=== PATIENT | female | born 1965 | race American Indian/Alaskan Native ===

== ENCOUNTER 2017-07-28 20:57 | Inpatient (IN) | payer OTHER ==
[2017-07-28 22:46] LABS: Hemoglobin 15.1 gm/dl (10.1-14.3); Mean Corpuscular HGB Conc 34 % (30-34); Mean Corpuscular Hemoglobin 31 pg (28-32); Mean Corpuscular Volume 90 fl (79-97); Platelet Count 594 K/mm3 (140-440); Red Blood Count 4.91 M/mm3 (3.65-5.03); Red Cell Distribution Width 13.7 % (13.2-15.2)
[2017-07-28 22:49] LABS: White Blood Count 22.4 K/mm3 (4.5-11.0)
[2017-07-28] MEDS ORDERED: NACL 0.9% 500 ML 500 ML IV ONE (22:57)
[2017-07-28 23:25] LABS: BUN/Creatinine Ratio 23; Blood Urea Nitrogen 9 mg/dL (7-17); Calcium 10.7 mg/dL (8.4-10.2); Chloride 95.4 mmol/L (98-107); Glucose 333 mg/dL (65-100); Potassium 3.9 mmol/L (3.6-5.0); Sodium 132 mmol/L (137-145)
[2017-07-28 23:29] LABS: INR 1.15 (0.87-1.13)
[2017-07-28 23:31] LABS: Anion Gap 34 mmol/L
[2017-07-28 23:54] LABS: Carbon Dioxide 7 mmol/L (22-30)
[2017-07-29] MEDS ORDERED: NACL 0.9% 1000 ML 1,000 ML IV ONE ×2 (00:13→02:01)
[2017-07-29] MEDS ORDERED: SUBLIMAZE IV ONE (00:13)
[2017-07-29] MEDS ORDERED: VANCOMYCIN VIAL IV ONE ×2 (00:14→03:37)
[2017-07-29] MEDS ORDERED: VANCOMYCIN PHARMACY TO DOSE IV SCH (01:00)
[2017-07-29] MEDS ORDERED: VANCOMYCIN 1,250 MG in NACL 0.9% 250ML 250 ML IV ONE (01:00)
[2017-07-29 01:02] LABS: Bilirubin,Urine NEG (Negative); Blood,Urine SM (Negative); Ketones,Urine 80 mg/dL (Negative); Leukocyte Esterase,Urine NEG (Negative); Mucus,Urine FEW /HPF; Nitrite,Urine NEG (Negative); Urobilinogen,Urine < 2.0 mg/dL (<2.0)
--- NOTE | 2017-07-29 02:00 | Emergency Department Report ---
ED General Adult HPI - General Chief complaint: Skin/Abscess/Foreign Body Stated complaint: UPPER BACK PAIN Time Seen by Provider: 07/29/17 00:03 Source: patient Mode of arrival: Ambulatory Limitations: No Limitations - History of Present Illness Initial comments: Patient is a 52-year-old female who presents with back pain. Patient states that she had as a "boil" on her back a couple days ago but it popped. Since then she's been having severe pain in her back 6 out 10 to an achy type of pain however it's gotten worse. It radiates throughout her back. Patient denies having any nausea or vomiting. Patient was sent home with clindamycin and however she states that her symptoms are not improving. She denies having any shortness of breath or any chest pain. - Related Data Previous Rx's Medication Instructions Recorded Last Taken Type Ferrous Sulfate [Feosol 325 MG tab] 325 mg PO BID #60 tablet 12/15/13 12/27/13 Rx HYDROcodone/APAP 5-325 [[place] 2 each PO Q6H PRN #30 tablet 12/15/13 12/24/13 Rx 5-325 mg TAB] HYDROcodone/APAP 5-325 [[place] 2 each PO Q6H PRN #30 tablet 12/30/13 Unknown Rx 5-325 mg TAB] Allergies Allergy/AdvReac Type Severity Reaction Status Date / Time Penicillins Allergy Angioedema Verified 12/21/13 10:43 ED Review of Systems ROS: Stated complaint: UPPER BACK PAIN Other details as noted in HPI Constitutional: denies: chills, fever Eyes: denies: eye pain, eye discharge, vision change ENT: denies: ear pain, throat pain Respiratory: denies: cough, shortness of breath, wheezing Cardiovascular: denies: chest pain, palpitations Endocrine: no symptoms reported Gastrointestinal: denies: abdominal pain, nausea, diarrhea Genitourinary: denies: urgency, dysuria, discharge Musculoskeletal: back pain. denies: joint swelling, arthralgia Skin: denies: rash, lesions Neurological: denies: headache, weakness, paresthesias Psychiatric: denies: anxiety, depression Hematological/Lymphatic: denies: easy bleeding, easy bruising ED Past Medical Hx - Past Medical History Hx Heart Attack/AMI: No Hx Congestive Heart Failure: No Hx Diabetes: No Hx Asthma: No Hx COPD: No Hx HIV: No Additional medical history: Anemia - Surgical History Hx Open Heart Surgery: No Hx Cholecystectomy: No Hx Appendectomy: No Hx Breast Surgery: No Additional Surgical History: Ectopic in 2001 - Social History Smoking Status: Current Every Day Smoker Substance Use Type: None - Medications Home Medications: Home Medications Medication Instructions Recorded Confirmed Last Taken Type Ferrous Sulfate [Feosol 325 MG tab] 325 mg PO BID #60 tablet 12/15/13 12/21/13 12/27/13 Rx HYDROcodone/APAP 5-325 [[place] 2 each PO Q6H PRN #30 tablet 12/15/13 12/21/13 Rx 5-325 mg TAB] HYDROcodone/APAP 5-325 [[place] 2 each PO Q6H PRN #30 tablet 12/30/13 Unknown Rx 5-325 mg TAB] ED Physical Exam - General Limitations: No Limitations General appearance: alert, in no apparent distress - Head Head exam: Present: atraumatic, normocephalic - Eye Eye exam: Present: normal appearance - ENT ENT exam: Present: mucous membranes moist - Neck Neck exam: Present: normal inspection - Respiratory Respiratory exam: Present: normal lung sounds bilaterally. Absent: respiratory distress - Cardiovascular Cardiovascular Exam: Present: normal rhythm, tachycardia. Absent: systolic murmur, diastolic murmur, rubs, gallop - GI/Abdominal GI/Abdominal exam: Present: soft, normal bowel sounds - Extremities Exam Extremities exam: Present: normal inspection - Back Exam Back exam: Present: other (oben abscess with no fluctuance and erythema ) - Neurological Exam Neurological exam: Present: alert, oriented X3 - Psychiatric Psychiatric exam: Present: normal affect, normal mood - Skin Skin exam: Present: warm, dry, intact, normal color. Absent: rash ED Course Vital Signs 07/28/17 07/29/17 22:07 01:05 Temperature 98.2 F Pulse Rate 129 H Respiratory 18 18 Rate Blood Pressure 122/75 O2 Sat by Pulse 100 Oximetry ED Medical Decision Making - Lab Data Result diagrams: 07/28/17 22:15 07/28/17 22:15 Lab Results 07/28/17 07/28/17 07/28/17 Range/Units 22:15 22:15 22:23 WBC 22.4 H (4.5-11.0) K/mm3 RBC 4.91 (3.65-5.03) M/mm3 Hgb 15.1 H (10.1-14.3) gm/dl Hct 44.0 H (30.3-42.9) % MCV 90 (79-97) fl MCH 31 (28-32) pg MCHC 34 (30-34) % RDW 13.7 (13.2-15.2) % Plt Count 594 H (140-440) K/mm3 PT 15.3 H (12.2-14.9) Sec. INR 1.15 H (0.87-1.13) VBG pH (7.320-7.420) Sodium 132 L (137-145) mmol/L Potassium 3.9 (3.6-5.0) mmol/L Chloride 95.4 L (98-107) mmol/L Carbon Dioxide 7 L* (22-30) mmol/L Anion Gap 34 mmol/L BUN 9 (7-17) mg/dL Creatinine 0.4 L (0.7-1.2) mg/dL Estimated GFR > 60 ml/min BUN/Creatinine Ratio 23 % Glucose 333 H (65-100) mg/dL Lactic Acid (0.7-2.0) mmol/L Calcium 10.7 H (8.4-10.2) mg/dL Urine Color (Yellow) Urine Turbidity (Clear) Urine pH (5.0-7.0) Ur Specific [place] (1.003-1.030) Urine Protein (Negative) mg/dL Urine Glucose (UA) (Negative) mg/dL Urine Ketones (Negative) mg/dL Urine Blood (Negative) Urine Nitrite (Negative) Urine Bilirubin (Negative) Urine Urobilinogen (<2.0) mg/dL Ur Leukocyte Esterase (Negative) Urine WBC (Auto) (0.0-6.0) /HPF Urine RBC (Auto) (0.0-6.0) /HPF U Epithel Cells (Auto) (0-13.0) /HPF Urine Mucus /HPF 07/28/17 07/28/17 07/29/17 Range/Units 22:23 22:23 00:40 WBC (4.5-11.0) K/mm3 RBC (3.65-5.03) M/mm3 Hgb (10.1-14.3) gm/dl Hct (30.3-42.9) % MCV (79-97) fl MCH (28-32) pg MCHC (30-34) % RDW (13.2-15.2) % Plt Count (140-440) K/mm3 PT (12.2-14.9) Sec. INR (0.87-1.13) VBG pH 7.284 L (7.320-7.420) Sodium (137-145) mmol/L Potassium (3.6-5.0) mmol/L Chloride (98-107) mmol/L Carbon Dioxide (22-30) mmol/L Anion Gap mmol/L BUN (7-17) mg/dL Creatinine (0.7-1.2) mg/dL Estimated GFR ml/min BUN/Creatinine Ratio % Glucose (65-100) mg/dL Lactic Acid 1.20 (0.7-2.0) mmol/L Calcium (8.4-10.2) mg/dL Urine Color Yellow (Yellow) Urine Turbidity Clear (Clear) Urine pH 5.0 (5.0-7.0) Ur Specific [place] 1.030 (1.003-1.030) Urine Protein 100 mg/dl (Negative) mg/dL Urine Glucose (UA) >=500 (Negative) mg/dL Urine Ketones 80 (Negative) mg/dL Urine Blood Sm (Negative) Urine Nitrite Neg (Negative) Urine Bilirubin Neg (Negative) Urine Urobilinogen < 2.0 (<2.0) mg/dL Ur Leukocyte Esterase Neg (Negative) Urine WBC (Auto) 1.0 (0.0-6.0) /HPF Urine RBC (Auto) 2.0 (0.0-6.0) /HPF U Epithel Cells (Auto) 1.0 (0-13.0) /HPF Urine Mucus Few /HPF 07/29/17 Range/Units 01:33 WBC (4.5-11.0) K/mm3 RBC (3.65-5.03) M/mm3 Hgb (10.1-14.3) gm/dl Hct (30.3-42.9) % MCV (79-97) fl MCH (28-32) pg MCHC (30-34) % RDW (13.2-15.2) % Plt Count (140-440) K/mm3 PT (12.2-14.9) Sec. INR (0.87-1.13) VBG pH (7.320-7.420) Sodium (137-145) mmol/L Potassium (3.6-5.0) mmol/L Chloride (98-107) mmol/L Carbon Dioxide (22-30) mmol/L Anion Gap mmol/L BUN (7-17) mg/dL Creatinine (0.7-1.2) mg/dL Estimated GFR ml/min BUN/Creatinine Ratio % Glucose (65-100) mg/dL Lactic Acid 1.50 (0.7-2.0) mmol/L Calcium (8.4-10.2) mg/dL Urine Color (Yellow) Urine Turbidity (Clear) Urine pH (5.0-7.0) Ur Specific [place] (1.003-1.030) Urine Protein (Negative) mg/dL Urine Glucose (UA) (Negative) mg/dL Urine Ketones (Negative) mg/dL Urine Blood (Negative) Urine Nitrite (Negative) Urine Bilirubin (Negative) Urine Urobilinogen (<2.0) mg/dL Ur Leukocyte Esterase (Negative) Urine WBC (Auto) (0.0-6.0) /HPF Urine RBC (Auto) (0.0-6.0) /HPF U Epithel Cells (Auto) (0-13.0) /HPF Urine Mucus /HPF - EKG Data -: EKG Interpreted by Oh - EKG Data 07/29/17 03:34 KG shows sinus tachycardia rate [address] segment elevation or T wave inversion normal axis - Radiology Data Radiology results: report reviewed, image reviewed Chest x-ray: Shows no acute cardio pulmonary disease - Medical Decision Making Chief medical diagnosis: Sepsis secondary to cellulitis Differential medical diagnosis: Pneumonia, UTI, hypoglycemia, non-STEMI I will get EKG, 30 mL per kilo bolus, IV vancomycin, blood cultures, lactic acid , CBC and CMP Patient has sepsis patient will be need to be admitted to the hospital for potentially life-threatening condition. Discussed plan with patient patient agrees the plan. Discussed with hospitalist Dr. Fletcher patient will be admitted to the hospital Critical Care Time: Yes Critical care time in (mins) excluding proc time.: 40 Critical care attestation.: If time is entered above; I have spent that time in minutes in the direct care of this critically ill patient, excluding procedure time. Critical care time spent with at patient's bedside 20 minutes Critical care time spent reviewing old patient's medical records 5 minutes Critical care time spent reviewing patient's laboratory work 5 minutes Critical care time sent with patient's family 5 minutes Critical care time spent with food consultant "hospitalist" 5 minutes ED Disposition Clinical Impression: Cellulitis Qualifiers: Site of cellulitis: trunk Site of cellulitis of trunk: back Qualified Code(s): L03.312 - Cellulitis of back [any part except buttock] Sepsis Qualifiers: Sepsis type: sepsis due to unspecified organism Qualified Code(s): A41.9 - Sepsis, unspecified organism Disposition: OP ADMIT IP TO THIS HOSP Is pt being admited?: Yes Does the pt Need Aspirin: No Condition: Stable Referrals: PRIMARY CARE, [Primary Care Provider] - 3-5 Days
--- NOTE | 2017-07-29 03:04 | XRay Report ---
FINAL REPORT PROCEDURE: XR CHEST 1V AP TECHNIQUE: Chest radiograph anteroposterior view. CPT 29380 HISTORY: possible Sepsis COMPARISON: No prior studies are available for comparison. FINDINGS: Heart: Normal. Mediastinum/Vessels: Normal. Lungs/Pleural space: Lungs are clear and expanded. There are no infiltrates, effusions or pneumothoraces.. Bony thorax: No acute osseous abnormality. Life support devices: None. There are lucencies at the lung apices and at the base of the neck which could be artifact. Possibility of subcutaneous air not excluded. This could be indirect evidence of pneumothorax or pneumomediastinum. This could also be related to infection or penetrating injury. Clinical correlation suggested. If indicated, CT of the thorax may be helpful. IMPRESSION: The heart size is normal. Lungs are clear and expanded. There are no infiltrates, effusions or pneumothoraces.. There are lucencies at the lung apices and at the base of the neck which could be artifact. Possibility of subcutaneous air not excluded. This could be indirect evidence of pneumothorax or pneumomediastinum. This could also be related to infection or penetrating injury. Clinical correlation suggested. If indicated, CT of the thorax may be helpful.
--- NOTE | 2017-07-29 03:33 | History and Physical Report ---
History of Present Illness Chief complaint: I got a sore on my back, and it hurts History of present illness: 52 YO Female with Nicotine Dependence presents to ED for evaluation. Patient states that she had as a "boil" on her back for the past 4 days which has gotten worse over the past 2 days and subsequently "popped" 2 days ago resulting in purulent drainage. Pt states that the area has gotten progressively more painful over the past 2 days. Pain is 6/10, constant, achy, radiated throughout her back, and is sensitive to the touch, and to pressure. Pt states that she was seen by her doctor, and prescribed oral antibiotics without improvement. Pt denies fever, chills, CP, Palpitation, NVD, trauma, or recent ill contacts. Pt seen and evaluated in ED and found to have evidence of sepsis, as well a back abscess with cellulitis. Pt treated with sepsis protocol. Past History Past Medical History: other (nicotine dependence) Past Surgical History: No surgical history Social history: single, smoking. denies: alcohol abuse, prescription drug abuse Family history: hypertension Medications and Allergies Allergies Allergy/AdvReac Type Severity Reaction Status Date / Time Penicillins Allergy Angioedema Verified 12/21/13 10:43 Home Medications Medication Instructions Recorded Confirmed Last Taken Type Ferrous Sulfate [Feosol 325 MG tab] 325 mg PO BID #60 tablet 12/15/13 12/21/13 12/27/13 Rx HYDROcodone/APAP 5-325 [[place] 2 each PO Q6H PRN #30 tablet 12/15/13 12/21/13 Rx 5-325 mg TAB] HYDROcodone/APAP 5-325 [[place] 2 each PO Q6H PRN #30 tablet 12/30/13 Unknown Rx 5-325 mg TAB] Active Meds: Active Medications Vancomycin HCl (Vancomycin/Ns 1 Gm/250 Ml) 1 gm in 250 mls @ 167.007 mls/hr IV Q12H GRICEL Vancomycin HCl (Vancomycin Pharmacy To Dose) 1 each IV PKCONSULT GRICEL PRN Reason: Protocol Review of Systems Constitutional: other (upper back pain), no weight loss, no weight gain, no fever, no chills Ears, nose, mouth and throat: no ear pain, no ear discharge, no tinnitis, no decreased hearing, no nose pain, no nasal congestion Breasts: no change in shape, no swelling, no mass Cardiovascular: no chest pain, no orthopnea, no palpitations, no rapid/ irregular heart beat, no edema, no syncope Respiratory: no cough, no cough with sputum, no excessive sputum, no hemoptysis , no shortness of breath Gastrointestinal: no abdominal pain, no nausea, no vomiting, no diarrhea, no constipation, no change in bowel habits, no hematemesis Genitourinary Female: no pelvic pain, no flank pain, no menorrhagia, no dysuria , no urinary frequency, no urgency Rectal: no pain, no incontinence, no bleeding Musculoskeletal: no neck stiffness, no neck pain, no shooting arm pain, no arm numbness/tingling, no low back pain, no shooting leg pain, no leg numbness/ tingling, no redness of joints Integumentary: redness, boils, other (Upper back erythema, induration, ) Neurological: no head injury, no transient paralysis, no paralysis, no weakness , no parathesias Psychiatric: no anxiety, no memory loss, no change in sleep habits, no sleep disturbances, no insomnia, no hypersomnia, no change in appetite, no change in libido Endocrine: no cold intolerance, no heat intolerance, no polyphagia, no excessive thirst, no polydipsia, no polyuria Hematologic/Lymphatic: no easy bruising, no easy bleeding Allergic/Immunologic: no urticaria, no allergic rhinitis, no wheezing Exam - Constitutional Vitals: Temp Pulse Resp BP Pulse Ox 98.2 F 129 H 18 122/75 100 07/28/17 22:07 07/28/17 22:07 07/29/17 01:05 07/28/17 22:07 07/28/17 22:07 General appearance: Present: mild distress - EENT Eyes: Present: PERRL ENT: hearing intact, clear oral mucosa - Neck Neck: Present: supple, normal ROM - Respiratory Respiratory effort: normal Respiratory: bilateral: CTA - Cardiovascular Heart Sounds: Present: S1 & S2. Absent: rub, click - Extremities Extremities: pulses symmetrical, No edema Peripheral Pulses: abnormal (capillary refill greater than 3 seconds) - Abdominal General gastrointestinal: Present: soft, non-tender, non-distended, normal bowel sounds Female genitourinary: Present: normal - Integumentary Integumentary: Present: erythema (upper back) - Musculoskeletal Musculoskeletal: gait normal, strength equal bilaterally - Psychiatric Psychiatric: appropriate mood/affect, intact judgment & insight - Neurologic Neurologic: CNII-XII intact, moves all extremities Results - Labs CBC & Chem 7: 07/28/17 22:15 07/28/17 22:15 Labs: Abnormal lab results 07/28/17 07/28/17 07/28/17 Range/Units 22:15 22:15 22:23 WBC 22.4 H (4.5-11.0) K/mm3 Hgb 15.1 H (10.1-14.3) gm/dl Hct 44.0 H (30.3-42.9) % Plt Count 594 H (140-440) K/mm3 PT 15.3 H (12.2-14.9) Sec. INR 1.15 H (0.87-1.13) VBG pH (7.320-7.420) Sodium 132 L (137-145) mmol/L Chloride 95.4 L (98-107) mmol/L Carbon Dioxide 7 L* (22-30) mmol/L Creatinine 0.4 L (0.7-1.2) mg/dL Glucose 333 H (65-100) mg/dL Calcium 10.7 H (8.4-10.2) mg/dL 07/28/17 Range/Units 22:23 WBC (4.5-11.0) K/mm3 Hgb (10.1-14.3) gm/dl Hct (30.3-42.9) % Plt Count (140-440) K/mm3 PT (12.2-14.9) Sec. INR (0.87-1.13) VBG pH 7.284 L (7.320-7.420) Sodium (137-145) mmol/L Chloride (98-107) mmol/L Carbon Dioxide (22-30) mmol/L Creatinine (0.7-1.2) mg/dL Glucose (65-100) mg/dL Calcium (8.4-10.2) mg/dL Assessment and Plan - Patient Problems (1) Sepsis Current Visit: Yes Status: Acute Qualifiers: Sepsis type: sepsis due to unspecified organism Qualified Code(s): A41.9 - Sepsis, unspecified organism Plan to address problem: IV abx, IVF resuscitation, monitor uop q shift, serial lactic acid levels, blood cultures, wound cultures, urinalysis, (2) Metabolic acidosis Current Visit: Yes Status: Acute Plan to address problem: Treat sepsis, IVF resuscitation, serial lactic acid level, Bicarbonate therapy x1, (3) Diabetes Current Visit: Yes Status: Acute Plan to address problem: AD diet, insulin, accu check (4) Back abscess Current Visit: Yes Status: Acute Plan to address problem: IV abx, wound care, CT Chest to evaluate extent of cellulitis/abscess. (5) Hyponatremia syndrome Current Visit: Yes Status: Acute Plan to address problem: IVF resuscitation, repeat bmp (6) DVT prophylaxis Current Visit: Yes Status: Acute Plan to address problem: SCD to BLE while in bed.
[2017-07-29] MEDS ORDERED: SODIUM BICARBONATE IV ONE ×2 (03:35→05:06)
[2017-07-29] MEDS ORDERED: PROVENTIL IH PRN (03:37)
[2017-07-29] MEDS ORDERED: MILK OF MAGNESIA PO PRN (03:37)
[2017-07-29] MEDS ORDERED: DULCOLAX PR PRN (03:37)
[2017-07-29] MEDS ORDERED: TYLENOL PO PRN (03:37)
[2017-07-29] MEDS ORDERED: NACL 0.9% 1000 ML IV ONE (03:37)
[2017-07-29] MEDS ORDERED: NORCO 5/325 PO PRN (03:46)
[2017-07-29] MEDS ORDERED: D50W (25GM) Vial IV PRN (03:49)
[2017-07-29] MEDS ORDERED: ZOFRAN IV ONE (04:06)
[2017-07-29] MEDS ORDERED: SODIUM BICARBONATE PEDIATRIC ONE (05:06)
[2017-07-29] MEDS ORDERED: NACL 0.9% 1000 ML 1,000 ML ONE (05:07)
--- NOTE | 2017-07-29 09:15 | Cat Scan Report ---
CT CHEST WITH CONTRAST: HISTORY: Back abscess. COMPARISON: none. TECHNIQUE: Helical CT in 1.25mm intervals following IV contrast. Sagittal and coronal reformatted images. FINDINGS: Thyroid gland: Normal. Tracheobronchial tree: Normal. Esophagus: Normal. Heart: Normal. Pericardium: Normal. Mediastinum: Normal. Lung [place]: Normal. Pleural Spaces: Normal. Musculoskeletal: A subcutaneous fluid collection consistent with abscess measuring up to 3 cm in diameter is identified in the upper back at the level of T1. There is a large amount of surrounding subcutaneous gas. The bony structures are intact. No obvious findings of osteomyelitis. IMPRESSION: 3 cm abscess with surrounding gas in the upper back as described. Otherwise, unremarkable CT chest with contrast.
--- NOTE | 2017-07-29 09:48 | Event Note ---
Date: 07/29/17 Patient with abscess on back. I have seen and examined her. Consult Dr. Villaseñor. Keep NPO. Will transfer to ICU
[2017-07-29] MEDS: PEPCID PO SCH (10:14)
[2017-07-29] MEDS: FEOSOL PO SCH (10:14)
[2017-07-29] MEDS: NOVOLOG SUB-Q SCH ×2 (10:19→12:49)
[2017-07-29 10:20] LABS: BUN/Creatinine Ratio 25; Blood Urea Nitrogen 10 mg/dL (7-17); Calcium 9.2 mg/dL (8.4-10.2); Chloride 109.4 mmol/L (98-107); Glucose 319 mg/dL (65-100); Potassium 3.6 mmol/L (3.6-5.0); Sodium 143 mmol/L (137-145)
[2017-07-29 10:34] LABS: Anion Gap 32 mmol/L
[2017-07-29] MEDS ORDERED: D50W (25GM) Syringe IV PRN (10:48)
[2017-07-29] MEDS ORDERED: NACL 0.9% 1000 ML 1,000 ML IV SCH (11:00)
--- NOTE | 2017-07-29 11:15 | Progress Note ---
Assessment and Plan (Full consult dictated) 52 y/o undiagnosed diabetic female. c/o upper back pain. PE - Upper back abscess. pt just ate. will schedule for I&D in am heating pad tid antibiotics glucose control History of Present Illness Chief complaint: I got a sore on my back, and it hurts History of present illness: 52 YO Female with Nicotine Dependence presents to ED for evaluation. Patient states that she had as a "boil" on her back for the past 4 days which has gotten worse over the past 2 days and subsequently "popped" 2 days ago resulting in purulent drainage. Pt states that the area has gotten progressively more painful over the past 2 days. Pain is 6/10, constant, achy, radiated throughout her back, and is sensitive to the touch, and to pressure. Pt states that she was seen by her doctor, and prescribed oral antibiotics without improvement. Pt denies fever, chills, CP, Palpitation, NVD, trauma, or recent ill contacts. Pt seen and evaluated in ED and found to have evidence of sepsis, as well a back abscess with cellulitis. Pt treated with sepsis protocol. Past History Past Medical History: other (nicotine dependence) Past Surgical History: No surgical history Social history: single, smoking. denies: alcohol abuse, prescription drug abuse Family history: hypertension Selected Entries 07/29/17 07:55 Temperature 98.8 F Pulse Rate 110 H Respiratory 20 Rate Blood Pressure 120/61 Laboratory Tests 07/28/17 07/28/17 07/29/17 22:15 22:23 09:44 WBC 22.4 H Hgb 15.1 H Hct 44.0 H PT 15.3 H INR 1.15 H Sodium 143 D Potassium 3.6 Chloride 109.4 H Carbon Dioxide 5 L* Anion Gap 32 BUN 10 Creatinine 0.4 L Laboratory Tests 07/29/17 07/29/17 07/29/17 03:37 07:51 09:44 Glucose 319 H POC Glucose 280 H Hemoglobin A1c 13.2 H Objective Vital Signs - 12hr 07/29/17 07/29/17 07/29/17 00:36 00:45 01:00 Temperature Pulse Rate 117 H 116 H 112 H Respiratory 24 26 H 14 Rate Blood Pressure 129/70 O2 Sat by Pulse 99 100 100 Oximetry 07/29/17 07/29/17 07/29/17 01:05 01:15 01:30 Temperature Pulse Rate 111 H Respiratory 18 16 20 Rate Blood Pressure 129/70 O2 Sat by Pulse 100 100 Oximetry 07/29/17 07/29/17 07/29/17 01:31 01:45 02:00 Temperature Pulse Rate 110 H 107 H 107 H Respiratory 14 21 18 Rate Blood Pressure 129/70 129/70 118/65 O2 Sat by Pulse 100 99 99 Oximetry 07/29/17 07/29/17 07/29/17 02:15 02:31 02:45 Temperature Pulse Rate 109 H 112 H 108 H Respiratory 21 20 20 Rate Blood Pressure 118/65 118/65 118/65 O2 Sat by Pulse 100 100 99 Oximetry 07/29/17 07/29/17 07/29/17 03:00 03:15 03:31 Temperature Pulse Rate 108 H 111 H 109 H Respiratory 26 H 22 22 Rate Blood Pressure 118/59 118/65 118/65 O2 Sat by Pulse 100 99 99 Oximetry 07/29/17 07/29/17 07/29/17 03:45 04:00 04:15 Temperature Pulse Rate 117 H 110 H 108 H Respiratory 22 22 21 Rate Blood Pressure 118/59 115/61 115/61 O2 Sat by Pulse 100 98 99 Oximetry 07/29/17 07/29/17 07/29/17 04:30 04:45 05:00 Temperature Pulse Rate 109 H 109 H 108 H Respiratory 20 23 19 Rate Blood Pressure 115/61 115/61 112/56 O2 Sat by Pulse 100 99 100 Oximetry 07/29/17 07/29/17 07/29/17 05:15 05:31 06:36 Temperature 97.8 F Pulse Rate 114 H 114 H 112 H Respiratory 15 21 18 Rate Blood Pressure 115/61 115/61 128/78 O2 Sat by Pulse 100 100 100 Oximetry 07/29/17 07:55 Temperature 98.8 F Pulse Rate 110 H Respiratory 20 Rate Blood Pressure 120/61 O2 Sat by Pulse 99 Oximetry - Labs 07/28/17 22:15 07/29/17 09:44 Diabetes panel 07/28/17 07/29/17 07/29/17 Range/Units 22:15 03:37 09:44 Sodium 132 L 143 D (137-145) mmol/L Potassium 3.9 3.6 (3.6-5.0) mmol/L Chloride 95.4 L 109.4 H (98-107) mmol/L Carbon Dioxide 7 L* 5 L* (22-30) mmol/L BUN 9 10 (7-17) mg/dL Creatinine 0.4 L 0.4 L (0.7-1.2) mg/dL Glucose 333 H 319 H (65-100) mg/dL Hemoglobin A1c 13.2 H (4-6) % Calcium 10.7 H 9.2 (8.4-10.2) mg/dL Calcium panel 07/28/17 07/29/17 Range/Units 22:15 09:44 Calcium 10.7 H 9.2 (8.4-10.2) mg/dL Pituitary panel 07/28/17 07/29/17 Range/Units 22:15 09:44 Sodium 132 L 143 D (137-145) mmol/L Potassium 3.9 3.6 (3.6-5.0) mmol/L Chloride 95.4 L 109.4 H (98-107) mmol/L Carbon Dioxide 7 L* 5 L* (22-30) mmol/L BUN 9 10 (7-17) mg/dL Creatinine 0.4 L 0.4 L (0.7-1.2) mg/dL Glucose 333 H 319 H (65-100) mg/dL Calcium 10.7 H 9.2 (8.4-10.2) mg/dL Adrenal panel 07/28/17 07/29/17 Range/Units 22:15 09:44 Sodium 132 L 143 D (137-145) mmol/L Potassium 3.9 3.6 (3.6-5.0) mmol/L Chloride 95.4 L 109.4 H (98-107) mmol/L Carbon Dioxide 7 L* 5 L* (22-30) mmol/L BUN 9 10 (7-17) mg/dL Creatinine 0.4 L 0.4 L (0.7-1.2) mg/dL Glucose 333 H 319 H (65-100) mg/dL Calcium 10.7 H 9.2 (8.4-10.2) mg/dL
[2017-07-29] MEDS ORDERED: NovoLIN R 100 UNITS in NACL 0.9% 99 ML IV SCH (12:00)
[2017-07-29 12:45] LABS: BUN/Creatinine Ratio 30; Blood Urea Nitrogen 9 mg/dL (7-17); Calcium 9.3 mg/dL (8.4-10.2); Chloride 106.9 mmol/L (98-107); Glucose 336 mg/dL (65-100); Magnesium 1.7 mg/dL (1.7-2.3); Phosphorous 1.3 mg/dL (2.5-4.5); Potassium 4.1 mmol/L (3.6-5.0); Sodium 139 mmol/L (137-145)
[2017-07-29] MEDS: VANCOMYCIN/NS 1 GM/250 ML 1 GM/250 ML BAG IV SCH (12:49)
[2017-07-29 13:03] LABS: Anion Gap 27 mmol/L; Carbon Dioxide 9 mmol/L (22-30)
[2017-07-29] MEDS ORDERED: SODIUM PHOSPHATE 45 MMOL in NACL 0.9% 500 ML 500 ML IV ONE (13:04)
[2017-07-29] MEDS ORDERED: KPHOS 45 MMOL in NACL 0.9% 500 ML 500 ML IV ONE (13:15)
[2017-07-29 15:56] LABS: Anion Gap 21 mmol/L; BUN/Creatinine Ratio 30; Blood Urea Nitrogen 9 mg/dL (7-17); Calcium 9.3 mg/dL (8.4-10.2); Carbon Dioxide 11 mmol/L (22-30); Chloride 112.9 mmol/L (98-107); Glucose 233 mg/dL (65-100); Potassium 3.3 mmol/L (3.6-5.0); Sodium 142 mmol/L (137-145)
[2017-07-29 17:38] LABS: Anion Gap 21 mmol/L; BUN/Creatinine Ratio 30; Blood Urea Nitrogen 9 mg/dL (7-17); Calcium 9.3 mg/dL (8.4-10.2); Carbon Dioxide 10 mmol/L (22-30); Chloride 112.9 mmol/L (98-107); Glucose 158 mg/dL (65-100); Potassium 3.2 mmol/L (3.6-5.0); Sodium 141 mmol/L (137-145)
[2017-07-29] MEDS: D5W/0.45% NACL/KCL 20 MEQ 20 MEQ/1,000 ML BAG IV SCH (17:49)
[2017-07-29] MEDS: MORPHINE IV PRN (18:33)
[2017-07-29 19:56] LABS: Anion Gap 21 mmol/L; BUN/Creatinine Ratio 27; Blood Urea Nitrogen 8 mg/dL (7-17); Calcium 9.1 mg/dL (8.4-10.2); Carbon Dioxide 12 mmol/L (22-30); Chloride 114.3 mmol/L (98-107); Glucose 167 mg/dL (65-100); Potassium 3.9 mmol/L (3.6-5.0); Sodium 143 mmol/L (137-145)
[2017-07-30] MEDS: PEPCID PO SCH ×3 (00:36→22:36)
[2017-07-30] MEDS: FEOSOL PO SCH ×3 (00:36→22:35)
[2017-07-30] MEDS: VANCOMYCIN/NS 1 GM/250 ML 1 GM/250 ML BAG IV SCH ×2 (00:36→14:07)
--- NOTE | 2017-07-30 00:50 | Consultation ---
REASON FOR CONSULTATION: Rule out upper back abscess. HISTORY OF PRESENT ILLNESS: The patient is a pleasant 52-year-old undiagnosed diabetic female who presented to the Emergency Room with complaints of upper back pain. She states that she has noted a lump in her upper back, which " and started draining a couple days ago. PAST MEDICAL HISTORY: Pertinent for what now is diabetes. PAST SURGICAL HISTORY: Status post CHEIKH. Also, it appears the patient had this " removed approximately 4-5 years ago at [place] and it has since returned and most likely got infected. ALLERGIES: ALLERGIC TO PENICILLIN, which causes her throat to close in the whole. MEDICATIONS: No medications. FAMILY HISTORY: Diabetes and hypertension. SOCIAL HISTORY: Denies any smoking or drinking. REVIEW OF SYSTEMS: Noncontributory. PHYSICAL EXAMINATION: GENERAL: At this time reveals the patient to be awake, alert, cooperative. VITAL SIGNS: Show her to be afebrile with a temperature of 98.8, blood pressure 120/61, pulse of 110, respirations 20. ABDOMEN: Examination of the upper back reveals an indurated erythematous nodule consistent with an infected sebaceous cyst. LABORATORY DATA: Lab work at present includes a CBC which shows a white count of 22.4, H and H is 15 and 44. Electrolytes are essentially within normal limits. CO2 is very low at 5. Glucose is 319 down from 333 on previous drawing. A1c is 13.2. IMPRESSION: At this time is that of a 52-year-old diabetic female with infected sebaceous cyst. Plans are to proceed with I and D of upper back abscess. The patient has just eaten, thus we will need to schedule for tomorrow morning. In the meantime, also we will begin a heating pad t.i.d. over the infected area and also IV antibiotics. JOB# [id number] FP/NTS
[2017-07-30] MEDS: D5W/0.45% NACL/KCL 20 MEQ 20 MEQ/1,000 ML BAG IV SCH (03:17)
[2017-07-30 06:01] LABS: Anion Gap 19 mmol/L; BUN/Creatinine Ratio 25; Blood Urea Nitrogen 5 mg/dL (7-17); Calcium 9.3 mg/dL (8.4-10.2); Carbon Dioxide 15 mmol/L (22-30); Chloride 109.3 mmol/L (98-107); Glucose 138 mg/dL (65-100); Potassium 3.4 mmol/L (3.6-5.0); Sodium 140 mmol/L (137-145)
[2017-07-30 06:02] LABS: Magnesium 1.5 mg/dL (1.7-2.3); Phosphorous 1.8 mg/dL (2.5-4.5)
[2017-07-30] MEDS ORDERED: MAGNESIUM SULFATE 4GM/100ML 4 GM/100 ML BAG IV ONE (07:58)
--- NOTE | 2017-07-30 08:44 | Progress Note ---
Assessment and Plan Assessment and plan: Diabetic ketoacidosis. Transferred to ICU. Continue Insulin drip. Possible transfer out of ICU today. Abscess on back. For I and D today. I discussed Hyponatremia. Improved Hypophosphatemia. Replace iv and recheck Hypomagnesemia. Replace iv and recheck DVT prophylaxis. SCDs only because of surgery History Interval history: Abscess on back, Fever, no chest pain, no SOB Hospitalist Physical - Physical exam Narrative exam: GEN APPEARANCE : Not in acute distress HEENT: Normocephalic Atrauma NECK : supple, no JVD LUNGS: clear to auscultation bilaterally, no rales, no wheeze HEART: S1 and S2 regular, tachycardia, no murmurs, rubs or gallop, ABD: Soft, no tenderness, no distension, normal bowel sounds EXT: No edema, no clubbing, no cyanosis NEURO: Awake,alert,oriented x 3, no facial asymmetry,no focal signs, Back: Abscess on back - Constitutional Vitals: Temp Pulse Resp BP Pulse Ox 99.6 F 128 H 25 H 148/75 100 07/30/17 04:00 07/30/17 08:00 07/30/17 08:00 07/30/17 08:00 07/30/17 08:39 General appearance: Present: mild distress Results - Labs CBC & Chem 7: 07/28/17 22:15 07/30/17 14:31 Labs: Laboratory Last Values WBC 22.4 K/mm3 (4.5-11.0) H 07/28/17 22:15 RBC 4.91 M/mm3 (3.65-5.03) 07/28/17 22:15 Hgb 15.1 gm/dl (10.1-14.3) H 07/28/17 22:15 Hct 44.0 % (30.3-42.9) H 07/28/17 22:15 MCV 90 fl (79-97) 07/28/17 22:15 MCH 31 pg (28-32) 07/28/17 22:15 MCHC 34 % (30-34) 07/28/17 22:15 RDW 13.7 % (13.2-15.2) 07/28/17 22:15 Plt Count 594 K/mm3 (140-440) H 07/28/17 22:15 PT 15.3 Sec. (12.2-14.9) H 07/28/17 22:23 INR 1.15 (0.87-1.13) H 07/28/17 22:23 VBG pH 7.284 (7.320-7.420) L 07/28/17 22:23 Sodium 140 mmol/L (137-145) 07/30/17 05:02 Potassium 3.4 mmol/L (3.6-5.0) L 07/30/17 05:02 Chloride 109.3 mmol/L (98-107) H 07/30/17 05:02 Carbon Dioxide 15 mmol/L (22-30) L 07/30/17 05:02 Anion Gap 19 mmol/L 07/30/17 05:02 BUN 5 mg/dL (7-17) L 07/30/17 05:02 Creatinine < 0.2 mg/dL (0.7-1.2) L 07/30/17 05:02 Estimated GFR > 60 ml/min 07/30/17 05:02 BUN/Creatinine Ratio 25 % 07/30/17 05:02 Glucose 138 mg/dL (65-100) H 07/30/17 05:02 POC Glucose 146 (70-105) H 07/30/17 06:20 Hemoglobin A1c 13.2 % (4-6) H 07/29/17 03:37 Lactic Acid 1.50 mmol/L (0.7-2.0) 07/29/17 09:44 Calcium 9.3 mg/dL (8.4-10.2) 07/30/17 05:02 Phosphorus 1.80 mg/dL (2.5-4.5) L D 07/30/17 05:02 Magnesium 1.50 mg/dL (1.7-2.3) L 07/30/17 05:02 Urine Color Yellow (Yellow) 07/29/17 00:40 Urine Turbidity Clear (Clear) 07/29/17 00:40 Urine pH 5.0 (5.0-7.0) 07/29/17 00:40 Ur Specific [place] 1.030 (1.003-1.030) 07/29/17 00:40 Urine Protein 100 mg/dl mg/dL (Negative) 07/29/17 00:40 Urine Glucose (UA) >=500 mg/dL (Negative) 07/29/17 00:40 Urine Ketones 80 mg/dL (Negative) 07/29/17 00:40 Urine Blood Sm (Negative) 07/29/17 00:40 Urine Nitrite Neg (Negative) 07/29/17 00:40 Urine Bilirubin Neg (Negative) 07/29/17 00:40 Urine Urobilinogen < 2.0 mg/dL (<2.0) 07/29/17 00:40 Ur Leukocyte Esterase Neg (Negative) 07/29/17 00:40 Urine WBC (Auto) 1.0 /HPF (0.0-6.0) 07/29/17 00:40 Urine RBC (Auto) 2.0 /HPF (0.0-6.0) 07/29/17 00:40 U Epithel Cells (Auto) 1.0 /HPF (0-13.0) 07/29/17 00:40 Urine Mucus Few /HPF 07/29/17 00:40
[2017-07-30] MEDS ORDERED: KPHOS 45 MMOL in NACL 0.9% 500 ML 500 ML IV ONE (09:00)
[2017-07-30] MEDS ORDERED: NACL 0.9% 1000 ML 1,000 ML ONE ×2 (10:10→11:03)
[2017-07-30] MEDS ORDERED: PEPCID IV ONE (10:10)
[2017-07-30] MEDS ORDERED: XYLOCAINE MPF 2% ONE (10:12)
[2017-07-30] MEDS ORDERED: ZEMURON IV ONE (10:12)
[2017-07-30] MEDS ORDERED: QUELICIN ONE (10:12)
[2017-07-30] MEDS ORDERED: DIPRIVAN 10 MG/ML IV ONE ×2 (10:13→10:52)
[2017-07-30] MEDS ORDERED: DILAUDID ONE (10:23)
[2017-07-30] MEDS ORDERED: VERSED ONE (10:53)
--- NOTE | 2017-07-30 10:58 | Anesthesia Consultation ---
Anesthesia Consult and Med Hx Date of service: 07/30/17 - Airway Anesthetic Teeth Evaluation: Good, Chipped (TOP LEFT MOLAR) ROM Head & Neck: Adequate Mental/Hyoid Distance: Adequate Mallampati Class: Class II Intubation Access Assessment: Probably Good - Pulmonary Exam CTA: Yes - Cardiac Exam Cardiac Exam: RRR - Pre-Operative Health Status ASA Pre-Surgery Classification: ASA3 Proposed Anesthetic Plan: General - Pulmonary Hx Smoking: No Hx Asthma: No COPD: No Hx Pneumonia: No Hx Sleep Apnea: No - Cardiovascular System Hx Heart Attack/AMI: No - Central Nervous System Hx Psychiatric Problems: No - Endocrine Hx End Stage Renal Disease: No Hx Insulin Dependent Diabetes: Yes (dka) - Hematic Hx Anemia: No - Other Systems Hx Alcohol Use: No Hx Cancer: No - Additional Comments Anesthesia Medical History Comments: SEPSIS 2/2 ABSCESS
[2017-07-30] MEDS ORDERED: DILAUDID IV PRN (10:59)
--- NOTE | 2017-07-30 10:59 | Anesthesia Day of Surgery ---
Anesthesia Day of Surgery - Day of Surgery Patient Examined: Yes Patient H&P Reviewed: Yes Patient is NPO: Yes
[2017-07-30] MEDS ORDERED: HYDROGEN PEROXIDE ONE (11:18)
[2017-07-30] MEDS ORDERED: MARCAINE 0.5% 30 ML INFILTRATI ONE (11:27)
[2017-07-30] MEDS ORDERED: MARCAINE 0.5% INFILTRATI ONE (11:45)
[2017-07-30] MEDS ORDERED: ZOFRAN ONE (11:48)
--- NOTE | 2017-07-30 12:06 | Operative Report ---
PREOPERATIVE DIAGNOSIS: Rule out infected sebaceous cyst of upper back. POSTOPERATIVE DIAGNOSIS: Necrotizing fasciitis secondary to an infected sebaceous cyst with necrosis extending down to muscle fascia. PROCEDURES: Wide excision, debridement, and packing of infected sebaceous cyst with surrounding necrotizing fasciitis. SURGEON: Ernesto Villaseñor M.D. ANESTHESIA: General. ESTIMATED BLOOD LOSS: Minimal. DRAINS: None. COMPLICATIONS: None. DESCRIPTION OF PROCEDURE: The patient was taken to the operating room and prepped and draped in usual sterile fashion. An 11 blade was used to incise the subQ abscess in the upper back. Inspection of the area revealed extensive tissue necrosis. The entire necrotic tissue was then removed including portions of fascia, which were also necrotic. Hemostasis was then obtained with needle tip electrocautery. The area was irrigated copiously with a 50% Betadine peroxide solution and suctioned dry. Once again we checked for hemostasis and noted to be dry. The cavity was packed with a 2-inch iodoform packing. A 0.5% Marcaine was infiltrated over the skin edges for postoperative pain relief. Fluffs and pressure dressings applied. The patient tolerated the procedure well and left OR in stable condition. JOB# [id number] BOGDAN/AJ
--- NOTE | 2017-07-30 13:33 | Consultation ---
History of Present Illness Consult date: 07/30/17 Requesting physician: SARI ALVAREZ Reason for consult: other (Sepsis Syndrome; DKA) History of present illness: PULMONARY/CCM CONSULT NOTE (Full dictation # [id number]) Please see dictated notes for full details Past History Past Medical History: other (nicotine dependence) Past Surgical History: No surgical history Social history: single, smoking. denies: alcohol abuse, prescription drug abuse Family history: hypertension Medications and Allergies Allergies Allergy/AdvReac Type Severity Reaction Status Date / Time Penicillins Allergy Angioedema Verified 12/21/13 10:43 Home Medications Medication Instructions Recorded Confirmed Last Taken Type Ferrous Sulfate [Feosol 325 MG tab] 325 mg PO BID #60 tablet 12/15/13 12/21/13 12/27/13 Rx HYDROcodone/APAP 5-325 [[place] 2 each PO Q6H PRN #30 tablet 12/15/13 12/21/13 Rx 5-325 mg TAB] HYDROcodone/APAP 5-325 [[place] 2 each PO Q6H PRN #30 tablet 12/30/13 Unknown Rx 5-325 mg TAB] Active Meds: Active Medications Acetaminophen (Tylenol) 650 mg PO Q4H PRN PRN Reason: Pain MILD(1-3)/Fever >100.5/LEBRON Albuterol (Proventil) 2.5 mg IH Q4HRT PRN PRN Reason: Shortness Of Breath Bisacodyl (Dulcolax) 10 mg [place] QDAY PRN PRN Reason: Constipation unrelieved by MOM Dextrose (D50w (25gm) Syringe) 0 ml IV PRN PRN PRN Reason: Hypoglycemia Famotidine (Pepcid) 10 mg PO BID [facility] Last Admin: 07/30/17 00:36 Dose: 10 mg Ferrous Sulfate (Feosol) 325 mg PO BID [facility] Last Admin: 07/30/17 00:36 Dose: 325 mg Hydromorphone HCl (Dilaudid) 0.5 mg IV Q10MIN PRN PRN Reason: Pain , Severe (7-10) Stop: 07/30/17 18:00 Vancomycin HCl (Vancomycin/Ns 1 Gm/250 Ml) 1 gm in 250 mls @ 167.007 mls/hr IV Q12H [facility] Last Admin: 07/30/17 00:36 Dose: 167.007 mls/hr Insulin Human Regular 100 (units/ Sodium Chloride) 100 mls @ 1 mls/hr IV TITR GRICEL; 1 UNITS/HR PRN Reason: Protocol Last Titration: 07/30/17 08:00 Dose: 3 units/hr, 3 mls/hr Potassium Chloride/Dextrose/Sod Cl (D5w/0.45% Nacl/Kcl 20 Meq) 20 meq in 1,000 mls @ 125 mls/hr IV DIRECT GRIC[facility] Last Admin: 07/30/17 03:17 Dose: 125 mls/hr Potassium Phosphate 45 mmol/ (Sodium Chloride) 515 mls @ 85 mls/hr IV ONCE ONE Stop: 07/30/17 15:03 Clindamycin HCl (Cleocin 600 Mg/50 Ml) 600 mg in 50 mls @ 100 mls/hr IV Q8HR [facility] PRN Reason: Protocol Magnesium Hydroxide (Milk Of Magnesia) 30 ml PO Q4H PRN PRN Reason: Constipation Morphine Sulfate (Morphine) 2 mg IV Q4H PRN PRN Reason: Pain, Moderate (4-6) Last Admin: 07/29/17 18:33 Dose: 2 mg Ondansetron HCl (Zofran) 4 mg IV Q8H PRN PRN Reason: N/V unrelieved by Rosanna Vancomycin HCl (Vancomycin Pharmacy To Dose) 1 each IV PKCONSULT GRICEL PRN Reason: Protocol Physical Examination Vital signs: Vital Signs Temp Pulse Resp BP Pulse Ox 98.2 F 129 H 18 122/75 100 07/28/17 22:07 07/28/17 22:07 07/28/17 22:07 07/28/17 22:07 07/28/17 22:07 Results - Laboratory Findings CBC and BMP: 07/30/17 20:44 07/31/17 05:21 PT/INR, D-dimer PT 15.3 Sec. (12.2-14.9) H 07/28/17 22:23 INR 1.15 (0.87-1.13) H 07/28/17 22:23 Abnormal lab findings: Abnormal Labs 07/28/17 07/28/17 07/28/17 22:15 22:15 22:23 WBC 22.4 H Hgb 15.1 H Hct 44.0 H Plt Count 594 H PT 15.3 H INR 1.15 H VBG pH Sodium 132 L Potassium Chloride 95.4 L Carbon Dioxide 7 L* BUN Creatinine 0.4 L Glucose 333 H POC Glucose Hemoglobin A1c Calcium 10.7 H Phosphorus Magnesium 07/28/17 07/29/17 07/29/17 22:23 03:37 07:51 WBC Hgb Hct Plt Count PT INR VBG pH 7.284 L Sodium Potassium Chloride Carbon Dioxide BUN Creatinine Glucose POC Glucose 280 H Hemoglobin A1c 13.2 H Calcium Phosphorus Magnesium 07/29/17 07/29/17 07/29/17 09:44 12:17 12:17 WBC Hgb Hct Plt Count PT INR VBG pH Sodium Potassium Chloride 109.4 H Carbon Dioxide 5 L* 9 L* BUN Creatinine 0.4 L 0.3 L Glucose 319 H 336 H POC Glucose Hemoglobin A1c Calcium Phosphorus 1.30 L Magnesium 07/29/17 07/29/17 07/29/17 12:25 14:32 15:24 WBC Hgb Hct Plt Count PT INR VBG pH Sodium Potassium 3.3 L Chloride 112.9 H Carbon Dioxide 11 L BUN Creatinine 0.3 L Glucose 233 H POC Glucose 315 H 228 H Hemoglobin A1c Calcium Phosphorus Magnesium 07/29/17 07/29/17 07/29/17 16:18 16:56 17:07 WBC Hgb Hct Plt Count PT INR VBG pH Sodium Potassium 3.2 L Chloride 112.9 H Carbon Dioxide 10 L BUN Creatinine 0.3 L Glucose 158 H POC Glucose 192 H 157 H Hemoglobin A1c Calcium Phosphorus Magnesium 07/29/17 07/29/17 07/29/17 18:12 19:00 19:28 WBC Hgb Hct Plt Count PT INR VBG pH Sodium Potassium Chloride 114.3 H Carbon Dioxide 12 L BUN Creatinine 0.3 L Glucose 167 H POC Glucose 140 H 157 H Hemoglobin A1c Calcium Phosphorus Magnesium 07/29/17 07/29/17 07/29/17 20:15 21:16 22:05 WBC Hgb Hct Plt Count PT INR VBG pH Sodium Potassium Chloride Carbon Dioxide BUN Creatinine Glucose POC Glucose 187 H 193 H 166 H Hemoglobin A1c Calcium Phosphorus Magnesium 07/29/17 07/30/17 07/30/17 23:43 00:37 01:10 WBC Hgb Hct Plt Count PT INR VBG pH Sodium Potassium Chloride Carbon Dioxide BUN Creatinine Glucose POC Glucose 145 H 146 H 144 H Hemoglobin A1c Calcium Phosphorus Magnesium 07/30/17 07/30/17 07/30/17 02:03 04:13 05:02 WBC Hgb Hct Plt Count PT INR VBG pH Sodium Potassium 3.4 L Chloride 109.3 H Carbon Dioxide 15 L BUN 5 L Creatinine < 0.2 L Glucose 138 H POC Glucose 137 H 146 H Hemoglobin A1c Calcium Phosphorus Magnesium 07/30/17 07/30/17 07/30/17 05:02 05:26 06:13 WBC Hgb Hct Plt Count PT INR VBG pH Sodium Potassium Chloride Carbon Dioxide BUN Creatinine Glucose POC Glucose 150 H 141 H Hemoglobin A1c Calcium Phosphorus 1.80 L D Magnesium 1.50 L 07/30/17 07/30/17 07/30/17 06:20 08:23 12:06 WBC Hgb Hct Plt Count PT INR VBG pH Sodium Potassium Chloride Carbon Dioxide BUN Creatinine Glucose POC Glucose 146 H 180 H 251 H Hemoglobin A1c Calcium Phosphorus Magnesium
[2017-07-30] MEDS: CLEOCIN 600 MG/50 mL 600 MG/50 ML BAG IV SCH ×3 (14:08→22:45)
--- NOTE | 2017-07-30 14:45 | Post Anesthesia Evaluation ---
- Post Anesthesia Evaluation Patient Participated: Yes Airway Patent: Yes Stable Respiratory Function: Yes Nausea/Vomiting: No Temp > 96.8F: Yes Pain Manageable: Yes Adequeate Hydration: Yes Anesthesia Complications: No Block Receding Appropriately: Not Applicable Patient on Ventilator: No
[2017-07-30 15:22] LABS: BUN/Creatinine Ratio 20; Blood Urea Nitrogen 6 mg/dL (7-17); Calcium 8.7 mg/dL (8.4-10.2); Carbon Dioxide 16 mmol/L (22-30); Chloride 109.5 mmol/L (98-107); Glucose 282 mg/dL (65-100); Sodium 141 mmol/L (137-145)
[2017-07-30 15:28] LABS: Anion Gap 18 mmol/L
--- NOTE | 2017-07-30 15:36 | Consultation ---
History of Present Illness - Reason for Consult Consult date: 07/30/17 necrotizing fascitis Requesting physician: AYESHA VILLASEÑOR - History of Present Illness 52 years old female with history of diabetes, uncontrolled, admitted on 2016 due to a week history of back upper back edema, erythema and pain. Patient reports initially started as a boil, a couple of days later started draining purulence. Patient reports some subjective fever. Patient just came out of the operating room and she is somnolent. Review of system is limited. In the emergency room, initial temperature 98.2, heart rate 129, respiration 18 , blood pressure 122/75, initial white count 22. Hemoglobin 15. Creatinine is 0.4. Lactic acid 1.2. A1c 13. Urinalysis is negative. Glucose 333. CXR negative. CT of the chest showed 3 cm abscess in the upper back with surrounding gas. Microbiology: Blood cultures: 07/28 ngtd Urine cultures: Current Antimicrobials: Clinda Vancomycin Previous Antimicrobials: Past History Past Medical History: diabetes, other (nicotine dependence) Past Surgical History: No surgical history Social history: single, smoking. denies: alcohol abuse, prescription drug abuse Family history: hypertension Medications and Allergies Allergies Allergy/AdvReac Type Severity Reaction Status Date / Time Penicillins Allergy Angioedema Verified 12/21/13 10:43 Home Medications Medication Instructions Recorded Confirmed Last Taken Type Ferrous Sulfate [Feosol 325 MG tab] 325 mg PO BID #60 tablet 12/15/13 12/21/13 12/27/13 Rx HYDROcodone/APAP 5-325 [[place] 2 each PO Q6H PRN #30 tablet 12/15/13 12/21/13 Rx 5-325 mg TAB] HYDROcodone/APAP 5-325 [[place] 2 each PO Q6H PRN #30 tablet 12/30/13 Unknown Rx 5-325 mg TAB] Active Meds: Active Medications Acetaminophen (Tylenol) 650 mg PO Q4H PRN PRN Reason: Pain MILD(1-3)/Fever >100.5/LEBRON Albuterol (Proventil) 2.5 mg IH Q4HRT PRN PRN Reason: Shortness Of Breath Bisacodyl (Dulcolax) 10 mg [place] QDAY PRN PRN Reason: Constipation unrelieved by MOM Dextrose (D50w (25gm) Syringe) 0 ml IV PRN PRN PRN Reason: Hypoglycemia Famotidine (Pepcid) 10 mg PO BID [facility] Last Admin: 07/30/17 14:08 Dose: 10 mg Ferrous Sulfate (Feosol) 325 mg PO BID [facility] Last Admin: 07/30/17 14:09 Dose: 325 mg Hydromorphone HCl (Dilaudid) 0.5 mg IV Q10MIN PRN PRN Reason: Pain , Severe (7-10) Stop: 07/30/17 18:00 Vancomycin HCl (Vancomycin/Ns 1 Gm/250 Ml) 1 gm in 250 mls @ 167.007 mls/hr IV Q12H [facility] Last Admin: 07/30/17 14:07 Dose: 167.007 mls/hr Insulin Human Regular 100 (units/ Sodium Chloride) 100 mls @ 1 mls/hr IV TITR GRICEL; 1 UNITS/HR PRN Reason: Protocol Last Titration: 07/30/17 08:00 Dose: 3 units/hr, 3 mls/hr Potassium Chloride/Dextrose/Sod Cl (D5w/0.45% Nacl/Kcl 20 Meq) 20 meq in 1,000 mls @ 125 mls/hr IV DIRECT GRICEL Last Admin: 07/30/17 03:17 Dose: 125 mls/hr Clindamycin HCl (Cleocin 600 Mg/50 Ml) 600 mg in 50 mls @ 100 mls/hr IV Q8HR [facility] PRN Reason: Protocol Last Admin: 07/30/17 14:08 Dose: 100 mls/hr Magnesium Hydroxide (Milk Of Magnesia) 30 ml PO Q4H PRN PRN Reason: Constipation Morphine Sulfate (Morphine) 2 mg IV Q4H PRN PRN Reason: Pain, Moderate (4-6) Last Admin: 07/29/17 18:33 Dose: 2 mg Ondansetron HCl (Zofran) 4 mg IV Q8H PRN PRN Reason: N/V unrelieved by Rosanna Vancomycin HCl (Vancomycin Pharmacy To Dose) 1 each IV PKCONSULT GRICEL PRN Reason: Protocol Review of Systems ROS unobtainable: due to mental status Physical Examination - Physical Exam Narrative exam: General appearance: Alert in NAD, somnolent Eyes: anicteric sclerae, moist conjunctivae; no lid-lag; PERRLA HENT: Atraumatic; oropharynx limited Neck: Trachea midline; supple, no thyromegaly or lymphadenopathy Lungs: CTA. Upper back with surgical dressings CV: RRR, no murmurs Abdomen: Soft, non-tender Extremities: No peripheral edema or extremity lymphadenopathy Skin: Normal temperature, turgor and texture; no rash, ulcers or subcutaneous nodules Psych: somnolent. Neuro: somnolent. Moving all extermities Lines: No CVL / PICC - Constitutional Vitals: Vital Signs Temp Pulse Resp BP Pulse Ox 99 F 122 H 13 140/81 97 07/30/17 12:45 07/30/17 12:45 07/30/17 12:45 07/30/17 12:45 07/30/17 12:45 Temperature -Last 24 Hours Temperature 99 F Temperature 0 F Temperature 99.3 F Temperature 100.1 F Temperature 99.6 F Temperature 100.0 F Temperature 98.9 F Results - Labs CBC & Chem 7: 07/28/17 22:15 07/30/17 14:31 Labs: Abnormal lab results 07/29/17 07/29/17 07/29/17 Range/Units 14:32 15:24 16:18 Potassium 3.3 L (3.6-5.0) mmol/L Chloride 112.9 H (98-107) mmol/L Carbon Dioxide 11 L (22-30) mmol/L BUN (7-17) mg/dL Creatinine 0.3 L (0.7-1.2) mg/dL Glucose 233 H (65-100) mg/dL POC Glucose 228 H 192 H (70-105) Phosphorus (2.5-4.5) mg/dL Magnesium (1.7-2.3) mg/dL 07/29/17 07/29/17 07/29/17 Range/Units 16:56 17:07 18:12 Potassium 3.2 L (3.6-5.0) mmol/L Chloride 112.9 H (98-107) mmol/L Carbon Dioxide 10 L (22-30) mmol/L BUN (7-17) mg/dL Creatinine 0.3 L (0.7-1.2) mg/dL Glucose 158 H (65-100) mg/dL POC Glucose 157 H 140 H (70-105) Phosphorus (2.5-4.5) mg/dL Magnesium (1.7-2.3) mg/dL 07/29/17 07/29/17 07/29/17 Range/Units 19:00 19:28 20:15 Potassium (3.6-5.0) mmol/L Chloride 114.3 H (98-107) mmol/L Carbon Dioxide 12 L (22-30) mmol/L BUN (7-17) mg/dL Creatinine 0.3 L (0.7-1.2) mg/dL Glucose 167 H (65-100) mg/dL POC Glucose 157 H 187 H (70-105) Phosphorus (2.5-4.5) mg/dL Magnesium (1.7-2.3) mg/dL 07/29/17 07/29/17 07/29/17 Range/Units 21:16 22:05 23:43 Potassium (3.6-5.0) mmol/L Chloride (98-107) mmol/L Carbon Dioxide (22-30) mmol/L BUN (7-17) mg/dL Creatinine (0.7-1.2) mg/dL Glucose (65-100) mg/dL POC Glucose 193 H 166 H 145 H (70-105) Phosphorus (2.5-4.5) mg/dL Magnesium (1.7-2.3) mg/dL 07/30/17 07/30/17 07/30/17 Range/Units 00:37 01:10 02:03 Potassium (3.6-5.0) mmol/L Chloride (98-107) mmol/L Carbon Dioxide (22-30) mmol/L BUN (7-17) mg/dL Creatinine (0.7-1.2) mg/dL Glucose (65-100) mg/dL POC Glucose 146 H 144 H 137 H (70-105) Phosphorus (2.5-4.5) mg/dL Magnesium (1.7-2.3) mg/dL 07/30/17 07/30/17 07/30/17 Range/Units 04:13 05:02 05:02 Potassium 3.4 L (3.6-5.0) mmol/L Chloride 109.3 H (98-107) mmol/L Carbon Dioxide 15 L (22-30) mmol/L BUN 5 L (7-17) mg/dL Creatinine < 0.2 L (0.7-1.2) mg/dL Glucose 138 H (65-100) mg/dL POC Glucose 146 H (70-105) Phosphorus 1.80 L D (2.5-4.5) mg/dL Magnesium 1.50 L (1.7-2.3) mg/dL 07/30/17 07/30/17 07/30/17 Range/Units 05:26 06:13 06:20 Potassium (3.6-5.0) mmol/L Chloride (98-107) mmol/L Carbon Dioxide (22-30) mmol/L BUN (7-17) mg/dL Creatinine (0.7-1.2) mg/dL Glucose (65-100) mg/dL POC Glucose 150 H 141 H 146 H (70-105) Phosphorus (2.5-4.5) mg/dL Magnesium (1.7-2.3) mg/dL 07/30/17 07/30/17 07/30/17 Range/Units 08:23 12:06 14:31 Potassium (3.6-5.0) mmol/L Chloride 109.5 H (98-107) mmol/L Carbon Dioxide 16 L (22-30) mmol/L BUN 6 L (7-17) mg/dL Creatinine (0.7-1.2) mg/dL Glucose 282 H (65-100) mg/dL POC Glucose 180 H 251 H (70-105) Phosphorus (2.5-4.5) mg/dL Magnesium (1.7-2.3) mg/dL Assessment and Plan Assessment: 1) Sepsis: Present on admission, manifested by tachycardia, leukocytosis. Etiology most likely complicated skin/soft tissue infection. 2) Uper back complicated skin and soft tissue infection with an abscess and necrotizing fascitis: -S/P OR debridement 07/30 3) DM-uncontrolled 4) Penicillin allergy Plan: -follow-up blood cultures -obtain C-reactive protein (CRP) -add levaquin -continue vancomycin and clindamycin for now -follow-up deep wound cultures Thank you Dr Villaseñor for your consultation, will follow up with you. Zaina Garsia MD Infectious Diseases Specialist [facility] ([facility] M [phone] O [phone]
[2017-07-30 15:42] LABS: Potassium 2.8 mmol/L (3.6-5.0)
[2017-07-30 21:02] LABS: Hematocrit 35.8 % (30.3-42.9); Hemoglobin 12.2 gm/dl (10.1-14.3); Mean Corpuscular HGB Conc 34 % (30-34); Mean Corpuscular Hemoglobin 30 pg (28-32); Mean Corpuscular Volume 88 fl (79-97); Platelet Count 473 K/mm3 (140-440); Red Blood Count 4.08 M/mm3 (3.65-5.03); Red Cell Distribution Width 13.8 % (13.2-15.2)
[2017-07-30 21:12] LABS: White Blood Count 24.4 K/mm3 (4.5-11.0)
[2017-07-30 21:17] LABS: Anion Gap 21 mmol/L; BUN/Creatinine Ratio 25; Blood Urea Nitrogen 5 mg/dL (7-17); Calcium 8.5 mg/dL (8.4-10.2); Carbon Dioxide 18 mmol/L (22-30); Chloride 108.3 mmol/L (98-107); Glucose 239 mg/dL (65-100); Potassium 3.9 mmol/L (3.6-5.0); Sodium 143 mmol/L (137-145)
[2017-07-30] MEDS ORDERED: D50W (25GM) Vial IV PRN (22:06)
[2017-07-30] MEDS: KCL 10MEQ/100ML 10 MEQ/100 ML BAG IV SCH (22:35)
[2017-07-31] MEDS: NS/KCL 20MEQ 20 MEQ/1,000 ML BAG IV SCH ×2 (00:28→13:24)
[2017-07-31] MEDS: VANCOMYCIN/NS 1 GM/250 ML 1 GM/250 ML BAG IV SCH ×3 (01:25→22:58)
[2017-07-31] MEDS: NOVOLOG SUB-Q SCH ×4 (01:27→18:06)
[2017-07-31] MEDS: CLEOCIN 600 MG/50 mL 600 MG/50 ML BAG IV SCH ×3 (06:05→21:38)
[2017-07-31 06:09] LABS: Anion Gap 17 mmol/L; BUN/Creatinine Ratio 35; Blood Urea Nitrogen 7 mg/dL (7-17); Calcium 8.2 mg/dL (8.4-10.2); Carbon Dioxide 20 mmol/L (22-30); Chloride 109.9 mmol/L (98-107); Glucose 216 mg/dL (65-100); Potassium 3.4 mmol/L (3.6-5.0); Sodium 143 mmol/L (137-145)
[2017-07-31] MEDS: FEOSOL PO SCH ×2 (11:14→21:35)
[2017-07-31] MEDS: PEPCID PO SCH ×2 (11:14→21:35)
[2017-07-31] MEDS: SODIUM BICARBONATE PO SCH ×3 (11:15→21:35)
--- NOTE | 2017-07-31 11:18 | Progress Note ---
Assessment and Plan Pt feeling "much better" dressings dry clinically, much improved ID eval appreciated begin local wd care in am may be candidate for wd vac once granulating bed established. Selected Entries 07/31/17 07:20 Temperature 98.6 F Respiratory 16 Rate O2 Sat by Pulse 100 Oximetry Blood Pressure 116/70 Laboratory Tests 07/31/17 05:21 Sodium 143 Potassium 3.4 L Chloride 109.9 H Carbon Dioxide 20 L Anion Gap 17 BUN 7 Creatinine 0.2 L Glucose 216 H Objective Vital Signs - 12hr 07/30/17 07/31/17 07/31/17 23:59 00:00 00:06 Temperature 98.6 F 98.6 F Pulse Rate 101 H 100 H 101 H Respiratory 20 18 Rate Blood Pressure 123/78 123/78 Blood Pressure 123/78 [Left] O2 Sat by Pulse 100 100 100 Oximetry 07/31/17 07/31/17 06:01 07:20 Temperature 98.1 F 98.6 F Pulse Rate 95 H 94 H Respiratory 16 Rate Blood Pressure 110/66 116/70 Blood Pressure [Left] O2 Sat by Pulse 100 100 Oximetry - Labs 07/30/17 20:44 07/31/17 05:21 Diabetes panel 07/30/17 07/30/17 07/31/17 Range/Units 14:31 20:44 05:21 Sodium 141 143 143 (137-145) mmol/L Potassium 2.8 L* 3.9 D 3.4 L (3.6-5.0) mmol/L Chloride 109.5 H 108.3 H 109.9 H (98-107) mmol/L Carbon Dioxide 16 L 18 L 20 L (22-30) mmol/L BUN 6 L 5 L 7 (7-17) mg/dL Creatinine 0.3 L D 0.2 L 0.2 L (0.7-1.2) mg/dL Glucose 282 H 239 H 216 H (65-100) mg/dL Calcium 8.7 8.5 8.2 L (8.4-10.2) mg/dL Calcium panel 07/30/17 07/30/17 07/31/17 Range/Units 14:31 20:44 05:21 Calcium 8.7 8.5 8.2 L (8.4-10.2) mg/dL Pituitary panel 07/30/17 07/30/17 07/31/17 Range/Units 14:31 20:44 05:21 Sodium 141 143 143 (137-145) mmol/L Potassium 2.8 L* 3.9 D 3.4 L (3.6-5.0) mmol/L Chloride 109.5 H 108.3 H 109.9 H (98-107) mmol/L Carbon Dioxide 16 L 18 L 20 L (22-30) mmol/L BUN 6 L 5 L 7 (7-17) mg/dL Creatinine 0.3 L D 0.2 L 0.2 L (0.7-1.2) mg/dL Glucose 282 H 239 H 216 H (65-100) mg/dL Calcium 8.7 8.5 8.2 L (8.4-10.2) mg/dL Adrenal panel 07/30/17 07/30/17 07/31/17 Range/Units 14:31 20:44 05:21 Sodium 141 143 143 (137-145) mmol/L Potassium 2.8 L* 3.9 D 3.4 L (3.6-5.0) mmol/L Chloride 109.5 H 108.3 H 109.9 H (98-107) mmol/L Carbon Dioxide 16 L 18 L 20 L (22-30) mmol/L BUN 6 L 5 L 7 (7-17) mg/dL Creatinine 0.3 L D 0.2 L 0.2 L (0.7-1.2) mg/dL Glucose 282 H 239 H 216 H (65-100) mg/dL Calcium 8.7 8.5 8.2 L (8.4-10.2) mg/dL
[2017-07-31] MEDS: MORPHINE IV PRN (11:27)
--- NOTE | 2017-07-31 11:44 | Progress Note ---
Assessment and Plan Assessment and plan: Diabetic ketoacidosis. This is now resolved. She was on Insulin drip in ICU and transferred out of ICU yesterday. Her glucose level improving on Novolin 70/30. Diabetes mellitus type 2, Uncontrolled but improving. Now on Novolin 70/30 bid. Necrotizing fascitis of infected sebaceous cyst with necrosis down to muscle. s /p wide debridement yesterday by Dr. Villaseñor, Surgeon. ID Physician consulted. On Levaquin, Clindamycin, Vancomycin Abscess on back. For I and D today. I discussed Hyponatremia. Improved Hypophosphatemia. Replaced iv and recheck Hypomagnesemia. Replaced iv and recheck DVT prophylaxis. SCDs only because of surgery History Interval history: Abscess on back, Fever, no chest pain, no SOB Hospitalist Physical - Physical exam Narrative exam: GEN APPEARANCE : Not in acute distress HEENT: Normocephalic Atrauma NECK : supple, no JVD LUNGS: clear to auscultation bilaterally, no rales, no wheeze HEART: S1 and S2 regular, tachycardia, no murmurs, rubs or gallop, ABD: Soft, no tenderness, no distension, normal bowel sounds EXT: No edema, no clubbing, no cyanosis NEURO: Awake,alert,oriented x 3, no facial asymmetry,no focal signs, Back: Dressing over I and D site of abscess on back - Constitutional Vitals: Temp Pulse Resp BP Pulse Ox 98.6 F 94 H 16 116/70 98 07/31/17 07:20 07/31/17 07:20 07/31/17 07:20 07/31/17 07:20 07/31/17 10:00 General appearance: Present: mild distress Results - Labs CBC & Chem 7: 07/30/17 20:44 07/31/17 15:28 Labs: Laboratory Last Values WBC 24.4 K/mm3 (4.5-11.0) H 07/30/17 20:44 RBC 4.08 M/mm3 (3.65-5.03) 07/30/17 20:44 Hgb 12.2 gm/dl (10.1-14.3) 07/30/17 20:44 Hct 35.8 % (30.3-42.9) D 07/30/17 20:44 MCV 88 fl (79-97) 07/30/17 20:44 MCH 30 pg (28-32) 07/30/17 20:44 MCHC 34 % (30-34) 07/30/17 20:44 RDW 13.8 % (13.2-15.2) 07/30/17 20:44 Plt Count 473 K/mm3 (140-440) H 07/30/17 20:44 PT 15.3 Sec. (12.2-14.9) H 07/28/17 22:23 INR 1.15 (0.87-1.13) H 07/28/17 22:23 VBG pH 7.284 (7.320-7.420) L 07/28/17 22:23 Sodium 143 mmol/L (137-145) 07/31/17 05:21 Potassium 3.4 mmol/L (3.6-5.0) L 07/31/17 05:21 Chloride 109.9 mmol/L (98-107) H 07/31/17 05:21 Carbon Dioxide 20 mmol/L (22-30) L 07/31/17 05:21 Anion Gap 17 mmol/L 07/31/17 05:21 BUN 7 mg/dL (7-17) 07/31/17 05:21 Creatinine 0.2 mg/dL (0.7-1.2) L 07/31/17 05:21 Estimated GFR > 60 ml/min 07/31/17 05:21 BUN/Creatinine Ratio 35 % 07/31/17 05:21 Glucose 216 mg/dL (65-100) H 07/31/17 05:21 POC Glucose 224 (70-105) H 07/31/17 06:35 Hemoglobin A1c 13.2 % (4-6) H 07/29/17 03:37 Lactic Acid 1.50 mmol/L (0.7-2.0) 07/29/17 09:44 Calcium 8.2 mg/dL (8.4-10.2) L 07/31/17 05:21 Phosphorus 1.80 mg/dL (2.5-4.5) L D 07/30/17 05:02 Magnesium 1.50 mg/dL (1.7-2.3) L 07/30/17 05:02 C-Reactive Protein 18.60 mg/dL (0.00-1.30) H 07/30/17 14:31 Urine Color Yellow (Yellow) 07/29/17 00:40 Urine Turbidity Clear (Clear) 07/29/17 00:40 Urine pH 5.0 (5.0-7.0) 07/29/17 00:40 Ur Specific [place] 1.030 (1.003-1.030) 07/29/17 00:40 Urine Protein 100 mg/dl mg/dL (Negative) 07/29/17 00:40 Urine Glucose (UA) >=500 mg/dL (Negative) 07/29/17 00:40 Urine Ketones 80 mg/dL (Negative) 07/29/17 00:40 Urine Blood Sm (Negative) 07/29/17 00:40 Urine Nitrite Neg (Negative) 07/29/17 00:40 Urine Bilirubin Neg (Negative) 07/29/17 00:40 Urine Urobilinogen < 2.0 mg/dL (<2.0) 07/29/17 00:40 Ur Leukocyte Esterase Neg (Negative) 07/29/17 00:40 Urine WBC (Auto) 1.0 /HPF (0.0-6.0) 07/29/17 00:40 Urine RBC (Auto) 2.0 /HPF (0.0-6.0) 07/29/17 00:40 U Epithel Cells (Auto) 1.0 /HPF (0-13.0) 07/29/17 00:40 Urine Mucus Few /HPF 07/29/17 00:40 Vancomycin Trough 7.3 ug/mL (5.0-20.0) 07/30/17 23:26
--- NOTE | 2017-07-31 13:53 | Progress Note ---
Assessment and Plan Sepsis Syndrome Necrotizing Fasciitis (S/P I & D with wide debridement DKA Metabolic acidosis (Driven by DKA and sepsis) New Onset Diabetes - continue wound care per surgery and wound care team - for wound vac palcement - continue empiric AB's and follow cultures / clinically for de-escalation - adjust AB's per ID recs - continue tight glycemic control with SSI - continue prn analgesia - potassium replaced - continue other care per attending / other consultants ....re-evaluate in am & prn Subjective Date of service: 07/31/17 Principal diagnosis: Necrotizing Fasciitis; DKA; New Onset Diabetes Interval history: Patient is seen today for: Necrotizing Fasciitis; Sepsis Syndrome; DKA; New Onset Diabetes Seen and examined at bedside; 24hour events reviewed; nursing and respiratory care staff consulted; no adverse overnight events reported to me; resting peacefully in bed; feels better overall; No N/V/F/C; denies acute chest pains or increased SOB Objective Vital Signs - 12hr 07/31/17 07/31/17 07/31/17 06:01 07:20 10:00 Temperature 98.1 F 98.6 F Pulse Rate 95 H 94 H Respiratory 16 Rate Blood Pressure 110/66 116/70 O2 Sat by Pulse 100 100 98 Oximetry 07/31/17 11:28 Temperature 99.0 F Pulse Rate 92 H Respiratory 20 Rate Blood Pressure 110/57 O2 Sat by Pulse 100 Oximetry Constitutional: alert, appears uncomfortable (non respiratory) Eyes: non-icteric ENT: oropharynx moist Neck: supple, no lymphadenopathy, no JVD, other (no thyromegaly) Effort: normal Ascultation: Bilateral: clear Percussion: Bilateral: not dull Cardiovascular: regular rate and rhythm, other (no rubs / murmurs) Gastrointestinal: normoactive bowel sounds, soft, non-tender, non-distended, other (No HSM) Integumentary: other (dressing to upper back post I&D) Extremities: no cyanosis, no edema, pulses normal, no ischemia or petechiae Neurologic: normal mental status, non-focal exam, pupils equal and round, motor strength normal and Psychiatric: mood appropriate, affect normal CBC and BMP: 08/03/17 05:19 08/07/17 04:22 ABG, PT/INR, D-dimer: PT/INR, D-dimer PT 15.3 Sec. (12.2-14.9) H 07/28/17 22:23 INR 1.15 (0.87-1.13) H 07/28/17 22:23 Abnormal lab findings: Abnormal Labs 07/28/17 07/28/17 07/28/17 22:15 22:15 22:23 WBC 22.4 H Hgb 15.1 H Hct 44.0 H Plt Count 594 H PT 15.3 H INR 1.15 H VBG pH Sodium 132 L Potassium Chloride 95.4 L Carbon Dioxide 7 L* BUN Creatinine 0.4 L Glucose 333 H POC Glucose Hemoglobin A1c Calcium 10.7 H Phosphorus Magnesium C-Reactive Protein 07/28/17 07/29/17 07/29/17 22:23 03:37 07:51 WBC Hgb Hct Plt Count PT INR VBG pH 7.284 L Sodium Potassium Chloride Carbon Dioxide BUN Creatinine Glucose POC Glucose 280 H Hemoglobin A1c 13.2 H Calcium Phosphorus Magnesium C-Reactive Protein 07/29/17 07/29/17 07/29/17 09:44 12:17 12:17 WBC Hgb Hct Plt Count PT INR VBG pH Sodium Potassium Chloride 109.4 H Carbon Dioxide 5 L* 9 L* BUN Creatinine 0.4 L 0.3 L Glucose 319 H 336 H POC Glucose Hemoglobin A1c Calcium Phosphorus 1.30 L Magnesium C-Reactive Protein 07/29/17 07/29/17 07/29/17 12:25 14:32 15:24 WBC Hgb Hct Plt Count PT INR VBG pH Sodium Potassium 3.3 L Chloride 112.9 H Carbon Dioxide 11 L BUN Creatinine 0.3 L Glucose 233 H POC Glucose 315 H 228 H Hemoglobin A1c Calcium Phosphorus Magnesium C-Reactive Protein 07/29/17 07/29/17 07/29/17 16:18 16:56 17:07 WBC Hgb Hct Plt Count PT INR VBG pH Sodium Potassium 3.2 L Chloride 112.9 H Carbon Dioxide 10 L BUN Creatinine 0.3 L Glucose 158 H POC Glucose 192 H 157 H Hemoglobin A1c Calcium Phosphorus Magnesium C-Reactive Protein 07/29/17 07/29/17 07/29/17 18:12 19:00 19:28 WBC Hgb Hct Plt Count PT INR VBG pH Sodium Potassium Chloride 114.3 H Carbon Dioxide 12 L BUN Creatinine 0.3 L Glucose 167 H POC Glucose 140 H 157 H Hemoglobin A1c Calcium Phosphorus Magnesium C-Reactive Protein 07/29/17 07/29/17 07/29/17 20:15 21:16 22:05 WBC Hgb Hct Plt Count PT INR VBG pH Sodium Potassium Chloride Carbon Dioxide BUN Creatinine Glucose POC Glucose 187 H 193 H 166 H Hemoglobin A1c Calcium Phosphorus Magnesium C-Reactive Protein 07/29/17 07/30/17 07/30/17 23:43 00:37 01:10 WBC Hgb Hct Plt Count PT INR VBG pH Sodium Potassium Chloride Carbon Dioxide BUN Creatinine Glucose POC Glucose 145 H 146 H 144 H Hemoglobin A1c Calcium Phosphorus Magnesium C-Reactive Protein 07/30/17 07/30/17 07/30/17 02:03 04:13 05:02 WBC Hgb Hct Plt Count PT INR VBG pH Sodium Potassium 3.4 L Chloride 109.3 H Carbon Dioxide 15 L BUN 5 L Creatinine < 0.2 L Glucose 138 H POC Glucose 137 H 146 H Hemoglobin A1c Calcium Phosphorus Magnesium C-Reactive Protein 07/30/17 07/30/17 07/30/17 05:02 05:26 06:13 WBC Hgb Hct Plt Count PT INR VBG pH Sodium Potassium Chloride Carbon Dioxide BUN Creatinine Glucose POC Glucose 150 H 141 H Hemoglobin A1c Calcium Phosphorus 1.80 L D Magnesium 1.50 L C-Reactive Protein 07/30/17 07/30/17 07/30/17 06:20 07:08 08:23 WBC Hgb Hct Plt Count PT INR VBG pH Sodium Potassium Chloride Carbon Dioxide BUN Creatinine Glucose POC Glucose 146 H 146 H 180 H Hemoglobin A1c Calcium Phosphorus Magnesium C-Reactive Protein 07/30/17 07/30/17 07/30/17 09:26 12:06 13:49 WBC Hgb Hct Plt Count PT INR VBG pH Sodium Potassium Chloride Carbon Dioxide BUN Creatinine Glucose POC Glucose 184 H 251 H 272 H Hemoglobin A1c Calcium Phosphorus Magnesium C-Reactive Protein 07/30/17 07/30/17 07/30/17 14:31 14:31 15:07 WBC Hgb Hct Plt Count PT INR VBG pH Sodium Potassium 2.8 L* Chloride 109.5 H Carbon Dioxide 16 L BUN 6 L Creatinine 0.3 L D Glucose 282 H POC Glucose 249 H Hemoglobin A1c Calcium Phosphorus Magnesium C-Reactive Protein 18.60 H 07/30/17 07/30/17 07/31/17 20:44 20:44 00:02 WBC 24.4 H Hgb Hct Plt Count 473 H PT INR VBG pH Sodium Potassium Chloride 108.3 H Carbon Dioxide 18 L BUN 5 L Creatinine 0.2 L Glucose 239 H POC Glucose 222 H Hemoglobin A1c Calcium Phosphorus Magnesium C-Reactive Protein 07/31/17 07/31/17 07/31/17 05:21 06:35 11:35 WBC Hgb Hct Plt Count PT INR VBG pH Sodium Potassium 3.4 L Chloride 109.9 H Carbon Dioxide 20 L BUN Creatinine 0.2 L Glucose 216 H POC Glucose 224 H 191 H Hemoglobin A1c Calcium 8.2 L Phosphorus Magnesium C-Reactive Protein Chest x-ray: image reviewed Allied health notes reviewed: nursing
--- NOTE | 2017-07-31 15:07 | Progress Note ---
Assessment and Plan Assessment: 1) Sepsis: better. Etiology most likely complicated skin/soft tissue infection. CRP=18. 2) Upper back complicated skin and soft tissue infection with an abscess and necrotizing fascitis: -S/P OR debridement 07/30 -surgical wound cx +GPC in chains 3) DM-uncontrolled 4) Penicillin allergy Plan: -follow-up blood cultures -continue vancomycin, clindamycin and levaquin for now -follow-up deep wound cultures Thank you Dr Villaseñor for your consultation, will follow up with you. Zaina Garsia MD Infectious Diseases Specialist [facility] ([facility]) M [phone] O [phone] Subjective Date of service: 07/31/17 Principal diagnosis: Necrotizing Fasciitis; DKA; New Onset Diabetes Interval history: Feels better, minimal wound site pain. No fever. Microbiology: Blood cultures: 07/28 ngtd Urine cultures: Current Antimicrobials: Clinda Vancomycin Objective - Exam Narrative Exam: General appearance: Alert in NAD, somnolent Eyes: anicteric sclerae, moist conjunctivae; no lid-lag; PERRLA HENT: Atraumatic; oropharynx limited Neck: Trachea midline; supple, no thyromegaly or lymphadenopathy Lungs: CTA. Upper back with surgical dressings CV: RRR, no murmurs Abdomen: Soft, non-tender Extremities: No peripheral edema or extremity lymphadenopathy Skin: Normal temperature, turgor and texture; no rash, ulcers or subcutaneous nodules Psych: somnolent. Neuro: somnolent. Moving all extermities Lines: No CVL / PICC - Constitutional Vitals: Vital Signs Temp Pulse Resp BP Pulse Ox 99.0 F 92 H 20 110/57 100 07/31/17 11:28 07/31/17 11:28 07/31/17 11:28 07/31/17 11:28 07/31/17 11:28 Temperature -Last 24 Hours Temperature 99.0 F Temperature 98.6 F Temperature 98.1 F Temperature 98.6 F Temperature 98.6 F Temperature 99.0 F Temperature 97.9 F - Labs CBC & Chem 7: 07/30/17 20:44 07/31/17 05:21 Labs: Abnormal lab results 07/30/17 07/30/17 07/30/17 Range/Units 07:08 09:26 13:49 WBC (4.5-11.0) K/mm3 Plt Count (140-440) K/mm3 Potassium (3.6-5.0) mmol/L Chloride (98-107) mmol/L Carbon Dioxide (22-30) mmol/L BUN (7-17) mg/dL Creatinine (0.7-1.2) mg/dL Glucose (65-100) mg/dL POC Glucose 146 H 184 H 272 H (70-105) Calcium (8.4-10.2) mg/dL C-Reactive Protein (0.00-1.30) mg/dL 07/30/17 07/30/17 07/30/17 Range/Units 14:31 14:31 15:07 WBC (4.5-11.0) K/mm3 Plt Count (140-440) K/mm3 Potassium 2.8 L* (3.6-5.0) mmol/L Chloride 109.5 H (98-107) mmol/L Carbon Dioxide 16 L (22-30) mmol/L BUN 6 L (7-17) mg/dL Creatinine 0.3 L D (0.7-1.2) mg/dL Glucose 282 H (65-100) mg/dL POC Glucose 249 H (70-105) Calcium (8.4-10.2) mg/dL C-Reactive Protein 18.60 H (0.00-1.30) mg/dL 07/30/17 07/30/17 07/31/17 Range/Units 20:44 20:44 00:02 WBC 24.4 H (4.5-11.0) K/mm3 Plt Count 473 H (140-440) K/mm3 Potassium (3.6-5.0) mmol/L Chloride 108.3 H (98-107) mmol/L Carbon Dioxide 18 L (22-30) mmol/L BUN 5 L (7-17) mg/dL Creatinine 0.2 L (0.7-1.2) mg/dL Glucose 239 H (65-100) mg/dL POC Glucose 222 H (70-105) Calcium (8.4-10.2) mg/dL C-Reactive Protein (0.00-1.30) mg/dL 07/31/17 07/31/17 07/31/17 Range/Units 05:21 06:35 11:35 WBC (4.5-11.0) K/mm3 Plt Count (140-440) K/mm3 Potassium 3.4 L (3.6-5.0) mmol/L Chloride 109.9 H (98-107) mmol/L Carbon Dioxide 20 L (22-30) mmol/L BUN (7-17) mg/dL Creatinine 0.2 L (0.7-1.2) mg/dL Glucose 216 H (65-100) mg/dL POC Glucose 224 H 191 H (70-105) Calcium 8.2 L (8.4-10.2) mg/dL C-Reactive Protein (0.00-1.30) mg/dL
[2017-07-31 16:16] LABS: Anion Gap 18 mmol/L; BUN/Creatinine Ratio 30; Blood Urea Nitrogen 6 mg/dL (7-17); Calcium 7.9 mg/dL (8.4-10.2); Carbon Dioxide 21 mmol/L (22-30); Chloride 106.6 mmol/L (98-107); Glucose 209 mg/dL (65-100); Potassium 3.1 mmol/L (3.6-5.0); Sodium 142 mmol/L (137-145)
[2017-07-31] MEDS ORDERED: POTASSIUM CHLORIDE PO ONE (17:40)
[2017-07-31] MEDS: LEVAQUIN 750MG/150ML 750 MG/150 ML BAG IV SCH ×2 (18:17→18:28)
--- NOTE | 2017-07-31 19:34 | Consultation ---
PULMONARY CRITICAL CARE CONSULT This is a late dictation. CONSULTING PHYSICIAN: Dr. Fletcher, Dr. Mcneal. REASON FOR CONSULTATION: Diabetic ketoacidosis, sepsis syndrome. CHIEF COMPLAINT AND HISTORY OF PRESENT ILLNESS: The patient is a 52-year-old female with past medical history significant only for tobacco abuse who came into the ER complaining of a boil on her back for about 4 days. It had gotten worse. It popped open. There was a little purulent drainage 2 days before she came into the hospital. The pain was beginning to bother her. It was constant. It radiated throughout her back. She denied any nausea or vomiting. She had taken p.o. antibiotics without improvement. She was seen in the ER. She met the sepsis numbers and was started on a sepsis protocol, initially transferred to the medical floor; however, she was soon found to be hyperglycemic with an increased anion gap diagnosed with diabetic ketoacidosis and transferred to the ICU for IV insulin therapy. She was then taken into the OR by the surgeon for an incision and drainage procedure on the boil abscess. When she came back, I stopped by to see her, she was feeling better. She had been weaned off IV insulin therapy. She denied nausea. She denied vomiting. She denied any overt aspiration. That really is as much of the history of presentation as I have. It seems like she is essentially new onset diabetic. PAST MEDICAL HISTORY: Anemia and tobacco use disorder. PAST SURGICAL HISTORY: Had an ectopic , repaired in 2001. MEDICATIONS: She was on at the time, I stopped by to see her were reviewed, pertinent medications have included the following: PRN albuterol inhaled q. 4 hours, clindamycin 600 mg IV q. 8 hours, Pepcid 10 mg p.o. b.i.d. She was on insulin sliding scale q. 6 hours at that time, Levaquin 750 mg IV daily, morphine 2 mg IV q. 4 hours p.r.n. moderate pain, Zofran 4 mg IV q. 6 hours p.r.n. nausea and vomiting. She received a dose of vancomycin adjusted per pharmacy. ALLERGIES: PENICILLINS. Nature of this allergy is unknown. DIET: Well-built lady. Denies significant weight loss or gain in the preceding few weeks to months. FAMILY AND SOCIAL HISTORY: Lives in the community had about a 10 plus pack year tobacco smoking history. Denied alcohol or illicit drug use or abuse. REVIEW OF SYSTEMS: No loss of consciousness. No new onset seizures. No new onset focal weakness. No gross hematochezia or melena. No gross hematuria or dysuria. No chest pains, no palpitations. Complete 13 systems review of systems obtained. Pertinent positives and/or negatives as in body of history above, otherwise they are noncontributory. PHYSICAL EXAMINATION: VITAL SIGNS: At initial presentation, she was afebrile, temperature 98.2, pulse 129, respiratory rate 18, blood pressure 122/75, oxygen sats 100%. Inspired oxygen concentration was not recorded. GENERAL: Well-built female normocephalic, atraumatic, talking to me in full sentences, in no overt respiratory distress. HEAD, EYES, EARS, NOSE AND THROAT: She is anicteric. No conjunctival erythema. Oropharynx is a Mallampati #2 oropharynx. Oropharynx is moist. No gross jugular venous distention. Grossly, no palpable lymph nodes in the supraclavicular or submandibular lymph node chains. No thyromegaly. LUNGS: Auscultation of both lung simmons unremarkable. Lungs are clear bilaterally. HEART: Heart sounds 1 and 2 are heard. They were regular in rate and rhythm at the time of my evaluation. No rubs, no murmurs. ABDOMEN: Soft. Bowel sounds are positive, nontender. No palpable hepatosplenomegaly. EXTREMITIES: Without overt digital clubbing, cyanosis, no pedal edema bilaterally. Dorsalis pedis pulses were palpable. SKIN: On her skin in the back, she had a dressing over the area of the I and D. No significant bleeding or drainage around it. Otherwise, skin was of normal turgor, no rash. NEUROLOGIC: Pupils were equal, round, reactive to light and accommodation about 3 mm bilaterally. Extraocular muscle movements were intact. She moved all 4 extremities spontaneously. Her mood was appropriate. Affect was normal. LABORATORY DATA: From my review were as follows: Admission white cell count 22,400; hemoglobin 15.1; hematocrit 44.0; platelet count 594. INR was 1.15. Venous blood gas showed a pH of 7.28. Serum sodium was 132, potassium 3.9, chloride 95, bicarbonate 7, BUN 9, creatinine 0.4, glucose was 333. Lactic acid level was within normal limits. Urinalysis was unremarkable, negative for nitrites and leukocyte esterase. RADIOGRAPHIC STUDIES: Have been reviewed. A chest x-ray was done. It is rotated to the right, all the same. I will call it a normal chest x-ray without infiltrate. There appears to be something going on in the area of the base of the neck, but that is probably due to the rotation. She had a CT of the chest done and that clearly explains what was going on the chest x-ray. It looks like she has a lot of subacute air and gas in the upper back at the area of the abscess, otherwise unremarkable chest CT. No mediastinal adenopathy. ASSESSMENT AND PLAN: 1. Sepsis syndrome secondary to #2. 2. Diabetic abscess involving sebaceous cyst in the back with necrotizing fasciitis associated. 3. Diabetic ketoacidosis. 4. New onset diabetes. 5. Leukocytosis. PLAN: She is status post surgical intervention, which will be the definitive therapy and she has had extensive debridement. We will defer to Surgery for further wound care. We will continue antibiotic therapy including therapy diagnosed and directed against anaerobic bacteria. Infectious Disease consultation will be in order. We will trend her lactic acid level and treat her clinically; otherwise, she is off the IV insulin therapy now. She will still need tight glycemic control, especially in light of necrotizing fasciitis. Electrolytes were monitored and corrected as necessary. She is appropriately on GI prophylaxis, DVT prophylaxis is in the form of SCDs. Flu and pneumonia vaccination will be per protocol. Thank you very much for the consult. We will follow along and make further recommendations as picture progresses/becomes clearer. She is doing much better now. We will watch her for a few hours and she probably could return transferred to the telemetry floor a little later. JOB# [id number] CONRADO/AJ
[2017-07-31 20:03] LABS: Magnesium 1.7 mg/dL (1.7-2.3); Phosphorous 1.7 mg/dL (2.5-4.5)
[2017-08-01] MEDS: NOVOLOG SUB-Q SCH ×4 (00:30→18:04)
[2017-08-01] MEDS: KCL 10MEQ/100ML 10 MEQ/100 ML BAG IV SCH (01:59)
[2017-08-01] MEDS: CLEOCIN 600 MG/50 mL 600 MG/50 ML BAG IV SCH (05:24)
[2017-08-01] MEDS: VANCOMYCIN/NS 1 GM/250 ML 1 GM/250 ML BAG IV SCH ×3 (06:17→21:26)
[2017-08-01] MEDS: NS/KCL 20MEQ 20 MEQ/1,000 ML BAG IV SCH (06:17)
[2017-08-01 06:24] LABS: Anion Gap 16 mmol/L; BUN/Creatinine Ratio 25; Blood Urea Nitrogen 5 mg/dL (7-17); Calcium 8.1 mg/dL (8.4-10.2); Carbon Dioxide 25 mmol/L (22-30); Chloride 105.8 mmol/L (98-107); Glucose 99 mg/dL (65-100); Potassium 3.3 mmol/L (3.6-5.0); Sodium 143 mmol/L (137-145)
--- NOTE | 2017-08-01 08:08 | Progress Note ---
Assessment and Plan POD # 2 Pt feeling well without compl. BS under control Dressings clean & dry surgically stable begin local care today Selected Entries 08/01/17 05:33 Temperature 98.9 F Blood Pressure 124/79 Laboratory Tests 08/01/17 04:42 Sodium 143 Potassium 3.3 L Chloride 105.8 Carbon Dioxide 25 Anion Gap 16 BUN 5 L Creatinine < 0.2 L Glucose 99 Objective Vital Signs - 12hr 07/31/17 07/31/17 08/01/17 21:37 22:00 00:40 Temperature Pulse Rate 99 H Respiratory 20 20 Rate Blood Pressure 127/76 O2 Sat by Pulse 97 99 Oximetry 08/01/17 08/01/17 00:44 05:33 Temperature 99.3 F 98.9 F Pulse Rate 98 H Respiratory 18 Rate Blood Pressure 124/79 O2 Sat by Pulse 98 Oximetry - Labs 07/30/17 20:44 08/01/17 04:42 Diabetes panel 07/31/17 08/01/17 Range/Units 15:28 04:42 Sodium 142 143 (137-145) mmol/L Potassium 3.1 L 3.3 L (3.6-5.0) mmol/L Chloride 106.6 105.8 (98-107) mmol/L Carbon Dioxide 21 L 25 (22-30) mmol/L BUN 6 L 5 L (7-17) mg/dL Creatinine < 0.2 L < 0.2 L (0.7-1.2) mg/dL Glucose 209 H 99 (65-100) mg/dL Calcium 7.9 L 8.1 L (8.4-10.2) mg/dL Calcium panel 07/31/17 07/31/17 08/01/17 Range/Units 15:28 15:28 04:42 Calcium 7.9 L 8.1 L (8.4-10.2) mg/dL Phosphorus 1.70 L (2.5-4.5) mg/dL Pituitary panel 07/31/17 08/01/17 Range/Units 15:28 04:42 Sodium 142 143 (137-145) mmol/L Potassium 3.1 L 3.3 L (3.6-5.0) mmol/L Chloride 106.6 105.8 (98-107) mmol/L Carbon Dioxide 21 L 25 (22-30) mmol/L BUN 6 L 5 L (7-17) mg/dL Creatinine < 0.2 L < 0.2 L (0.7-1.2) mg/dL Glucose 209 H 99 (65-100) mg/dL Calcium 7.9 L 8.1 L (8.4-10.2) mg/dL Adrenal panel 07/31/17 08/01/17 Range/Units 15:28 04:42 Sodium 142 143 (137-145) mmol/L Potassium 3.1 L 3.3 L (3.6-5.0) mmol/L Chloride 106.6 105.8 (98-107) mmol/L Carbon Dioxide 21 L 25 (22-30) mmol/L BUN 6 L 5 L (7-17) mg/dL Creatinine < 0.2 L < 0.2 L (0.7-1.2) mg/dL Glucose 209 H 99 (65-100) mg/dL Calcium 7.9 L 8.1 L (8.4-10.2) mg/dL
[2017-08-01] MEDS ORDERED: KPHOS 45 MMOL in NACL 0.9% 500 ML 500 ML IV ONE (08:30)
[2017-08-01] MEDS: PEPCID PO SCH ×2 (09:26→21:26)
[2017-08-01] MEDS: FEOSOL PO SCH ×2 (09:26→21:27)
[2017-08-01] MEDS: MORPHINE IV PRN (09:26)
[2017-08-01] MEDS: SODIUM BICARBONATE PO SCH ×3 (09:26→21:26)
--- NOTE | 2017-08-01 10:55 | Progress Note ---
Assessment and Plan Assessment and plan: Diabetic ketoacidosis. This is now resolved. She was on Insulin drip in ICU and transferred out of ICU . Her glucose level improving on Novolin 70/30. Diabetes mellitus type 2, newly diagnosed this admission. Uncontrolled but improving. Now on Novolin 70/30 bid. Necrotizing fascitis of infected sebaceous cyst with necrosis down to muscle. s /p wide debridement yesterday by Dr. Villaseñor, Surgeon on 07/30. ID Physician following. On Levaquin, Clindamycin, Vancomycin Hyponatremia. Improved Hypophosphatemia. Replaced iv and recheck Hypomagnesemia. Replaced iv and recheck DVT prophylaxis. SCDs only because of surgery History Interval history: Abscess on back s/p debridement Fever, no chest pain, no SOB Hospitalist Physical - Physical exam Narrative exam: GEN APPEARANCE : Not in acute distress HEENT: Normocephalic Atrauma NECK : supple, no JVD LUNGS: clear to auscultation bilaterally, no rales, no wheeze HEART: S1 and S2 regular, tachycardia, no murmurs, rubs or gallop, ABD: Soft, no tenderness, no distension, normal bowel sounds EXT: No edema, no clubbing, no cyanosis NEURO: Awake,alert,oriented x 3, no facial asymmetry,no focal signs, Back: Dressing over surgery site of abscess on back - Constitutional Vitals: Temp Pulse Resp BP Pulse Ox 98.8 F 94 H 18 138/67 99 08/01/17 08:18 08/01/17 08:18 08/01/17 08:18 08/01/17 08:18 08/01/17 08:18 Results - Labs CBC & Chem 7: 08/03/17 05:19 08/03/17 05:19 Labs: Laboratory Last Values WBC 24.4 K/mm3 (4.5-11.0) H 07/30/17 20:44 RBC 4.08 M/mm3 (3.65-5.03) 07/30/17 20:44 Hgb 12.2 gm/dl (10.1-14.3) 07/30/17 20:44 Hct 35.8 % (30.3-42.9) D 07/30/17 20:44 MCV 88 fl (79-97) 07/30/17 20:44 MCH 30 pg (28-32) 07/30/17 20:44 MCHC 34 % (30-34) 07/30/17 20:44 RDW 13.8 % (13.2-15.2) 07/30/17 20:44 Plt Count 473 K/mm3 (140-440) H 07/30/17 20:44 PT 15.3 Sec. (12.2-14.9) H 07/28/17 22:23 INR 1.15 (0.87-1.13) H 07/28/17 22:23 VBG pH 7.284 (7.320-7.420) L 07/28/17 22:23 Sodium 143 mmol/L (137-145) 08/01/17 04:42 Potassium 3.3 mmol/L (3.6-5.0) L 08/01/17 04:42 Chloride 105.8 mmol/L (98-107) 08/01/17 04:42 Carbon Dioxide 25 mmol/L (22-30) 08/01/17 04:42 Anion Gap 16 mmol/L 08/01/17 04:42 BUN 5 mg/dL (7-17) L 08/01/17 04:42 Creatinine < 0.2 mg/dL (0.7-1.2) L 08/01/17 04:42 Estimated GFR > 60 ml/min 08/01/17 04:42 BUN/Creatinine Ratio 25 % 08/01/17 04:42 Glucose 99 mg/dL (65-100) 08/01/17 04:42 POC Glucose 127 (70-105) H 08/01/17 07:12 Hemoglobin A1c 13.2 % (4-6) H 07/29/17 03:37 Lactic Acid 1.50 mmol/L (0.7-2.0) 07/29/17 09:44 Calcium 8.1 mg/dL (8.4-10.2) L 08/01/17 04:42 Phosphorus 1.70 mg/dL (2.5-4.5) L 07/31/17 15:28 Magnesium 1.70 mg/dL (1.7-2.3) 07/31/17 15:28 C-Reactive Protein 18.60 mg/dL (0.00-1.30) H 07/30/17 14:31 Urine Color Yellow (Yellow) 07/29/17 00:40 Urine Turbidity Clear (Clear) 07/29/17 00:40 Urine pH 5.0 (5.0-7.0) 07/29/17 00:40 Ur Specific [place] 1.030 (1.003-1.030) 07/29/17 00:40 Urine Protein 100 mg/dl mg/dL (Negative) 07/29/17 00:40 Urine Glucose (UA) >=500 mg/dL (Negative) 07/29/17 00:40 Urine Ketones 80 mg/dL (Negative) 07/29/17 00:40 Urine Blood Sm (Negative) 07/29/17 00:40 Urine Nitrite Neg (Negative) 07/29/17 00:40 Urine Bilirubin Neg (Negative) 07/29/17 00:40 Urine Urobilinogen < 2.0 mg/dL (<2.0) 07/29/17 00:40 Ur Leukocyte Esterase Neg (Negative) 07/29/17 00:40 Urine WBC (Auto) 1.0 /HPF (0.0-6.0) 07/29/17 00:40 Urine RBC (Auto) 2.0 /HPF (0.0-6.0) 07/29/17 00:40 U Epithel Cells (Auto) 1.0 /HPF (0-13.0) 07/29/17 00:40 Urine Mucus Few /HPF 07/29/17 00:40 Vancomycin Trough 7.3 ug/mL (5.0-20.0) 07/30/17 23:26
--- NOTE | 2017-08-01 11:16 | Progress Note ---
Assessment and Plan Assessment: 1) Sepsis: better. Etiology most likely complicated skin/soft tissue infection. CRP=18. 2) Upper back complicated skin and soft tissue infection with an abscess and necrotizing fascitis: -S/P OR debridement 07/30 -surgical wound cx +GPC in chains 3) DM-uncontrolled A1C=13 4) Penicillin allergy Plan: -follow-up blood cultures -continue vancomycin and levaquin for now -stop clinda -follow-up deep wound cultures Thank you Dr Villaseñor for your consultation, will follow up with you. Zaina Garsia MD Infectious Diseases Specialist [facility] ([facility]) M [phone] O [phone] Subjective Date of service: 08/01/17 Principal diagnosis: Necrotizing Fasciitis; DKA; New Onset Diabetes Interval history: Feels better, minimal wound site pain. No fever. Microbiology: Blood cultures: 07/28 ngtd Urine cultures: Current Antimicrobials: Clinda 07/30 Vancomycin 07/29 levaquin 07/30 Objective - Exam Narrative Exam: General appearance: Alert in NAD, somnolent Eyes: anicteric sclerae, moist conjunctivae; no lid-lag; PERRLA HENT: Atraumatic; oropharynx limited Neck: Trachea midline; supple, no thyromegaly or lymphadenopathy Lungs: CTA. Upper back with surgical dressings CV: RRR, no murmurs Abdomen: Soft, non-tender Extremities: No peripheral edema or extremity lymphadenopathy Skin: Normal temperature, turgor and texture; no rash, ulcers or subcutaneous nodules Psych: somnolent. Neuro: somnolent. Moving all extermities Lines: No CVL / PICC - Constitutional Vitals: Vital Signs Temp Pulse Resp BP Pulse Ox 98.8 F 94 H 18 138/67 99 08/01/17 08:18 08/01/17 08:18 08/01/17 08:18 08/01/17 08:18 08/01/17 08:18 Temperature -Last 24 Hours Temperature 98.8 F Temperature 98.9 F Temperature 99.3 F Temperature 98.6 F Temperature 98.0 F Temperature 99.0 F - Labs CBC & Chem 7: 07/30/17 20:44 08/01/17 04:42 Labs: Abnormal lab results 07/31/17 07/31/17 07/31/17 Range/Units 11:35 15:28 15:28 Potassium 3.1 L (3.6-5.0) mmol/L Carbon Dioxide 21 L (22-30) mmol/L BUN 6 L (7-17) mg/dL Creatinine < 0.2 L (0.7-1.2) mg/dL Glucose 209 H (65-100) mg/dL POC Glucose 191 H (70-105) Calcium 7.9 L (8.4-10.2) mg/dL Phosphorus 1.70 L (2.5-4.5) mg/dL 07/31/17 08/01/17 08/01/17 Range/Units 17:49 04:42 07:12 Potassium 3.3 L (3.6-5.0) mmol/L Carbon Dioxide (22-30) mmol/L BUN 5 L (7-17) mg/dL Creatinine < 0.2 L (0.7-1.2) mg/dL Glucose (65-100) mg/dL POC Glucose 243 H 127 H (70-105) Calcium 8.1 L (8.4-10.2) mg/dL Phosphorus (2.5-4.5) mg/dL
[2017-08-01] MEDS: LEVAQUIN 750MG/150ML 750 MG/150 ML BAG IV SCH (16:50)
--- NOTE | 2017-08-01 20:01 | Progress Note ---
Assessment and Plan Patient sleeping at this time on room air.O2 saturation 99%. No acute respiratory distress. - Patient Problems (1) Sepsis Current Visit: Yes Status: Acute Qualifiers: Sepsis type: sepsis due to unspecified organism Qualified Code(s): A41.9 - Sepsis, unspecified organism Plan to address problem: Patient is on Levaquine and vancomycin. (2) Metabolic acidosis Current Visit: Yes Status: Acute Plan to address problem: Improved. To days Bicarb is 25. (3) Back abscess Current Visit: Yes Status: Acute Plan to address problem: Patient is on Levaquine and vancomycin. (4) Cellulitis Current Visit: Yes Status: Acute Qualifiers: Site of cellulitis: trunk Site of cellulitis of trunk: back Qualified Code(s): L03.312 - Cellulitis of back [any part except buttock] Plan to address problem: Patient is on Levaquine and vancomycin. (5) Diabetes Current Visit: Yes Status: Acute Plan to address problem: Management as per primary care. (6) Status post laparoscopic assisted vaginal hysterectomy (LAVH) Onset Date: 12/29/13 Current Visit: No Status: Acute Plan to address problem: Management as per AP[employer]S SYSTEM ANALYST. Subjective Date of service: 08/01/17 Principal diagnosis: Necrotizing Fasciitis; DKA; New Onset Diabetes Interval history: Patient sleeping at this time on room air.O2 saturation 99%. No acute respiratory distress. Objective Vital Signs - 12hr 08/01/17 08/01/17 08:18 16:50 Temperature 98.8 F Pulse Rate 94 H 104 H Respiratory 18 20 Rate Blood Pressure 138/67 Blood Pressure 118/67 [Left] O2 Sat by Pulse 99 100 Oximetry Constitutional: no acute distress, asleep Eyes: non-icteric ENT: oropharynx moist Neck: supple, no lymphadenopathy Ascultation: Bilateral: diminished breath sounds Cardiovascular: regular rate and rhythm Gastrointestinal: normoactive bowel sounds, soft, non-tender Integumentary: normal Extremities: no cyanosis, no edema Neurologic: other (Unable to assess. Patient sleeping at this time.) Psychiatric: other (Unable to assess at this time. Patient sleeping.) CBC and BMP: 07/30/17 20:44 08/01/17 20:12 ABG, PT/INR, D-dimer: PT/INR, D-dimer PT 15.3 Sec. (12.2-14.9) H 07/28/17 22:23 INR 1.15 (0.87-1.13) H 07/28/17 22:23 Abnormal lab findings: Abnormal Labs 07/28/17 07/28/17 07/28/17 22:15 22:15 22:23 WBC 22.4 H Hgb 15.1 H Hct 44.0 H Plt Count 594 H PT 15.3 H INR 1.15 H VBG pH Sodium 132 L Potassium Chloride 95.4 L Carbon Dioxide 7 L* BUN Creatinine 0.4 L Glucose 333 H POC Glucose Hemoglobin A1c Calcium 10.7 H Phosphorus Magnesium C-Reactive Protein 07/28/17 07/29/17 07/29/17 22:23 03:37 07:51 WBC Hgb Hct Plt Count PT INR VBG pH 7.284 L Sodium Potassium Chloride Carbon Dioxide BUN Creatinine Glucose POC Glucose 280 H Hemoglobin A1c 13.2 H Calcium Phosphorus Magnesium C-Reactive Protein 07/29/17 07/29/17 07/29/17 09:44 12:17 12:17 WBC Hgb Hct Plt Count PT INR VBG pH Sodium Potassium Chloride 109.4 H Carbon Dioxide 5 L* 9 L* BUN Creatinine 0.4 L 0.3 L Glucose 319 H 336 H POC Glucose Hemoglobin A1c Calcium Phosphorus 1.30 L Magnesium C-Reactive Protein 07/29/17 07/29/17 07/29/17 12:25 14:32 15:24 WBC Hgb Hct Plt Count PT INR VBG pH Sodium Potassium 3.3 L Chloride 112.9 H Carbon Dioxide 11 L BUN Creatinine 0.3 L Glucose 233 H POC Glucose 315 H 228 H Hemoglobin A1c Calcium Phosphorus Magnesium C-Reactive Protein 07/29/17 07/29/17 07/29/17 16:18 16:56 17:07 WBC Hgb Hct Plt Count PT INR VBG pH Sodium Potassium 3.2 L Chloride 112.9 H Carbon Dioxide 10 L BUN Creatinine 0.3 L Glucose 158 H POC Glucose 192 H 157 H Hemoglobin A1c Calcium Phosphorus Magnesium C-Reactive Protein 07/29/17 07/29/17 07/29/17 18:12 19:00 19:28 WBC Hgb Hct Plt Count PT INR VBG pH Sodium Potassium Chloride 114.3 H Carbon Dioxide 12 L BUN Creatinine 0.3 L Glucose 167 H POC Glucose 140 H 157 H Hemoglobin A1c Calcium Phosphorus Magnesium C-Reactive Protein 07/29/17 07/29/17 07/29/17 20:15 21:16 22:05 WBC Hgb Hct Plt Count PT INR VBG pH Sodium Potassium Chloride Carbon Dioxide BUN Creatinine Glucose POC Glucose 187 H 193 H 166 H Hemoglobin A1c Calcium Phosphorus Magnesium C-Reactive Protein 07/29/17 07/30/17 07/30/17 23:43 00:37 01:10 WBC Hgb Hct Plt Count PT INR VBG pH Sodium Potassium Chloride Carbon Dioxide BUN Creatinine Glucose POC Glucose 145 H 146 H 144 H Hemoglobin A1c Calcium Phosphorus Magnesium C-Reactive Protein 07/30/17 07/30/17 07/30/17 02:03 04:13 05:02 WBC Hgb Hct Plt Count PT INR VBG pH Sodium Potassium 3.4 L Chloride 109.3 H Carbon Dioxide 15 L BUN 5 L Creatinine < 0.2 L Glucose 138 H POC Glucose 137 H 146 H Hemoglobin A1c Calcium Phosphorus Magnesium C-Reactive Protein 07/30/17 07/30/17 07/30/17 05:02 05:26 06:13 WBC Hgb Hct Plt Count PT INR VBG pH Sodium Potassium Chloride Carbon Dioxide BUN Creatinine Glucose POC Glucose 150 H 141 H Hemoglobin A1c Calcium Phosphorus 1.80 L D Magnesium 1.50 L C-Reactive Protein 07/30/17 07/30/17 07/30/17 06:20 07:08 08:23 WBC Hgb Hct Plt Count PT INR VBG pH Sodium Potassium Chloride Carbon Dioxide BUN Creatinine Glucose POC Glucose 146 H 146 H 180 H Hemoglobin A1c Calcium Phosphorus Magnesium C-Reactive Protein 07/30/17 07/30/17 07/30/17 09:26 12:06 13:49 WBC Hgb Hct Plt Count PT INR VBG pH Sodium Potassium Chloride Carbon Dioxide BUN Creatinine Glucose POC Glucose 184 H 251 H 272 H Hemoglobin A1c Calcium Phosphorus Magnesium C-Reactive Protein 07/30/17 07/30/17 07/30/17 14:31 14:31 15:07 WBC Hgb Hct Plt Count PT INR VBG pH Sodium Potassium 2.8 L* Chloride 109.5 H Carbon Dioxide 16 L BUN 6 L Creatinine 0.3 L D Glucose 282 H POC Glucose 249 H Hemoglobin A1c Calcium Phosphorus Magnesium C-Reactive Protein 18.60 H 07/30/17 07/30/17 07/31/17 20:44 20:44 00:02 WBC 24.4 H Hgb Hct Plt Count 473 H PT INR VBG pH Sodium Potassium Chloride 108.3 H Carbon Dioxide 18 L BUN 5 L Creatinine 0.2 L Glucose 239 H POC Glucose 222 H Hemoglobin A1c Calcium Phosphorus Magnesium C-Reactive Protein 07/31/17 07/31/17 07/31/17 05:21 06:35 11:35 WBC Hgb Hct Plt Count PT INR VBG pH Sodium Potassium 3.4 L Chloride 109.9 H Carbon Dioxide 20 L BUN Creatinine 0.2 L Glucose 216 H POC Glucose 224 H 191 H Hemoglobin A1c Calcium 8.2 L Phosphorus Magnesium C-Reactive Protein 07/31/17 07/31/17 07/31/17 15:28 15:28 17:49 WBC Hgb Hct Plt Count PT INR VBG pH Sodium Potassium 3.1 L Chloride Carbon Dioxide 21 L BUN 6 L Creatinine < 0.2 L Glucose 209 H POC Glucose 243 H Hemoglobin A1c Calcium 7.9 L Phosphorus 1.70 L Magnesium C-Reactive Protein 08/01/17 08/01/17 04:42 07:12 WBC Hgb Hct Plt Count PT INR VBG pH Sodium Potassium 3.3 L Chloride Carbon Dioxide BUN 5 L Creatinine < 0.2 L Glucose POC Glucose 127 H Hemoglobin A1c Calcium 8.1 L Phosphorus Magnesium C-Reactive Protein Chest x-ray: report reviewed (No infiltrates, lungs clear.), image reviewed CT scan - chest: report reviewed (3 cm abscess in the back of the chest.)
[2017-08-01 21:09] LABS: Anion Gap 16 mmol/L; BUN/Creatinine Ratio 20; Blood Urea Nitrogen 4 mg/dL (7-17); Calcium 8.1 mg/dL (8.4-10.2); Carbon Dioxide 25 mmol/L (22-30); Glucose 178 mg/dL (65-100); Potassium 3.4 mmol/L (3.6-5.0); Sodium 141 mmol/L (137-145)
[2017-08-02] MEDS: NOVOLOG SUB-Q SCH ×4 (01:49→18:55)
[2017-08-02 04:31] LABS: Anion Gap 16 mmol/L; BUN/Creatinine Ratio 15; Blood Urea Nitrogen 3 mg/dL (7-17); Calcium 8.1 mg/dL (8.4-10.2); Carbon Dioxide 22 mmol/L (22-30); Glucose 161 mg/dL (65-100); Potassium 3.4 mmol/L (3.6-5.0); Sodium 140 mmol/L (137-145)
[2017-08-02 06:10] LABS: Phosphorous 2.8 mg/dL (2.5-4.5); Potassium 3.5 mmol/L (3.6-5.0)
[2017-08-02] MEDS: VANCOMYCIN/NS 1 GM/250 ML 1 GM/250 ML BAG IV SCH (06:40)
[2017-08-02] MEDS: FEOSOL PO SCH ×2 (09:24→23:17)
[2017-08-02] MEDS: SODIUM BICARBONATE PO SCH ×3 (09:24→23:17)
[2017-08-02] MEDS: PEPCID PO SCH ×2 (09:24→23:17)
[2017-08-02] MEDS: K-DUR PO SCH ×3 (09:25→17:45)
[2017-08-02] MEDS: NS/KCL 20MEQ 20 MEQ/1,000 ML BAG IV SCH (09:33)
[2017-08-02 11:14] LABS: Carbon Dioxide 5 mmol/L (22-30)
--- NOTE | 2017-08-02 13:26 | Progress Note ---
Assessment and Plan Pt feeling well without compl. Discussed wd with ET nurse. Wd vac placed. Arrangements being made for wd clinic f/u. will follow prn Objective Vital Signs - 12hr 08/02/17 08/02/17 04:35 08:00 Temperature 98.7 F 99.3 F Pulse Rate 84 84 Respiratory 18 18 Rate Blood Pressure 117/58 121/67 [Left] O2 Sat by Pulse 100 Oximetry - Labs 07/30/17 20:44 08/02/17 05:35 Diabetes panel 07/29/17 08/01/17 08/02/17 Range/Units 09:44 20:12 03:39 Sodium 141 140 (137-145) mmol/L Potassium 3.4 L 3.4 L (3.6-5.0) mmol/L Chloride 103.0 105.0 (98-107) mmol/L Carbon Dioxide 5 L* 25 22 (22-30) mmol/L BUN 4 L 3 L (7-17) mg/dL Creatinine < 0.2 L < 0.2 L (0.7-1.2) mg/dL Glucose 178 H 161 H (65-100) mg/dL Calcium 8.1 L 8.1 L (8.4-10.2) mg/dL 08/02/17 Range/Units 05:35 Sodium (137-145) mmol/L Potassium 3.5 L (3.6-5.0) mmol/L Chloride (98-107) mmol/L Carbon Dioxide (22-30) mmol/L BUN (7-17) mg/dL Creatinine (0.7-1.2) mg/dL Glucose (65-100) mg/dL Calcium (8.4-10.2) mg/dL Calcium panel 08/01/17 08/02/17 08/02/17 Range/Units 20:12 03:39 05:35 Calcium 8.1 L 8.1 L (8.4-10.2) mg/dL Phosphorus 2.80 (2.5-4.5) mg/dL Pituitary panel 07/29/17 08/01/17 08/02/17 Range/Units 09:44 20:12 03:39 Sodium 141 140 (137-145) mmol/L Potassium 3.4 L 3.4 L (3.6-5.0) mmol/L Chloride 103.0 105.0 (98-107) mmol/L Carbon Dioxide 5 L* 25 22 (22-30) mmol/L BUN 4 L 3 L (7-17) mg/dL Creatinine < 0.2 L < 0.2 L (0.7-1.2) mg/dL Glucose 178 H 161 H (65-100) mg/dL Calcium 8.1 L 8.1 L (8.4-10.2) mg/dL 08/02/17 Range/Units 05:35 Sodium (137-145) mmol/L Potassium 3.5 L (3.6-5.0) mmol/L Chloride (98-107) mmol/L Carbon Dioxide (22-30) mmol/L BUN (7-17) mg/dL Creatinine (0.7-1.2) mg/dL Glucose (65-100) mg/dL Calcium (8.4-10.2) mg/dL Adrenal panel 07/29/17 08/01/17 08/02/17 Range/Units 09:44 20:12 03:39 Sodium 141 140 (137-145) mmol/L Potassium 3.4 L 3.4 L (3.6-5.0) mmol/L Chloride 103.0 105.0 (98-107) mmol/L Carbon Dioxide 5 L* 25 22 (22-30) mmol/L BUN 4 L 3 L (7-17) mg/dL Creatinine < 0.2 L < 0.2 L (0.7-1.2) mg/dL Glucose 178 H 161 H (65-100) mg/dL Calcium 8.1 L 8.1 L (8.4-10.2) mg/dL 08/02/17 Range/Units 05:35 Sodium (137-145) mmol/L Potassium 3.5 L (3.6-5.0) mmol/L Chloride (98-107) mmol/L Carbon Dioxide (22-30) mmol/L BUN (7-17) mg/dL Creatinine (0.7-1.2) mg/dL Glucose (65-100) mg/dL Calcium (8.4-10.2) mg/dL
--- NOTE | 2017-08-02 13:37 | Progress Note ---
Assessment and Plan Assessment and plan: Diabetic ketoacidosis. This is now resolved. She was on Insulin drip in ICU and transferred out of ICU . Her glucose level improving on Novolin 70/30. Diabetes mellitus type 2, newly diagnosed this admission. Uncontrolled but improving. Now on Novolin 70/30 bid. Necrotizing fascitis of infected sebaceous cyst with necrosis down to muscle. s /p wide debridement yesterday by Dr. Villaseñor, Surgeon on 07/30. ID Physician following. On Levaquin, Clindamycin, Vancomycin . For wound vac placement Hyponatremia. Improved Hypophosphatemia. Now resolved after replacement. Hypomagnesemia. Now resolved after replacement. DVT prophylaxis. SCDs only because of surgery Poss discharge home tomorrow. History Interval history: Abscess on back s/p debridement Fever resolved, no chest pain, no SOB Hospitalist Physical - Physical exam Narrative exam: GEN APPEARANCE : Not in acute distress HEENT: Normocephalic Atrauma NECK : supple, no JVD LUNGS: clear to auscultation bilaterally, no rales, no wheeze HEART: S1 and S2 regular, tachycardia, no murmurs, rubs or gallop, ABD: Soft, no tenderness, no distension, normal bowel sounds EXT: No edema, no clubbing, no cyanosis NEURO: Awake,alert,oriented x 3, no facial asymmetry,no focal signs, Back: Dressing over surgery site of abscess on back - Constitutional Vitals: Temp Pulse Resp BP Pulse Ox 99.3 F 84 18 121/67 100 08/02/17 08:00 08/02/17 08:00 08/02/17 08:00 08/02/17 08:00 08/02/17 08:00 General appearance: Present: mild distress Results - Labs CBC & Chem 7: 08/03/17 05:19 08/03/17 05:19 Labs: Laboratory Last Values WBC 24.4 K/mm3 (4.5-11.0) H 07/30/17 20:44 RBC 4.08 M/mm3 (3.65-5.03) 07/30/17 20:44 Hgb 12.2 gm/dl (10.1-14.3) 07/30/17 20:44 Hct 35.8 % (30.3-42.9) D 07/30/17 20:44 MCV 88 fl (79-97) 07/30/17 20:44 MCH 30 pg (28-32) 07/30/17 20:44 MCHC 34 % (30-34) 07/30/17 20:44 RDW 13.8 % (13.2-15.2) 07/30/17 20:44 Plt Count 473 K/mm3 (140-440) H 07/30/17 20:44 PT 15.3 Sec. (12.2-14.9) H 07/28/17 22:23 INR 1.15 (0.87-1.13) H 07/28/17 22:23 VBG pH 7.284 (7.320-7.420) L 07/28/17 22:23 Sodium 140 mmol/L (137-145) 08/02/17 03:39 Potassium 3.5 mmol/L (3.6-5.0) L 08/02/17 05:35 Chloride 105.0 mmol/L (98-107) 08/02/17 03:39 Carbon Dioxide 22 mmol/L (22-30) 08/02/17 03:39 Anion Gap 16 mmol/L 08/02/17 03:39 BUN 3 mg/dL (7-17) L 08/02/17 03:39 Creatinine < 0.2 mg/dL (0.7-1.2) L 08/02/17 03:39 Estimated GFR > 60 ml/min 08/02/17 03:39 BUN/Creatinine Ratio 15 % 08/02/17 03:39 Glucose 161 mg/dL (65-100) H 08/02/17 03:39 POC Glucose 171 (70-105) H 08/02/17 06:38 Hemoglobin A1c 13.2 % (4-6) H 07/29/17 03:37 Lactic Acid 1.50 mmol/L (0.7-2.0) 07/29/17 09:44 Calcium 8.1 mg/dL (8.4-10.2) L 08/02/17 03:39 Phosphorus 2.80 mg/dL (2.5-4.5) 08/02/17 05:35 Magnesium 1.70 mg/dL (1.7-2.3) 07/31/17 15:28 C-Reactive Protein 18.60 mg/dL (0.00-1.30) H 07/30/17 14:31 Urine Color Yellow (Yellow) 07/29/17 00:40 Urine Turbidity Clear (Clear) 07/29/17 00:40 Urine pH 5.0 (5.0-7.0) 07/29/17 00:40 Ur Specific [place] 1.030 (1.003-1.030) 07/29/17 00:40 Urine Protein 100 mg/dl mg/dL (Negative) 07/29/17 00:40 Urine Glucose (UA) >=500 mg/dL (Negative) 07/29/17 00:40 Urine Ketones 80 mg/dL (Negative) 07/29/17 00:40 Urine Blood Sm (Negative) 07/29/17 00:40 Urine Nitrite Neg (Negative) 07/29/17 00:40 Urine Bilirubin Neg (Negative) 07/29/17 00:40 Urine Urobilinogen < 2.0 mg/dL (<2.0) 07/29/17 00:40 Ur Leukocyte Esterase Neg (Negative) 07/29/17 00:40 Urine WBC (Auto) 1.0 /HPF (0.0-6.0) 07/29/17 00:40 Urine RBC (Auto) 2.0 /HPF (0.0-6.0) 07/29/17 00:40 U Epithel Cells (Auto) 1.0 /HPF (0-13.0) 07/29/17 00:40 Urine Mucus Few /HPF 07/29/17 00:40 Vancomycin Trough 9.4 ug/mL (5.0-20.0) 08/02/17 03:39
[2017-08-02] MEDS ORDERED: LASIX IV ONE (14:37)
[2017-08-02] MEDS: VANCOMYCIN 1,250 MG in NACL 0.9% 250ML 250 ML IV SCH ×2 (15:13→23:17)
[2017-08-02] MEDS: LEVAQUIN 750MG/150ML 750 MG/150 ML BAG IV SCH (17:46)
--- NOTE | 2017-08-02 22:50 | Progress Note ---
Assessment and Plan Patient sleeping but arousable.Resting on room air.O2 saturation 99%. No acute respiratory distress. - Patient Problems (1) Sepsis Current Visit: Yes Status: Acute Qualifiers: Sepsis type: sepsis due to unspecified organism Qualified Code(s): A41.9 - Sepsis, unspecified organism Plan to address problem: Patient is on Levaquine and vancomycin. (2) Metabolic acidosis Current Visit: Yes Status: Acute Plan to address problem: Improved. To days Bicarb is 22. (3) Back abscess Current Visit: Yes Status: Acute Plan to address problem: Patient is on Levaquine and vancomycin. (4) Cellulitis Current Visit: Yes Status: Acute Qualifiers: Site of cellulitis: trunk Site of cellulitis of trunk: back Qualified Code(s): L03.312 - Cellulitis of back [any part except buttock] Plan to address problem: Patient is on Levaquine and vancomycin. (5) Diabetes Current Visit: Yes Status: Acute Plan to address problem: Management as per primary care. (6) Status post laparoscopic assisted vaginal hysterectomy (LAVH) Onset Date: 12/29/13 Current Visit: No Status: Acute Plan to address problem: Management as per [employer]. Subjective Date of service: 08/02/17 Principal diagnosis: Necrotizing Fasciitis; DKA; New Onset Diabetes Interval history: Patient sleeping but arousable.Resting on room air.O2 saturation 99%. No acute respiratory distress. Objective Vital Signs - 12hr 08/02/17 15:46 Temperature 99.5 F Pulse Rate 72 Respiratory 18 Rate Blood Pressure 126/72 [Left] O2 Sat by Pulse 99 Oximetry Constitutional: no acute distress, asleep Eyes: non-icteric ENT: oropharynx moist Neck: supple, no lymphadenopathy Ascultation: Bilateral: diminished breath sounds Cardiovascular: regular rate and rhythm Gastrointestinal: normoactive bowel sounds, soft, non-tender Integumentary: normal Extremities: no cyanosis, no edema Neurologic: normal mental status, non-focal exam, pupils equal and round, CN II- XII normal Psychiatric: other (Unable to assess at this time. Patient sleeping.) CBC and BMP: 07/30/17 20:44 08/02/17 05:35 ABG, PT/INR, D-dimer: PT/INR, D-dimer PT 15.3 Sec. (12.2-14.9) H 07/28/17 22:23 INR 1.15 (0.87-1.13) H 07/28/17 22:23 Abnormal lab findings: Abnormal Labs 07/28/17 07/28/17 07/28/17 22:15 22:15 22:23 WBC 22.4 H Hgb 15.1 H Hct 44.0 H Plt Count 594 H PT 15.3 H INR 1.15 H VBG pH Sodium 132 L Potassium Chloride 95.4 L Carbon Dioxide 7 L* BUN Creatinine 0.4 L Glucose 333 H POC Glucose Hemoglobin A1c Calcium 10.7 H Phosphorus Magnesium C-Reactive Protein 07/28/17 07/29/17 07/29/17 22:23 03:37 07:51 WBC Hgb Hct Plt Count PT INR VBG pH 7.284 L Sodium Potassium Chloride Carbon Dioxide BUN Creatinine Glucose POC Glucose 280 H Hemoglobin A1c 13.2 H Calcium Phosphorus Magnesium C-Reactive Protein 07/29/17 07/29/17 07/29/17 09:44 12:17 12:17 WBC Hgb Hct Plt Count PT INR VBG pH Sodium Potassium Chloride 109.4 H Carbon Dioxide 5 L* 9 L* BUN Creatinine 0.4 L 0.3 L Glucose 319 H 336 H POC Glucose Hemoglobin A1c Calcium Phosphorus 1.30 L Magnesium C-Reactive Protein 07/29/17 07/29/17 07/29/17 12:25 14:32 15:24 WBC Hgb Hct Plt Count PT INR VBG pH Sodium Potassium 3.3 L Chloride 112.9 H Carbon Dioxide 11 L BUN Creatinine 0.3 L Glucose 233 H POC Glucose 315 H 228 H Hemoglobin A1c Calcium Phosphorus Magnesium C-Reactive Protein 07/29/17 07/29/17 07/29/17 16:18 16:56 17:07 WBC Hgb Hct Plt Count PT INR VBG pH Sodium Potassium 3.2 L Chloride 112.9 H Carbon Dioxide 10 L BUN Creatinine 0.3 L Glucose 158 H POC Glucose 192 H 157 H Hemoglobin A1c Calcium Phosphorus Magnesium C-Reactive Protein 07/29/17 07/29/17 07/29/17 18:12 19:00 19:28 WBC Hgb Hct Plt Count PT INR VBG pH Sodium Potassium Chloride 114.3 H Carbon Dioxide 12 L BUN Creatinine 0.3 L Glucose 167 H POC Glucose 140 H 157 H Hemoglobin A1c Calcium Phosphorus Magnesium C-Reactive Protein 1207/29/17 07/29/17 20:15 21:16 22:05 WBC Hgb Hct Plt Count PT INR VBG pH Sodium Potassium Chloride Carbon Dioxide BUN Creatinine Glucose POC Glucose 187 H 193 H 166 H Hemoglobin A1c Calcium Phosphorus Magnesium C-Reactive Protein 07/29/17 07/30/17 07/30/17 23:43 00:37 01:10 WBC Hgb Hct Plt Count PT INR VBG pH Sodium Potassium Chloride Carbon Dioxide BUN Creatinine Glucose POC Glucose 145 H 146 H 144 H Hemoglobin A1c Calcium Phosphorus Magnesium C-Reactive Protein 07/30/17 07/30/17 07/30/17 02:03 04:13 05:02 WBC Hgb Hct Plt Count PT INR VBG pH Sodium Potassium 3.4 L Chloride 109.3 H Carbon Dioxide 15 L BUN 5 L Creatinine < 0.2 L Glucose 138 H POC Glucose 137 H 146 H Hemoglobin A1c Calcium Phosphorus Magnesium C-Reactive Protein 07/30/17 07/30/17 07/30/17 05:02 05:26 06:13 WBC Hgb Hct Plt Count PT INR VBG pH Sodium Potassium Chloride Carbon Dioxide BUN Creatinine Glucose POC Glucose 150 H 141 H Hemoglobin A1c Calcium Phosphorus 1.80 L D Magnesium 1.50 L C-Reactive Protein 07/30/17 07/30/17 07/30/17 06:20 07:08 08:23 WBC Hgb Hct Plt Count PT INR VBG pH Sodium Potassium Chloride Carbon Dioxide BUN Creatinine Glucose POC Glucose 146 H 146 H 180 H Hemoglobin A1c Calcium Phosphorus Magnesium C-Reactive Protein 07/30/17 07/30/17 07/30/17 09:26 12:06 13:49 WBC Hgb Hct Plt Count PT INR VBG pH Sodium Potassium Chloride Carbon Dioxide BUN Creatinine Glucose POC Glucose 184 H 251 H 272 H Hemoglobin A1c Calcium Phosphorus Magnesium C-Reactive Protein 07/30/17 07/30/17 07/30/17 14:31 14:31 15:07 WBC Hgb Hct Plt Count PT INR VBG pH Sodium Potassium 2.8 L* Chloride 109.5 H Carbon Dioxide 16 L BUN 6 L Creatinine 0.3 L D Glucose 282 H POC Glucose 249 H Hemoglobin A1c Calcium Phosphorus Magnesium C-Reactive Protein 18.60 H 07/30/17 07/30/17 07/31/17 20:44 20:44 00:02 WBC 24.4 H Hgb Hct Plt Count 473 H PT INR VBG pH Sodium Potassium Chloride 108.3 H Carbon Dioxide 18 L BUN 5 L Creatinine 0.2 L Glucose 239 H POC Glucose 222 H Hemoglobin A1c Calcium Phosphorus Magnesium C-Reactive Protein 07/31/17 07/31/17 07/31/17 05:21 06:35 11:35 WBC Hgb Hct Plt Count PT INR VBG pH Sodium Potassium 3.4 L Chloride 109.9 H Carbon Dioxide 20 L BUN Creatinine 0.2 L Glucose 216 H POC Glucose 224 H 191 H Hemoglobin A1c Calcium 8.2 L Phosphorus Magnesium C-Reactive Protein 07/31/17 07/31/17 07/31/17 15:28 15:28 17:49 WBC Hgb Hct Plt Count PT INR VBG pH Sodium Potassium 3.1 L Chloride Carbon Dioxide 21 L BUN 6 L Creatinine < 0.2 L Glucose 209 H POC Glucose 243 H Hemoglobin A1c Calcium 7.9 L Phosphorus 1.70 L Magnesium C-Reactive Protein 08/01/17 08/01/17 08/01/17 04:42 07:12 12:51 WBC Hgb Hct Plt Count PT INR VBG pH Sodium Potassium 3.3 L Chloride Carbon Dioxide BUN 5 L Creatinine < 0.2 L Glucose POC Glucose 127 H 171 H Hemoglobin A1c Calcium 8.1 L Phosphorus Magnesium C-Reactive Protein 08/01/17 08/01/17 08/02/17 17:31 20:12 01:09 WBC Hgb Hct Plt Count PT INR VBG pH Sodium Potassium 3.4 L Chloride Carbon Dioxide BUN 4 L Creatinine < 0.2 L Glucose 178 H POC Glucose 188 H 211 H Hemoglobin A1c Calcium 8.1 L Phosphorus Magnesium C-Reactive Protein 08/02/17 08/02/17 08/02/17 03:39 05:35 06:38 WBC Hgb Hct Plt Count PT INR VBG pH Sodium Potassium 3.4 L 3.5 L Chloride Carbon Dioxide BUN 3 L Creatinine < 0.2 L Glucose 161 H POC Glucose 171 H Hemoglobin A1c Calcium 8.1 L Phosphorus Magnesium C-Reactive Protein 08/02/17 08/02/17 11:47 17:38 WBC Hgb Hct Plt Count PT INR VBG pH Sodium Potassium Chloride Carbon Dioxide BUN Creatinine Glucose POC Glucose 283 H 308 H Hemoglobin A1c Calcium Phosphorus Magnesium C-Reactive Protein
[2017-08-03] MEDS: NOVOLOG SUB-Q SCH ×4 (00:28→18:05)
[2017-08-03 05:38] LABS: Hematocrit 33.2 % (30.3-42.9); Hemoglobin 11.7 gm/dl (10.1-14.3); Mean Corpuscular HGB Conc 35 % (30-34); Mean Corpuscular Hemoglobin 31 pg (28-32); Mean Corpuscular Volume 88 fl (79-97); Platelet Count 497 K/mm3 (140-440); Red Blood Count 3.78 M/mm3 (3.65-5.03); Red Cell Distribution Width 13.4 % (13.2-15.2)
[2017-08-03 06:08] LABS: Alanine Aminotransferase 6 units/L (7-56); Albumin 2.3 g/dL (3.9-5); Albumin/Globulin Ratio 0.7 %; Alkaline Phosphatase 101 units/L (35-129); BUN/Creatinine Ratio 10; Blood Urea Nitrogen 2 mg/dL (7-17); Calcium 8.4 mg/dL (8.4-10.2); Carbon Dioxide 29 mmol/L (22-30); Chloride 101.8 mmol/L (98-107); Glucose 205 mg/dL (65-100); Potassium 3.8 mmol/L (3.6-5.0); Sodium 143 mmol/L (137-145); Total Protein 5.4 g/dL (6.3-8.2)
[2017-08-03 06:09] LABS: Anion Gap 16 mmol/L
[2017-08-03] MEDS: VANCOMYCIN 1,250 MG in NACL 0.9% 250ML 250 ML IV SCH ×3 (06:44→23:05)
[2017-08-03] MEDS: HEPARIN SUB-Q SCH ×3 (06:45→23:12)
[2017-08-03] MEDS: SODIUM BICARBONATE PO SCH ×3 (08:29→23:02)
[2017-08-03] MEDS: FEOSOL PO SCH ×3 (08:29→23:02)
[2017-08-03] MEDS: PEPCID PO SCH ×3 (08:30→23:02)
--- NOTE | 2017-08-03 11:43 | Progress Note ---
Assessment and Plan Assessment: 1) Sepsis: better. Etiology most likely complicated skin/soft tissue infection. CRP=18. 2) Upper back complicated skin and soft tissue infection with an abscess and necrotizing fascitis: -S/P OR debridement 07/30 -surgical wound cx + Diphteroids, PIPE [employer]KER and normal skin laurel 3) DM-uncontrolled A1C=13 4) Penicillin allergy Plan: -follow-up blood cultures -ok to d/c home on levaquin 750 mg po qday and flagyl 500 mg TID total 2 weeks from 07/30 until 08/[address] Villaseñor for your consultation, will follow up with you. Zaina Garsia MD Infectious Diseases Specialist [facility] M [phone] O [phone] Subjective Date of service: 08/03/17 Principal diagnosis: Necrotizing Fasciitis; DKA; New Onset Diabetes Interval history: Feels better, minimal wound site pain. No fever. Microbiology: Blood cultures: 07/28 ngtd Urine cultures: wound cx: OR normal skin laurel, diphtheroids, PIPE MAKER Current Antimicrobials: Vancomycin 07/29 levaquin 07/30 Previous Antimicrobials: Clinda 07/30 Objective - Exam Narrative Exam: General appearance: Alert in NAD, somnolent Eyes: anicteric sclerae, moist conjunctivae; no lid-lag; PERRLA HENT: Atraumatic; oropharynx limited Neck: Trachea midline; supple, no thyromegaly or lymphadenopathy Lungs: CTA. Upper back with surgical dressings CV: RRR, no murmurs Abdomen: Soft, non-tender Extremities: No peripheral edema or extremity lymphadenopathy Skin: Normal temperature, turgor and texture; no rash, ulcers or subcutaneous nodules Psych: somnolent. Neuro: somnolent. Moving all extermities Lines: No CVL / PICC - Constitutional Vitals: Vital Signs Temp Pulse Resp BP Pulse Ox 99.4 F 90 18 106/56 100 08/03/17 07:31 08/03/17 07:31 08/03/17 07:31 08/03/17 07:31 08/03/17 07:31 Temperature -Last 24 Hours Temperature 99.4 F Temperature 99.4 F Temperature 99.5 F - Labs CBC & Chem 7: 08/03/17 05:19 08/03/17 05:19 Labs: Abnormal lab results 08/02/17 08/02/17 08/03/17 Range/Units 11:47 17:38 00:09 MCHC (30-34) % Plt Count (140-440) K/mm3 BUN (7-17) mg/dL Creatinine (0.7-1.2) mg/dL Glucose (65-100) mg/dL POC Glucose 283 H 308 H 275 H (70-105) ALT (7-56) units/L Total Protein (6.3-8.2) g/dL Albumin (3.9-5) g/dL 08/03/17 08/03/17 08/03/17 Range/Units 05:19 05:19 06:25 MCHC 35 H (30-34) % Plt Count 497 H (140-440) K/mm3 BUN 2 L (7-17) mg/dL Creatinine < 0.2 L (0.7-1.2) mg/dL Glucose 205 H (65-100) mg/dL POC Glucose 216 H (70-105) ALT 6 L (7-56) units/L Total Protein 5.4 L (6.3-8.2) g/dL Albumin 2.3 L (3.9-5) g/dL
[2017-08-03] MEDS: LEVAQUIN PO SCH (13:09)
--- NOTE | 2017-08-03 13:30 | Discharge Summary ---
Providers - Providers Date of Admission: 07/29/17 03:38 Date of discharge: 08/03/17 Attending physician: SARI ALVAREZ 07/29/17 06:33 Consult to Wound/ET Nurse [CONS] Routine Reason For Exam: wound eval 07/29/17 09:46 Consult to Physician [CONS] Routine Consulting Provider: AYESHA VILLASEÑOR Reason For Exam: Abscess on back Place consult to:: dr. villaseñor Notified:: office Phone number called:: Was contact made?: Yes If yes, spoke with:: elisa Time called:: 10:19 07/29/17 11:51 Consult to Physician [CONS] Urgent Consulting Provider: AMAN GRAVES Reason For Exam: critical care management Place consult to:: Dr. Graves Notified:: yes Was contact made?: Yes If yes, spoke with:: Time called:: 11:30 07/30/17 11:36 Consult to Physician [CONS] Routine Consulting Provider: ROBINSON OWENS Reason For Exam: necrotizing fasciitis. DM Place consult to:: matthew Notified:: yes 07/30/17 11:37 Consult to Physician [CONS] Routine Consulting Provider: ROBINSON OWENS Reason For Exam: necrotizing fascitis Place consult to:: RAGHAV Notified:: YES 07/31/17 11:18 Consult to Wound/ET Nurse [CONS] Routine Reason For Exam: begin wd care in am 07/31/17 11:20 Consult to Case Management [CONS] Routine Services Needed at Discharge: Home Health Services Notified:: allan notified Additional Physician Instructions: will need wd care as outpt Primary care physician: [employer] Hospitalization Condition: Fair Disposition: DC-01 TO HOME OR SELFCARE Exam - Constitutional Vitals: Temp Pulse Resp BP Pulse Ox 98.9 F 84 18 114/72 99 08/03/17 12:16 08/03/17 12:16 08/03/17 12:16 08/03/17 12:16 08/03/17 12:16 Plan Activity: advance as tolerated Diet: low fat, low cholesterol, low salt, diabetic Additional Instructions: 1.Follow up with PCP at [facility] in 1 week. 2.Follow up with Dr. Villaseñor in 1 week. 3.Home health Nurse for wound vac management. 4.Check fingerstick glucose before meals and at bedtime Follow up with: PRIMARY CARE, [Primary Care Provider] - 3-5 Days Prescriptions: Insulin NPH/Regular [NovoLIN 70/30] 20 unit SUB-Q BIDDIAB #1 vial Levofloxacin [Levaquin] 750 mg PO QDAY #10 tablet metroNIDAZOLE [Flagyl] 500 mg PO TID #30 tab
--- NOTE | 2017-08-03 16:33 | Progress Note ---
Assessment and Plan Assessment and plan: Diabetic ketoacidosis. This is now resolved. She was on Insulin drip in ICU and transferred out of ICU . Her glucose level improving on Novolin 70/30. Diabetes mellitus type 2, newly diagnosed this admission. Uncontrolled but improving. Now on Novolin 70/30 bid. Necrotizing fascitis of infected sebaceous cyst with necrosis down to muscle. s /p wide debridement yesterday by Dr. Villaseñor, Surgeon on 07/30. ID Physician following. On Levaquin and Vancomycin . Wound vac placed Hyponatremia. Resolved. Sodium 143 today Hypophosphatemia. Now resolved after replacement. Hypomagnesemia. Now resolved after replacement. DVT prophylaxis. SCDs only because of surgery Patient was to be discharged today, however was called by Wound care Nurse that Wound clinic will not accept her Insurance, therefore discharge cancelled. History Interval history: Abscess on back s/p debridement Fever resolved, no chest pain, no SOB Hospitalist Physical - Physical exam Narrative exam: GEN APPEARANCE : Not in acute distress HEENT: Normocephalic Atrauma NECK : supple, no JVD LUNGS: clear to auscultation bilaterally, no rales, no wheeze HEART: S1 and S2 regular, tachycardia, no murmurs, rubs or gallop, ABD: Soft, no tenderness, no distension, normal bowel sounds EXT: No edema, no clubbing, no cyanosis NEURO: Awake,alert,oriented x 3, no facial asymmetry,no focal signs, Back: Wound vac to left upper back over surgery site of abscess on back - Constitutional Vitals: Temp Pulse Resp BP Pulse Ox 98.9 F 84 18 114/72 99 08/03/17 12:16 08/03/17 12:16 08/03/17 12:16 08/03/17 12:16 08/03/17 12:16 General appearance: Present: mild distress Results - Labs CBC & Chem 7: 08/03/17 05:19 08/03/17 05:19 Labs: Laboratory Last Values WBC 7.0 K/mm3 (4.5-11.0) 08/03/17 05:19 RBC 3.78 M/mm3 (3.65-5.03) 08/03/17 05:19 Hgb 11.7 gm/dl (10.1-14.3) 08/03/17 05:19 Hct 33.2 % (30.3-42.9) 08/03/17 05:19 MCV 88 fl (79-97) 08/03/17 05:19 MCH 31 pg (28-32) 08/03/17 05:19 MCHC 35 % (30-34) H 08/03/17 05:19 RDW 13.4 % (13.2-15.2) 08/03/17 05:19 Plt Count 497 K/mm3 (140-440) H 08/03/17 05:19 PT 15.3 Sec. (12.2-14.9) H 07/28/17 22:23 INR 1.15 (0.87-1.13) H 07/28/17 22:23 VBG pH 7.284 (7.320-7.420) L 07/28/17 22:23 Sodium 143 mmol/L (137-145) 08/03/17 05:19 Potassium 3.8 mmol/L (3.6-5.0) 08/03/17 05:19 Chloride 101.8 mmol/L (98-107) 08/03/17 05:19 Carbon Dioxide 29 mmol/L (22-30) D 08/03/17 05:19 Anion Gap 16 mmol/L 08/03/17 05:19 BUN 2 mg/dL (7-17) L 08/03/17 05:19 Creatinine < 0.2 mg/dL (0.7-1.2) L 08/03/17 05:19 Estimated GFR > 60 ml/min 08/03/17 05:19 BUN/Creatinine Ratio 10 % 08/03/17 05:19 Glucose 205 mg/dL (65-100) H 08/03/17 05:19 POC Glucose 112 (70-105) H 08/03/17 12:29 Hemoglobin A1c 13.2 % (4-6) H 07/29/17 03:37 Lactic Acid 1.50 mmol/L (0.7-2.0) 07/29/17 09:44 Calcium 8.4 mg/dL (8.4-10.2) 08/03/17 05:19 Phosphorus 2.80 mg/dL (2.5-4.5) 08/02/17 05:35 Magnesium 1.70 mg/dL (1.7-2.3) 07/31/17 15:28 Total Bilirubin 0.50 mg/dL (0.1-1.2) 08/03/17 05:19 AST 8 units/L (5-40) 08/03/17 05:19 ALT 6 units/L (7-56) L 08/03/17 05:19 Alkaline Phosphatase 101 units/L (35-129) 08/03/17 05:19 C-Reactive Protein 18.60 mg/dL (0.00-1.30) H 07/30/17 14:31 Total Protein 5.4 g/dL (6.3-8.2) L 08/03/17 05:19 Albumin 2.3 g/dL (3.9-5) L 08/03/17 05:19 Albumin/Globulin Ratio 0.7 % 08/03/17 05:19 Urine Color Yellow (Yellow) 07/29/17 00:40 Urine Turbidity Clear (Clear) 07/29/17 00:40 Urine pH 5.0 (5.0-7.0) 07/29/17 00:40 Ur Specific Sullivan 1.030 (1.003-1.030) 07/29/17 00:40 Urine Protein 100 mg/dl mg/dL (Negative) 07/29/17 00:40 Urine Glucose (UA) >=500 mg/dL (Negative) 07/29/17 00:40 Urine Ketones 80 mg/dL (Negative) 07/29/17 00:40 Urine Blood Sm (Negative) 07/29/17 00:40 Urine Nitrite Neg (Negative) 07/29/17 00:40 Urine Bilirubin Neg (Negative) 07/29/17 00:40 Urine Urobilinogen < 2.0 mg/dL (<2.0) 07/29/17 00:40 Ur Leukocyte Esterase Neg (Negative) 07/29/17 00:40 Urine WBC (Auto) 1.0 /HPF (0.0-6.0) 07/29/17 00:40 Urine RBC (Auto) 2.0 /HPF (0.0-6.0) 07/29/17 00:40 U Epithel Cells (Auto) 1.0 /HPF (0-13.0) 07/29/17 00:40 Urine Mucus Few /HPF 07/29/17 00:40 Vancomycin Trough 9.4 ug/mL (5.0-20.0) 08/02/17 03:39
--- NOTE | 2017-08-03 22:24 | Progress Note ---
Assessment and Plan Patient sleeping at this time..Resting on room air.O2 saturation 100%. No acute respiratory distress. - Patient Problems (1) Sepsis Current Visit: Yes Status: Acute Qualifiers: Sepsis type: sepsis due to unspecified organism Qualified Code(s): A41.9 - Sepsis, unspecified organism Plan to address problem: Patient is on Levaquine and vancomycin. (2) Metabolic acidosis Current Visit: Yes Status: Acute Plan to address problem: Bicarb is slowly getting low. ABGs in AM. (3) Back abscess Current Visit: Yes Status: Acute Plan to address problem: Patient is on Levaquine and vancomycin. (4) Cellulitis Current Visit: Yes Status: Acute Qualifiers: Site of cellulitis: trunk Site of cellulitis of trunk: back Qualified Code(s): L03.312 - Cellulitis of back [any part except buttock] Plan to address problem: Patient is on Levaquine and vancomycin. (5) Diabetes Current Visit: Yes Status: Acute Plan to address problem: Management as per primary care. (6) Status post laparoscopic assisted vaginal hysterectomy (LAVH) Onset Date: 12/29/13 Current Visit: No Status: Acute Plan to address problem: Management as per [facility]. Subjective Date of service: 08/03/17 Principal diagnosis: Necrotizing Fasciitis; DKA; New Onset Diabetes Interval history: Patient sleeping at this time.Resting on room air.O2 saturation 100%. No acute respiratory distress. Objective Vital Signs - 12hr 08/03/17 08/03/17 08/03/17 12:16 16:08 17:01 Temperature 98.9 F 98.7 F Pulse Rate 84 77 Pulse Rate [ 77 Left] Respiratory 18 18 Rate Blood Pressure 114/72 113/66 O2 Sat by Pulse 99 100 100 Oximetry 08/03/17 08/03/17 20:30 20:35 Temperature 98.1 F Pulse Rate 95 H Pulse Rate [ Left] Respiratory 22 Rate Blood Pressure 117/72 O2 Sat by Pulse 100 Oximetry Constitutional: no acute distress, asleep Eyes: non-icteric ENT: oropharynx moist Neck: supple, no lymphadenopathy Ascultation: Bilateral: diminished breath sounds Cardiovascular: regular rate and rhythm Gastrointestinal: normoactive bowel sounds, soft, non-tender Integumentary: normal Extremities: no cyanosis, no edema Neurologic: normal mental status, non-focal exam, pupils equal and round, CN II- XII normal Psychiatric: other (Unable to assess at this time. Patient sleeping.) CBC and BMP: 08/03/17 05:19 08/03/17 05:19 ABG, PT/INR, D-dimer: PT/INR, D-dimer PT 15.3 Sec. (12.2-14.9) H 07/28/17 22:23 INR 1.15 (0.87-1.13) H 07/28/17 22:23 Abnormal lab findings: Abnormal Labs 07/28/17 07/28/17 07/28/17 22:15 22:15 22:23 WBC 22.4 H Hgb 15.1 H Hct 44.0 H MCHC Plt Count 594 H PT 15.3 H INR 1.15 H VBG pH Sodium 132 L Potassium Chloride 95.4 L Carbon Dioxide 7 L* BUN Creatinine 0.4 L Glucose 333 H POC Glucose Hemoglobin A1c Calcium 10.7 H Phosphorus Magnesium ALT C-Reactive Protein Total Protein Albumin 07/28/17 07/29/17 07/29/17 22:23 03:37 07:51 WBC Hgb Hct MCHC Plt Count PT INR VBG pH 7.284 L Sodium Potassium Chloride Carbon Dioxide BUN Creatinine Glucose POC Glucose 280 H Hemoglobin A1c 13.2 H Calcium Phosphorus Magnesium ALT C-Reactive Protein Total Protein Albumin 07/29/17 07/29/17 07/29/17 09:44 12:17 12:17 WBC Hgb Hct MCHC Plt Count PT INR VBG pH Sodium Potassium Chloride 109.4 H Carbon Dioxide 5 L* 9 L* BUN Creatinine 0.4 L 0.3 L Glucose 319 H 336 H POC Glucose Hemoglobin A1c Calcium Phosphorus 1.30 L Magnesium ALT C-Reactive Protein Total Protein Albumin 07/29/17 07/29/17 07/29/17 12:25 14:32 15:24 WBC Hgb Hct MCHC Plt Count PT INR VBG pH Sodium Potassium 3.3 L Chloride 112.9 H Carbon Dioxide 11 L BUN Creatinine 0.3 L Glucose 233 H POC Glucose 315 H 228 H Hemoglobin A1c Calcium Phosphorus Magnesium ALT C-Reactive Protein Total Protein Albumin 07/29/17 07/29/17 07/29/17 16:18 16:56 17:07 WBC Hgb Hct MCHC Plt Count PT INR VBG pH Sodium Potassium 3.2 L Chloride 112.9 H Carbon Dioxide 10 L BUN Creatinine 0.3 L Glucose 158 H POC Glucose 192 H 157 H Hemoglobin A1c Calcium Phosphorus Magnesium ALT C-Reactive Protein Total Protein Albumin 07/29/17 07/29/17 07/29/17 18:12 19:00 19:28 WBC Hgb Hct MCHC Plt Count PT INR VBG pH Sodium Potassium Chloride 114.3 H Carbon Dioxide 12 L BUN Creatinine 0.3 L Glucose 167 H POC Glucose 140 H 157 H Hemoglobin A1c Calcium Phosphorus Magnesium ALT C-Reactive Protein Total Protein Albumin 07/29/17 07/29/17 07/29/17 20:15 21:16 22:05 WBC Hgb Hct MCHC Plt Count PT INR VBG pH Sodium Potassium Chloride Carbon Dioxide BUN Creatinine Glucose POC Glucose 187 H 193 H 166 H Hemoglobin A1c Calcium Phosphorus Magnesium ALT C-Reactive Protein Total Protein Albumin 07/29/17 07/30/17 07/30/17 23:43 00:37 01:10 WBC Hgb Hct MCHC Plt Count PT INR VBG pH Sodium Potassium Chloride Carbon Dioxide BUN Creatinine Glucose POC Glucose 145 H 146 H 144 H Hemoglobin A1c Calcium Phosphorus Magnesium ALT C-Reactive Protein Total Protein Albumin 07/30/17 07/30/17 07/30/17 02:03 04:13 05:02 WBC Hgb Hct MCHC Plt Count PT INR VBG pH Sodium Potassium 3.4 L Chloride 109.3 H Carbon Dioxide 15 L BUN 5 L Creatinine < 0.2 L Glucose 138 H POC Glucose 137 H 146 H Hemoglobin A1c Calcium Phosphorus Magnesium ALT C-Reactive Protein Total Protein Albumin 07/30/17 07/30/17 07/30/17 05:02 05:26 06:13 WBC Hgb Hct MCHC Plt Count PT INR VBG pH Sodium Potassium Chloride Carbon Dioxide BUN Creatinine Glucose POC Glucose 150 H 141 H Hemoglobin A1c Calcium Phosphorus 1.80 L D Magnesium 1.50 L ALT C-Reactive Protein Total Protein Albumin 07/30/17 07/30/17 07/30/17 06:20 07:08 08:23 WBC Hgb Hct MCHC Plt Count PT INR VBG pH Sodium Potassium Chloride Carbon Dioxide BUN Creatinine Glucose POC Glucose 146 H 146 H 180 H Hemoglobin A1c Calcium Phosphorus Magnesium ALT C-Reactive Protein Total Protein Albumin 07/30/17 07/30/17 07/30/17 09:26 12:06 13:49 WBC Hgb Hct MCHC Plt Count PT INR VBG pH Sodium Potassium Chloride Carbon Dioxide BUN Creatinine Glucose POC Glucose 184 H 251 H 272 H Hemoglobin A1c Calcium Phosphorus Magnesium ALT C-Reactive Protein Total Protein Albumin 07/30/17 07/30/17 07/30/17 14:31 14:31 15:07 WBC Hgb Hct MCHC Plt Count PT INR VBG pH Sodium Potassium 2.8 L* Chloride 109.5 H Carbon Dioxide 16 L BUN 6 L Creatinine 0.3 L D Glucose 282 H POC Glucose 249 H Hemoglobin A1c Calcium Phosphorus Magnesium ALT C-Reactive Protein 18.60 H Total Protein Albumin 07/30/17 07/30/17 07/31/17 20:44 20:44 00:02 WBC 24.4 H Hgb Hct MCHC Plt Count 473 H PT INR VBG pH Sodium Potassium Chloride 108.3 H Carbon Dioxide 18 L BUN 5 L Creatinine 0.2 L Glucose 239 H POC Glucose 222 H Hemoglobin A1c Calcium Phosphorus Magnesium ALT C-Reactive Protein Total Protein Albumin 07/31/17 07/31/17 07/31/17 05:21 06:35 11:35 WBC Hgb Hct MCHC Plt Count PT INR VBG pH Sodium Potassium 3.4 L Chloride 109.9 H Carbon Dioxide 20 L BUN Creatinine 0.2 L Glucose 216 H POC Glucose 224 H 191 H Hemoglobin A1c Calcium 8.2 L Phosphorus Magnesium ALT C-Reactive Protein Total Protein Albumin 07/31/17 07/31/17 07/31/17 15:28 15:28 17:49 WBC Hgb Hct MCHC Plt Count PT INR VBG pH Sodium Potassium 3.1 L Chloride Carbon Dioxide 21 L BUN 6 L Creatinine < 0.2 L Glucose 209 H POC Glucose 243 H Hemoglobin A1c Calcium 7.9 L Phosphorus 1.70 L Magnesium ALT C-Reactive Protein Total Protein Albumin 08/01/17 08/01/17 08/01/17 04:42 07:12 12:51 WBC Hgb Hct MCHC Plt Count PT INR VBG pH Sodium Potassium 3.3 L Chloride Carbon Dioxide BUN 5 L Creatinine < 0.2 L Glucose POC Glucose 127 H 171 H Hemoglobin A1c Calcium 8.1 L Phosphorus Magnesium ALT C-Reactive Protein Total Protein Albumin 08/01/17 08/01/17 08/02/17 17:31 20:12 01:09 WBC Hgb Hct MCHC Plt Count PT INR VBG pH Sodium Potassium 3.4 L Chloride Carbon Dioxide BUN 4 L Creatinine < 0.2 L Glucose 178 H POC Glucose 188 H 211 H Hemoglobin A1c Calcium 8.1 L Phosphorus Magnesium ALT C-Reactive Protein Total Protein Albumin 08/02/17 08/02/17 08/02/17 03:39 05:35 06:38 WBC Hgb Hct MCHC Plt Count PT INR VBG pH Sodium Potassium 3.4 L 3.5 L Chloride Carbon Dioxide BUN 3 L Creatinine < 0.2 L Glucose 161 H POC Glucose 171 H Hemoglobin A1c Calcium 8.1 L Phosphorus Magnesium ALT C-Reactive Protein Total Protein Albumin 08/02/17 08/02/17 08/03/17 11:47 17:38 00:09 WBC Hgb Hct MCHC Plt Count PT INR VBG pH Sodium Potassium Chloride Carbon Dioxide BUN Creatinine Glucose POC Glucose 283 H 308 H 275 H Hemoglobin A1c Calcium Phosphorus Magnesium ALT C-Reactive Protein Total Protein Albumin 08/03/17 08/03/17 08/03/17 05:19 05:19 06:25 WBC Hgb Hct MCHC 35 H Plt Count 497 H PT INR VBG pH Sodium Potassium Chloride Carbon Dioxide BUN 2 L Creatinine < 0.2 L Glucose 205 H POC Glucose 216 H Hemoglobin A1c Calcium Phosphorus Magnesium ALT 6 L C-Reactive Protein Total Protein 5.4 L Albumin 2.3 L 08/03/17 08/03/17 08/03/17 12:29 16:56 22:02 WBC Hgb Hct MCHC Plt Count PT INR VBG pH Sodium Potassium Chloride Carbon Dioxide BUN Creatinine Glucose POC Glucose 112 H 156 H 151 H Hemoglobin A1c Calcium Phosphorus Magnesium ALT C-Reactive Protein Total Protein Albumin
[2017-08-04] MEDS: NOVOLOG SUB-Q SCH ×2 (01:37→14:00)
[2017-08-04] MEDS: HEPARIN SUB-Q SCH ×3 (06:14→22:00)
[2017-08-04 08:48] LABS: BUN/Creatinine Ratio 7; Blood Urea Nitrogen 2 mg/dL (7-17); Calcium 8.8 mg/dL (8.4-10.2); Carbon Dioxide 35 mmol/L (22-30); Chloride 103.5 mmol/L (98-107); Glucose 106 mg/dL (65-100); Sodium 150 mmol/L (137-145)
[2017-08-04 08:59] LABS: Anion Gap 15 mmol/L; Potassium 3.7 mmol/L (3.6-5.0)
[2017-08-04] MEDS: PEPCID PO SCH ×2 (09:58→23:27)
[2017-08-04] MEDS: FEOSOL PO SCH ×2 (09:58→23:27)
[2017-08-04] MEDS: LEVAQUIN PO SCH (09:58)
[2017-08-04] MEDS: SODIUM BICARBONATE PO SCH (09:58)
--- NOTE | 2017-08-04 11:11 | Progress Note ---
Assessment and Plan Sepsis Syndrome Necrotizing Fasciitis (S/P I & D with wide debridement DKA Metabolic acidosis (Driven by DKA and sepsis) New Onset Diabetes - continue wound care per surgery and wound care team - for wound vac palcement - continue empiric AB's and follow cultures / clinically for de-escalation - adjust AB's per ID recs - continue tight glycemic control with SSI - continue prn analgesia - potassium replaced - continue other care per attending / other consultants ....re-evaluate in am & prn Subjective Date of service: 08/04/17 Principal diagnosis: Necrotizing Fasciitis; DKA; New Onset Diabetes Interval history: Patient is seen today for: Necotizing Fasciitis; Sepsis Syndrome; DKA Seen and examined at bedside; 24hour events reviewed; nursing and respiratory care staff consulted; no adverse overnight events reported to me; denies acute chest pains or increased SOB Objective Vital Signs - 12hr 08/04/17 08/04/17 08/04/17 00:11 05:07 07:39 Temperature 98.3 F 98.8 F 98.3 F Pulse Rate 91 H 77 77 Respiratory 20 20 18 Rate Blood Pressure 112/67 115/65 118/69 O2 Sat by Pulse 97 99 100 Oximetry Constitutional: no acute distress, asleep Eyes: non-icteric ENT: oropharynx moist Neck: supple, no lymphadenopathy Ascultation: Bilateral: diminished breath sounds Cardiovascular: regular rate and rhythm Gastrointestinal: normoactive bowel sounds, soft, non-tender Integumentary: normal Extremities: no cyanosis, no edema Neurologic: normal mental status, non-focal exam, pupils equal and round, CN II- XII normal Psychiatric: other (Unable to assess at this time. Patient sleeping.) CBC and BMP: 08/03/17 05:19 08/09/17 16:52 ABG, PT/INR, D-dimer: PT/INR, D-dimer PT 15.3 Sec. (12.2-14.9) H 07/28/17 22:23 INR 1.15 (0.87-1.13) H 07/28/17 22:23 Abnormal lab findings: Abnormal Labs 07/28/17 07/28/17 07/28/17 22:15 22:15 22:23 WBC 22.4 H Hgb 15.1 H Hct 44.0 H MCHC Plt Count 594 H PT 15.3 H INR 1.15 H VBG pH Sodium 132 L Potassium Chloride 95.4 L Carbon Dioxide 7 L* BUN Creatinine 0.4 L Glucose 333 H POC Glucose Hemoglobin A1c Calcium 10.7 H Phosphorus Magnesium ALT C-Reactive Protein Total Protein Albumin 07/28/17 07/29/17 07/29/17 22:23 03:37 07:51 WBC Hgb Hct MCHC Plt Count PT INR VBG pH 7.284 L Sodium Potassium Chloride Carbon Dioxide BUN Creatinine Glucose POC Glucose 280 H Hemoglobin A1c 13.2 H Calcium Phosphorus Magnesium ALT C-Reactive Protein Total Protein Albumin 07/29/17 07/29/17 07/29/17 09:44 12:17 12:17 WBC Hgb Hct MCHC Plt Count PT INR VBG pH Sodium Potassium Chloride 109.4 H Carbon Dioxide 5 L* 9 L* BUN Creatinine 0.4 L 0.3 L Glucose 319 H 336 H POC Glucose Hemoglobin A1c Calcium Phosphorus 1.30 L Magnesium ALT C-Reactive Protein Total Protein Albumin 07/29/17 07/29/17 07/29/17 12:25 14:32 15:24 WBC Hgb Hct MCHC Plt Count PT INR VBG pH Sodium Potassium 3.3 L Chloride 112.9 H Carbon Dioxide 11 L BUN Creatinine 0.3 L Glucose 233 H POC Glucose 315 H 228 H Hemoglobin A1c Calcium Phosphorus Magnesium ALT C-Reactive Protein Total Protein Albumin 07/29/17 07/29/17 07/29/17 16:18 16:56 17:07 WBC Hgb Hct MCHC Plt Count PT INR VBG pH Sodium Potassium 3.2 L Chloride 112.9 H Carbon Dioxide 10 L BUN Creatinine 0.3 L Glucose 158 H POC Glucose 192 H 157 H Hemoglobin A1c Calcium Phosphorus Magnesium ALT C-Reactive Protein Total Protein Albumin 07/29/17 07/29/17 07/29/17 18:12 19:00 19:28 WBC Hgb Hct MCHC Plt Count PT INR VBG pH Sodium Potassium Chloride 114.3 H Carbon Dioxide 12 L BUN Creatinine 0.3 L Glucose 167 H POC Glucose 140 H 157 H Hemoglobin A1c Calcium Phosphorus Magnesium ALT C-Reactive Protein Total Protein Albumin 07/29/17 07/29/17 07/29/17 20:15 21:16 22:05 WBC Hgb Hct MCHC Plt Count PT INR VBG pH Sodium Potassium Chloride Carbon Dioxide BUN Creatinine Glucose POC Glucose 187 H 193 H 166 H Hemoglobin A1c Calcium Phosphorus Magnesium ALT C-Reactive Protein Total Protein Albumin 07/29/17 07/30/17 07/30/17 23:43 00:37 01:10 WBC Hgb Hct MCHC Plt Count PT INR VBG pH Sodium Potassium Chloride Carbon Dioxide BUN Creatinine Glucose POC Glucose 145 H 146 H 144 H Hemoglobin A1c Calcium Phosphorus Magnesium ALT C-Reactive Protein Total Protein Albumin 07/30/17 07/30/17 07/30/17 02:03 04:13 05:02 WBC Hgb Hct MCHC Plt Count PT INR VBG pH Sodium Potassium 3.4 L Chloride 109.3 H Carbon Dioxide 15 L BUN 5 L Creatinine < 0.2 L Glucose 138 H POC Glucose 137 H 146 H Hemoglobin A1c Calcium Phosphorus Magnesium ALT C-Reactive Protein Total Protein Albumin 07/30/17 07/30/17 07/30/17 05:02 05:26 06:13 WBC Hgb Hct MCHC Plt Count PT INR VBG pH Sodium Potassium Chloride Carbon Dioxide BUN Creatinine Glucose POC Glucose 150 H 141 H Hemoglobin A1c Calcium Phosphorus 1.80 L D Magnesium 1.50 L ALT C-Reactive Protein Total Protein Albumin 07/30/17 07/30/17 07/30/17 06:20 07:08 08:23 WBC Hgb Hct MCHC Plt Count PT INR VBG pH Sodium Potassium Chloride Carbon Dioxide BUN Creatinine Glucose POC Glucose 146 H 146 H 180 H Hemoglobin A1c Calcium Phosphorus Magnesium ALT C-Reactive Protein Total Protein Albumin 07/30/17 07/30/17 07/30/17 09:26 12:06 13:49 WBC Hgb Hct MCHC Plt Count PT INR VBG pH Sodium Potassium Chloride Carbon Dioxide BUN Creatinine Glucose POC Glucose 184 H 251 H 272 H Hemoglobin A1c Calcium Phosphorus Magnesium ALT C-Reactive Protein Total Protein Albumin 07/30/17 07/30/17 07/30/17 14:31 14:31 15:07 WBC Hgb Hct MCHC Plt Count PT INR VBG pH Sodium Potassium 2.8 L* Chloride 109.5 H Carbon Dioxide 16 L BUN 6 L Creatinine 0.3 L D Glucose 282 H POC Glucose 249 H Hemoglobin A1c Calcium Phosphorus Magnesium ALT C-Reactive Protein 18.60 H Total Protein Albumin 07/30/17 07/30/17 07/31/17 20:44 20:44 00:02 WBC 24.4 H Hgb Hct MCHC Plt Count 473 H PT INR VBG pH Sodium Potassium Chloride 108.3 H Carbon Dioxide 18 L BUN 5 L Creatinine 0.2 L Glucose 239 H POC Glucose 222 H Hemoglobin A1c Calcium Phosphorus Magnesium ALT C-Reactive Protein Total Protein Albumin 07/31/17 07/31/17 07/31/17 05:21 06:35 11:35 WBC Hgb Hct MCHC Plt Count PT INR VBG pH Sodium Potassium 3.4 L Chloride 109.9 H Carbon Dioxide 20 L BUN Creatinine 0.2 L Glucose 216 H POC Glucose 224 H 191 H Hemoglobin A1c Calcium 8.2 L Phosphorus Magnesium ALT C-Reactive Protein Total Protein Albumin 07/31/17 07/31/17 07/31/17 15:28 15:28 17:49 WBC Hgb Hct MCHC Plt Count PT INR VBG pH Sodium Potassium 3.1 L Chloride Carbon Dioxide 21 L BUN 6 L Creatinine < 0.2 L Glucose 209 H POC Glucose 243 H Hemoglobin A1c Calcium 7.9 L Phosphorus 1.70 L Magnesium ALT C-Reactive Protein Total Protein Albumin 08/01/17 08/01/17 08/01/17 04:42 07:12 12:51 WBC Hgb Hct MCHC Plt Count PT INR VBG pH Sodium Potassium 3.3 L Chloride Carbon Dioxide BUN 5 L Creatinine < 0.2 L Glucose POC Glucose 127 H 171 H Hemoglobin A1c Calcium 8.1 L Phosphorus Magnesium ALT C-Reactive Protein Total Protein Albumin 08/01/17 08/01/17 08/02/17 17:31 20:12 01:09 WBC Hgb Hct MCHC Plt Count PT INR VBG pH Sodium Potassium 3.4 L Chloride Carbon Dioxide BUN 4 L Creatinine < 0.2 L Glucose 178 H POC Glucose 188 H 211 H Hemoglobin A1c Calcium 8.1 L Phosphorus Magnesium ALT C-Reactive Protein Total Protein Albumin 08/02/17 08/02/17 08/02/17 03:39 05:35 06:38 WBC Hgb Hct MCHC Plt Count PT INR VBG pH Sodium Potassium 3.4 L 3.5 L Chloride Carbon Dioxide BUN 3 L Creatinine < 0.2 L Glucose 161 H POC Glucose 171 H Hemoglobin A1c Calcium 8.1 L Phosphorus Magnesium ALT C-Reactive Protein Total Protein Albumin 08/02/17 08/02/17 08/03/17 11:47 17:38 00:09 WBC Hgb Hct MCHC Plt Count PT INR VBG pH Sodium Potassium Chloride Carbon Dioxide BUN Creatinine Glucose POC Glucose 283 H 308 H 275 H Hemoglobin A1c Calcium Phosphorus Magnesium ALT C-Reactive Protein Total Protein Albumin 08/03/17 08/03/17 08/03/17 05:19 05:19 06:25 WBC Hgb Hct MCHC 35 H Plt Count 497 H PT INR VBG pH Sodium Potassium Chloride Carbon Dioxide BUN 2 L Creatinine < 0.2 L Glucose 205 H POC Glucose 216 H Hemoglobin A1c Calcium Phosphorus Magnesium ALT 6 L C-Reactive Protein Total Protein 5.4 L Albumin 2.3 L 08/03/17 08/03/17 08/03/17 12:29 16:56 22:02 WBC Hgb Hct MCHC Plt Count PT INR VBG pH Sodium Potassium Chloride Carbon Dioxide BUN Creatinine Glucose POC Glucose 112 H 156 H 151 H Hemoglobin A1c Calcium Phosphorus Magnesium ALT C-Reactive Protein Total Protein Albumin 08/04/17 08:15 WBC Hgb Hct MCHC Plt Count PT INR VBG pH Sodium 150 H Potassium Chloride Carbon Dioxide 35 H BUN 2 L Creatinine 0.3 L D Glucose 106 H POC Glucose Hemoglobin A1c Calcium Phosphorus Magnesium ALT C-Reactive Protein Total Protein Albumin
[2017-08-04] MEDS: VANCOMYCIN 1,250 MG in NACL 0.9% 250ML 250 ML IV SCH ×3 (16:00→23:27)
[2017-08-04] MEDS: NACL 0.45% 1000 ML 1,000 ML IV SCH (16:00)
--- NOTE | 2017-08-04 16:21 | Progress Note ---
Assessment and Plan Diabetic ketoacidosis. - This is now resolved. She was on Insulin drip in ICU and transferred out of ICU. - Her glucose level improving on Novolin 70/30. will monitor BG and adjust 70/3 - dose accordingly Diabetes mellitus type 2, - newly diagnosed this admission. - Uncontrolled but improving. Now on Novolin 70/30 bid. Necrotizing fascitis of infected sebaceous cyst with necrosis down to muscle. - s/p wide debridement yesterday by Dr. Villaseñor, Surgeon on 07/30. - ID Physician following. On Levaquin and Vancomycin . Wound vac placed Hyponatremia. Resolved. Sodium 150 today, will cont iv fluid Hypophosphatemia. Now resolved after replacement. Hypomagnesemia. Now resolved after replacement. DVT prophylaxis. SCDs only because of surgery Disposition: Was called by Wound care Nurse that Wound clinic will not accept her Insurance, therefore discharge now pending. Hospitalist Physical GEN APPEARANCE : Not in acute distress HEENT: Normocephalic Atrauma NECK : supple, no JVD LUNGS: clear to auscultation bilaterally, no rales, no wheeze HEART: S1 and S2 regular, tachycardia, no murmurs, rubs or gallop, ABD: Soft, no tenderness, no distension, normal bowel sounds EXT: No edema, no clubbing, no cyanosis NEURO: Awake,alert,oriented x 3, no facial asymmetry,no focal signs, Back: Wound vac to left upper back over surgery site of abscess on back Subjective Date of service: 08/04/17 Principal diagnosis: Necrotizing Fasciitis; DKA; New Onset Diabetes Interval history: Abscess on back with wound vac Fever resolved, no chest pain, no SOB Objective - Constitutional Vitals: Vital Signs - 12hr 08/04/17 08/04/17 05:07 07:39 Temperature 98.8 F 98.3 F Pulse Rate 77 77 Respiratory 20 18 Rate Blood Pressure 115/65 118/69 O2 Sat by Pulse 99 100 Oximetry - Labs CBC & Chem 7: 08/03/17 05:19 08/04/17 08:15 Labs: Abnormal lab results 08/03/17 08/03/17 08/04/17 Range/Units 16:56 22:02 08:15 Sodium 150 H (137-145) mmol/L Carbon Dioxide 35 H (22-30) mmol/L BUN 2 L (7-17) mg/dL Creatinine 0.3 L D (0.7-1.2) mg/dL Glucose 106 H (65-100) mg/dL POC Glucose 156 H 151 H (70-105) 08/04/17 Range/Units 11:57 Sodium (137-145) mmol/L Carbon Dioxide (22-30) mmol/L BUN (7-17) mg/dL Creatinine (0.7-1.2) mg/dL Glucose (65-100) mg/dL POC Glucose 169 H (70-105)
[2017-08-05] MEDS: NOVOLOG SUB-Q SCH ×6 (02:13→19:43)
[2017-08-05] MEDS: MORPHINE IV PRN ×2 (02:21→10:17)
[2017-08-05] MEDS: HEPARIN SUB-Q SCH ×3 (06:00→21:27)
[2017-08-05] MEDS: VANCOMYCIN 1,250 MG in NACL 0.9% 250ML 250 ML IV SCH ×3 (06:30→21:30)
--- NOTE | 2017-08-05 10:13 | Progress Note ---
Assessment and Plan Assessment: 1) Sepsis: better. Etiology most likely complicated skin/soft tissue infection. CRP=18. 2) Upper back complicated skin and soft tissue infection with an abscess and necrotizing fascitis: -S/P OR debridement 07/30 -surgical wound cx + Diphteroids, Staph capitis and Peptostreptococcus 3) DM-uncontrolled A1C=13 4) Penicillin allergy Plan: -follow-up blood cultures -ok to d/c home on levaquin 750 mg po qday and flagyl 500 mg TID total 2 weeks from 07/30 until 08/12 -stop contact isolation I am signing off Thank you Dr Villaseñor for your consultation, will follow up with you. Zaina Garsia MD Infectious Diseases Specialist [facility] [phone] O [phone] Subjective Date of service: 08/05/17 Principal diagnosis: Necrotizing Fasciitis; DKA; New Onset Diabetes Interval history: Feels better, minimal wound site pain. No fever. Microbiology: Blood cultures: 07/28 ngtd Urine cultures: wound cx: OR normal skin laurel, diphtheroids, [employer] Current Antimicrobials: levaquin 07/30 Previous Antimicrobials: Clinda 07/30 Vancomycin 07/29 Objective - Exam Narrative Exam: General appearance: Alert in NAD, somnolent Eyes: anicteric sclerae, moist conjunctivae; no lid-lag; PERRLA HENT: Atraumatic; oropharynx limited Neck: Trachea midline; supple, no thyromegaly or lymphadenopathy Lungs: CTA. Upper back with surgical wound VAC CV: RRR, no murmurs Abdomen: Soft, non-tender Extremities: No peripheral edema or extremity lymphadenopathy Skin: Normal temperature, turgor and texture; no rash, ulcers or subcutaneous nodules Psych: somnolent. Neuro: somnolent. Moving all extermities Lines: No CVL / PICC - Constitutional Vitals: Vital Signs Temp Pulse Resp BP Pulse Ox 98.6 F 86 20 107/52 100 08/05/17 07:32 08/05/17 07:36 08/05/17 05:10 08/05/17 07:32 08/05/17 07:36 Temperature -Last 24 Hours Temperature 98.6 F Temperature 98.2 F Temperature 97.4 F Temperature 97.8 F Temperature 98.8 F Temperature 98.5 F Temperature 98.1 F - Labs CBC & Chem 7: 08/03/17 05:19 08/04/17 08:15 Labs: Abnormal lab results 08/04/17 08/04/17 08/04/17 Range/Units 11:57 17:45 23:07 POC Glucose 169 H 147 H 68 L (70-105) 08/04/17 08/05/17 08/05/17 Range/Units 23:41 05:24 07:54 POC Glucose 61 L 259 H 237 H (70-105)
[2017-08-05] MEDS: LEVAQUIN PO SCH (10:17)
[2017-08-05] MEDS: PEPCID PO SCH ×2 (10:17→21:26)
[2017-08-05] MEDS: FEOSOL PO SCH ×2 (10:17→21:26)
[2017-08-05 13:06] LABS: Anion Gap 15 mmol/L; BUN/Creatinine Ratio 5; Blood Urea Nitrogen 2 mg/dL (7-17); Calcium 8.3 mg/dL (8.4-10.2); Carbon Dioxide 33 mmol/L (22-30); Chloride 101.4 mmol/L (98-107); Glucose 219 mg/dL (65-100); Potassium 3.2 mmol/L (3.6-5.0); Sodium 146 mmol/L (137-145)
[2017-08-05] MEDS: NACL 0.45% 1000 ML 1,000 ML IV SCH (15:31)
[2017-08-05] MEDS: FLAGYL PO SCH ×2 (15:32→21:26)
--- NOTE | 2017-08-05 16:30 | Progress Note ---
Assessment and Plan Diabetic ketoacidosis. - This is now resolved. She was on Insulin drip in ICU and transferred out of ICU. - Her glucose level improving on Novolin 70/30. will monitor BG and adjust 70/30 - dose accordingly Diabetes mellitus type 2, - newly diagnosed this admission. - Uncontrolled but improving. Now on Novolin 70/30 bid. Necrotizing fascitis of infected sebaceous cyst with necrosis down to muscle. - s/p wide debridement yesterday by Dr. Villaseñor, Surgeon on 07/30. - ID Physician following. Wound vac placed - will be d/c home on levaquin 750 mg po qday and flagyl 500 mg TID total 2 weeks from 07/30 until 08/12 Hyponatremia/hypernatremia. will cont iv fluid hypokalemia - replete Hypophosphatemia. Now resolved after replacement. Hypomagnesemia. Now resolved after replacement. DVT prophylaxis. SCDs only because of surgery Disposition: Was called by Wound care Nurse that Wound clinic will not accept her Insurance, therefore discharge now pending. Hospitalist Physical GEN APPEARANCE : Not in acute distress HEENT: Normocephalic Atrauma NECK : supple, no JVD LUNGS: clear to auscultation bilaterally, no rales, no wheeze HEART: S1 and S2 regular, tachycardia, no murmurs, rubs or gallop, ABD: Soft, no tenderness, no distension, normal bowel sounds EXT: No edema, no clubbing, no cyanosis NEURO: Awake,alert,oriented x 3, no facial asymmetry,no focal signs, Back: Wound vac to left upper back over surgery site of abscess on back Subjective Date of service: 08/05/17 Principal diagnosis: Necrotizing Fasciitis; DKA; New Onset Diabetes Interval history: Abscess on back with wound vac Fever resolved, no chest pain, no SOB Objective - Constitutional Vitals: Vital Signs - 12hr 08/05/17 08/05/17 08/05/17 05:10 05:17 07:32 Temperature 98.2 F 98.6 F Pulse Rate 77 76 Respiratory 20 Rate Blood Pressure 137/75 107/52 Blood Pressure [Left] O2 Sat by Pulse 100 98 Oximetry 08/05/17 08/05/17 07:36 15:38 Temperature 97.8 F Pulse Rate 86 74 Respiratory 18 Rate Blood Pressure Blood Pressure 128/75 [Left] O2 Sat by Pulse 100 99 Oximetry - Labs CBC & Chem 7: 08/03/17 05:19 08/05/17 12:33 Labs: Abnormal lab results 08/04/17 08/04/17 08/04/17 Range/Units 17:45 23:07 23:41 Sodium (137-145) mmol/L Potassium (3.6-5.0) mmol/L Carbon Dioxide (22-30) mmol/L BUN (7-17) mg/dL Creatinine (0.7-1.2) mg/dL Glucose (65-100) mg/dL POC Glucose 147 H 68 L 61 L (70-105) Calcium (8.4-10.2) mg/dL 08/05/17 08/05/17 08/05/17 Range/Units 05:24 07:54 12:33 Sodium 146 H (137-145) mmol/L Potassium 3.2 L (3.6-5.0) mmol/L Carbon Dioxide 33 H (22-30) mmol/L BUN 2 L (7-17) mg/dL Creatinine 0.4 L (0.7-1.2) mg/dL Glucose 219 H (65-100) mg/dL POC Glucose 259 H 237 H (70-105) Calcium 8.3 L (8.4-10.2) mg/dL
[2017-08-05] MEDS: K-DUR PO SCH (21:30)
[2017-08-06 04:35] LABS: Anion Gap 17 mmol/L; BUN/Creatinine Ratio 5; Blood Urea Nitrogen 2 mg/dL (7-17); Calcium 8.5 mg/dL (8.4-10.2); Carbon Dioxide 31 mmol/L (22-30); Glucose 128 mg/dL (65-100); Potassium 3.5 mmol/L (3.6-5.0); Sodium 150 mmol/L (137-145)
[2017-08-06] MEDS: NOVOLOG SUB-Q SCH ×5 (05:19→22:54)
[2017-08-06] MEDS: VANCOMYCIN 1,250 MG in NACL 0.9% 250ML 250 ML IV SCH ×3 (05:38→21:28)
[2017-08-06] MEDS: HEPARIN SUB-Q SCH ×3 (05:41→21:27)
[2017-08-06] MEDS: NACL 0.45% 1000 ML 1,000 ML IV SCH (05:45)
[2017-08-06] MEDS: FLAGYL PO SCH ×3 (05:45→21:27)
[2017-08-06] MEDS: PEPCID PO SCH ×2 (09:26→21:27)
[2017-08-06] MEDS: FEOSOL PO SCH ×2 (09:26→21:27)
[2017-08-06] MEDS: K-DUR PO SCH (09:27)
[2017-08-06] MEDS: LEVAQUIN PO SCH (09:27)
[2017-08-06] MEDS: ZOFRAN IV PRN ×2 (12:02→21:34)
--- NOTE | 2017-08-06 15:08 | Progress Note ---
Assessment and Plan Diabetic ketoacidosis. - This is now resolved. She was on Insulin drip in ICU and transferred out of ICU. - Her glucose level improving on Novolin 70/30. will monitor BG and adjust 70/30 - dose accordingly Diabetes mellitus type 2, - newly diagnosed this admission. - Uncontrolled but improving. Now on Novolin 70/30 bid. Necrotizing fascitis of infected sebaceous cyst with necrosis down to muscle. - s/p wide debridement yesterday by Dr. Villaseñor, Surgeon on 07/30. - ID Physician following. Wound vac placed - will be d/c home on levaquin 750 mg po qday and flagyl 500 mg TID total 2 weeks from 07/30 until 08/12 Hyponatremia/hypernatremia. monitor off iv fluid hypokalemia - repleted Hypophosphatemia. Now resolved after replacement. Hypomagnesemia. Now resolved after replacement. DVT prophylaxis. SCDs only because of surgery Disposition: Was called by Wound care Nurse that Wound clinic will not accept her Insurance, therefore discharge now pending. Hospitalist Physical GEN APPEARANCE : Not in acute distress HEENT: Normocephalic Atrauma NECK : supple, no JVD LUNGS: clear to auscultation bilaterally, no rales, no wheeze HEART: S1 and S2 regular, tachycardia, no murmurs, rubs or gallop, ABD: Soft, no tenderness, no distension, normal bowel sounds EXT: No edema, no clubbing, no cyanosis NEURO: Awake,alert,oriented x 3, no facial asymmetry,no focal signs, Back: Wound vac to left upper back over surgery site of abscess on back Subjective Date of service: 08/06/17 Principal diagnosis: Necrotizing Fasciitis; DKA; New Onset Diabetes Interval history: Abscess on back with wound vac Fever resolved, no chest pain, no SOB, wants to go home Objective - Constitutional Vitals: Vital Signs - 12hr 08/06/17 07:06 Temperature 98.2 F Pulse Rate 78 Respiratory 18 Rate Blood Pressure 118/62 O2 Sat by Pulse 100 Oximetry - Labs CBC & Chem 7: 08/03/17 05:19 08/06/17 03:42 Labs: Abnormal lab results 08/05/17 08/05/17 08/05/17 Range/Units 12:03 16:37 23:59 Sodium (137-145) mmol/L Potassium (3.6-5.0) mmol/L Carbon Dioxide (22-30) mmol/L BUN (7-17) mg/dL Creatinine (0.7-1.2) mg/dL Glucose (65-100) mg/dL POC Glucose 256 H 113 H 111 H (70-105) 08/06/17 08/06/17 Range/Units 03:42 05:53 Sodium 150 H (137-145) mmol/L Potassium 3.5 L (3.6-5.0) mmol/L Carbon Dioxide 31 H (22-30) mmol/L BUN 2 L (7-17) mg/dL Creatinine 0.4 L (0.7-1.2) mg/dL Glucose 128 H (65-100) mg/dL POC Glucose 158 H (70-105)
--- NOTE | 2017-08-06 18:12 | Progress Note ---
Assessment and Plan Diabetic ketoacidosis. Diabetes mellitus type 2, newly diagnosed this admission. Necrotizing fascitis of infected sebaceous cyst with necrosis down to muscle. s /p wide debridement Subjective Date of service: 08/06/17 Principal diagnosis: Necrotizing Fasciitis; DKA; New Onset Diabetes Interval history: Patient is seen today for: Necotizing Fasciitis; Sepsis Syndrome; DKA Seen and examined at bedside; 24hour events reviewed; nursing and respiratory care staff consulted; no adverse overnight events reported to me; Objective Vital Signs - 12hr 08/06/17 08/06/17 07:06 16:21 Temperature 98.2 F 98.8 F Pulse Rate 78 86 Respiratory 18 18 Rate Blood Pressure 118/62 Blood Pressure 132/78 [Left] O2 Sat by Pulse 100 99 Oximetry Constitutional: no acute distress, asleep Eyes: non-icteric ENT: oropharynx moist Neck: supple, no lymphadenopathy Ascultation: Bilateral: diminished breath sounds Cardiovascular: regular rate and rhythm Gastrointestinal: normoactive bowel sounds, soft, non-tender Integumentary: normal Extremities: no cyanosis, no edema Neurologic: normal mental status, non-focal exam, pupils equal and round, CN II- XII normal Psychiatric: other (Unable to assess at this time. Patient sleeping.) CBC and BMP: 08/03/17 05:19 08/06/17 03:42 ABG, PT/INR, D-dimer: PT/INR, D-dimer PT 15.3 Sec. (12.2-14.9) H 07/28/17 22:23 INR 1.15 (0.87-1.13) H 07/28/17 22:23 Abnormal lab findings: Abnormal Labs 07/28/17 07/28/17 07/28/17 22:15 22:15 22:23 WBC 22.4 H Hgb 15.1 H Hct 44.0 H MCHC Plt Count 594 H PT 15.3 H INR 1.15 H VBG pH Sodium 132 L Potassium Chloride 95.4 L Carbon Dioxide 7 L* BUN Creatinine 0.4 L Glucose 333 H POC Glucose Hemoglobin A1c Calcium 10.7 H Phosphorus Magnesium ALT C-Reactive Protein Total Protein Albumin 07/28/17 07/29/17 07/29/17 22:23 03:37 07:51 WBC Hgb Hct MCHC Plt Count PT INR VBG pH 7.284 L Sodium Potassium Chloride Carbon Dioxide BUN Creatinine Glucose POC Glucose 280 H Hemoglobin A1c 13.2 H Calcium Phosphorus Magnesium ALT C-Reactive Protein Total Protein Albumin 07/29/17 07/29/17 07/29/17 09:44 12:17 12:17 WBC Hgb Hct MCHC Plt Count PT INR VBG pH Sodium Potassium Chloride 109.4 H Carbon Dioxide 5 L* 9 L* BUN Creatinine 0.4 L 0.3 L Glucose 319 H 336 H POC Glucose Hemoglobin A1c Calcium Phosphorus 1.30 L Magnesium ALT C-Reactive Protein Total Protein Albumin 07/29/17 07/29/17 07/29/17 12:25 14:32 15:24 WBC Hgb Hct MCHC Plt Count PT INR VBG pH Sodium Potassium 3.3 L Chloride 112.9 H Carbon Dioxide 11 L BUN Creatinine 0.3 L Glucose 233 H POC Glucose 315 H 228 H Hemoglobin A1c Calcium Phosphorus Magnesium ALT C-Reactive Protein Total Protein Albumin 07/29/17 07/29/17 07/29/17 16:18 16:56 17:07 WBC Hgb Hct MCHC Plt Count PT INR VBG pH Sodium Potassium 3.2 L Chloride 112.9 H Carbon Dioxide 10 L BUN Creatinine 0.3 L Glucose 158 H POC Glucose 192 H 157 H Hemoglobin A1c Calcium Phosphorus Magnesium ALT C-Reactive Protein Total Protein Albumin 07/29/17 07/29/17 07/29/17 18:12 19:00 19:28 WBC Hgb Hct MCHC Plt Count PT INR VBG pH Sodium Potassium Chloride 114.3 H Carbon Dioxide 12 L BUN Creatinine 0.3 L Glucose 167 H POC Glucose 140 H 157 H Hemoglobin A1c Calcium Phosphorus Magnesium ALT C-Reactive Protein Total Protein Albumin 07/29/17 07/29/17 07/29/17 20:15 21:16 22:05 WBC Hgb Hct MCHC Plt Count PT INR VBG pH Sodium Potassium Chloride Carbon Dioxide BUN Creatinine Glucose POC Glucose 187 H 193 H 166 H Hemoglobin A1c Calcium Phosphorus Magnesium ALT C-Reactive Protein Total Protein Albumin 07/29/17 07/30/17 07/30/17 23:43 00:37 01:10 WBC Hgb Hct MCHC Plt Count PT INR VBG pH Sodium Potassium Chloride Carbon Dioxide BUN Creatinine Glucose POC Glucose 145 H 146 H 144 H Hemoglobin A1c Calcium Phosphorus Magnesium ALT C-Reactive Protein Total Protein Albumin 07/30/17 07/30/17 07/30/17 02:03 04:13 05:02 WBC Hgb Hct MCHC Plt Count PT INR VBG pH Sodium Potassium 3.4 L Chloride 109.3 H Carbon Dioxide 15 L BUN 5 L Creatinine < 0.2 L Glucose 138 H POC Glucose 137 H 146 H Hemoglobin A1c Calcium Phosphorus Magnesium ALT C-Reactive Protein Total Protein Albumin 07/30/17 07/30/17 07/30/17 05:02 05:26 06:13 WBC Hgb Hct MCHC Plt Count PT INR VBG pH Sodium Potassium Chloride Carbon Dioxide BUN Creatinine Glucose POC Glucose 150 H 141 H Hemoglobin A1c Calcium Phosphorus 1.80 L D Magnesium 1.50 L ALT C-Reactive Protein Total Protein Albumin 07/30/17 07/30/17 07/30/17 06:20 07:08 08:23 WBC Hgb Hct MCHC Plt Count PT INR VBG pH Sodium Potassium Chloride Carbon Dioxide BUN Creatinine Glucose POC Glucose 146 H 146 H 180 H Hemoglobin A1c Calcium Phosphorus Magnesium ALT C-Reactive Protein Total Protein Albumin 07/30/17 07/30/17 07/30/17 09:26 12:06 13:49 WBC Hgb Hct MCHC Plt Count PT INR VBG pH Sodium Potassium Chloride Carbon Dioxide BUN Creatinine Glucose POC Glucose 184 H 251 H 272 H Hemoglobin A1c Calcium Phosphorus Magnesium ALT C-Reactive Protein Total Protein Albumin 07/30/17 07/30/17 07/30/17 14:31 14:31 15:07 WBC Hgb Hct MCHC Plt Count PT INR VBG pH Sodium Potassium 2.8 L* Chloride 109.5 H Carbon Dioxide 16 L BUN 6 L Creatinine 0.3 L D Glucose 282 H POC Glucose 249 H Hemoglobin A1c Calcium Phosphorus Magnesium ALT C-Reactive Protein 18.60 H Total Protein Albumin 07/30/17 07/30/17 07/31/17 20:44 20:44 00:02 WBC 24.4 H Hgb Hct MCHC Plt Count 473 H PT INR VBG pH Sodium Potassium Chloride 108.3 H Carbon Dioxide 18 L BUN 5 L Creatinine 0.2 L Glucose 239 H POC Glucose 222 H Hemoglobin A1c Calcium Phosphorus Magnesium ALT C-Reactive Protein Total Protein Albumin 07/31/17 07/31/17 07/31/17 05:21 06:35 11:35 WBC Hgb Hct MCHC Plt Count PT INR VBG pH Sodium Potassium 3.4 L Chloride 109.9 H Carbon Dioxide 20 L BUN Creatinine 0.2 L Glucose 216 H POC Glucose 224 H 191 H Hemoglobin A1c Calcium 8.2 L Phosphorus Magnesium ALT C-Reactive Protein Total Protein Albumin 07/31/17 07/31/17 07/31/17 15:28 15:28 17:49 WBC Hgb Hct MCHC Plt Count PT INR VBG pH Sodium Potassium 3.1 L Chloride Carbon Dioxide 21 L BUN 6 L Creatinine < 0.2 L Glucose 209 H POC Glucose 243 H Hemoglobin A1c Calcium 7.9 L Phosphorus 1.70 L Magnesium ALT C-Reactive Protein Total Protein Albumin 08/01/17 08/01/17 08/01/17 04:42 07:12 12:51 WBC Hgb Hct MCHC Plt Count PT INR VBG pH Sodium Potassium 3.3 L Chloride Carbon Dioxide BUN 5 L Creatinine < 0.2 L Glucose POC Glucose 127 H 171 H Hemoglobin A1c Calcium 8.1 L Phosphorus Magnesium ALT C-Reactive Protein Total Protein Albumin 08/01/17 08/01/17 08/02/17 17:31 20:12 01:09 WBC Hgb Hct MCHC Plt Count PT INR VBG pH Sodium Potassium 3.4 L Chloride Carbon Dioxide BUN 4 L Creatinine < 0.2 L Glucose 178 H POC Glucose 188 H 211 H Hemoglobin A1c Calcium 8.1 L Phosphorus Magnesium ALT C-Reactive Protein Total Protein Albumin 08/02/17 08/02/17 08/02/17 03:39 05:35 06:38 WBC Hgb Hct MCHC Plt Count PT INR VBG pH Sodium Potassium 3.4 L 3.5 L Chloride Carbon Dioxide BUN 3 L Creatinine < 0.2 L Glucose 161 H POC Glucose 171 H Hemoglobin A1c Calcium 8.1 L Phosphorus Magnesium ALT C-Reactive Protein Total Protein Albumin 08/02/17 08/02/17 08/03/17 11:47 17:38 00:09 WBC Hgb Hct MCHC Plt Count PT INR VBG pH Sodium Potassium Chloride Carbon Dioxide BUN Creatinine Glucose POC Glucose 283 H 308 H 275 H Hemoglobin A1c Calcium Phosphorus Magnesium ALT C-Reactive Protein Total Protein Albumin 08/03/17 08/03/17 08/03/17 05:19 05:19 06:25 WBC Hgb Hct MCHC 35 H Plt Count 497 H PT INR VBG pH Sodium Potassium Chloride Carbon Dioxide BUN 2 L Creatinine < 0.2 L Glucose 205 H POC Glucose 216 H Hemoglobin A1c Calcium Phosphorus Magnesium ALT 6 L C-Reactive Protein Total Protein 5.4 L Albumin 2.3 L 08/03/17 08/03/17 08/03/17 12:29 16:56 22:02 WBC Hgb Hct MCHC Plt Count PT INR VBG pH Sodium Potassium Chloride Carbon Dioxide BUN Creatinine Glucose POC Glucose 112 H 156 H 151 H Hemoglobin A1c Calcium Phosphorus Magnesium ALT C-Reactive Protein Total Protein Albumin 08/04/17 08/04/17 08/04/17 08:15 11:57 17:45 WBC Hgb Hct MCHC Plt Count PT INR VBG pH Sodium 150 H Potassium Chloride Carbon Dioxide 35 H BUN 2 L Creatinine 0.3 L D Glucose 106 H POC Glucose 169 H 147 H Hemoglobin A1c Calcium Phosphorus Magnesium ALT C-Reactive Protein Total Protein Albumin 08/04/17 08/04/17 08/05/17 23:07 23:41 05:24 WBC Hgb Hct MCHC Plt Count PT INR VBG pH Sodium Potassium Chloride Carbon Dioxide BUN Creatinine Glucose POC Glucose 68 L 61 L 259 H Hemoglobin A1c Calcium Phosphorus Magnesium ALT C-Reactive Protein Total Protein Albumin 08/05/17 08/05/17 08/05/17 07:54 12:03 12:33 WBC Hgb Hct MCHC Plt Count PT INR VBG pH Sodium 146 H Potassium 3.2 L Chloride Carbon Dioxide 33 H BUN 2 L Creatinine 0.4 L Glucose 219 H POC Glucose 237 H 256 H Hemoglobin A1c Calcium 8.3 L Phosphorus Magnesium ALT C-Reactive Protein Total Protein Albumin 08/05/17 08/05/17 08/06/17 16:37 23:59 03:42 WBC Hgb Hct MCHC Plt Count PT INR VBG pH Sodium 150 H Potassium 3.5 L Chloride Carbon Dioxide 31 H BUN 2 L Creatinine 0.4 L Glucose 128 H POC Glucose 113 H 111 H Hemoglobin A1c Calcium Phosphorus Magnesium ALT C-Reactive Protein Total Protein Albumin 08/06/17 08/06/17 08/06/17 05:53 11:16 15:59 WBC Hgb Hct MCHC Plt Count PT INR VBG pH Sodium Potassium Chloride Carbon Dioxide BUN Creatinine Glucose POC Glucose 158 H 254 H 287 H Hemoglobin A1c Calcium Phosphorus Magnesium ALT C-Reactive Protein Total Protein Albumin
[2017-08-06] MEDS: MORPHINE IV PRN (19:25)
[2017-08-07 05:17] LABS: Anion Gap 17 mmol/L; BUN/Creatinine Ratio 4; Blood Urea Nitrogen 2 mg/dL (7-17); Calcium 8.4 mg/dL (8.4-10.2); Carbon Dioxide 33 mmol/L (22-30); Chloride 106.1 mmol/L (98-107); Glucose 190 mg/dL (65-100); Sodium 153 mmol/L (137-145)
[2017-08-07] MEDS: NOVOLOG SUB-Q SCH ×4 (05:36→17:47)
[2017-08-07] MEDS: VANCOMYCIN 1,250 MG in NACL 0.9% 250ML 250 ML IV SCH ×3 (05:43→21:19)
[2017-08-07] MEDS: FLAGYL PO SCH ×3 (05:43→21:17)
[2017-08-07] MEDS: HEPARIN SUB-Q SCH ×3 (05:44→21:17)
[2017-08-07] MEDS: ZOFRAN IV PRN (05:44)
[2017-08-07 06:41] LABS: Potassium 2.9 mmol/L (3.6-5.0)
[2017-08-07] MEDS: LEVAQUIN PO SCH ×2 (08:22→10:00)
[2017-08-07] MEDS: K-DUR PO SCH ×4 (08:22→17:46)
[2017-08-07] MEDS: PEPCID PO SCH ×3 (08:22→21:17)
[2017-08-07] MEDS: FEOSOL PO SCH ×3 (08:22→21:17)
[2017-08-07] MEDS ORDERED: KCL 10MEQ/100ML 10 MEQ/100 ML BAG IV SCH ×2 (09:00→15:00)
[2017-08-07] MEDS ORDERED: NACL 0.45% 1000 ML 1,000 ML IV SCH (09:00)
--- NOTE | 2017-08-07 11:37 | Progress Note ---
Assessment and Plan Sepsis Syndrome Necrotizing Fasciitis (S/P I & D with wide debridement DKA Metabolic acidosis (Driven by DKA and sepsis) New Onset Diabetes - continue wound care per surgery and wound care team - for wound vac palcement - continue empiric AB's and follow cultures / clinically for de-escalation - adjust AB's per ID recs - continue tight glycemic control with SSI - continue prn analgesia - potassium replaced - continue other care per attending / other consultants ....re-evaluate in am & prn Subjective Date of service: 08/07/17 Principal diagnosis: Necrotizing Fasciitis; DKA; New Onset Diabetes Interval history: Patient is seen today for: Necrotizing Fasciitis; Sepsis Syndrome; DKA; New Onset Diabetes Seen and examined at bedside; 24hour events reviewed; nursing and respiratory care staff consulted; no adverse overnight events reported to me; resting peacefully in bed; overall improving Objective Vital Signs - 12hr 08/07/17 08/07/17 07:23 07:59 Temperature 99.2 F Pulse Rate 85 Pulse Rate [ 85 Left] Respiratory 18 Rate Blood Pressure 116/67 O2 Sat by Pulse 95 99 Oximetry Constitutional: alert, appears uncomfortable (non respiratory) Eyes: non-icteric ENT: oropharynx moist Neck: supple, no lymphadenopathy, no JVD, other (no thyromegaly) Effort: normal Ascultation: Bilateral: clear, diminished breath sounds Percussion: Bilateral: not dull Cardiovascular: regular rate and rhythm, other (no rubs / murmurs) Gastrointestinal: normoactive bowel sounds, soft, non-tender, non-distended, other (No HSM) Integumentary: other (dressing to upper back post I&D) Extremities: no cyanosis, no edema, pulses normal, no ischemia or petechiae Neurologic: normal mental status, non-focal exam, pupils equal and round, motor strength normal and Psychiatric: mood appropriate, affect normal CBC and BMP: 08/03/17 05:19 08/09/17 16:52 ABG, PT/INR, D-dimer: PT/INR, D-dimer PT 15.3 Sec. (12.2-14.9) H 07/28/17 22:23 INR 1.15 (0.87-1.13) H 07/28/17 22:23 Abnormal lab findings: Abnormal Labs 07/28/17 07/28/17 07/28/17 22:15 22:15 22:23 WBC 22.4 H Hgb 15.1 H Hct 44.0 H MCHC Plt Count 594 H PT 15.3 H INR 1.15 H VBG pH Sodium 132 L Potassium Chloride 95.4 L Carbon Dioxide 7 L* BUN Creatinine 0.4 L Glucose 333 H POC Glucose Hemoglobin A1c Calcium 10.7 H Phosphorus Magnesium ALT C-Reactive Protein Total Protein Albumin 07/28/17 07/29/17 07/29/17 22:23 03:37 07:51 WBC Hgb Hct MCHC Plt Count PT INR VBG pH 7.284 L Sodium Potassium Chloride Carbon Dioxide BUN Creatinine Glucose POC Glucose 280 H Hemoglobin A1c 13.2 H Calcium Phosphorus Magnesium ALT C-Reactive Protein Total Protein Albumin 07/29/17 07/29/17 07/29/17 09:44 12:17 12:17 WBC Hgb Hct MCHC Plt Count PT INR VBG pH Sodium Potassium Chloride 109.4 H Carbon Dioxide 5 L* 9 L* BUN Creatinine 0.4 L 0.3 L Glucose 319 H 336 H POC Glucose Hemoglobin A1c Calcium Phosphorus 1.30 L Magnesium ALT C-Reactive Protein Total Protein Albumin 07/29/17 07/29/17 07/29/17 12:25 14:32 15:24 WBC Hgb Hct MCHC Plt Count PT INR VBG pH Sodium Potassium 3.3 L Chloride 112.9 H Carbon Dioxide 11 L BUN Creatinine 0.3 L Glucose 233 H POC Glucose 315 H 228 H Hemoglobin A1c Calcium Phosphorus Magnesium ALT C-Reactive Protein Total Protein Albumin 07/29/17 07/29/17 07/29/17 16:18 16:56 17:07 WBC Hgb Hct MCHC Plt Count PT INR VBG pH Sodium Potassium 3.2 L Chloride 112.9 H Carbon Dioxide 10 L BUN Creatinine 0.3 L Glucose 158 H POC Glucose 192 H 157 H Hemoglobin A1c Calcium Phosphorus Magnesium ALT C-Reactive Protein Total Protein Albumin 07/29/17 07/29/17 07/29/17 18:12 19:00 19:28 WBC Hgb Hct MCHC Plt Count PT INR VBG pH Sodium Potassium Chloride 114.3 H Carbon Dioxide 12 L BUN Creatinine 0.3 L Glucose 167 H POC Glucose 140 H 157 H Hemoglobin A1c Calcium Phosphorus Magnesium ALT C-Reactive Protein Total Protein Albumin 07/29/17 07/29/1717 20:15 21:16 22:05 WBC Hgb Hct MCHC Plt Count PT INR VBG pH Sodium Potassium Chloride Carbon Dioxide BUN Creatinine Glucose POC Glucose 187 H 193 H 166 H Hemoglobin A1c Calcium Phosphorus Magnesium ALT C-Reactive Protein Total Protein Albumin 07/29/17 07/30/17 07/30/17 23:43 00:37 01:10 WBC Hgb Hct MCHC Plt Count PT INR VBG pH Sodium Potassium Chloride Carbon Dioxide BUN Creatinine Glucose POC Glucose 145 H 146 H 144 H Hemoglobin A1c Calcium Phosphorus Magnesium ALT C-Reactive Protein Total Protein Albumin 07/30/17 07/30/17 07/30/17 02:03 04:13 05:02 WBC Hgb Hct MCHC Plt Count PT INR VBG pH Sodium Potassium 3.4 L Chloride 109.3 H Carbon Dioxide 15 L BUN 5 L Creatinine < 0.2 L Glucose 138 H POC Glucose 137 H 146 H Hemoglobin A1c Calcium Phosphorus Magnesium ALT C-Reactive Protein Total Protein Albumin 07/30/17 07/30/17 07/30/17 05:02 05:26 06:13 WBC Hgb Hct MCHC Plt Count PT INR VBG pH Sodium Potassium Chloride Carbon Dioxide BUN Creatinine Glucose POC Glucose 150 H 141 H Hemoglobin A1c Calcium Phosphorus 1.80 L D Magnesium 1.50 L ALT C-Reactive Protein Total Protein Albumin 07/30/17 07/30/17 07/30/17 06:20 07:08 08:23 WBC Hgb Hct MCHC Plt Count PT INR VBG pH Sodium Potassium Chloride Carbon Dioxide BUN Creatinine Glucose POC Glucose 146 H 146 H 180 H Hemoglobin A1c Calcium Phosphorus Magnesium ALT C-Reactive Protein Total Protein Albumin 07/30/17 07/30/17 07/30/17 09:26 12:06 13:49 WBC Hgb Hct MCHC Plt Count PT INR VBG pH Sodium Potassium Chloride Carbon Dioxide BUN Creatinine Glucose POC Glucose 184 H 251 H 272 H Hemoglobin A1c Calcium Phosphorus Magnesium ALT C-Reactive Protein Total Protein Albumin 07/30/17 07/30/17 07/30/17 14:31 14:31 15:07 WBC Hgb Hct MCHC Plt Count PT INR VBG pH Sodium Potassium 2.8 L* Chloride 109.5 H Carbon Dioxide 16 L BUN 6 L Creatinine 0.3 L D Glucose 282 H POC Glucose 249 H Hemoglobin A1c Calcium Phosphorus Magnesium ALT C-Reactive Protein 18.60 H Total Protein Albumin 07/30/17 07/30/17 07/31/17 20:44 20:44 00:02 WBC 24.4 H Hgb Hct MCHC Plt Count 473 H PT INR VBG pH Sodium Potassium Chloride 108.3 H Carbon Dioxide 18 L BUN 5 L Creatinine 0.2 L Glucose 239 H POC Glucose 222 H Hemoglobin A1c Calcium Phosphorus Magnesium ALT C-Reactive Protein Total Protein Albumin 07/31/17 07/31/17 07/31/17 05:21 06:35 11:35 WBC Hgb Hct MCHC Plt Count PT INR VBG pH Sodium Potassium 3.4 L Chloride 109.9 H Carbon Dioxide 20 L BUN Creatinine 0.2 L Glucose 216 H POC Glucose 224 H 191 H Hemoglobin A1c Calcium 8.2 L Phosphorus Magnesium ALT C-Reactive Protein Total Protein Albumin 07/31/17 07/31/17 07/31/17 15:28 15:28 17:49 WBC Hgb Hct MCHC Plt Count PT INR VBG pH Sodium Potassium 3.1 L Chloride Carbon Dioxide 21 L BUN 6 L Creatinine < 0.2 L Glucose 209 H POC Glucose 243 H Hemoglobin A1c Calcium 7.9 L Phosphorus 1.70 L Magnesium ALT C-Reactive Protein Total Protein Albumin 08/01/17 08/01/17 08/01/17 04:42 07:12 12:51 WBC Hgb Hct MCHC Plt Count PT INR VBG pH Sodium Potassium 3.3 L Chloride Carbon Dioxide BUN 5 L Creatinine < 0.2 L Glucose POC Glucose 127 H 171 H Hemoglobin A1c Calcium 8.1 L Phosphorus Magnesium ALT C-Reactive Protein Total Protein Albumin 08/01/17 08/01/17 08/02/17 17:31 20:12 01:09 WBC Hgb Hct MCHC Plt Count PT INR VBG pH Sodium Potassium 3.4 L Chloride Carbon Dioxide BUN 4 L Creatinine < 0.2 L Glucose 178 H POC Glucose 188 H 211 H Hemoglobin A1c Calcium 8.1 L Phosphorus Magnesium ALT C-Reactive Protein Total Protein Albumin 08/02/17 08/02/17 08/02/17 03:39 05:35 06:38 WBC Hgb Hct MCHC Plt Count PT INR VBG pH Sodium Potassium 3.4 L 3.5 L Chloride Carbon Dioxide BUN 3 L Creatinine < 0.2 L Glucose 161 H POC Glucose 171 H Hemoglobin A1c Calcium 8.1 L Phosphorus Magnesium ALT C-Reactive Protein Total Protein Albumin 08/02/17 08/02/1717 11:47 17:38 00:09 WBC Hgb Hct MCHC Plt Count PT INR VBG pH Sodium Potassium Chloride Carbon Dioxide BUN Creatinine Glucose POC Glucose 283 H 308 H 275 H Hemoglobin A1c Calcium Phosphorus Magnesium ALT C-Reactive Protein Total Protein Albumin 08/03/17 08/03/17 08/03/17 05:19 05:19 06:25 WBC Hgb Hct MCHC 35 H Plt Count 497 H PT INR VBG pH Sodium Potassium Chloride Carbon Dioxide BUN 2 L Creatinine < 0.2 L Glucose 205 H POC Glucose 216 H Hemoglobin A1c Calcium Phosphorus Magnesium ALT 6 L C-Reactive Protein Total Protein 5.4 L Albumin 2.3 L 08/03/17 08/03/17 08/03/17 12:29 16:56 22:02 WBC Hgb Hct MCHC Plt Count PT INR VBG pH Sodium Potassium Chloride Carbon Dioxide BUN Creatinine Glucose POC Glucose 112 H 156 H 151 H Hemoglobin A1c Calcium Phosphorus Magnesium ALT C-Reactive Protein Total Protein Albumin 08/04/17 08/04/17 08/04/17 08:15 11:57 17:45 WBC Hgb Hct MCHC Plt Count PT INR VBG pH Sodium 150 H Potassium Chloride Carbon Dioxide 35 H BUN 2 L Creatinine 0.3 L D Glucose 106 H POC Glucose 169 H 147 H Hemoglobin A1c Calcium Phosphorus Magnesium ALT C-Reactive Protein Total Protein Albumin 08/04/17 08/04/17 08/05/17 23:07 23:41 05:24 WBC Hgb Hct MCHC Plt Count PT INR VBG pH Sodium Potassium Chloride Carbon Dioxide BUN Creatinine Glucose POC Glucose 68 L 61 L 259 H Hemoglobin A1c Calcium Phosphorus Magnesium ALT C-Reactive Protein Total Protein Albumin 08/05/17 08/05/17 08/05/17 07:54 12:03 12:33 WBC Hgb Hct MCHC Plt Count PT INR VBG pH Sodium 146 H Potassium 3.2 L Chloride Carbon Dioxide 33 H BUN 2 L Creatinine 0.4 L Glucose 219 H POC Glucose 237 H 256 H Hemoglobin A1c Calcium 8.3 L Phosphorus Magnesium ALT C-Reactive Protein Total Protein Albumin 08/05/17 08/05/17 08/06/17 16:37 23:59 03:42 WBC Hgb Hct MCHC Plt Count PT INR VBG pH Sodium 150 H Potassium 3.5 L Chloride Carbon Dioxide 31 H BUN 2 L Creatinine 0.4 L Glucose 128 H POC Glucose 113 H 111 H Hemoglobin A1c Calcium Phosphorus Magnesium ALT C-Reactive Protein Total Protein Albumin 08/06/17 08/06/17 08/06/17 05:53 11:16 15:59 WBC Hgb Hct MCHC Plt Count PT INR VBG pH Sodium Potassium Chloride Carbon Dioxide BUN Creatinine Glucose POC Glucose 158 H 254 H 287 H Hemoglobin A1c Calcium Phosphorus Magnesium ALT C-Reactive Protein Total Protein Albumin 08/06/17 08/07/17 08/07/17 22:02 04:22 07:25 WBC Hgb Hct MCHC Plt Count PT INR VBG pH Sodium 153 H Potassium 2.9 L* Chloride Carbon Dioxide 33 H BUN 2 L Creatinine 0.5 L Glucose 190 H POC Glucose 354 H 233 H Hemoglobin A1c Calcium Phosphorus Magnesium ALT C-Reactive Protein Total Protein Albumin Allied health notes reviewed: nursing
[2017-08-07] MEDS ORDERED: K-DUR PO SCH (15:00)
--- NOTE | 2017-08-07 22:02 | Progress Note ---
Assessment and Plan Diabetic ketoacidosis. - This is now resolved. She was on Insulin drip in ICU and transferred out of ICU. - Her glucose level improving on Novolin 70/30. will monitor BG and adjust 70/30 - dose accordingly Diabetes mellitus type 2, - newly diagnosed this admission. - Uncontrolled but improving. Now on Novolin 70/30 bid. Necrotizing fascitis of infected sebaceous cyst with necrosis down to muscle. - s/p wide debridement yesterday by Dr. Villaseñor, Surgeon on 07/30. - ID Physician following. Wound vac placed - will be d/c home on levaquin 750 mg po qday and flagyl 500 mg TID total 2 weeks from 07/30 until 08/12 Hyponatremia/hypernatremia. continue hypotonic iv fluid hypokalemia - replete and monitor Hypophosphatemia. Now resolved after replacement. Hypomagnesemia. Now resolved after replacement. DVT prophylaxis. SCDs only because of surgery Disposition: Was called by Wound care Nurse that Wound clinic will not accept her Insurance, therefore discharge now pending. Hospitalist Physical GEN APPEARANCE : Not in acute distress HEENT: Normocephalic Atrauma NECK : supple, no JVD LUNGS: clear to auscultation bilaterally, no rales, no wheeze HEART: S1 and S2 regular, tachycardia, no murmurs, rubs or gallop, ABD: Soft, no tenderness, no distension, normal bowel sounds EXT: No edema, no clubbing, no cyanosis NEURO: Awake,alert,oriented x 3, no facial asymmetry,no focal signs, Back: Wound vac to left upper back over surgery site of abscess on back Subjective Date of service: 08/07/17 Principal diagnosis: Necrotizing Fasciitis; DKA; New Onset Diabetes Interval history: Abscess on back with wound vac Fever resolved, no chest pain, no SOB, wants to go home K level 2.9 today, Na still >150 Objective - Constitutional Vitals: Vital Signs - 12hr 08/07/17 08/07/17 08/07/17 11:58 15:38 19:27 Temperature 98.6 F 98.7 F 99.1 F Pulse Rate 77 77 88 Respiratory 28 H 18 18 Rate Blood Pressure 132/72 123/66 135/75 O2 Sat by Pulse 100 99 99 Oximetry - Labs CBC & Chem 7: 08/03/17 05:19 08/08/17 04:21 Labs: Abnormal lab results 08/06/17 08/07/17 08/07/17 Range/Units 22:02 04:22 07:25 Sodium 153 H (137-145) mmol/L Potassium 2.9 L* (3.6-5.0) mmol/L Carbon Dioxide 33 H (22-30) mmol/L BUN 2 L (7-17) mg/dL Creatinine 0.5 L (0.7-1.2) mg/dL Glucose 190 H (65-100) mg/dL POC Glucose 354 H 233 H (70-105) 08/07/17 08/07/17 08/07/17 Range/Units 12:01 17:03 21:04 Sodium (137-145) mmol/L Potassium (3.6-5.0) mmol/L Carbon Dioxide (22-30) mmol/L BUN (7-17) mg/dL Creatinine (0.7-1.2) mg/dL Glucose (65-100) mg/dL POC Glucose 226 H 203 H 199 H (70-105)
[2017-08-08] MEDS: NOVOLOG SUB-Q SCH ×5 (00:39→23:30)
[2017-08-08 05:04] LABS: Anion Gap 16 mmol/L; BUN/Creatinine Ratio 4; Blood Urea Nitrogen 2 mg/dL (7-17); Calcium 8.6 mg/dL (8.4-10.2); Carbon Dioxide 33 mmol/L (22-30); Chloride 108.1 mmol/L (98-107); Glucose 159 mg/dL (65-100); Potassium 3.1 mmol/L (3.6-5.0); Sodium 154 mmol/L (137-145)
[2017-08-08] MEDS: VANCOMYCIN 1,250 MG in NACL 0.9% 250ML 250 ML IV SCH ×3 (05:47→22:00)
[2017-08-08] MEDS: FLAGYL PO SCH ×3 (05:47→22:00)
[2017-08-08] MEDS: HEPARIN SUB-Q SCH ×3 (05:47→22:00)
[2017-08-08] MEDS: FEOSOL PO SCH ×2 (14:11→22:00)
[2017-08-08] MEDS: PEPCID PO SCH ×2 (14:11→22:00)
[2017-08-08] MEDS: K-DUR PO SCH (14:16)
[2017-08-08] MEDS: LEVAQUIN PO SCH (14:32)
[2017-08-08] MEDS ORDERED: D5W IV SCH (15:15)
[2017-08-08] MEDS ORDERED: KCL IV SCH (15:15)
--- NOTE | 2017-08-08 15:17 | Progress Note ---
Assessment and Plan Diabetic ketoacidosis. - This is now resolved. She was on Insulin drip in ICU and transferred out of ICU. - Her glucose level improving with insulin subqu Diabetes mellitus type 2, - newly diagnosed this admission. a1c 13.2 - placed on Novolin 70/30 bid and SSI with ada diet - she was getting hypoglycemic with 70/30, so it was stopped and pt only maintained with SSI - her Bg remained elevated >200 after stopping 70/30 - will restart 70/30 at lower dose along with SSI Necrotizing fascitis of infected sebaceous cyst with necrosis down to muscle. - s/p wide debridement yesterday by Dr. Villaseñor, Surgeon on 07/30. - ID Physician following. Wound vac placed - will be d/c home on levaquin 750 mg po qday and flagyl 500 mg TID total 2 weeks from 07/30 until 08/12 Hyponatremia/hypernatremia. continue hypotonic iv fluid hypokalemia - replete and monitor Hypophosphatemia. Now resolved after replacement. Hypomagnesemia. Now resolved after replacement. DVT prophylaxis. SCDs only because of surgery Disposition: Was called by Wound care Nurse that Wound clinic will not accept her Insurance, therefore discharge now pending. Hospitalist Physical GEN APPEARANCE : Not in acute distress HEENT: Normocephalic Atrauma NECK : supple, no JVD LUNGS: clear to auscultation bilaterally, no rales, no wheeze HEART: S1 and S2 regular, tachycardia, no murmurs, rubs or gallop, ABD: Soft, no tenderness, no distension, normal bowel sounds EXT: No edema, no clubbing, no cyanosis NEURO: Awake,alert,oriented x 3, no facial asymmetry,no focal signs, Back: Wound vac to left upper back over surgery site of abscess on back Subjective Date of service: 08/08/17 Principal diagnosis: Necrotizing Fasciitis; DKA; New Onset Diabetes Interval history: Abscess on back with wound vac Fever resolved, no chest pain, no SOB, wants to go home K level 2.9 today, Na still >150 Objective - Constitutional Vitals: Vital Signs - 12hr 08/08/17 08/08/17 04:57 07:09 Temperature 98.6 F 99.4 F Pulse Rate 84 Respiratory 18 18 Rate Blood Pressure 141/75 119/63 O2 Sat by Pulse 98 Oximetry - Labs CBC & Chem 7: 08/03/17 05:19 08/09/17 04:08 Labs: Abnormal lab results 08/07/17 08/07/17 08/08/17 Range/Units 17:03 21:04 00:20 Sodium (137-145) mmol/L Potassium (3.6-5.0) mmol/L Chloride (98-107) mmol/L Carbon Dioxide (22-30) mmol/L BUN (7-17) mg/dL Creatinine (0.7-1.2) mg/dL Glucose (65-100) mg/dL POC Glucose 203 H 199 H 221 H (70-105) 08/08/17 08/08/17 08/08/17 Range/Units 04:21 07:30 11:37 Sodium 154 H (137-145) mmol/L Potassium 3.1 L (3.6-5.0) mmol/L Chloride 108.1 H (98-107) mmol/L Carbon Dioxide 33 H (22-30) mmol/L BUN 2 L (7-17) mg/dL Creatinine 0.5 L (0.7-1.2) mg/dL Glucose 159 H (65-100) mg/dL POC Glucose 204 H 306 H (70-105)
--- NOTE | 2017-08-08 19:27 | Progress Note ---
Assessment and Plan Patient sleeping at this time..Resting on room air.O2 saturation 100%. No acute respiratory distress. - Patient Problems (1) Sepsis Current Visit: Yes Status: Acute Qualifiers: Sepsis type: sepsis due to unspecified organism Qualified Code(s): A41.9 - Sepsis, unspecified organism Plan to address problem: Patient is on Levaquine, Metranidazole and vancomycin. (2) Metabolic acidosis Current Visit: Yes Status: Acute Plan to address problem: Improved. Bicarb 33.. (3) Back abscess Current Visit: Yes Status: Acute Plan to address problem: Patient is on Levaquine, Metranidazole and vancomycin. (4) Cellulitis Current Visit: Yes Status: Acute Qualifiers: Site of cellulitis: trunk Site of cellulitis of trunk: back Qualified Code(s): L03.312 - Cellulitis of back [any part except buttock] Plan to address problem: Patient is on Levaquine, Metranidazole and vancomycin. (5) Diabetes Current Visit: Yes Status: Acute Plan to address problem: Management as per primary care. (6) Status post laparoscopic assisted vaginal hysterectomy (LAVH) Onset Date: 12/29/13 Current Visit: No Status: Acute Plan to address problem: Management as per [employer]. Subjective Date of service: 08/08/17 Principal diagnosis: Necrotizing Fasciitis; DKA; New Onset Diabetes Interval history: Patient sleeping at this time.Resting on room air.O2 saturation 100%. No acute respiratory distress. Objective Vital Signs - 12hr 08/08/17 17:13 Temperature 98.6 F Pulse Rate 92 H Respiratory 20 Rate Blood Pressure 124/79 [Left] O2 Sat by Pulse 100 Oximetry Constitutional: asleep, appears uncomfortable (non respiratory) Eyes: non-icteric ENT: oropharynx moist Neck: supple, no lymphadenopathy, no JVD, other (no thyromegaly) Effort: normal Ascultation: Bilateral: diminished breath sounds Percussion: Bilateral: not dull Cardiovascular: regular rate and rhythm, other (no rubs / murmurs) Gastrointestinal: normoactive bowel sounds, soft, non-tender, non-distended, other (No HSM) Integumentary: other (dressing to upper back post I&D) Extremities: no cyanosis, no edema, pulses normal, no ischemia or petechiae Neurologic: normal mental status, non-focal exam, pupils equal and round, motor strength normal and Psychiatric: mood appropriate, affect normal CBC and BMP: 08/03/17 05:19 08/08/17 04:21 ABG, PT/INR, D-dimer: PT/INR, D-dimer PT 15.3 Sec. (12.2-14.9) H 07/28/17 22:23 INR 1.15 (0.87-1.13) H 07/28/17 22:23 Abnormal lab findings: Abnormal Labs 07/28/17 07/28/17 07/28/17 22:15 22:15 22:23 WBC 22.4 H Hgb 15.1 H Hct 44.0 H MCHC Plt Count 594 H PT 15.3 H INR 1.15 H VBG pH Sodium 132 L Potassium Chloride 95.4 L Carbon Dioxide 7 L* BUN Creatinine 0.4 L Glucose 333 H POC Glucose Hemoglobin A1c Calcium 10.7 H Phosphorus Magnesium ALT C-Reactive Protein Total Protein Albumin 07/28/17 07/29/17 07/29/17 22:23 03:37 07:51 WBC Hgb Hct MCHC Plt Count PT INR VBG pH 7.284 L Sodium Potassium Chloride Carbon Dioxide BUN Creatinine Glucose POC Glucose 280 H Hemoglobin A1c 13.2 H Calcium Phosphorus Magnesium ALT C-Reactive Protein Total Protein Albumin 07/29/17 07/29/17 07/29/17 09:44 12:17 12:17 WBC Hgb Hct MCHC Plt Count PT INR VBG pH Sodium Potassium Chloride 109.4 H Carbon Dioxide 5 L* 9 L* BUN Creatinine 0.4 L 0.3 L Glucose 319 H 336 H POC Glucose Hemoglobin A1c Calcium Phosphorus 1.30 L Magnesium ALT C-Reactive Protein Total Protein Albumin 07/29/17 07/29/17 07/29/17 12:25 14:32 15:24 WBC Hgb Hct MCHC Plt Count PT INR VBG pH Sodium Potassium 3.3 L Chloride 112.9 H Carbon Dioxide 11 L BUN Creatinine 0.3 L Glucose 233 H POC Glucose 315 H 228 H Hemoglobin A1c Calcium Phosphorus Magnesium ALT C-Reactive Protein Total Protein Albumin 07/29/17 07/29/17 07/29/17 16:18 16:56 17:07 WBC Hgb Hct MCHC Plt Count PT INR VBG pH Sodium Potassium 3.2 L Chloride 112.9 H Carbon Dioxide 10 L BUN Creatinine 0.3 L Glucose 158 H POC Glucose 192 H 157 H Hemoglobin A1c Calcium Phosphorus Magnesium ALT C-Reactive Protein Total Protein Albumin 07/29/17 07/29/17 07/29/17 18:12 19:00 19:28 WBC Hgb Hct MCHC Plt Count PT INR VBG pH Sodium Potassium Chloride 114.3 H Carbon Dioxide 12 L BUN Creatinine 0.3 L Glucose 167 H POC Glucose 140 H 157 H Hemoglobin A1c Calcium Phosphorus Magnesium ALT C-Reactive Protein Total Protein Albumin 07/29/17 07/29/17 07/29/17 20:15 21:16 22:05 WBC Hgb Hct MCHC Plt Count PT INR VBG pH Sodium Potassium Chloride Carbon Dioxide BUN Creatinine Glucose POC Glucose 187 H 193 H 166 H Hemoglobin A1c Calcium Phosphorus Magnesium ALT C-Reactive Protein Total Protein Albumin 07/29/17 07/30/17 07/30/17 23:43 00:37 01:10 WBC Hgb Hct MCHC Plt Count PT INR VBG pH Sodium Potassium Chloride Carbon Dioxide BUN Creatinine Glucose POC Glucose 145 H 146 H 144 H Hemoglobin A1c Calcium Phosphorus Magnesium ALT C-Reactive Protein Total Protein Albumin 07/30/17 07/30/17 07/30/17 02:03 04:13 05:02 WBC Hgb Hct MCHC Plt Count PT INR VBG pH Sodium Potassium 3.4 L Chloride 109.3 H Carbon Dioxide 15 L BUN 5 L Creatinine < 0.2 L Glucose 138 H POC Glucose 137 H 146 H Hemoglobin A1c Calcium Phosphorus Magnesium ALT C-Reactive Protein Total Protein Albumin 07/30/17 07/30/17 07/30/17 05:02 05:26 06:13 WBC Hgb Hct MCHC Plt Count PT INR VBG pH Sodium Potassium Chloride Carbon Dioxide BUN Creatinine Glucose POC Glucose 150 H 141 H Hemoglobin A1c Calcium Phosphorus 1.80 L D Magnesium 1.50 L ALT C-Reactive Protein Total Protein Albumin 07/30/17 07/30/17 07/30/17 06:20 07:08 08:23 WBC Hgb Hct MCHC Plt Count PT INR VBG pH Sodium Potassium Chloride Carbon Dioxide BUN Creatinine Glucose POC Glucose 146 H 146 H 180 H Hemoglobin A1c Calcium Phosphorus Magnesium ALT C-Reactive Protein Total Protein Albumin 07/30/17 07/30/17 07/30/17 09:26 12:06 13:49 WBC Hgb Hct MCHC Plt Count PT INR VBG pH Sodium Potassium Chloride Carbon Dioxide BUN Creatinine Glucose POC Glucose 184 H 251 H 272 H Hemoglobin A1c Calcium Phosphorus Magnesium ALT C-Reactive Protein Total Protein Albumin 07/30/17 07/30/17 07/30/17 14:31 14:31 15:07 WBC Hgb Hct MCHC Plt Count PT INR VBG pH Sodium Potassium 2.8 L* Chloride 109.5 H Carbon Dioxide 16 L BUN 6 L Creatinine 0.3 L D Glucose 282 H POC Glucose 249 H Hemoglobin A1c Calcium Phosphorus Magnesium ALT C-Reactive Protein 18.60 H Total Protein Albumin 07/30/17 07/30/17 07/31/17 20:44 20:44 00:02 WBC 24.4 H Hgb Hct MCHC Plt Count 473 H PT INR VBG pH Sodium Potassium Chloride 108.3 H Carbon Dioxide 18 L BUN 5 L Creatinine 0.2 L Glucose 239 H POC Glucose 222 H Hemoglobin A1c Calcium Phosphorus Magnesium ALT C-Reactive Protein Total Protein Albumin 07/31/17 07/31/17 07/31/17 05:21 06:35 11:35 WBC Hgb Hct MCHC Plt Count PT INR VBG pH Sodium Potassium 3.4 L Chloride 109.9 H Carbon Dioxide 20 L BUN Creatinine 0.2 L Glucose 216 H POC Glucose 224 H 191 H Hemoglobin A1c Calcium 8.2 L Phosphorus Magnesium ALT C-Reactive Protein Total Protein Albumin 07/31/17 07/31/17 07/31/17 15:28 15:28 17:49 WBC Hgb Hct MCHC Plt Count PT INR VBG pH Sodium Potassium 3.1 L Chloride Carbon Dioxide 21 L BUN 6 L Creatinine < 0.2 L Glucose 209 H POC Glucose 243 H Hemoglobin A1c Calcium 7.9 L Phosphorus 1.70 L Magnesium ALT C-Reactive Protein Total Protein Albumin 08/01/17 08/01/17 08/01/17 04:42 07:12 12:51 WBC Hgb Hct MCHC Plt Count PT INR VBG pH Sodium Potassium 3.3 L Chloride Carbon Dioxide BUN 5 L Creatinine < 0.2 L Glucose POC Glucose 127 H 171 H Hemoglobin A1c Calcium 8.1 L Phosphorus Magnesium ALT C-Reactive Protein Total Protein Albumin 08/01/17 08/01/17 08/02/17 17:31 20:12 01:09 WBC Hgb Hct MCHC Plt Count PT INR VBG pH Sodium Potassium 3.4 L Chloride Carbon Dioxide BUN 4 L Creatinine < 0.2 L Glucose 178 H POC Glucose 188 H 211 H Hemoglobin A1c Calcium 8.1 L Phosphorus Magnesium ALT C-Reactive Protein Total Protein Albumin 08/02/17 08/02/17 08/02/17 03:39 05:35 06:38 WBC Hgb Hct MCHC Plt Count PT INR VBG pH Sodium Potassium 3.4 L 3.5 L Chloride Carbon Dioxide BUN 3 L Creatinine < 0.2 L Glucose 161 H POC Glucose 171 H Hemoglobin A1c Calcium 8.1 L Phosphorus Magnesium ALT C-Reactive Protein Total Protein Albumin 08/02/17 08/02/17 08/03/17 11:47 17:38 00:09 WBC Hgb Hct MCHC Plt Count PT INR VBG pH Sodium Potassium Chloride Carbon Dioxide BUN Creatinine Glucose POC Glucose 283 H 308 H 275 H Hemoglobin A1c Calcium Phosphorus Magnesium ALT C-Reactive Protein Total Protein Albumin 08/03/17 08/03/17 08/03/17 05:19 05:19 06:25 WBC Hgb Hct MCHC 35 H Plt Count 497 H PT INR VBG pH Sodium Potassium Chloride Carbon Dioxide BUN 2 L Creatinine < 0.2 L Glucose 205 H POC Glucose 216 H Hemoglobin A1c Calcium Phosphorus Magnesium ALT 6 L C-Reactive Protein Total Protein 5.4 L Albumin 2.3 L 08/03/17 08/03/17 08/03/17 12:29 16:56 22:02 WBC Hgb Hct MCHC Plt Count PT INR VBG pH Sodium Potassium Chloride Carbon Dioxide BUN Creatinine Glucose POC Glucose 112 H 156 H 151 H Hemoglobin A1c Calcium Phosphorus Magnesium ALT C-Reactive Protein Total Protein Albumin 08/04/17 08/04/17 08/04/17 08:15 11:57 17:45 WBC Hgb Hct MCHC Plt Count PT INR VBG pH Sodium 150 H Potassium Chloride Carbon Dioxide 35 H BUN 2 L Creatinine 0.3 L D Glucose 106 H POC Glucose 169 H 147 H Hemoglobin A1c Calcium Phosphorus Magnesium ALT C-Reactive Protein Total Protein Albumin 08/04/17 08/04/17 08/05/17 23:07 23:41 05:24 WBC Hgb Hct MCHC Plt Count PT INR VBG pH Sodium Potassium Chloride Carbon Dioxide BUN Creatinine Glucose POC Glucose 68 L 61 L 259 H Hemoglobin A1c Calcium Phosphorus Magnesium ALT C-Reactive Protein Total Protein Albumin 08/05/17 08/05/17 08/05/17 07:54 12:03 12:33 WBC Hgb Hct MCHC Plt Count PT INR VBG pH Sodium 146 H Potassium 3.2 L Chloride Carbon Dioxide 33 H BUN 2 L Creatinine 0.4 L Glucose 219 H POC Glucose 237 H 256 H Hemoglobin A1c Calcium 8.3 L Phosphorus Magnesium ALT C-Reactive Protein Total Protein Albumin 08/05/17 08/05/17 08/06/17 16:37 23:59 03:42 WBC Hgb Hct MCHC Plt Count PT INR VBG pH Sodium 150 H Potassium 3.5 L Chloride Carbon Dioxide 31 H BUN 2 L Creatinine 0.4 L Glucose 128 H POC Glucose 113 H 111 H Hemoglobin A1c Calcium Phosphorus Magnesium ALT C-Reactive Protein Total Protein Albumin 08/06/17 08/06/17 08/06/17 05:53 11:16 15:59 WBC Hgb Hct MCHC Plt Count PT INR VBG pH Sodium Potassium Chloride Carbon Dioxide BUN Creatinine Glucose POC Glucose 158 H 254 H 287 H Hemoglobin A1c Calcium Phosphorus Magnesium ALT C-Reactive Protein Total Protein Albumin 08/06/17 08/07/17 08/07/17 22:02 04:22 07:25 WBC Hgb Hct MCHC Plt Count PT INR VBG pH Sodium 153 H Potassium 2.9 L* Chloride Carbon Dioxide 33 H BUN 2 L Creatinine 0.5 L Glucose 190 H POC Glucose 354 H 233 H Hemoglobin A1c Calcium Phosphorus Magnesium ALT C-Reactive Protein Total Protein Albumin 08/07/17 08/07/17 08/07/17 12:01 17:03 21:04 WBC Hgb Hct MCHC Plt Count PT INR VBG pH Sodium Potassium Chloride Carbon Dioxide BUN Creatinine Glucose POC Glucose 226 H 203 H 199 H Hemoglobin A1c Calcium Phosphorus Magnesium ALT C-Reactive Protein Total Protein Albumin 08/08/17 08/08/17 08/08/17 00:20 04:21 07:30 WBC Hgb Hct MCHC Plt Count PT INR VBG pH Sodium 154 H Potassium 3.1 L Chloride 108.1 H Carbon Dioxide 33 H BUN 2 L Creatinine 0.5 L Glucose 159 H POC Glucose 221 H 204 H Hemoglobin A1c Calcium Phosphorus Magnesium ALT C-Reactive Protein Total Protein Albumin 08/08/17 08/08/17 11:37 18:15 WBC Hgb Hct MCHC Plt Count PT INR VBG pH Sodium Potassium Chloride Carbon Dioxide BUN Creatinine Glucose POC Glucose 306 H 235 H Hemoglobin A1c Calcium Phosphorus Magnesium ALT C-Reactive Protein Total Protein Albumin Allied health notes reviewed: nursing
[2017-08-09 05:07] LABS: Anion Gap 18 mmol/L; BUN/Creatinine Ratio 5; Blood Urea Nitrogen 3 mg/dL (7-17); Calcium 8.6 mg/dL (8.4-10.2); Carbon Dioxide 32 mmol/L (22-30); Chloride 107.9 mmol/L (98-107); Glucose 205 mg/dL (65-100); Sodium 155 mmol/L (137-145)
[2017-08-09 05:31] LABS: Potassium 2.7 mmol/L (3.6-5.0)
[2017-08-09] MEDS: VANCOMYCIN 1,250 MG in NACL 0.9% 250ML 250 ML IV SCH (06:20)
[2017-08-09] MEDS ORDERED: K-DUR PO ONE ×3 (06:30→12:15)
[2017-08-09] MEDS: FLAGYL PO SCH ×3 (07:00→21:26)
[2017-08-09] MEDS: HEPARIN SUB-Q SCH ×3 (07:30→23:32)
[2017-08-09] MEDS: FEOSOL PO SCH ×2 (09:54→23:27)
[2017-08-09] MEDS: LEVAQUIN PO SCH (09:54)
[2017-08-09] MEDS: PEPCID PO SCH ×2 (09:54→21:28)
[2017-08-09] MEDS: K-DUR PO SCH ×3 (09:55→15:24)
[2017-08-09] MEDS ORDERED: NACL 0.45% 1000 ML 1,000 ML IV SCH (13:00)
--- NOTE | 2017-08-09 15:02 | Progress Note ---
Assessment and Plan Patient sleeping at this time..Resting on room air. No acute respiratory distress. - Patient Problems (1) Sepsis Current Visit: Yes Status: Acute Qualifiers: Sepsis type: sepsis due to unspecified organism Qualified Code(s): A41.9 - Sepsis, unspecified organism Plan to address problem: Patient is on Levaquine, Metranidazole . (2) Metabolic acidosis Current Visit: Yes Status: Acute Plan to address problem: Improved. Bicarb 30. (3) Back abscess Current Visit: Yes Status: Acute Plan to address problem: Patient is on Levaquine, Metranidazole. (4) Cellulitis Current Visit: Yes Status: Acute Qualifiers: Site of cellulitis: trunk Site of cellulitis of trunk: back Qualified Code(s): L03.312 - Cellulitis of back [any part except buttock] Plan to address problem: Patient is on Levaquine, Metranidazole . (5) Diabetes Current Visit: Yes Status: Acute Plan to address problem: Management as per primary care. (6) Status post laparoscopic assisted vaginal hysterectomy (LAVH) Onset Date: 12/29/13 Current Visit: No Status: Acute Plan to address problem: Management as per [employer]. Subjective Date of service: 08/09/17 Principal diagnosis: Necrotizing Fasciitis; DKA; New Onset Diabetes Interval history: Patient sleeping at this time.Resting on room air. No acute respiratory distress. Objective Vital Signs - 12hr 08/09/17 08/09/17 07:53 11:26 Temperature 98.2 F 98.4 F Pulse Rate 96 H Respiratory 18 18 Rate Blood Pressure 138/80 124/85 O2 Sat by Pulse 98 Oximetry Constitutional: asleep, appears uncomfortable (non respiratory) Eyes: non-icteric ENT: oropharynx moist Neck: supple, no lymphadenopathy, no JVD, other (no thyromegaly) Effort: normal Ascultation: Bilateral: diminished breath sounds Percussion: Bilateral: not dull Cardiovascular: regular rate and rhythm, other (no rubs / murmurs) Gastrointestinal: normoactive bowel sounds, soft, non-tender, non-distended, other (No HSM) Integumentary: other (dressing to upper back post I&D) Extremities: no cyanosis, no edema, pulses normal, no ischemia or petechiae Neurologic: normal mental status, non-focal exam, pupils equal and round, motor strength normal and Psychiatric: mood appropriate, affect normal CBC and BMP: 08/03/17 05:19 08/09/17 16:52 ABG, PT/INR, D-dimer: PT/INR, D-dimer PT 15.3 Sec. (12.2-14.9) H 07/28/17 22:23 INR 1.15 (0.87-1.13) H 07/28/17 22:23 Abnormal lab findings: Abnormal Labs 07/28/17 07/28/17 07/28/17 22:15 22:15 22:23 WBC 22.4 H Hgb 15.1 H Hct 44.0 H MCHC Plt Count 594 H PT 15.3 H INR 1.15 H VBG pH Sodium 132 L Potassium Chloride 95.4 L Carbon Dioxide 7 L* BUN Creatinine 0.4 L Glucose 333 H POC Glucose Hemoglobin A1c Calcium 10.7 H Phosphorus Magnesium ALT C-Reactive Protein Total Protein Albumin 07/28/17 07/29/17 07/29/17 22:23 03:37 07:51 WBC Hgb Hct MCHC Plt Count PT INR VBG pH 7.284 L Sodium Potassium Chloride Carbon Dioxide BUN Creatinine Glucose POC Glucose 280 H Hemoglobin A1c 13.2 H Calcium Phosphorus Magnesium ALT C-Reactive Protein Total Protein Albumin 07/29/17 07/29/17 07/29/17 09:44 12:17 12:17 WBC Hgb Hct MCHC Plt Count PT INR VBG pH Sodium Potassium Chloride 109.4 H Carbon Dioxide 5 L* 9 L* BUN Creatinine 0.4 L 0.3 L Glucose 319 H 336 H POC Glucose Hemoglobin A1c Calcium Phosphorus 1.30 L Magnesium ALT C-Reactive Protein Total Protein Albumin 07/29/17 07/29/17 07/29/17 12:25 14:32 15:24 WBC Hgb Hct MCHC Plt Count PT INR VBG pH Sodium Potassium 3.3 L Chloride 112.9 H Carbon Dioxide 11 L BUN Creatinine 0.3 L Glucose 233 H POC Glucose 315 H 228 H Hemoglobin A1c Calcium Phosphorus Magnesium ALT C-Reactive Protein Total Protein Albumin 07/29/17 07/29/17 07/29/17 16:18 16:56 17:07 WBC Hgb Hct MCHC Plt Count PT INR VBG pH Sodium Potassium 3.2 L Chloride 112.9 H Carbon Dioxide 10 L BUN Creatinine 0.3 L Glucose 158 H POC Glucose 192 H 157 H Hemoglobin A1c Calcium Phosphorus Magnesium ALT C-Reactive Protein Total Protein Albumin 07/29/17 07/29/17 07/29/17 18:12 19:00 19:28 WBC Hgb Hct MCHC Plt Count PT INR VBG pH Sodium Potassium Chloride 114.3 H Carbon Dioxide 12 L BUN Creatinine 0.3 L Glucose 167 H POC Glucose 140 H 157 H Hemoglobin A1c Calcium Phosphorus Magnesium ALT C-Reactive Protein Total Protein Albumin 07/29/17 07/29/17 07/29/17 20:15 21:16 22:05 WBC Hgb Hct MCHC Plt Count PT INR VBG pH Sodium Potassium Chloride Carbon Dioxide BUN Creatinine Glucose POC Glucose 187 H 193 H 166 H Hemoglobin A1c Calcium Phosphorus Magnesium ALT C-Reactive Protein Total Protein Albumin 07/29/17 07/30/17 07/30/17 23:43 00:37 01:10 WBC Hgb Hct MCHC Plt Count PT INR VBG pH Sodium Potassium Chloride Carbon Dioxide BUN Creatinine Glucose POC Glucose 145 H 146 H 144 H Hemoglobin A1c Calcium Phosphorus Magnesium ALT C-Reactive Protein Total Protein Albumin 07/30/17 07/30/17 07/30/17 02:03 04:13 05:02 WBC Hgb Hct MCHC Plt Count PT INR VBG pH Sodium Potassium 3.4 L Chloride 109.3 H Carbon Dioxide 15 L BUN 5 L Creatinine < 0.2 L Glucose 138 H POC Glucose 137 H 146 H Hemoglobin A1c Calcium Phosphorus Magnesium ALT C-Reactive Protein Total Protein Albumin 07/30/17 07/30/17 07/30/17 05:02 05:26 06:13 WBC Hgb Hct MCHC Plt Count PT INR VBG pH Sodium Potassium Chloride Carbon Dioxide BUN Creatinine Glucose POC Glucose 150 H 141 H Hemoglobin A1c Calcium Phosphorus 1.80 L D Magnesium 1.50 L ALT C-Reactive Protein Total Protein Albumin 07/30/17 07/30/17 07/30/17 06:20 07:08 08:23 WBC Hgb Hct MCHC Plt Count PT INR VBG pH Sodium Potassium Chloride Carbon Dioxide BUN Creatinine Glucose POC Glucose 146 H 146 H 180 H Hemoglobin A1c Calcium Phosphorus Magnesium ALT C-Reactive Protein Total Protein Albumin 07/30/17 07/30/17 07/30/17 09:26 12:06 13:49 WBC Hgb Hct MCHC Plt Count PT INR VBG pH Sodium Potassium Chloride Carbon Dioxide BUN Creatinine Glucose POC Glucose 184 H 251 H 272 H Hemoglobin A1c Calcium Phosphorus Magnesium ALT C-Reactive Protein Total Protein Albumin 07/30/17 07/30/17 07/30/17 14:31 14:31 15:07 WBC Hgb Hct MCHC Plt Count PT INR VBG pH Sodium Potassium 2.8 L* Chloride 109.5 H Carbon Dioxide 16 L BUN 6 L Creatinine 0.3 L D Glucose 282 H POC Glucose 249 H Hemoglobin A1c Calcium Phosphorus Magnesium ALT C-Reactive Protein 18.60 H Total Protein Albumin 07/30/17 07/30/17 07/31/17 20:44 20:44 00:02 WBC 24.4 H Hgb Hct MCHC Plt Count 473 H PT INR VBG pH Sodium Potassium Chloride 108.3 H Carbon Dioxide 18 L BUN 5 L Creatinine 0.2 L Glucose 239 H POC Glucose 222 H Hemoglobin A1c Calcium Phosphorus Magnesium ALT C-Reactive Protein Total Protein Albumin 07/31/17 07/31/17 07/31/17 05:21 06:35 11:35 WBC Hgb Hct MCHC Plt Count PT INR VBG pH Sodium Potassium 3.4 L Chloride 109.9 H Carbon Dioxide 20 L BUN Creatinine 0.2 L Glucose 216 H POC Glucose 224 H 191 H Hemoglobin A1c Calcium 8.2 L Phosphorus Magnesium ALT C-Reactive Protein Total Protein Albumin 07/31/17 07/31/17 07/31/17 15:28 15:28 17:49 WBC Hgb Hct MCHC Plt Count PT INR VBG pH Sodium Potassium 3.1 L Chloride Carbon Dioxide 21 L BUN 6 L Creatinine < 0.2 L Glucose 209 H POC Glucose 243 H Hemoglobin A1c Calcium 7.9 L Phosphorus 1.70 L Magnesium ALT C-Reactive Protein Total Protein Albumin 08/01/17 08/01/17 08/01/17 04:42 07:12 12:51 WBC Hgb Hct MCHC Plt Count PT INR VBG pH Sodium Potassium 3.3 L Chloride Carbon Dioxide BUN 5 L Creatinine < 0.2 L Glucose POC Glucose 127 H 171 H Hemoglobin A1c Calcium 8.1 L Phosphorus Magnesium ALT C-Reactive Protein Total Protein Albumin 08/01/17 08/01/17 08/02/17 17:31 20:12 01:09 WBC Hgb Hct MCHC Plt Count PT INR VBG pH Sodium Potassium 3.4 L Chloride Carbon Dioxide BUN 4 L Creatinine < 0.2 L Glucose 178 H POC Glucose 188 H 211 H Hemoglobin A1c Calcium 8.1 L Phosphorus Magnesium ALT C-Reactive Protein Total Protein Albumin 08/02/17 08/02/17 08/02/17 03:39 05:35 06:38 WBC Hgb Hct MCHC Plt Count PT INR VBG pH Sodium Potassium 3.4 L 3.5 L Chloride Carbon Dioxide BUN 3 L Creatinine < 0.2 L Glucose 161 H POC Glucose 171 H Hemoglobin A1c Calcium 8.1 L Phosphorus Magnesium ALT C-Reactive Protein Total Protein Albumin 08/02/17 08/02/17 08/03/17 11:47 17:38 00:09 WBC Hgb Hct MCHC Plt Count PT INR VBG pH Sodium Potassium Chloride Carbon Dioxide BUN Creatinine Glucose POC Glucose 283 H 308 H 275 H Hemoglobin A1c Calcium Phosphorus Magnesium ALT C-Reactive Protein Total Protein Albumin 08/03/17 08/03/17 08/03/17 05:19 05:19 06:25 WBC Hgb Hct MCHC 35 H Plt Count 497 H PT INR VBG pH Sodium Potassium Chloride Carbon Dioxide BUN 2 L Creatinine < 0.2 L Glucose 205 H POC Glucose 216 H Hemoglobin A1c Calcium Phosphorus Magnesium ALT 6 L C-Reactive Protein Total Protein 5.4 L Albumin 2.3 L 08/03/17 08/03/17 08/03/17 12:29 16:56 22:02 WBC Hgb Hct MCHC Plt Count PT INR VBG pH Sodium Potassium Chloride Carbon Dioxide BUN Creatinine Glucose POC Glucose 112 H 156 H 151 H Hemoglobin A1c Calcium Phosphorus Magnesium ALT C-Reactive Protein Total Protein Albumin 08/04/17 08/04/17 08/04/17 08:15 11:57 17:45 WBC Hgb Hct MCHC Plt Count PT INR VBG pH Sodium 150 H Potassium Chloride Carbon Dioxide 35 H BUN 2 L Creatinine 0.3 L D Glucose 106 H POC Glucose 169 H 147 H Hemoglobin A1c Calcium Phosphorus Magnesium ALT C-Reactive Protein Total Protein Albumin 08/04/17 08/04/17 08/05/17 23:07 23:41 05:24 WBC Hgb Hct MCHC Plt Count PT INR VBG pH Sodium Potassium Chloride Carbon Dioxide BUN Creatinine Glucose POC Glucose 68 L 61 L 259 H Hemoglobin A1c Calcium Phosphorus Magnesium ALT C-Reactive Protein Total Protein Albumin 08/05/17 08/05/17 08/05/17 07:54 12:03 12:33 WBC Hgb Hct MCHC Plt Count PT INR VBG pH Sodium 146 H Potassium 3.2 L Chloride Carbon Dioxide 33 H BUN 2 L Creatinine 0.4 L Glucose 219 H POC Glucose 237 H 256 H Hemoglobin A1c Calcium 8.3 L Phosphorus Magnesium ALT C-Reactive Protein Total Protein Albumin 08/05/17 08/05/17 08/06/17 16:37 23:59 03:42 WBC Hgb Hct MCHC Plt Count PT INR VBG pH Sodium 150 H Potassium 3.5 L Chloride Carbon Dioxide 31 H BUN 2 L Creatinine 0.4 L Glucose 128 H POC Glucose 113 H 111 H Hemoglobin A1c Calcium Phosphorus Magnesium ALT C-Reactive Protein Total Protein Albumin 08/06/17 08/06/17 08/06/17 05:53 11:16 15:59 WBC Hgb Hct MCHC Plt Count PT INR VBG pH Sodium Potassium Chloride Carbon Dioxide BUN Creatinine Glucose POC Glucose 158 H 254 H 287 H Hemoglobin A1c Calcium Phosphorus Magnesium ALT C-Reactive Protein Total Protein Albumin 08/06/17 08/07/17 08/07/17 22:02 04:22 07:25 WBC Hgb Hct MCHC Plt Count PT INR VBG pH Sodium 153 H Potassium 2.9 L* Chloride Carbon Dioxide 33 H BUN 2 L Creatinine 0.5 L Glucose 190 H POC Glucose 354 H 233 H Hemoglobin A1c Calcium Phosphorus Magnesium ALT C-Reactive Protein Total Protein Albumin 08/07/17 08/07/17 08/07/17 12:01 17:03 21:04 WBC Hgb Hct MCHC Plt Count PT INR VBG pH Sodium Potassium Chloride Carbon Dioxide BUN Creatinine Glucose POC Glucose 226 H 203 H 199 H Hemoglobin A1c Calcium Phosphorus Magnesium ALT C-Reactive Protein Total Protein Albumin 08/08/17 08/08/17 08/08/17 00:20 04:21 07:30 WBC Hgb Hct MCHC Plt Count PT INR VBG pH Sodium 154 H Potassium 3.1 L Chloride 108.1 H Carbon Dioxide 33 H BUN 2 L Creatinine 0.5 L Glucose 159 H POC Glucose 221 H 204 H Hemoglobin A1c Calcium Phosphorus Magnesium ALT C-Reactive Protein Total Protein Albumin 08/08/17 08/08/17 08/08/17 11:37 18:15 21:25 WBC Hgb Hct MCHC Plt Count PT INR VBG pH Sodium Potassium Chloride Carbon Dioxide BUN Creatinine Glucose POC Glucose 306 H 235 H 232 H Hemoglobin A1c Calcium Phosphorus Magnesium ALT C-Reactive Protein Total Protein Albumin 08/09/17 08/09/17 08/09/17 04:08 07:55 14:53 WBC Hgb Hct MCHC Plt Count PT INR VBG pH Sodium 155 H Potassium 2.7 L* Chloride 107.9 H Carbon Dioxide 32 H BUN 3 L Creatinine 0.6 L Glucose 205 H POC Glucose 247 H 288 H Hemoglobin A1c Calcium Phosphorus Magnesium ALT C-Reactive Protein Total Protein Albumin Allied health notes reviewed: nursing
--- NOTE | 2017-08-09 15:22 | Discharge Summary ---
Providers - Providers Date of Admission: 07/29/17 03:38 Date of discharge: 08/09/17 Attending physician: JEMMA SINGH 07/29/17 06:33 Consult to Wound/ET Nurse [CONS] Routine Reason For Exam: wound eval 07/29/17 09:46 Consult to Physician [CONS] Routine Consulting Provider: AYESHA VILLASEÑOR Reason For Exam: Abscess on back Place consult to:: dr. villaseñor Notified:: office Phone number called:: Was contact made?: Yes If yes, spoke with:: elisa Time called:: 10:19 07/29/17 11:51 Consult to Physician [CONS] Urgent Consulting Provider: AMAN GRAVES Reason For Exam: critical care management Place consult to:: Dr. Graves Notified:: yes Was contact made?: Yes If yes, spoke with:: Time called:: 11:30 07/30/17 11:36 Consult to Physician [CONS] Routine Consulting Provider: ROBINSON OWENS Reason For Exam: necrotizing fasciitis. DM Place consult to:: matthew Notified:: yes 07/30/17 11:37 Consult to Physician [CONS] Routine Consulting Provider: ROBINSON OWENS Reason For Exam: necrotizing fascitis Place consult to:: RAGHAV Notified:: YES 07/31/17 11:18 Consult to Wound/ET Nurse [CONS] Routine Reason For Exam: begin wd care in am 07/31/17 11:20 Consult to Case Management [CONS] Routine Services Needed at Discharge: Home Health Services Notified:: allan notified Additional Physician Instructions: will need wd care as outpt Primary care physician: MANAGER [employer]PL[employer] Hospitalization Condition: Fair Hospital course: 52 years old female with history of diabetes, uncontrolled, admitted on 2016 due to a week history of back upper back edema, erythema and pain. Patient reports initially started as a boil, a couple of days later started draining purulence. In the emergency room, initial temperature 98.2, heart rate 129, respiration 18, blood pressure 122/75, initial white count 22. Hemoglobin 15. Creatinine is 0.4. Lactic acid 1.2. A1c 13. Urinalysis is negative. Glucose was 333. CXR was negative. CT of the chest showed 3 cm abscess in the upper back with surrounding gas. GS was consulted and taken to the ER for I and D, placed on wound vac. ID was consulted and wound culture was followed. Her discharge got delayed for outpt wound care set up due to her insurance coverage. Her electrolytes were monitored and corrected. She was then discharged home in stable condition. She will f/u outpt wound care clinic. Discharge diagnosis and management: Diabetic ketoacidosis. - This is now resolved. She was on Insulin drip in ICU and transferred out of ICU. - Her glucose level improved with insulin subqu Diabetes mellitus type 2, - newly diagnosed this admission. a1c 13.2 - placed on Novolin 70/30 bid and SSI with ada diet - she was getting hypoglycemic with 70/30, so it was stopped and pt only maintained with SSI - her Bg remained elevated >200 after stopping 70/30 - Restarted 70/30 at lower dose along with SSI Necrotizing fascitis of infected sebaceous cyst with necrosis down to muscle. - s/p wide debridement by Dr. Villaseñor, Surgeon on 07/30. - ID Physician following. Wound vac placed - will be d/c home on levaquin 750 mg po qday and flagyl 500 mg TID total 2 weeks from 07/30 until 08/12 Hyponatremia/hypernatremia. managed with iv fluid hypokalemia - repleted and monitored Hypophosphatemia. Now resolved after replacement. Hypomagnesemia. Now resolved after replacement. DVT prophylaxis. SCDs only because of surgery Hospitalist Physical GEN APPEARANCE : Not in acute distress HEENT: Normocephalic Atrauma NECK : supple, no JVD LUNGS: clear to auscultation bilaterally, no rales, no wheeze HEART: S1 and S2 regular, tachycardia, no murmurs, rubs or gallop, ABD: Soft, no tenderness, no distension, normal bowel sounds EXT: No edema, no clubbing, no cyanosis NEURO: Awake,alert,oriented x 3, no facial asymmetry,no focal signs, Back: Wound vac to left upper back over surgery site of abscess on back Disposition: TO HOME OR SELFCARE Time spent for discharge: 32 minutes Core Measure Documentation - Palliative Care Palliative Care/ Comfort Measures: Not Applicable - Core Measures Any of the following diagnoses?: none Exam - Constitutional Vitals: Temp Pulse Resp BP Pulse Ox 98.4 F 96 H 18 124/85 98 08/09/17 11:26 08/09/17 07:53 08/09/17 11:26 08/09/17 11:26 08/09/17 07:53 Plan Activity: advance as tolerated Weight Bearing Status: Weight Bear as Tolerated Diet: low cholesterol, low salt, diabetic Wound: per wound nurse instructions, drain care as instructed Additional Instructions: F/U BMP in one week Follow up with: PRIMARY CARE, [Primary Care Provider] - 3-5 Days Prescriptions: Ferrous Sulfate [Feosol 325 MG tab] 325 mg PO BID #60 tablet HYDROcodone/ACETAMINOPHEN [Godfrey 5-325 Tablet] 1 each PO Q6H PRN #12 tablet PRN Reason: Pain Insulin NPH/Regular [NovoLIN 70/30] 10 unit SUB-Q BIDDIAB 30 Days units Levofloxacin [Levaquin TAB] 750 mg PO DAILY #3 tablet metroNIDAZOLE [Flagyl TAB] 500 mg PO Q8HR #10 tablet Potassium Chloride [K-Dur] 40 meq PO QDAY #3 tablet
[2017-08-09] MEDS: NOVOLOG SUB-Q SCH ×2 (15:23→18:55)
[2017-08-09 18:21] LABS: Anion Gap 18 mmol/L; BUN/Creatinine Ratio 10; Blood Urea Nitrogen 5 mg/dL (7-17); Calcium 8.2 mg/dL (8.4-10.2); Carbon Dioxide 30 mmol/L (22-30); Chloride 103.9 mmol/L (98-107); Glucose 201 mg/dL (65-100); Sodium 148 mmol/L (137-145)
[2017-08-09 18:25] LABS: Potassium 3.6 mmol/L (3.6-5.0)
[2017-08-10] MEDS: NOVOLOG SUB-Q SCH ×3 (01:39→07:50)
[2017-08-10] MEDS: FLAGYL PO SCH (05:52)
[2017-08-10] MEDS: HEPARIN SUB-Q SCH (07:50)
[2017-08-10] MEDS: K-DUR PO SCH (09:56)
[2017-08-10] MEDS: LEVAQUIN PO SCH (09:56)
--- NOTE | 2017-08-10 11:11 | Event Note ---
Date: 08/10/17 Patient did not get discharged yesterday as per nurse she did have a rideto home. Discussed with foster care case manager today and patient will be arranged for discharge. Patient is vitally stable, chemistry work showed normal potassium. She is stable for discharge.
[2017-08-10 12:49] VITALS: BP 128/84
== END 2017-08-10 13:22 | disposition home or self-care (01) | DRG 853 ==
LOC: ED 20:57 → 3A 07-29 03:38 → CC1 07-29 15:00 → 3B-SURG 07-30 23:22
PROVIDERS: ADMIT Internal Medicine; ATTEND Internal Medicine
PROC: 0JB70ZZ Excision of Back Subcutaneous Tissue and Fascia, Open Approach (ICD-10-PCS; principal; 2017-07-30)
DX: A41.9 Sepsis, unspecified organism (principal); E13.10 Other specified diabetes mellitus with ketoacidosis without coma; E87.1 Hypo-osmolality and hyponatremia; L03.312 Cellulitis of back [any part except buttock and flank]; L02.212 Cutaneous abscess of back [any part, except buttock and flank]; Z88.0 Allergy status to penicillin; F17.200 Nicotine dependence, unspecified, uncomplicated; Z82.49 Family history of ischemic heart disease and other diseases of the circulatory system; E83.39 Other disorders of phosphorus metabolism; E83.42 Hypomagnesemia; L72.3 Sebaceous cyst; E87.6 Hypokalemia
CPT/HCPCS: 36415; 71010; 71260; 80048; 80053; 80202; 81001; 82140; 82805; 82962; 83036; 83735; 84100; 84132; 85027; 85610; 86140; 87040; 87075; 87076; 87086; 87116; 87186; 88304; 93005; 93010; 94760; 96361; 96365; 96375; J0330; J1170; J1644; J1815; J1940; J1956; J2250; J2270; J2405; J2704; J3010; J3370; J3475; J3480; J7030; J7040; J7050; J7070; Q9967

== ENCOUNTER 2017-08-16 10:11 | Outpatient (CLI) | payer OTHER ==
[2017-08-16] MEDS ORDERED: XYLOCAINE TOPICAL 4% TP ONE ×2 (10:56→12:00)
== END 2017-08-16 10:12 | disposition home or self-care (01) ==
LOC: WOUND 10:11
PROVIDERS: ATTEND Surgery
DX: E11.622 Type 2 diabetes mellitus with other skin ulcer (principal); L98.422 Non-pressure chronic ulcer of back with fat layer exposed; Z90.710 Acquired absence of both cervix and uterus
CPT/HCPCS: 11043; 11046; 36415; 83036; G0463; 97605

== ENCOUNTER 2017-08-23 08:31 | Outpatient (CLI) | payer OTHER ==
[2017-08-23] MEDS ORDERED: XYLOCAINE TOPICAL 4% TP ONE ×2 (09:19→17:05)
== END 2017-08-23 08:32 | disposition home or self-care (01) ==
LOC: WOUND 08:31
PROVIDERS: ATTEND Surgery
DX: E11.622 Type 2 diabetes mellitus with other skin ulcer (principal); L98.422 Non-pressure chronic ulcer of back with fat layer exposed; Z90.710 Acquired absence of both cervix and uterus
CPT/HCPCS: 97605

== ENCOUNTER 2017-09-01 10:34 | Outpatient (CLI) | payer BC ==
[2017-09-01] MEDS ORDERED: XYLOCAINE TOPICAL 4% TP ONE (10:59)
== END 2017-09-01 10:35 | disposition home or self-care (01) ==
LOC: WOUND 10:34
PROVIDERS: ATTEND Surgery
DX: L02.212 Cutaneous abscess of back [any part, except buttock and flank] (principal); E11.9 Type 2 diabetes mellitus without complications; Z90.710 Acquired absence of both cervix and uterus
CPT/HCPCS: 97605

== ENCOUNTER 2017-09-07 08:10 | Outpatient (CLI) | payer OTHER ==
[2017-09-07] MEDS ORDERED: XYLOCAINE TOPICAL 4% TP ONE ×2 (08:27→08:35)
== END 2017-09-07 08:11 | disposition home or self-care (01) ==
LOC: WOUND 08:10
PROVIDERS: ATTEND Surgery
DX: E11.622 Type 2 diabetes mellitus with other skin ulcer (principal); L98.422 Non-pressure chronic ulcer of back with fat layer exposed; Z90.710 Acquired absence of both cervix and uterus
CPT/HCPCS: 97605; G0463; 99214

== ENCOUNTER 2017-09-20 08:33 | Outpatient (CLI) | payer OTHER ==
[2017-09-20] MEDS ORDERED: XYLOCAINE TOPICAL 4% TP ONE (08:46)
== END 2017-09-20 08:34 | disposition home or self-care (01) ==
LOC: WOUND 08:33
PROVIDERS: ATTEND Surgery
DX: E11.622 Type 2 diabetes mellitus with other skin ulcer (principal); L98.422 Non-pressure chronic ulcer of back with fat layer exposed; Z90.710 Acquired absence of both cervix and uterus
CPT/HCPCS: 97605

== ENCOUNTER 2017-09-28 08:13 | Outpatient (CLI) | payer BC ==
[2017-09-28] MEDS ORDERED: XYLOCAINE TOPICAL 4% TP ONE (08:40)
== END 2017-09-28 08:14 | disposition home or self-care (01) ==
LOC: WOUND 08:13
PROVIDERS: ATTEND Surgery
DX: E11.622 Type 2 diabetes mellitus with other skin ulcer (principal); L98.422 Non-pressure chronic ulcer of back with fat layer exposed; Z90.710 Acquired absence of both cervix and uterus
CPT/HCPCS: 97605

== ENCOUNTER 2017-10-04 08:47 | Outpatient (CLI) | payer BC ==
[2017-10-04] MEDS ORDERED: XYLOCAINE TOPICAL 4% TP ONE (09:17)
[2017-10-04] MEDS ORDERED: SILVER NITRATE TP ONE ×2 (09:27→12:42)
== END 2017-10-04 08:48 | disposition home or self-care (01) ==
LOC: WOUND 08:47
PROVIDERS: ATTEND Surgery
DX: E11.622 Type 2 diabetes mellitus with other skin ulcer (principal); L98.422 Non-pressure chronic ulcer of back with fat layer exposed; E11.40 Type 2 diabetes mellitus with diabetic neuropathy, unspecified; Z90.710 Acquired absence of both cervix and uterus

== ENCOUNTER 2017-10-12 08:30 | Outpatient (CLI) | payer BC ==
[2017-10-12] MEDS ORDERED: XYLOCAINE TOPICAL 4% TP ONE ×2 (08:48→08:54)
[2017-10-12] MEDS ORDERED: SILVER NITRATE TP ONE ×2 (09:10→09:51)
== END 2017-10-12 08:31 | disposition home or self-care (01) ==
LOC: WOUND 08:30
PROVIDERS: ATTEND Surgery
DX: E11.622 Type 2 diabetes mellitus with other skin ulcer (principal); L98.422 Non-pressure chronic ulcer of back with fat layer exposed; Z90.710 Acquired absence of both cervix and uterus

== ENCOUNTER 2017-10-19 08:29 | Outpatient (CLI) | payer BC ==
[2017-10-19] MEDS ORDERED: XYLOCAINE TOPICAL 4% TP ONE ×2 (08:39→08:42)
[2017-10-19] MEDS ORDERED: SILVER NITRATE TP ONE ×2 (08:52→08:56)
== END 2017-10-19 08:30 | disposition home or self-care (01) ==
LOC: WOUND 08:29
PROVIDERS: ATTEND Surgery
DX: E11.622 Type 2 diabetes mellitus with other skin ulcer (principal); L98.422 Non-pressure chronic ulcer of back with fat layer exposed; Z90.710 Acquired absence of both cervix and uterus
CPT/HCPCS: 17250; G0463

== ENCOUNTER 2017-10-26 08:20 | Outpatient (CLI) | payer BC ==
[2017-10-26] MEDS ORDERED: SILVER NITRATE TP ONE ×2 (08:40→08:42)
[2017-10-26] MEDS ORDERED: XYLOCAINE TOPICAL 4% TP ONE ×2 (08:40→08:43)
== END 2017-10-26 08:21 | disposition home or self-care (01) ==
LOC: WOUND 08:20
PROVIDERS: ATTEND Surgery
DX: E11.622 Type 2 diabetes mellitus with other skin ulcer (principal); L98.422 Non-pressure chronic ulcer of back with fat layer exposed; Z90.710 Acquired absence of both cervix and uterus
CPT/HCPCS: 17250; G0463

== ENCOUNTER 2017-11-02 08:33 | Outpatient (CLI) | payer BC ==
[2017-11-02] MEDS ORDERED: SILVER NITRATE TP ONE ×2 (09:28→17:26)
[2017-11-02] MEDS ORDERED: XYLOCAINE TOPICAL 4% TP ONE (12:00)
== END 2017-11-02 08:34 | disposition home or self-care (01) ==
LOC: WOUND 08:33
PROVIDERS: ATTEND Surgery
DX: E11.622 Type 2 diabetes mellitus with other skin ulcer (principal); L98.422 Non-pressure chronic ulcer of back with fat layer exposed; Z90.710 Acquired absence of both cervix and uterus
CPT/HCPCS: 17250

== ENCOUNTER 2017-11-09 08:09 | Outpatient (CLI) | payer BC ==
[2017-11-09] MEDS ORDERED: SILVER NITRATE TP ONE (08:30)
[2017-11-09] MEDS ORDERED: XYLOCAINE TOPICAL 4% TP ONE (08:30)
== END 2017-11-09 08:10 | disposition home or self-care (01) ==
LOC: WOUND 08:09
PROVIDERS: ATTEND Surgery
DX: E11.622 Type 2 diabetes mellitus with other skin ulcer (principal); L98.422 Non-pressure chronic ulcer of back with fat layer exposed; Z90.710 Acquired absence of both cervix and uterus
CPT/HCPCS: 17250

== ENCOUNTER 2017-11-16 08:12 | Outpatient (CLI) | payer BC ==
[2017-11-16] MEDS ORDERED: XYLOCAINE TOPICAL 4% TP ONE (08:22)
[2017-11-16] MEDS ORDERED: SILVER NITRATE TP ONE (08:41)
== END 2017-11-16 08:13 | disposition home or self-care (01) ==
LOC: WOUND 08:12
PROVIDERS: ATTEND Surgery
DX: E11.622 Type 2 diabetes mellitus with other skin ulcer (principal); L98.422 Non-pressure chronic ulcer of back with fat layer exposed; Z90.710 Acquired absence of both cervix and uterus
CPT/HCPCS: 17250

== ENCOUNTER 2017-11-23 08:12 | Outpatient (CLI) | payer BC ==
[2017-11-23] MEDS ORDERED: SILVER NITRATE TP ONE ×2 (08:29→08:30)
[2017-11-23] MEDS ORDERED: XYLOCAINE TOPICAL 4% TP ONE ×2 (08:30)
== END 2017-11-23 08:13 | disposition home or self-care (01) ==
LOC: WOUND 08:12
PROVIDERS: ATTEND Surgery
DX: E11.622 Type 2 diabetes mellitus with other skin ulcer (principal); L98.422 Non-pressure chronic ulcer of back with fat layer exposed; Z90.710 Acquired absence of both cervix and uterus
CPT/HCPCS: 17250; G0463

== ENCOUNTER 2017-12-07 08:10 | Outpatient (CLI) | payer BC ==
[2017-12-07] MEDS ORDERED: XYLOCAINE TOPICAL 4% TP ONE (08:22)
[2017-12-07] MEDS ORDERED: SILVER NITRATE TP ONE ×2 (08:51→09:07)
== END 2017-12-07 08:11 | disposition home or self-care (01) ==
LOC: WOUND 08:10
PROVIDERS: ATTEND Surgery
DX: E11.622 Type 2 diabetes mellitus with other skin ulcer (principal); L98.422 Non-pressure chronic ulcer of back with fat layer exposed; Z90.710 Acquired absence of both cervix and uterus
CPT/HCPCS: 17250

== ENCOUNTER 2017-12-14 08:11 | Outpatient (CLI) | payer BC | END 2017-12-14 08:12 | disposition home or self-care (01) | LOC: WOUND 08:11 | PROVIDERS: ATTEND Surgery | DX: E11.622 Type 2 diabetes mellitus with other skin ulcer (principal); L98.422 Non-pressure chronic ulcer of back with fat layer exposed; Z90.710 Acquired absence of both cervix and uterus | CPT/HCPCS: 99212; G0463 ==

== ENCOUNTER 2018-04-04 08:13 | Outpatient (CLI) | payer BC ==
[2018-04-04] MEDS ORDERED: XYLOCAINE TOPICAL 4% TP ONE (08:52)
[2018-04-04] MEDS ORDERED: XYLOCAINE 1%/ EPI 1:100,000 INFILTRATI ONE ×2 (09:12→09:48)
== END 2018-04-04 08:14 | disposition home or self-care (01) ==
LOC: WOUND 08:13
PROVIDERS: ATTEND Surgery
DX: L02.212 Cutaneous abscess of back [any part, except buttock and flank] (principal); E11.628 Type 2 diabetes mellitus with other skin complications; Z90.710 Acquired absence of both cervix and uterus
CPT/HCPCS: 10060; G0463

== ENCOUNTER → 2018-04-11 | Outpatient (CLI) | payer BC ==
[~2018-04-11] MED LIST: XYLOCAINE TOPICAL 4% TP ONE
== END | disposition home or self-care (01) ==
LOC: WOUND 08:13
PROVIDERS: ATTEND Surgery
DX: L02.212 Cutaneous abscess of back [any part, except buttock and flank] (principal); E11.628 Type 2 diabetes mellitus with other skin complications; Z90.710 Acquired absence of both cervix and uterus

== ENCOUNTER 2018-04-25 08:06 | Outpatient (CLI) | payer BC ==
[2018-04-25] MEDS ORDERED: XYLOCAINE TOPICAL 4% TP ONE ×2 (08:12→08:26)
== END 2018-04-25 08:07 | disposition home or self-care (01) ==
LOC: WOUND 08:06
PROVIDERS: ATTEND Surgery
DX: L02.212 Cutaneous abscess of back [any part, except buttock and flank] (principal); E11.628 Type 2 diabetes mellitus with other skin complications; Z90.710 Acquired absence of both cervix and uterus
CPT/HCPCS: 99214; G0463

== ENCOUNTER 2018-05-16 08:03 | Outpatient (CLI) | payer BC ==
[2018-05-16] MEDS ORDERED: XYLOCAINE TOPICAL 4% TP ONE ×2 (08:25→08:31)
== END 2018-05-16 08:04 | disposition home or self-care (01) ==
LOC: WOUND 08:03
PROVIDERS: ATTEND Surgery
DX: L02.212 Cutaneous abscess of back [any part, except buttock and flank] (principal); E11.628 Type 2 diabetes mellitus with other skin complications; Z90.710 Acquired absence of both cervix and uterus

== ENCOUNTER 2018-05-30 08:04 | Outpatient (CLI) | payer BC ==
[2018-05-30] MEDS ORDERED: XYLOCAINE TOPICAL 4% TP ONE ×2 (08:34→09:25)
[2018-05-30] MEDS ORDERED: SILVER NITRATE TP ONE ×2 (08:54→09:26)
== END 2018-05-30 08:05 | disposition home or self-care (01) ==
LOC: WOUND 08:04
PROVIDERS: ATTEND Surgery
DX: L02.212 Cutaneous abscess of back [any part, except buttock and flank] (principal); E11.628 Type 2 diabetes mellitus with other skin complications; Z90.710 Acquired absence of both cervix and uterus

== ENCOUNTER 2019-01-17 00:21 | Inpatient (IN) | payer BC, OTHER ==
[2019-01-17] MEDS ORDERED: NACL 0.9% 1000 ML IV ONE (01:06)
[2019-01-17] MEDS ORDERED: CLEOCIN 900 MG/50 mL 900 MG/50 ML BAG IV ONE (01:07)
[2019-01-17] MEDS ORDERED: HumuLIN R IV ONE (01:07)
--- NOTE | 2019-01-17 01:33 | XRay Report ---
PROCEDURE: XR CHEST 1V AP TECHNIQUE: Chest radiograph single view. HISTORY: Sepsis COMPARISONS: 07/28/2017 . FINDINGS: There are low lung volumes. No consolidation seen. No pleural effusion or pneumothorax is seen. The cardiomediastinal silhouette is normal. IMPRESSION: No acute abnormality identified. . This document is electronically signed by Hayden Leyva MD., Jan 17 2019 01:31:58 AM ET
[2019-01-17 01:40] LABS: Hematocrit 43.2 % (30.3-42.9); Hemoglobin 14.2 gm/dl (10.1-14.3); Mean Corpuscular HGB Conc 33 % (30-34); Mean Corpuscular Volume 94 fl (79-97); Platelet Count 848 K/mm3 (140-440); Red Blood Count 4.58 M/mm3 (3.65-5.03); Red Cell Distribution Width 15.4 % (13.2-15.2)
[2019-01-17 02:09] LABS: Bilirubin,Urine NEG (Negative); Blood,Urine SM (Negative); Color,Urine Yellow (Yellow); Mucus,Urine FEW /HPF; Urobilinogen,Urine < 2.0 mg/dL (<2.0)
--- NOTE | 2019-01-17 02:33 | Emergency Department Report ---
HPI - General Chief Complaint: Hyperglycemia Time Seen by Provider: 01/17/19 00:35 - HPI HPI: 53-year-old female presents to the emergency department via EMS from home with complaint of pain, swelling and infection to the left breast. Th is has been going on for the past 5 days. The patient went to [place] urgent care and was placed on clindamycin, Rosamond and ibuprofen. She says that she saw a Dr. Blankenship at that time. However today the patient says that the infection within the left breast "opened up and was draining and bleeding." She has a past medical history of diabetes, anemia. The patient had a similar presentation about 1 year ago where she had a large back abscess that required admission and surgical drainage. No recent travel or sick contacts at home. The patient also presents with elevated blood pressure despite alleged compliance with her insulin. ED Past Medical Hx - Past Medical History Previous Medical History?: Yes Hx Heart Attack/AMI: No Hx Congestive Heart Failure: No Hx Diabetes: Yes Hx Asthma: No Hx COPD: No Hx HIV: No Additional medical history: Anemia - Surgical History Past Surgical History?: Yes Hx Open Heart Surgery: No Hx Cholecystectomy: No Hx Appendectomy: No Hx Breast Surgery: No Additional Surgical History: Ectopic in 2001 - Social History Smoking Status: Never Smoker - Medications Home Medications: Home Medications Medication Instructions Recorded Confirmed Last Taken Type HYDROcodone/ACETAMINOPHEN [Rosamond 1 each PO Q6H PRN #12 tablet 08/03/17 Unknown Rx 5-325 Tablet] Bisacodyl [Dulcolax suppos] 10 mg IN QDAY PRN supp.rect 08/09/17 Unknown Rx Ferrous Sulfate [Feosol 325 MG tab] 325 mg PO BID #60 tablet 08/09/17 Unknown Rx Insulin NPH/Regular [NovoLIN 70/30] 10 unit SUB-Q BIDDIAB 30 Days 08/09/17 Unknown Rx units Potassium Chloride [K-Dur] 40 meq PO QDAY #3 tablet 08/09/17 Unknown Rx levoFLOXacin [Levaquin TAB] 750 mg PO DAILY #3 tablet 08/09/17 Unknown Rx metroNIDAZOLE [Flagyl TAB] 500 mg PO Q8HR #10 tablet 08/09/17 Unknown Rx ED Review of Systems ROS: Stated complaint: HYPERGLYCEMIA Other details as noted in HPI Constitutional: chills, fever, weakness Eyes: denies: eye pain, vision change ENT: denies: ear pain, throat pain Respiratory: shortness of breath. denies: cough Cardiovascular: denies: chest pain, palpitations Gastrointestinal: denies: abdominal pain, vomiting Genitourinary: denies: dysuria, discharge Musculoskeletal: denies: back pain, arthralgia Skin: lesions, change in color Neurological: denies: headache, numbness Physical Exam - Physical Exam Vital Signs: Vital Signs 01/17/19 01/17/19 01/17/19 01:22 01:40 02:00 Temperature Pulse Rate 138 H 135 H 131 H Respiratory 34 H 32 H 29 H Rate Blood Pressure 150/90 136/61 O2 Sat by Pulse 99 99 99 Oximetry 01/17/19 01/17/19 02:04 02:05 Temperature 98.4 F Pulse Rate Respiratory 26 H Rate Blood Pressure O2 Sat by Pulse 98 Oximetry Physical Exam: GENERAL: Patient is ill-appearing. HENT: Normocephalic. Atraumatic. Patient has moist mucous membranes. EYES: Extraocular motions are intact. Pupils equal reactive to light bilaterally. NECK: Supple. Trachea is midline. CHEST/LUNGS: Clear to auscultation. There is tachypnea and a kussmaul respiratory patten. There is some respiratory distress noted. HEART/CARDIOVASCULAR: Regular. There is moderate tachycardia. There is no murmur. ABDOMEN: Abdomen is soft, nontender. Patient has normal bowel sounds. There is no abdominal distention. SKIN: The left breast is erythematous, thickened and appears consistent with a cellulitis. The inferior portion of the left breast also is indurated with some central opening and fluctuance that appears consistent with an abscess. NEURO: The patient is awake but confused. Follows some commands. Mostly nonverbal. MUSCULOSKELETAL: There is no tenderness or deformity. There is no evidence of acute injury. ED Course Vital Signs 01/17/19 01/17/19 01/17/19 01:22 01:40 02:00 Temperature Pulse Rate 138 H 135 H 131 H Respiratory 34 H 32 H 29 H Rate Blood Pressure 150/90 136/61 O2 Sat by Pulse 99 99 99 Oximetry 01/17/19 01/17/19 02:04 02:05 Temperature 98.4 F Pulse Rate Respiratory 26 H Rate Blood Pressure O2 Sat by Pulse 98 Oximetry - Consultations Consultation #1: 05/22/19 06:02 I spoke with the general surgeon application assistant, Dr. Horowitz, who has agreed to see the patient as a consult. She recommended getting a CT of the chest with IV contrast to fully evaluate the size and depth of the abscess. ED Medical Decision Making - Lab Data Result diagrams: 01/17/19 01:17 01/17/19 14:05 - EKG Data -: EKG Interpreted by Me EKG shows normal: sinus rhythm (PVCs), axis (left axis deviation), intervals, QRS complexes, ST-T waves (nonspecific ST-T waves) Rate: tachycardia (144 bpm) - EKG Data When compared to previous EKG there are: no significant change Interpretation: unchanged when compared t (07/28/17) - Radiology Data Radiology results: image reviewed interpreted by me: Chest x-ray does not show any acute process. There are no pleural effusions, obvious pneumonia and there is no pneumothorax. - Medical Decision Making patient presents to the emergency department with a left breast cellulitis and abscess as well as hyperglycemia. She appears as a code sepsis secondary to vital signs that show tachycardia and tachypnea. The patient has insulin- dependent diabetes and appears to have this kussmaul respiration pattern that appears concerning for DKA and metabolic acidosis. The patient has a venous acidosis of 7.06. Accu-Chek was about 460 but serum blood sugar came back at close to 600. She has an anion gap of 38. All this together appears consistent with diabetic ketoacidosis. She received about 3 L of IV fluid as part of the code sepsis and initially she received an IV bolus of insulin. When all of the labs had come back showing the DKA, the patient was started on an insulin drip. The patient was also treated empirically with some clindamycin for the left breast abscess and cellulitis. The general surgeon on-call, Dr. Horowitz, has been contacted and consult it. The patient will receive a CT of the chest with IV contrast to evaluate the length and depth of this abscess and infection. The patient was accepted for admission by the hospitalist, Dr. Durant. - Differential Diagnosis DKA, HHNK, Sepsis, Breast abscess/cellulitis Critical Care Time: Yes Critical care time in (mins) excluding proc time.: 35 Critical care attestation.: If time is entered above; I have spent that time in minutes in the direct care of this critically ill patient, excluding procedure time. Critical care time was spent on this patient doing her initial evaluation, multiple re-evaluations, ordering and interpretation of labs and imaging, ordering of IV fluid and IV antibiotics, discussion with the general surgeon and admitting hospitalist. Critical Care Time: 35 minutes ED Disposition Clinical Impression: Cellulitis of breast, Breast abscess Sepsis Qualifiers: Sepsis type: sepsis due to unspecified organism Qualified Code(s): A41.9 - Sepsis, unspecified organism Diabetic ketoacidosis Qualifiers: Diabetes mellitus type: type 1 Diabetes mellitus complication detail: without coma Qualified Code(s): E10.10 - Type 1 diabetes mellitus with ketoacidosis without coma Disposition: DC-09 OP ADMIT IP TO THIS HOSP Is pt being admited?: Yes Condition: Serious Time of Disposition: 06:06
[2019-01-17 04:09] LABS: Blood Urea Nitrogen TNR mg/dL (7-17)
[2019-01-17 04:10] LABS: Alanine Aminotransferase TNR units/L (7-56); Albumin TNR g/dL (3.9-5); BUN/Creatinine Ratio TNR; Calcium TNR mg/dL (8.4-10.2)
[2019-01-17 04:11] LABS: Hemolysis Index TNR
[2019-01-17 04:20] LABS: Alanine Aminotransferase 8 units/L (7-56); Albumin 3.1 g/dL (3.9-5); BUN/Creatinine Ratio 35; Blood Urea Nitrogen 28 mg/dL (7-17); Calcium 10.1 mg/dL (8.4-10.2); Hemolysis Index 21
[2019-01-17] MEDS ORDERED: D50W (25GM) Syringe IV PRN (04:58)
[2019-01-17] MEDS: HumuLIN R 100 UNITS in NACL 0.9% 99 ML IV SCH ×2 (05:31→21:20)
[2019-01-17 05:32] LABS: Band Neutrophils # (Manual) 5.5 K/mm3; Basophils % (Manual) 0 % (0.0-1.8); Eosinophils % (Manual) 0 % (0.0-4.3); Total Cells Counted 100
[2019-01-17 05:33] LABS: Platelet Estimate Appears Increased
[2019-01-17 05:36] LABS: Calcium 10.2 mg/dL (8.4-10.2); Hemolysis Index 0
[2019-01-17] MEDS ORDERED: TYLENOL PO PRN (06:08)
[2019-01-17] MEDS ORDERED: PERCOCET 5/325 PO PRN (06:08)
[2019-01-17] MEDS ORDERED: MORPHINE IV PRN (06:08)
[2019-01-17 06:09] LABS: BUN/Creatinine Ratio 33; Blood Urea Nitrogen 26 mg/dL (7-17)
[2019-01-17] MEDS ORDERED: APRESOLINE IV PRN (06:14)
--- NOTE | 2019-01-17 06:20 | History and Physical Report ---
History of Present Illness Date of examination: 01/17/19 Chief complaint: Swelling with pain in left breast History of present illness: Patient is a 53-year-old female with a history of left breast cellulitis who presented to the emergency department via EMS from home with co mplaint of worsening swelling with pain in the left breast of 5 days duration. She has associated AMS. Of note, patient was a poor historian so, history was obtained from the chart. The patient went to [place] urgent care and was placed on clindamycin, Mobile and ibuprofen. However, today the left breast opened up and was draining and bleeding. No reported history of fever or chills. No other history could be obtained from the patient and no family member was available Past History Past Medical History: diabetes, other (left breast cellulitis, anemia) Past Surgical History: Other (surgery for ectopic ) Social history: no significant social history (no reported history of tobacco, alcohol or illicit drug use) Family history: other (could not be obtained due to altered mental status) Medications and Allergies Allergies Allergy/AdvReac Type Severity Reaction Status Date / Time Penicillins Allergy Angioedema Verified 12/21/13 10:43 Home Medications Medication Instructions Recorded Confirmed Last Taken Type HYDROcodone/ACETAMINOPHEN [Mobile 1 each PO Q6H PRN #12 tablet 08/03/17 Unknown Rx 5-325 Tablet] Bisacodyl [Dulcolax suppos] 10 mg OR QDAY PRN supp.rect 08/09/17 Unknown Rx Ferrous Sulfate [Feosol 325 MG tab] 325 mg PO BID #60 tablet 08/09/17 Unknown Rx Insulin NPH/Regular [NovoLIN 70/30] 10 unit SUB-Q BIDDIAB 30 Days 08/09/17 Unknown Rx units Potassium Chloride [K-Dur] 40 meq PO QDAY #3 tablet 08/09/17 Unknown Rx levoFLOXacin [Levaquin TAB] 750 mg PO DAILY #3 tablet 08/09/17 Unknown Rx metroNIDAZOLE [Flagyl TAB] 500 mg PO Q8HR #10 tablet 08/09/17 Unknown Rx Active Meds: Active Medications Acetaminophen (Tylenol) 650 mg PO Q4H PRN PRN Reason: Pain MILD(1-3)/Fever >100.5/LEBRON Dextrose (D50w (25gm) Syringe) 0 ml IV PRN PRN PRN Reason: Hypoglycemia Enoxaparin Sodium (Lovenox) 40 mg SUB-Q QDAY [facility] Insulin Human Regular 100 (units/ Sodium Chloride) 100 mls @ 6 mls/hr IV TITR GRICEL; Protocol Last Admin: 01/17/19 05:31 Dose: 8 units/hr, 8 mls/hr Documented by: Sodium Chloride (Nacl 0.45% 1000 Ml) 1,000 mls @ 125 mls/hr IV DIRECT GRICEL Ertapenem 1 gm/ Sodium (Chloride) 50 mls @ 100 mls/hr IV QDAY [facility] Morphine Sulfate (Morphine) 2 mg IV Q4H PRN PRN Reason: Pain, Moderate (4-6) Ondansetron HCl (Zofran) 4 mg IV Q8H PRN PRN Reason: Nausea And Vomiting Oxycodone/Acetaminophen (Percocet 5/325) 1 tab PO Q6H PRN PRN Reason: Pain, Moderate (4-6) Sodium Chloride (Sodium Chloride Flush Syringe 10 Ml) 10 ml IV BID GRICEL Sodium Chloride (Sodium Chloride Flush Syringe 10 Ml) 10 ml IV PRN PRN PRN Reason: LINE FLUSH Review of Systems ROS unobtainable: due to mental status (AMS) Exam - Constitutional Vitals: Temp Pulse Resp BP Pulse Ox 98.4 F 135 H 28 H 143/75 88 01/17/19 02:04 01/17/19 05:16 01/17/19 05:16 01/17/19 05:16 01/17/19 05:16 General appearance: Present: no acute distress, other (in restraints) - EENT Eyes: Present: PERRL, EOM intact ENT: hearing intact, clear oral mucosa - Neck Neck: Present: supple - Respiratory Respiratory effort: normal Respiratory: bilateral: CTA - Cardiovascular Rhythm: regular (with tachycardia) Heart Sounds: Present: S1 & S2 - Extremities Extremities: pulses symmetrical, No edema - Abdominal General gastrointestinal: Present: soft, non-tender, non-distended, normal bowel sounds - Rectal Rectal Exam: deferred - Integumentary Integumentary: Present: erythema (with swelling and drainage from the left breast) - Musculoskeletal Musculoskeletal: strength equal bilaterally - Psychiatric Psychiatric: agitated - Neurologic Neurologic: moves all extremities Results - Labs CBC & Chem 7: 01/17/19 01:17 01/17/19 05:06 Labs: Laboratory Last Values WBC 23.0 K/mm3 (4.5-11.0) H 01/17/19 01:17 RBC 4.58 M/mm3 (3.65-5.03) 01/17/19 01:17 Hgb 14.2 gm/dl (10.1-14.3) 01/17/19 01:17 Hct 43.2 % (30.3-42.9) H 01/17/19 01:17 MCV 94 fl (79-97) 01/17/19 01:17 MCH 31 pg (28-32) 01/17/19 01:17 MCHC 33 % (30-34) 01/17/19 01:17 RDW 15.4 % (13.2-15.2) H 01/17/19 01:17 Plt Count 848 K/mm3 (140-440) H 01/17/19 01:17 Add Manual Diff Complete 01/17/19 01:17 Total Counted 100 01/17/19 01:17 Seg Neutrophils % Rat Culturist 01/17/19 01:17 Seg Neuts % (Manual) 55.0 % (40.0-70.0) 01/17/19 01:17 24.0 % 01/17/19 01:17 12.0 % (13.4-35.0) L 01/17/19 01:17 Reactive Lymphs % (Man) 0 % 01/17/19 01:17 6.0 % (0.0-7.3) 01/17/19 01:17 0 % (0.0-4.3) 01/17/19 01:17 0 % (0.0-1.8) 01/17/19 01:17 3.0 % 01/17/19 01:17 0 % 01/17/19 01:17 0 % 01/17/19 01:17 0 % 01/17/19 01:17 Nucleated RBC % Not Reportable 01/17/19 01:17 Seg Neutrophils # Man 12.7 K/mm3 (1.8-7.7) H 01/17/19 01:17 Band Neutrophils # 5.5 K/mm3 01/17/19 01:17 2.8 K/mm3 (1.2-5.4) 01/17/19 01:17 Abs React Lymphs (Man) 0.0 K/mm3 01/17/19 01:17 1.4 K/mm3 (0.0-0.8) H 01/17/19 01:17 0.0 K/mm3 (0.0-0.4) 01/17/19 01:17 0.0 K/mm3 (0.0-0.1) 01/17/19 01:17 0.7 K/mm3 01/17/19 01:17 0.0 K/mm3 01/17/19 01:17 0.0 K/mm3 01/17/19 01:17 Blast Cells # 0.0 K/mm3 01/17/19 01:17 WBC Morphology Not Reportable 01/17/19 01:17 WBC Morphology TNR 01/17/19 01:17 Hypersegmented Neuts Not Reportable 01/17/19 01:17 Hyposegmented Neuts Not Reportable 01/17/19 01:17 Hypogranular Neuts Not Reportable 01/17/19 01:17 Not Reportable 01/17/19 01:17 Not Reportable 01/17/19 01:17 Not Reportable 01/17/19 01:17 Not Reportable 01/17/19 01:17 Not Reportable 01/17/19 01:17 Not Reportable 01/17/19 01:17 Appears increased 01/17/19 01:17 Not Reportable 01/17/19 01:17 Plt Clumps, EDTA Not Reportable 01/17/19 01:17 Not Reportable 01/17/19 01:17 Not Reportable 01/17/19 01:17 Not Reportable 01/17/19 01:17 Plt Morphology Comment Not Reportable 01/17/19 01:17 RBC Morphology Not Reportable 01/17/19 01:17 Dimorphic RBCs Not Reportable 01/17/19 01:17 Not Reportable 01/17/19 01:17 Not Reportable 01/17/19 01:17 Not Reportable 01/17/19 01:17 Not Reportable 01/17/19 01:17 Not Reportable 01/17/19 01:17 Not Reportable 01/17/19 01:17 Not Reportable 01/17/19 01:17 Not Reportable 01/17/19 01:17 Not Reportable 01/17/19 01:17 Not Reportable 01/17/19 01:17 Not Reportable 01/17/19 01:17 Not Reportable 01/17/19 01:17 Not Reportable 01/17/19 01:17 Not Reportable 01/17/19 01:17 Not Reportable 01/17/19 01:17 Not Reportable 01/17/19 01:17 Not Reportable 01/17/19 01:17 Not Reportable 01/17/19 01:17 Not Reportable 01/17/19 01:17 Acanthocytes (Spur) Not Reportable 01/17/19 01:17 Rouleaux Not Reportable 01/17/19 01:17 Not Reportable 01/17/19 01:17 Not Reportable 01/17/19 01:17 Not Reportable 01/17/19 01:17 Not Reportable 01/17/19 01:17 Hem Pathologist Commnt No 01/17/19 01:17 VBG pH 7.089 (7.320-7.420) L* 01/17/19 02:21 Sodium 151 mmol/L (137-145) H 01/17/19 05:06 Potassium 4.2 mmol/L (3.6-5.0) 01/17/19 05:06 Chloride 114.3 mmol/L (98-107) H 01/17/19 05:06 Carbon Dioxide 4 mmol/L (22-30) L* 01/17/19 05:06 37 mmol/L 01/17/19 05:06 BUN 26 mg/dL (7-17) H 01/17/19 05:06 0.8 mg/dL (0.7-1.2) 01/17/19 05:06 Estimated GFR > 60 ml/min 01/17/19 05:06 33 % 01/17/19 05:06 Glucose 577 mg/dL (65-100) H* 01/17/19 05:06 POC Glucose 416 (70-105) H 01/17/19 04:50 Lactic Acid 3.50 mmol/L (0.7-2.0) H* 01/17/19 05:06 Calcium 10.2 mg/dL (8.4-10.2) 01/17/19 05:06 Phosphorus 3.20 mg/dL (2.5-4.5) 01/17/19 05:06 Magnesium 2.20 mg/dL (1.7-2.3) 01/17/19 05:06 0.20 mg/dL (0.1-1.2) 01/17/19 03:29 AST 6 units/L (5-40) 01/17/19 03:29 ALT 8 units/L (7-56) 01/17/19 03:29 176 units/L (35-129) H 01/17/19 03:29 6.6 g/dL (6.3-8.2) 01/17/19 03:29 3.1 g/dL (3.9-5) L 01/17/19 03:29 0.9 % 01/17/19 03:29 Yellow (Yellow) 01/17/19 01:40 Slightly-cloudy (Clear) 01/17/19 01:40 5.0 (5.0-7.0) 01/17/19 01:40 Ur Specific [place] 1.026 (1.003-1.030) 01/17/19 01:40 30 mg/dl mg/dL (Negative) 01/17/19 01:40 >=500 mg/dL (Negative) 01/17/19 01:40 80 mg/dL (Negative) 01/17/19 01:40 Sm (Negative) 01/17/19 01:40 Neg (Negative) 01/17/19 01:40 Neg (Negative) 01/17/19 01:40 < 2.0 mg/dL (<2.0) 01/17/19 01:40 Ur Leukocyte Esterase Tr (Negative) 01/17/19 01:40 5.0 /HPF (0.0-6.0) 01/17/19 01:40 10.0 /HPF (0.0-6.0) 01/17/19 01:40 U Epithel Cells (Auto) 4.0 /HPF (0-13.0) 01/17/19 01:40 Few /HPF 01/17/19 01:40 Assessment and Plan Assessment and plan: Severe sepsis secondary to left breast cellulitis with abscess -On sepsis protocol -On IV antibiotics with Vanc and Invanz due to penicillin allergy -Blood cultures pending DKA -On DKA protocol Acute metabolic encephalopathy -Likely secondary to the acute process, will monitor clinically Hypernatremia -Likely secondary to dehydration -On IV 1/2NS, will monitor sodium level Reactive thrombocytosis -We will monitor platelet level Chronic normocytic anemia H/H stable DVT prophylaxis with Lovenox I spent 45 minutes providing critical care to this seriously ill patient who requires frequent reassessments of her neurological and metabolic profile.
[2019-01-17] MEDS ORDERED: VANCOMYCIN PHARMACY TO DOSE IV SCH (07:00)
[2019-01-17] MEDS ORDERED: VANCOMYCIN 2,000 MG in NACL 0.9% 500 ML 500 ML IV ONE (07:00)
[2019-01-17] MEDS ORDERED: NACL 0.45% 1000 ML 1,000 ML IV SCH (07:00)
[2019-01-17 07:24] LABS: BUN/Creatinine Ratio 35; Blood Urea Nitrogen 28 mg/dL (7-17); Calcium 9.8 mg/dL (8.4-10.2); Hemolysis Index 54
--- NOTE | 2019-01-17 09:06 | Progress Note ---
Assessment and Plan Assessment and plan: Patient is a 53 yo woman with a history of upper back abscess/necrotizing fascitis s/p OR debridement, IDDM and anemia who presents to [facility] ED with left breast pain and swelling. Currently, patient is confused. Severe sepsis due to Left breast cellulitis with abscess: consulted and d/w Breast Surgeon, Dr. Guerra. Added iv flagyl to iv vancomycin and iv Invanz already ordered. Patient received Clindamycin from ED physician Acute encephalopathy due to the above Left breast cellulitis and abscess, with questionable necrotizing fascitis, one of the worse breast abscesses I have seen: consulted ID, Breast surgeon and ordered left breast ultrasound, ordered IV morphine for severe pains DKA on insulin drip: serial bmp/anion gap, IVF Severe acidosis: treat the sepsis and dka, consulted CCM Hypokalemia: replace in IVF Hypernatremia: more free water. PCN drug allergy DVT ppx, I stopped sq lovenox for possible surgical intervention prolonged inpatient service 32 minutes History Interval history: Patient was seen and examined. Follow-up on current diagnosis of Left breast pains. No overnight events reported to me. Patient speaks incoherently at times then answers simple questions sometimes. Imaging, nursing note, chart, labs and old chart reviewed. Hospitalist Physical - Physical exam Narrative exam: Gen: ill appearing, NAD, confused in a daze like state, Orientated x 1 in restr aints HEENT: NCAT, EOMI, PERRL, OP Clear Neck: supple, no adenopathy, no thyromegaly, no JVD CVS/Heart: Regular tachycardia, normal S1S2, pulses present bilaterally Chest/Lungs: tachypneic, CTA B, Symmetrical chest expansion, good air entry bilaterally GI/Abdomen: soft, NTND, good bowel sounds, no guarding or rebound /Bladder: no suprapubic tenderness, no CVA or paraspinal tenderness Breast: left breast severely enlarged, erythematous, red, tender, foul smelling, obvious abscess with necrotic tissue, Extermity/Skin: no c/c/e, no obvious rash MSK: FROM x 4 Neuro: CN 2-12 grossly intact, no new focal deficits Psych: calm but confused - Constitutional Vitals: Temp Pulse Resp BP Pulse Ox 97.9 F 133 H 27 H 125/80 98 01/17/19 08:13 01/17/19 08:13 01/17/19 08:37 01/17/19 08:13 01/17/19 08:13 General appearance: Present: no acute distress, other (in restraints) Results - Labs CBC & Chem 7: 01/17/19 01:17 01/17/19 06:48 Labs: Laboratory Last Values WBC 23.0 K/mm3 (4.5-11.0) H 01/17/19 01:17 RBC 4.58 M/mm3 (3.65-5.03) 01/17/19 01:17 Hgb 14.2 gm/dl (10.1-14.3) 01/17/19 01:17 Hct 43.2 % (30.3-42.9) H 01/17/19 01:17 MCV 94 fl (79-97) 01/17/19 01:17 MCH 31 pg (28-32) 01/17/19 01:17 MCHC 33 % (30-34) 01/17/19 01:17 RDW 15.4 % (13.2-15.2) H 01/17/19 01:17 Plt Count 848 K/mm3 (140-440) H 01/17/19 01:17 Add Manual Diff Complete 01/17/19 01:17 Total Counted 100 01/17/19 01:17 Seg Neutrophils % Primary Care Provider 01/17/19 01:17 Seg Neuts % (Manual) 55.0 % (40.0-70.0) 01/17/19 01:17 24.0 % 01/17/19 01:17 12.0 % (13.4-35.0) L 01/17/19 01:17 Reactive Lymphs % (Man) 0 % 01/17/19 01:17 6.0 % (0.0-7.3) 01/17/19 01:17 0 % (0.0-4.3) 01/17/19 01:17 0 % (0.0-1.8) 01/17/19 01:17 3.0 % 01/17/19 01:17 0 % 01/17/19 01:17 0 % 01/17/19 01:17 0 % 01/17/19 01:17 Nucleated RBC % Not Reportable 01/17/19 01:17 Seg Neutrophils # Man 12.7 K/mm3 (1.8-7.7) H 01/17/19 01:17 Band Neutrophils # 5.5 K/mm3 01/17/19 01:17 2.8 K/mm3 (1.2-5.4) 01/17/19 01:17 Abs React Lymphs (Man) 0.0 K/mm3 01/17/19 01:17 1.4 K/mm3 (0.0-0.8) H 01/17/19 01:17 0.0 K/mm3 (0.0-0.4) 01/17/19 01:17 0.0 K/mm3 (0.0-0.1) 01/17/19 01:17 0.7 K/mm3 01/17/19 01:17 0.0 K/mm3 01/17/19 01:17 0.0 K/mm3 01/17/19 01:17 Blast Cells # 0.0 K/mm3 01/17/19 01:17 WBC Morphology Not Reportable 01/17/19 01:17 WBC Morphology TNR 01/17/19 01:17 Hypersegmented Neuts Not Reportable 01/17/19 01:17 Hyposegmented Neuts Not Reportable 01/17/19 01:17 Hypogranular Neuts Not Reportable 01/17/19 01:17 Not Reportable 01/17/19 01:17 Not Reportable 01/17/19 01:17 Not Reportable 01/17/19 01:17 Not Reportable 01/17/19 01:17 Not Reportable 01/17/19 01:17 Not Reportable 01/17/19 01:17 Appears increased 01/17/19 01:17 Not Reportable 01/17/19 01:17 Plt Clumps, EDTA Not Reportable 01/17/19 01:17 Not Reportable 01/17/19 01:17 Not Reportable 01/17/19 01:17 Not Reportable 01/17/19 01:17 Plt Morphology Comment Not Reportable 01/17/19 01:17 RBC Morphology Not Reportable 01/17/19 01:17 Dimorphic RBCs Not Reportable 01/17/19 01:17 Not Reportable 01/17/19 01:17 Not Reportable 01/17/19 01:17 Not Reportable 01/17/19 01:17 Not Reportable 01/17/19 01:17 Not Reportable 01/17/19 01:17 Not Reportable 01/17/19 01:17 Not Reportable 01/17/19 01:17 Not Reportable 01/17/19 01:17 Not Reportable 01/17/19 01:17 Not Reportable 01/17/19 01:17 Not Reportable 01/17/19 01:17 Not Reportable 01/17/19 01:17 Not Reportable 01/17/19 01:17 Not Reportable 01/17/19 01:17 Not Reportable 01/17/19 01:17 Not Reportable 01/17/19 01:17 Not Reportable 01/17/19 01:17 Not Reportable 01/17/19 01:17 Not Reportable 01/17/19 01:17 Acanthocytes (Spur) Not Reportable 01/17/19 01:17 Rouleaux Not Reportable 01/17/19 01:17 Not Reportable 01/17/19 01:17 Not Reportable 01/17/19 01:17 Not Reportable 01/17/19 01:17 Not Reportable 01/17/19 01:17 Hem Pathologist Commnt No 01/17/19 01:17 VBG pH 7.089 (7.320-7.420) L* 01/17/19 02:21 Sodium 152 mmol/L (137-145) H 01/17/19 06:48 Potassium 3.5 mmol/L (3.6-5.0) L 01/17/19 06:48 Chloride 117.2 mmol/L (98-107) H 01/17/19 06:48 Carbon Dioxide 4 mmol/L (22-30) L* 01/17/19 06:48 35 mmol/L 01/17/19 06:48 BUN 28 mg/dL (7-17) H 01/17/19 06:48 0.8 mg/dL (0.7-1.2) 01/17/19 06:48 Estimated GFR > 60 ml/min 01/17/19 06:48 35 % 01/17/19 06:48 Glucose 575 mg/dL (65-100) H* 01/17/19 06:48 POC Glucose 476 (70-105) H 01/17/19 06:52 Lactic Acid 2.60 mmol/L (0.7-2.0) H* 01/17/19 06:48 Calcium 9.8 mg/dL (8.4-10.2) 01/17/19 06:48 Phosphorus 3.20 mg/dL (2.5-4.5) 01/17/19 05:06 Magnesium 2.20 mg/dL (1.7-2.3) 01/17/19 05:06 0.20 mg/dL (0.1-1.2) 01/17/19 03:29 AST 6 units/L (5-40) 01/17/19 03:29 ALT 8 units/L (7-56) 01/17/19 03:29 176 units/L (35-129) H 01/17/19 03:29 6.6 g/dL (6.3-8.2) 01/17/19 03:29 3.1 g/dL (3.9-5) L 01/17/19 03:29 0.9 % 01/17/19 03:29 Yellow (Yellow) 01/17/19 01:40 Slightly-cloudy (Clear) 01/17/19 01:40 5.0 (5.0-7.0) 01/17/19 01:40 Ur Specific [place] 1.026 (1.003-1.030) 01/17/19 01:40 30 mg/dl mg/dL (Negative) 01/17/19 01:40 >=500 mg/dL (Negative) 01/17/19 01:40 80 mg/dL (Negative) 01/17/19 01:40 Sm (Negative) 01/17/19 01:40 Neg (Negative) 01/17/19 01:40 Neg (Negative) 01/17/19 01:40 < 2.0 mg/dL (<2.0) 01/17/19 01:40 Ur Leukocyte Esterase Tr (Negative) 01/17/19 01:40 5.0 /HPF (0.0-6.0) 01/17/19 01:40 10.0 /HPF (0.0-6.0) 01/17/19 01:40 U Epithel Cells (Auto) 4.0 /HPF (0-13.0) 01/17/19 01:40 Few /HPF 01/17/19 01:40 Active Medications - Current Medications Current Medications: Generic Name Dose Route Start Last Admin Trade Name Freq PRN Reason Stop Dose Admin Acetaminophen 650 mg 01/17/19 06:08 Tylenol PO Q4H PRN Pain MILD(1-3)/Fever >100.5/LEBRON Dextrose 0 ml 01/17/19 04:58 D50w (25gm) Syringe IV PRN PRN Hypoglycemia Famotidine 20 mg 01/17/19 10:00 Pepcid IV QDAY [facility] Hydralazine HCl 20 mg 01/17/19 06:14 Apresoline IV Q4H PRN Blood Pressure Insulin Human Regular 100 100 mls @ 6 mls/hr 01/17/19 05:00 01/17/19 08:18 units/ Sodium Chloride IV 8 units/hr TITR [facility] 8 mls/hr Titration Protocol 6 UNITS/HR Sodium Chloride 1,000 mls @ 125 mls/hr 01/17/19 07:00 Nacl 0.45% 1000 Ml IV DIRECT [facility] Ertapenem 1 gm/ Sodium 50 mls @ 100 mls/hr 01/17/19 10:00 Chloride IV QDAY [facility] Vancomycin HCl 2,000 mg/ 540 mls @ 250 mls/hr 01/17/19 07:00 01/17/19 08:43 Sodium Chloride IV 01/17/19 09:09 250 mls/hr ONCE ONE Administration Vancomycin HCl 1,500 mg/ 530 mls @ 333.333 mls/hr 01/17/19 20:00 Sodium Chloride IV Q18H [facility] Metronidazole 500 mg in 100 mls @ 100 mls/hr 01/17/19 09:00 Flagyl 500 Mg/100 Ml IV Q8HR [facility] Protocol Morphine Sulfate 2 mg 01/17/19 06:08 Morphine IV Q4H PRN Pain, Moderate (4-6) Morphine Sulfate 2 mg 01/17/19 08:36 Morphine IV Q4H PRN Pain, Moderate (4-6) Ondansetron HCl 4 mg 01/17/19 06:08 Zofran IV Q8H PRN Nausea And Vomiting Oxycodone/Acetaminophen 1 tab 01/17/19 06:08 Percocet 5/325 PO Q6H PRN Pain, Moderate (4-6) Sodium Chloride 10 ml 01/17/19 10:00 Sodium Chloride Flush Syringe 10 Ml IV BID [facility] Sodium Chloride 10 ml 01/17/19 06:08 Sodium Chloride Flush Syringe 10 Ml IV PRN PRN LINE FLUSH
--- NOTE | 2019-01-17 09:09 | Consultation ---
History of Present Illness - Reason for Consult Consult date: 01/17/19 DKA, metabolic acidosis, Electrolyte imbalance Requesting physician: CATERINA GUERIN - History of Present Illness 53 y/o female admitted with DKA thought secondary to UTI Past History Past Medical History: diabetes, other (left breast cellulitis, anemia) Past Surgical History: Other (surgery for ectopic ) Social history: no significant social history (no reported history of tobacco, alcohol or illicit drug use) Family history: other (could not be obtained due to altered mental status) Medications and Allergies Allergies Allergy/AdvReac Type Severity Reaction Status Date / Time Penicillins Allergy Severe Angioedema Verified 01/23/19 09:16 Home Medications Medication Instructions Recorded Confirmed Last Taken Type HYDROcodone/ACETAMINOPHEN [[place] 1 each PO Q6H PRN #12 tablet 08/03/17 01/19/19 Unknown Rx 5-325 Tablet] Insulin NPH/Regular [NovoLIN 70/30] 10 unit SUB-Q BIDDIAB 30 Days 08/09/17 01/19/19 Unknown Rx units Potassium Chloride [K-Dur] 40 meq PO QDAY #3 tablet 08/09/17 01/19/19 Unknown Rx Bisacodyl [Dulcolax suppos] 10 mg AL QDAY PRN #30 supp.rect 01/25/19 Unknown Rx Ferrous Sulfate [Feosol 325 MG tab] 325 mg PO BID #60 tablet 01/25/19 Unknown Rx Insulin Glargine [Lantus VIAL] 15 units SUB-Q QHS 30 Days units 01/25/19 Unknown Rx Linezolid [Zyvox] 600 mg PO BID #10 tablet 01/25/19 Unknown Rx Lispro Insulin [HumaLOG] 0 unit SUB-Q ACHS units 01/25/19 Unknown Rx levoFLOXacin [Levaquin TAB] 750 mg PO DAILY #3 tablet 01/25/19 Unknown Rx oxyCODONE /ACETAMINOPHEN [Percocet 1 tab PO Q6H PRN #8 tablet 01/25/19 Unknown Rx 5/325 mg] Active Meds: Active Medications Acetaminophen (Tylenol) 650 mg PO Q4H PRN PRN Reason: Pain MILD(1-3)/Fever >100.5/LEBRON Dextrose (D50w (25gm) Syringe) 0 ml IV PRN PRN PRN Reason: Hypoglycemia Famotidine (Pepcid) 20 mg IV QDAY [facility] Hydralazine HCl (Apresoline) 20 mg IV Q4H PRN PRN Reason: Blood Pressure Insulin Human Regular 100 (units/ Sodium Chloride) 100 mls @ 6 mls/hr IV TITR [facility]; Protocol Last Titration: 01/17/19 08:18 Dose: 8 units/hr, 8 mls/hr Documented by: Sodium Chloride (Nacl 0.45% 1000 Ml) 1,000 mls @ 125 mls/hr IV DIRECT [facility] Ertapenem 1 gm/ Sodium (Chloride) 50 mls @ 100 mls/hr IV QDAY [facility] Vancomycin HCl 2,000 mg/ (Sodium Chloride) 540 mls @ 250 mls/hr IV ONCE ONE Stop: 01/17/19 09:09 Last Admin: 01/17/19 08:43 Dose: 250 mls/hr Documented by: Vancomycin HCl 1,500 mg/ (Sodium Chloride) 530 mls @ 333.333 mls/hr IV Q18H [facility] Metronidazole (Flagyl 500 Mg/100 Ml) 500 mg in 100 mls @ 100 mls/hr IV Q8HR [facility]; Protocol Morphine Sulfate (Morphine) 2 mg IV Q4H PRN PRN Reason: Pain, Moderate (4-6) Morphine Sulfate (Morphine) 2 mg IV Q4H PRN PRN Reason: Pain, Moderate (4-6) Ondansetron HCl (Zofran) 4 mg IV Q8H PRN PRN Reason: Nausea And Vomiting Oxycodone/Acetaminophen (Percocet 5/325) 1 tab PO Q6H PRN PRN Reason: Pain, Moderate (4-6) Sodium Chloride (Sodium Chloride Flush Syringe 10 Ml) 10 ml IV BID [facility] Sodium Chloride (Sodium Chloride Flush Syringe 10 Ml) 10 ml IV PRN PRN PRN Reason: LINE FLUSH Exam - Constitutional Vitals: Temp Pulse Resp BP Pulse Ox 97.9 F 133 H 27 H 125/80 98 01/17/19 08:13 01/17/19 08:13 01/17/19 08:37 01/17/19 08:13 01/17/19 08:13 Results - Labs CBC & Chem 7: 01/22/19 06:00 01/24/19 12:16 Labs: Abnormal lab results 01/17/19 01/17/19 01/17/19 Range/Units 01:10 01:17 02:21 WBC 23.0 H (4.5-11.0) K/mm3 Hct 43.2 H (30.3-42.9) % RDW 15.4 H (13.2-15.2) % Plt Count 848 H (140-440) K/mm3 Lymphocytes % (Manual) 12.0 L (13.4-35.0) % Seg Neutrophils # Man 12.7 H (1.8-7.7) K/mm3 Monocytes # (Manual) 1.4 H (0.0-0.8) K/mm3 VBG pH 7.089 L* (7.320-7.420) Sodium (137-145) mmol/L Potassium (3.6-5.0) mmol/L Chloride (98-107) mmol/L Carbon Dioxide (22-30) mmol/L BUN (7-17) mg/dL Glucose (65-100) mg/dL POC Glucose 460 H (70-105) Lactic Acid (0.7-2.0) mmol/L Alkaline Phosphatase (35-129) units/L Albumin (3.9-5) g/dL 01/17/19 01/17/19 01/17/19 Range/Units 03:29 03:29 04:50 WBC (4.5-11.0) K/mm3 Hct (30.3-42.9) % RDW (13.2-15.2) % Plt Count (140-440) K/mm3 Lymphocytes % (Manual) (13.4-35.0) % Seg Neutrophils # Man (1.8-7.7) K/mm3 Monocytes # (Manual) (0.0-0.8) K/mm3 VBG pH (7.320-7.420) Sodium 150 H (137-145) mmol/L Potassium (3.6-5.0) mmol/L Chloride 110.8 H (98-107) mmol/L Carbon Dioxide 6 L* (22-30) mmol/L BUN 28 H (7-17) mg/dL Glucose 599 H* (65-100) mg/dL POC Glucose 416 H (70-105) Lactic Acid 4.80 H* (0.7-2.0) mmol/L Alkaline Phosphatase 176 H (35-129) units/L Albumin 3.1 L (3.9-5) g/dL 01/17/19 01/17/19 01/17/19 Range/Units 05:06 05:06 06:48 WBC (4.5-11.0) K/mm3 Hct (30.3-42.9) % RDW (13.2-15.2) % Plt Count (140-440) K/mm3 Lymphocytes % (Manual) (13.4-35.0) % Seg Neutrophils # Man (1.8-7.7) K/mm3 Monocytes # (Manual) (0.0-0.8) K/mm3 VBG pH (7.320-7.420) Sodium 151 H 152 H (137-145) mmol/L Potassium 3.5 L (3.6-5.0) mmol/L Chloride 114.3 H 117.2 H (98-107) mmol/L Carbon Dioxide 4 L* 4 L* (22-30) mmol/L BUN 26 H 28 H (7-17) mg/dL Glucose 577 H* 575 H* (65-100) mg/dL POC Glucose (70-105) Lactic Acid 3.50 H* (0.7-2.0) mmol/L Alkaline Phosphatase (35-129) units/L Albumin (3.9-5) g/dL 01/17/19 01/17/19 Range/Units 06:48 06:52 WBC (4.5-11.0) K/mm3 Hct (30.3-42.9) % RDW (13.2-15.2) % Plt Count (140-440) K/mm3 Lymphocytes % (Manual) (13.4-35.0) % Seg Neutrophils # Man (1.8-7.7) K/mm3 Monocytes # (Manual) (0.0-0.8) K/mm3 VBG pH (7.320-7.420) Sodium (137-145) mmol/L Potassium (3.6-5.0) mmol/L Chloride (98-107) mmol/L Carbon Dioxide (22-30) mmol/L BUN (7-17) mg/dL Glucose (65-100) mg/dL POC Glucose 476 H (70-105) Lactic Acid 2.60 H* (0.7-2.0) mmol/L Alkaline Phosphatase (35-129) units/L Albumin (3.9-5) g/dL Assessment and Plan 53 y/o female with DKA, metabolic acidosis, and electrolyte imbalance, possibly secondary to UTI. 1. Broad spec abx therapy until urine culture returns. 2. Needs more volume resuscitiation, can use lactated ringers instead of saline 3. Insulin drip and NPO and until Anion Gap closes 4. Ok with given Bicarb pushes until pH is greater than 7.[address] on bicarb drip 5. Once sugars are below 250, change fluids over to D5 with K 6. Overall prognosis is guarded CCT 31 minutes
[2019-01-17] MEDS ORDERED: MORPHINE ONE (09:30)
[2019-01-17] MEDS ORDERED: ZOFRAN ONE (09:31)
[2019-01-17] MEDS: ZOFRAN IV PRN (09:32)
[2019-01-17] MEDS ORDERED: LOVENOX SUB-Q SCH (10:00)
[2019-01-17] MEDS ORDERED: INVanz 1 GM in NACL 0.9% 50 ML IV SCH (10:00)
[2019-01-17] MEDS ORDERED: LACTATED RINGERS 1,000 ML IV ONE ×3 (10:06→10:09)
--- NOTE | 2019-01-17 10:12 | Consultation ---
History of Present Illness Consult date: 01/17/19 Requesting physician: CATERINA GUERIN Chief complaint: Left breast abscess - History of present illness History of present illness: This is a 53 year old lady admitted this morning with sepsis due to left breast abscess. Patient a poor historian and accurate timing of treatment of abscess unknown. Glucose at admission over 400. Past History Past Medical History: diabetes, other (left breast cellulitis, anemia) Past Surgical History: Other (surgery for ectopic ) Social history: no significant social history (no reported history of tobacco, alcohol or illicit drug use) Family history: other (could not be obtained due to altered mental status) Medications and Allergies Allergies Allergy/AdvReac Type Severity Reaction Status Date / Time Penicillins Allergy Angioedema Verified 12/21/13 10:43 Home Medications Medication Instructions Recorded Confirmed Last Taken Type HYDROcodone/ACETAMINOPHEN [[place] 1 each PO Q6H PRN #12 tablet 08/03/17 Unknown Rx 5-325 Tablet] Bisacodyl [Dulcolax suppos] 10 mg SD QDAY PRN supp.rect 08/09/17 Unknown Rx Ferrous Sulfate [Feosol 325 MG tab] 325 mg PO BID #60 tablet 08/09/17 Unknown Rx Insulin NPH/Regular [NovoLIN 70/30] 10 unit SUB-Q BIDDIAB 30 Days 08/09/17 Unknown Rx units Potassium Chloride [K-Dur] 40 meq PO QDAY #3 tablet 08/09/17 Unknown Rx levoFLOXacin [Levaquin TAB] 750 mg PO DAILY #3 tablet 08/09/17 Unknown Rx metroNIDAZOLE [Flagyl TAB] 500 mg PO Q8HR #10 tablet 08/09/17 Unknown Rx Active Meds: Active Medications Acetaminophen (Tylenol) 650 mg PO Q4H PRN PRN Reason: Pain MILD(1-3)/Fever >100.5/LEBRON Dextrose (D50w (25gm) Syringe) 0 ml IV PRN PRN PRN Reason: Hypoglycemia Famotidine (Pepcid) 20 mg IV QDAY [facility] Hydralazine HCl (Apresoline) 20 mg IV Q4H PRN PRN Reason: Blood Pressure Insulin Human Regular 100 (units/ Sodium Chloride) 100 mls @ 6 mls/hr IV TITR [facility]; Protocol Last Titration: 01/17/19 09:24 Dose: 11 units/hr, 11 mls/hr Documented by: Sodium Chloride (Nacl 0.45% 1000 Ml) 1,000 mls @ 125 mls/hr IV DIRECT [facility] Ertapenem 1 gm/ Sodium (Chloride) 50 mls @ 100 mls/hr IV QDAY [facility] Metronidazole (Flagyl 500 Mg/100 Ml) 500 mg in 100 mls @ 100 mls/hr IV Q8HR [facility]; Protocol Vancomycin HCl 1,750 mg/ (Sodium Chloride) 535 mls @ 333.333 mls/hr IV Q12H [facility] Morphine Sulfate (Morphine) 2 mg IV Q4H PRN PRN Reason: Pain, Moderate (4-6) Ondansetron HCl (Zofran) 4 mg IV Q8H PRN PRN Reason: Nausea And Vomiting Last Admin: 01/17/19 09:32 Dose: 4 mg Documented by: Oxycodone/Acetaminophen (Percocet 5/325) 1 tab PO Q6H PRN PRN Reason: Pain, Moderate (4-6) Sodium Chloride (Sodium Chloride Flush Syringe 10 Ml) 10 ml IV BID [facility] Sodium Chloride (Sodium Chloride Flush Syringe 10 Ml) 10 ml IV PRN PRN PRN Reason: LINE FLUSH Review of Systems ROS unobtainable: due to mental status Exam Vital Signs Pulse Resp Pulse Ox 138 H 34 H 99 01/17/19 01:22 01/17/19 01:22 01/17/19 01:22 - General physical appearance Positive: well developed, severe pain - Eyes Positive: PERRL, normal occular movement - ENT Positive: normal pinna, normal nares, normal mucosa, no hearing loss - Neck Positive: no masses, trachea midline - Respiratory Positive: normal expansion, normal respiratory effort - Cardiovascular Rhythm: regular - Extremities Extremities: no ischemia - Breasts Breasts: other (left breast abscess with necrotizing fascititis with associated skin necrosis, erythema, edema and pain; area of fluctuance at 6:00 position with associated necrosis; abscess of at least 14 cm from the 3-9:00 positions involving the NAC to lower breast at inframammary fold) - Abdomen Abdomen: Present: soft - Genitourinary Female Genitourinary: deferred - Neurologic Neurologic: other (altered mental status) - Psychiatric Psychiatric: cooperative Results - Labs 01/17/19 01:17 01/17/19 06:48 Abnormal lab results 01/17/19 01/17/19 01/17/19 Range/Units 01:10 01:17 02:21 WBC 23.0 H (4.5-11.0) K/mm3 Hct 43.2 H (30.3-42.9) % RDW 15.4 H (13.2-15.2) % Plt Count 848 H (140-440) K/mm3 Lymphocytes % (Manual) 12.0 L (13.4-35.0) % Seg Neutrophils # Man 12.7 H (1.8-7.7) K/mm3 Monocytes # (Manual) 1.4 H (0.0-0.8) K/mm3 VBG pH 7.089 L* (7.320-7.420) Sodium (137-145) mmol/L Potassium (3.6-5.0) mmol/L Chloride (98-107) mmol/L Carbon Dioxide (22-30) mmol/L BUN (7-17) mg/dL Glucose (65-100) mg/dL POC Glucose 460 H (70-105) Lactic Acid (0.7-2.0) mmol/L Alkaline Phosphatase (35-129) units/L Albumin (3.9-5) g/dL 01/17/19 01/17/19 01/17/19 Range/Units 03:29 03:29 04:50 WBC (4.5-11.0) K/mm3 Hct (30.3-42.9) % RDW (13.2-15.2) % Plt Count (140-440) K/mm3 Lymphocytes % (Manual) (13.4-35.0) % Seg Neutrophils # Man (1.8-7.7) K/mm3 Monocytes # (Manual) (0.0-0.8) K/mm3 VBG pH (7.320-7.420) Sodium 150 H (137-145) mmol/L Potassium (3.6-5.0) mmol/L Chloride 110.8 H (98-107) mmol/L Carbon Dioxide 6 L* (22-30) mmol/L BUN 28 H (7-17) mg/dL Glucose 599 H* (65-100) mg/dL POC Glucose 416 H (70-105) Lactic Acid 4.80 H* (0.7-2.0) mmol/L Alkaline Phosphatase 176 H (35-129) units/L Albumin 3.1 L (3.9-5) g/dL 01/17/19 01/17/19 01/17/19 Range/Units 05:06 05:06 06:48 WBC (4.5-11.0) K/mm3 Hct (30.3-42.9) % RDW (13.2-15.2) % Plt Count (140-440) K/mm3 Lymphocytes % (Manual) (13.4-35.0) % Seg Neutrophils # Man (1.8-7.7) K/mm3 Monocytes # (Manual) (0.0-0.8) K/mm3 VBG pH (7.320-7.420) Sodium 151 H 152 H (137-145) mmol/L Potassium 3.5 L (3.6-5.0) mmol/L Chloride 114.3 H 117.2 H (98-107) mmol/L Carbon Dioxide 4 L* 4 L* (22-30) mmol/L BUN 26 H 28 H (7-17) mg/dL Glucose 577 H* 575 H* (65-100) mg/dL POC Glucose (70-105) Lactic Acid 3.50 H* (0.7-2.0) mmol/L Alkaline Phosphatase (35-129) units/L Albumin (3.9-5) g/dL 01/17/19 01/17/19 01/17/19 Range/Units 06:48 06:52 08:18 WBC (4.5-11.0) K/mm3 Hct (30.3-42.9) % RDW (13.2-15.2) % Plt Count (140-440) K/mm3 Lymphocytes % (Manual) (13.4-35.0) % Seg Neutrophils # Man (1.8-7.7) K/mm3 Monocytes # (Manual) (0.0-0.8) K/mm3 VBG pH (7.320-7.420) Sodium (137-145) mmol/L Potassium (3.6-5.0) mmol/L Chloride (98-107) mmol/L Carbon Dioxide (22-30) mmol/L BUN (7-17) mg/dL Glucose (65-100) mg/dL POC Glucose 476 H 431 H (70-105) Lactic Acid 2.60 H* (0.7-2.0) mmol/L Alkaline Phosphatase (35-129) units/L Albumin (3.9-5) g/dL 01/17/19 Range/Units 09:26 WBC (4.5-11.0) K/mm3 Hct (30.3-42.9) % RDW (13.2-15.2) % Plt Count (140-440) K/mm3 Lymphocytes % (Manual) (13.4-35.0) % Seg Neutrophils # Man (1.8-7.7) K/mm3 Monocytes # (Manual) (0.0-0.8) K/mm3 VBG pH (7.320-7.420) Sodium (137-145) mmol/L Potassium (3.6-5.0) mmol/L Chloride (98-107) mmol/L Carbon Dioxide (22-30) mmol/L BUN (7-17) mg/dL Glucose (65-100) mg/dL POC Glucose 491 H (70-105) Lactic Acid (0.7-2.0) mmol/L Alkaline Phosphatase (35-129) units/L Albumin (3.9-5) g/dL Diabetes panel 01/17/19 01/17/19 01/17/19 Range/Units 02:21 03:29 05:06 Sodium TNR 150 H 151 H Potassium TNR 4.3 4.2 Chloride TNR 110.8 H 114.3 H Carbon Dioxide TNR 6 L* 4 L* BUN TNR 28 H 26 H Creatinine TNR 0.8 0.8 Glucose TNR 599 H* 577 H* Calcium TNR 10.1 10.2 AST TNR 6 ALT TNR 8 Alkaline Phosphatase TNR 176 H Total Protein TNR 6.6 Albumin TNR 3.1 L 01/17/19 Range/Units 06:48 Sodium 152 H Potassium 3.5 L Chloride 117.2 H Carbon Dioxide 4 L* BUN 28 H Creatinine 0.8 Glucose 575 H* Calcium 9.8 AST ALT Alkaline Phosphatase Total Protein Albumin Calcium panel 01/17/19 01/17/19 01/17/19 Range/Units 02:21 03:29 05:06 Calcium TNR 10.1 Phosphorus 3.20 (2.5-4.5) mg/dL Albumin TNR 3.1 L 01/17/19 01/17/19 Range/Units 05:06 06:48 Calcium 10.2 9.8 Phosphorus (2.5-4.5) mg/dL Albumin Pituitary panel 01/17/19 01/17/19 01/17/19 Range/Units 02:21 03:29 05:06 Sodium TNR 150 H 151 H Potassium TNR 4.3 4.2 Chloride TNR 110.8 H 114.3 H Carbon Dioxide TNR 6 L* 4 L* BUN TNR 28 H 26 H Creatinine TNR 0.8 0.8 Glucose TNR 599 H* 577 H* Calcium TNR 10.1 10.2 01/17/19 Range/Units 06:48 Sodium 152 H Potassium 3.5 L Chloride 117.2 H Carbon Dioxide 4 L* BUN 28 H Creatinine 0.8 Glucose 575 H* Calcium 9.8 Adrenal panel 01/17/19 01/17/19 01/17/19 Range/Units 02:21 03:29 05:06 Sodium TNR 150 H 151 H Potassium TNR 4.3 4.2 Chloride TNR 110.8 H 114.3 H Carbon Dioxide TNR 6 L* 4 L* BUN TNR 28 H 26 H Creatinine TNR 0.8 0.8 Glucose TNR 599 H* 577 H* Calcium TNR 10.1 10.2 Total Bilirubin TNR 0.20 AST TNR 6 ALT TNR 8 Alkaline Phosphatase TNR 176 H Total Protein TNR 6.6 Albumin TNR 3.1 L 01/17/19 Range/Units 06:48 Sodium 152 H Potassium 3.5 L Chloride 117.2 H Carbon Dioxide 4 L* BUN 28 H Creatinine 0.8 Glucose 575 H* Calcium 9.8 Total Bilirubin AST ALT Alkaline Phosphatase Total Protein Albumin Assessment and Plan This is a 53 year old lady admitted for sepsis with left breast necrotizing fascitis. Recommendations are to proceed with left breast local debridement of skin necrosis and wide local incision and drainage of abscess.
--- NOTE | 2019-01-17 11:03 | Procedure Note ---
Date of procedure: 01/17/19 Pre-op diagnosis: Sepsis secondary Nec Fas Post-op diagnosis: same Procedure: Right IJ placement Emergency Consent given altered mental status. Using ultrasound guidance, right IJ accessed using seldinger technique. Catheter placed without difficulty. All ports flushed and withdrawing blood. Biopatch placed and catheter sewed in. CXR taken and cather is in the right ventricle but no ventricular activity seen on monitor so will use. Can draw back after procedure. Anesthesia: local Surgeon: ALE RUDOLPH Estimated blood loss: none Pathology: none Condition: critical Disposition: ICU
[2019-01-17] MEDS: LACTATED RINGERS 1,000 ML IV SCH ×3 (11:12→13:07)
[2019-01-17] MEDS: SODIUM CHLORIDE FLUSH SYRINGE 10 ML IV SCH ×2 (11:28→22:41)
[2019-01-17 12:26] LABS: BUN/Creatinine Ratio 45; Blood Urea Nitrogen 27 mg/dL (7-17); Hemolysis Index 5
--- NOTE | 2019-01-17 14:10 | XRay Report ---
PROCEDURE: XR CHEST 1V AP TECHNIQUE: Chest radiograph single view. HISTORY: Right IJ line placement COMPARISONS: Chest x-ray January 17, 2019 . FINDINGS: Trachea midline. Right internal jugular line with tip SVC. No pneumothorax. Otherwise stable. IMPRESSION: Right internal jugular line with tip in right atrium. No pneumothorax.. This document is electronically signed by Michel Doshi MD., Jan 17 2019 02:08:47 PM ET
--- NOTE | 2019-01-17 14:15 | Consultation ---
History of Present Illness - Reason for Consult Consult date: 01/17/19 severe sepsis, left breast abscess Requesting physician: CATERINA GUERIN - History of Present Illness 53 y/o female with history of diabetes, uncontrolled, known to ID service due to admission on 07/28/2017 due to large upper back cutaneous abscess and necrotizing fascitis in Jul 2017 s/p OR debridement on 07/30/2017 surgical wound cx + Diphteroids, Staph capitis and Peptostreptococcus treated with clindamycin, levaquin and vancomycin as inpatient, discharged on levaquin 750 mg po qday and flagyl 500 mg TID total 2 weeks from 07/30 until 08/12/2017. Admitted on 01/17/2019 due to 5-day history of worsening left breast edema, erythema and tenderness associated with AMS/sleepiness/confusion. She was recently diagnosed with left breast cellulitis. She went to [facility] and was placed on clindamycin, [place] and ibuprofen. On admission day, left breast opened up and was draining and bleeding. She is currently somnolent unable to provide a history. History was obtained from review of records. In the ED, temp 98.4, HR 138, R 34, O2 99, BP 150/90. WBC 23. Hg 14, Plat 848. Bands 24. Na 150. Creat 0.8. Glucose 499. Lactate 4.8. UA negative. Blood cultures 01/17/2019 pending. Review of Systems: unable to obtain Past History Past Medical History: diabetes, other (left breast cellulitis, anemia) Past Surgical History: Other (surgery for ectopic ) Social history: no significant social history (no reported history of tobacco, alcohol or illicit drug use) Family history: other (could not be obtained due to altered mental status) Medications and Allergies Allergies Allergy/AdvReac Type Severity Reaction Status Date / Time Penicillins Allergy Angioedema Verified 12/21/13 10:43 Home Medications Medication Instructions Recorded Confirmed Last Taken Type HYDROcodone/ACETAMINOPHEN [[place]ley 1 each PO Q6H PRN #12 tablet 08/03/17 Unknown Rx 5-325 Tablet] Bisacodyl [Dulcolax suppos] [address] QDAY PRN supp.rect 08/09/17 Unknown Rx Ferrous Sulfate [Feosol 325 MG tab] 325 mg PO BID #60 tablet 08/09/17 Unknown Rx Insulin NPH/Regular [NovoLIN 70/30] 10 unit SUB-Q BIDDIAB 30 Days 08/09/17 Unknown Rx units Potassium Chloride [K-Dur] 40 meq PO QDAY #3 tablet 08/09/17 Unknown Rx levoFLOXacin [Levaquin TAB] 750 mg PO DAILY #3 tablet 08/09/17 Unknown Rx metroNIDAZOLE [Flagyl TAB] 500 mg PO Q8HR #10 tablet 08/09/17 Unknown Rx Active Meds: Active Medications Acetaminophen (Tylenol) 650 mg PO Q4H PRN PRN Reason: Pain MILD(1-3)/Fever >100.5/LEBRON Dextrose (D50w (25gm) Syringe) 0 ml IV PRN PRN PRN Reason: Hypoglycemia Famotidine (Pepcid) 20 mg IV QDAY GRICEL Hydralazine HCl (Apresoline) 20 mg IV Q4H PRN PRN Reason: Blood Pressure Insulin Human Regular 100 (units/ Sodium Chloride) 100 mls @ 6 mls/hr IV TITR GRICEL; Protocol Last Titration: 01/17/19 09:24 Dose: 11 units/hr, 11 mls/hr Documented by: Sodium Chloride (Nacl 0.45% 1000 Ml) 1,000 mls @ 125 mls/hr IV DIRECT GRICEL Ertapenem 1 gm/ Sodium (Chloride) 50 mls @ 100 mls/hr IV QDAY GRICEL Last Admin: 01/17/19 12:09 Dose: 100 mls/hr Documented by: Metronidazole (Flagyl 500 Mg/100 Ml) 500 mg in 100 mls @ 100 mls/hr IV Q8HR GRICEL; Protocol Vancomycin HCl 1,750 mg/ (Sodium Chloride) 535 mls @ 333.333 mls/hr IV Q12H GRICEL Potassium Chloride (Kcl 20meq/100ml) 20 meq in 100 mls @ 100 mls/hr IV Q1H [facility] Stop: 01/17/19 16:59 Morphine Sulfate (Morphine) 2 mg IV Q4H PRN PRN Reason: Pain, Moderate (4-6) Ondansetron HCl (Zofran) 4 mg IV Q8H PRN PRN Reason: Nausea And Vomiting Last Admin: 01/17/19 09:32 Dose: 4 mg Documented by: Oxycodone/Acetaminophen (Percocet 5/325) 1 tab PO Q6H PRN PRN Reason: Pain, Moderate (4-6) Sodium Chloride (Sodium Chloride Flush Syringe 10 Ml) 10 ml IV BID GRICEL Sodium Chloride (Sodium Chloride Flush Syringe 10 Ml) 10 ml IV PRN PRN PRN Reason: LINE FLUSH Physical Examination - Physical Exam Narrative exam: General appearance: somnolent non verbal but answered to pain Eyes: anicteric sclerae, moist conjunctivae; no lid-lag; PERRLA HENT: Atraumatic; oropharynx limited Neck: Trachea midline; supple, no thyromegaly or lymphadenopathy Lungs: CTA CV: tachycardic Abdomen: Soft, non-tender Extremities: no edema Skin: left breast with extensive edema, tenderness and erythema, noted skin sloughing under breast with serous drainage. Psych: no agitated Neuro: somnolent - Constitutional Vitals: Vital Signs Temp Pulse Resp BP Pulse Ox 98.3 F 122 H 25 H 125/76 99 01/17/19 11:30 01/17/19 11:10 01/17/19 11:10 01/17/19 11:10 01/17/19 11:10 Temperature -Last 24 Hours Temperature 98.3 F Temperature 96.2 F Temperature 97.9 F Temperature 98.4 F Results - Labs CBC & Chem 7: 01/17/19 01:17 01/17/19 11:47 Labs: Abnormal lab results 01/17/19 01/17/19 01/17/19 Range/Units 01:10 01:17 02:21 WBC 23.0 H (4.5-11.0) K/mm3 Hct 43.2 H (30.3-42.9) % RDW 15.4 H (13.2-15.2) % Plt Count 848 H (140-440) K/mm3 Lymphocytes % (Manual) 12.0 L (13.4-35.0) % Seg Neutrophils # Man 12.7 H (1.8-7.7) K/mm3 Monocytes # (Manual) 1.4 H (0.0-0.8) K/mm3 POC ABG pH (7.35-7.45) VBG pH 7.089 L* (7.320-7.420) Sodium (137-145) mmol/L Potassium (3.6-5.0) mmol/L Chloride (98-107) mmol/L Carbon Dioxide (22-30) mmol/L BUN (7-17) mg/dL Creatinine (0.7-1.2) mg/dL Glucose (65-100) mg/dL POC Glucose 460 H (70-105) Lactic Acid (0.7-2.0) mmol/L Alkaline Phosphatase (35-129) units/L Albumin (3.9-5) g/dL 01/17/19 01/17/19 01/17/19 Range/Units 03:29 03:29 04:50 WBC (4.5-11.0) K/mm3 Hct (30.3-42.9) % RDW (13.2-15.2) % Plt Count (140-440) K/mm3 Lymphocytes % (Manual) (13.4-35.0) % Seg Neutrophils # Man (1.8-7.7) K/mm3 Monocytes # (Manual) (0.0-0.8) K/mm3 POC ABG pH (7.35-7.45) VBG pH (7.320-7.420) Sodium 150 H (137-145) mmol/L Potassium (3.6-5.0) mmol/L Chloride 110.8 H (98-107) mmol/L Carbon Dioxide 6 L* (22-30) mmol/L BUN 28 H (7-17) mg/dL Creatinine (0.7-1.2) mg/dL Glucose 599 H* (65-100) mg/dL POC Glucose 416 H (70-105) Lactic Acid 4.80 H* (0.7-2.0) mmol/L Alkaline Phosphatase 176 H (35-129) units/L Albumin 3.1 L (3.9-5) g/dL 01/17/19 01/17/19 01/17/19 Range/Units 05:06 05:06 06:48 WBC (4.5-11.0) K/mm3 Hct (30.3-42.9) % RDW (13.2-15.2) % Plt Count (140-440) K/mm3 Lymphocytes % (Manual) (13.4-35.0) % Seg Neutrophils # Man (1.8-7.7) K/mm3 Monocytes # (Manual) (0.0-0.8) K/mm3 POC ABG pH (7.35-7.45) VBG pH (7.320-7.420) Sodium 151 H 152 H (137-145) mmol/L Potassium 3.5 L (3.6-5.0) mmol/L Chloride 114.3 H 117.2 H (98-107) mmol/L Carbon Dioxide 4 L* 4 L* (22-30) mmol/L BUN 26 H 28 H (7-17) mg/dL Creatinine (0.7-1.2) mg/dL Glucose 577 H* 575 H* (65-100) mg/dL POC Glucose (70-105) Lactic Acid 3.50 H* (0.7-2.0) mmol/L Alkaline Phosphatase (35-129) units/L Albumin (3.9-5) g/dL 01/17/19 01/17/19 01/17/19 Range/Units 06:48 06:52 08:18 WBC (4.5-11.0) K/mm3 Hct (30.3-42.9) % RDW (13.2-15.2) % Plt Count (140-440) K/mm3 Lymphocytes % (Manual) (13.4-35.0) % Seg Neutrophils # Man (1.8-7.7) K/mm3 Monocytes # (Manual) (0.0-0.8) K/mm3 POC ABG pH (7.35-7.45) VBG pH (7.320-7.420) Sodium (137-145) mmol/L Potassium (3.6-5.0) mmol/L Chloride (98-107) mmol/L Carbon Dioxide (22-30) mmol/L BUN (7-17) mg/dL Creatinine (0.7-1.2) mg/dL Glucose (65-100) mg/dL POC Glucose 476 H 431 H (70-105) Lactic Acid 2.60 H* (0.7-2.0) mmol/L Alkaline Phosphatase (35-129) units/L Albumin (3.9-5) g/dL 01/17/19 01/17/19 01/17/19 Range/Units 09:26 10:45 11:47 WBC (4.5-11.0) K/mm3 Hct (30.3-42.9) % RDW (13.2-15.2) % Plt Count (140-440) K/mm3 Lymphocytes % (Manual) (13.4-35.0) % Seg Neutrophils # Man (1.8-7.7) K/mm3 Monocytes # (Manual) (0.0-0.8) K/mm3 POC ABG pH (7.35-7.45) VBG pH (7.320-7.420) Sodium 164 H* D (137-145) mmol/L Potassium 2.6 L* D (3.6-5.0) mmol/L Chloride 128.1 H (98-107) mmol/L Carbon Dioxide 13 L D (22-30) mmol/L BUN 27 H (7-17) mg/dL Creatinine 0.6 L (0.7-1.2) mg/dL Glucose 327 H (65-100) mg/dL POC Glucose 491 H 389 H (70-105) Lactic Acid (0.7-2.0) mmol/L Alkaline Phosphatase (35-129) units/L Albumin (3.9-5) g/dL 01/17/19 01/17/19 Range/Units 11:55 13:32 WBC (4.5-11.0) K/mm3 Hct (30.3-42.9) % RDW (13.2-15.2) % Plt Count (140-440) K/mm3 Lymphocytes % (Manual) (13.4-35.0) % Seg Neutrophils # Man (1.8-7.7) K/mm3 Monocytes # (Manual) (0.0-0.8) K/mm3 POC ABG pH 7.279 L (7.35-7.45) VBG pH (7.320-7.420) Sodium (137-145) mmol/L Potassium (3.6-5.0) mmol/L Chloride (98-107) mmol/L Carbon Dioxide (22-30) mmol/L BUN (7-17) mg/dL Creatinine (0.7-1.2) mg/dL Glucose (65-100) mg/dL POC Glucose (70-105) Lactic Acid 3.10 H* (0.7-2.0) mmol/L Alkaline Phosphatase (35-129) units/L Albumin (3.9-5) g/dL Assessment and Plan Cultures: Blood cultures 01/17/2019 no growth so far. Assessment: 53 y/o female with history of diabetes, uncontrolled, known to ID service due to admission on 07/28/2017 due to large upper back cutaneous abscess and necrotizing fascitis in Jul 2017. Admitted on 01/17/2019 due to 5-day history of worsening left breast edema, erythema and tenderness associated with AMS/sleepiness/confusion: 1) Severe Sepsis with septic shock: Present on admission, manifested by tachycardia, leukocytosis, bandemia, increased lactate and AMS. Etiology most likely complicated left breast skin and soft tissue infection. UA neg. 2) Complicated extensive left breast skin and soft tissue infection likely necrotizing fascitis/abscess: Blood cultures 01/17/2019 pending. She was recently diagnosed with left breast cellulitis. She went to [facility] and was placed on clindamycin, [place] and ibuprofen. On admission day, left breast opened up and was draining and bleeding. She is currently somnolent unable to provide a history. History was obtained from review of records. 3) History of large upper back cutaneous abscess and necrotizing fascitis in Jul 2017 s/p OR debridement on 07/30/2017 surgical wound cx + Diphteroids, Staph capitis and Peptostreptococcus treated with clindamycin, levaquin and vancomycin as inpatient, discharged on levaquin 750 mg po qday and flagyl 500 mg TID total 2 weeks from 07/30 until 08/12/2017. 4) Thrombocytosis: from infection 5) DM-uncontrolled 6) Acute encephalopathy: from severe sepsis and hypernatremia. Recommendations: - agree with prompt OR debridement/ Breast surgeon on board. Please send deep tissue cultures - follow-up blood cultures - obtain wound culture - stop ertapenem - start meropenem 1 gm IV q8 hour - start clindamycin until Group A Strep infection is ruled out - continue vancomycin with PK consult - add fluconazole until candidemia is ruled out - CRP - diabetes control Will follow. Zaina Be MD Infectious Diseases [facility] M [phone] O [phone]
[2019-01-17 15:40] LABS: BUN/Creatinine Ratio 38; Blood Urea Nitrogen 19 mg/dL (7-17); Calcium 9.5 mg/dL (8.4-10.2); Hemolysis Index 0
[2019-01-17] MEDS ORDERED: VERSED ONE (15:41)
[2019-01-17] MEDS ORDERED: SUBLIMAZE ONE (15:42)
[2019-01-17] MEDS ORDERED: MARCAINE 0.25% INFILTRATI ONE ×2 (15:53→16:40)
[2019-01-17] MEDS ORDERED: XYLOCAINE 1% 20 mL ONE (15:53)
[2019-01-17] MEDS ORDERED: KETALAR ONE (15:56)
[2019-01-17] MEDS ORDERED: NEOSPORIN GU IR ONE (16:28)
[2019-01-17] MEDS ORDERED: XYLOCAINE 1% 20 mL INFILTRATI ONE (16:40)
--- NOTE | 2019-01-17 16:44 | Anesthesia Consultation ---
Anesthesia Consult and Med Hx Date of service: 01/17/19 - Airway Intubation Access Assessment: Possibly Difficult (uncooperative with ariway exam) - Pulmonary Exam CTA: Yes - Cardiac Exam Cardiac Exam: RRR (tachycardic to 130s) - Pre-Operative Health Status ASA Pre-Surgery Classification: ASA4, Emergency Proposed Anesthetic Plan: MAC - Pulmonary Hx Respiratory Symptoms: No - Cardiovascular System Hx Hypertension: No Hx Heart Attack/AMI: No - Central Nervous System CVA: No - Endocrine Hx Insulin Dependent Diabetes: Yes (presented with DKA) - Other Systems Hx Obesity: Yes - Additional Comments Anesthesia Medical History Comments: Patient presenting with DKA and breast abscess with concern for necrotizing infection scheduled for I&D. Insulin gtt, electrolyte correction, and volume recusitation ongoing. Patient tachycardic, normotensive, tachypneic but maintaining SpO2>97% on RA. PMH and anesthesia consent obtained from sister over the phone as patient is altered and unable to concent for herself.
--- NOTE | 2019-01-17 16:44 | Anesthesia Day of Surgery ---
Anesthesia Day of Surgery - Day of Surgery Patient Examined: Yes Patient H&P Reviewed: Yes Patient is NPO: Yes
[2019-01-17] MEDS ORDERED: D5LR W/KCL 20 MEQ 20 MEQ/1,000 ML BAG IV SCH (17:30)
--- NOTE | 2019-01-17 17:40 | Operative Report ---
Operative Report Operative Report: Date of Service: January 17, 2019 Preoperative diagnosis: Left breast necrotizing fascitits Postoperative diagnosis: Same Procedure: Left breast wide local debridement, incision and drainage Surgeon: Sammi Guerra M.D. Cardiac Catheterization Technician: Dr. Horowitz Anesthesia: Local MAC Findings: 300-400 cc of pus drained with at least 30% of the lower inner and outer quadrants with necrosis and resected Complications: None Drains: Wound Vac Estimated blood loss: 150 cc Disposition: ICU in good condition Indications for operative procedure: This is a 53-year-old -[place] lady with uncontrolled diabetes admitted today to the ICU for sepsis and in DKA for left breast necrotizing fascitis. Recommendations were to proceed with wide local debridement of left breast with incision and drainage given area of necrotizing fasciitis. Consent was obtained by sister with risks explained to possibly include loosing her breast, large are of breast tissue resection, possibility of having to go back for additional procedures/debridements, further infection and pain. Patient's sister wished to proceed with the above procedure. Patient was unable to consent due to altered mental status changes. Procedure in detail: The patient was taken to the operating room and was placed supine. The left breast was prepped and draped in the normal sterile operative fashion. Skin necrosis was noted around the 5-7 o'clock position with the left breast at least 3 times a size of the right breast with significant erythema, edema and palpable fluctuance. The skin was appropriately anesthetized, a skin incision was made around the 6 o'clock position at area of fluctuance with immediate 300-400 mL of pus drained. The incision was then opened further with a 10 blade knife to include resection of the area of necrotizing fasciitis with necrosis involving the lower inner and lower outer quadrants from the 4-8/9 o'clock positions extending to the upper abdomen with area of pus pocket drained as well. Wide local debridement was then proceeded with removing of a large area of necrotic breast tissue. Significant odor was present. The remaining breast tissue looked more viable. The area was then Pulsavac with antibiotic solution and then a wound VAC was placed. Patient tolerated the procedure very well and was transported back to ICU in good condition. Patient will need to go back for a second look on Tuesday with possible further debridement. Plastic surgery consulted for closure once infection has cleared.
[2019-01-17] MEDS: KCL 20MEQ/100ML 20 MEQ/100 ML BAG IV SCH ×2 (18:28→21:19)
[2019-01-17] MEDS: DIFLUCAN 200 MG/100 ML BAG IV ONE ×2 (18:39→18:41)
[2019-01-17] MEDS ORDERED: VANCOMYCIN 1,500 MG in NACL 0.9% 500 ML 500 ML IV SCH (20:00)
[2019-01-17] MEDS: MORPHINE IV PRN (20:39)
[2019-01-17] MEDS: CLEOCIN 900 MG/50 mL 900 MG/50 ML BAG IV SCH (20:46)
[2019-01-17] MEDS: DIFLUCAN 200 ML IV SCH (20:48)
[2019-01-17 21:01] LABS: BUN/Creatinine Ratio 45; Blood Urea Nitrogen 18 mg/dL (7-17); Hemolysis Index 4
[2019-01-17] MEDS: VANCOMYCIN 1,750 MG in NACL 0.9% 500 ML 500 ML IV SCH (22:40)
[2019-01-18] MEDS: MERREM 1,000 MG in NACL 0.9% 100 ML IV SCH ×4 (00:45→19:14)
[2019-01-18] MEDS: CLEOCIN 900 MG/50 mL 900 MG/50 ML BAG IV SCH ×3 (00:56→19:15)
[2019-01-18 01:32] LABS: Calcium 9.6 mg/dL (8.4-10.2); Hemolysis Index 0
[2019-01-18 02:48] LABS: BUN/Creatinine Ratio 35; Blood Urea Nitrogen 14 mg/dL (7-17)
[2019-01-18] MEDS ORDERED: KCL 20 MEQ in D5W 1,000 ML IV SCH (04:30)
[2019-01-18] MEDS: MORPHINE IV PRN ×2 (04:36→20:22)
[2019-01-18 06:11] LABS: Hematocrit 25.6 % (30.3-42.9); Hemoglobin 8.8 gm/dl (10.1-14.3); Mean Corpuscular HGB Conc 35 % (30-34); Mean Corpuscular Volume 88 fl (79-97); Platelet Count 459 K/mm3 (140-440); Red Blood Count 2.91 M/mm3 (3.65-5.03); Red Cell Distribution Width 14.1 % (13.2-15.2)
[2019-01-18 06:26] LABS: BUN/Creatinine Ratio 50; Blood Urea Nitrogen 15 mg/dL (7-17); Calcium 9.3 mg/dL (8.4-10.2); Hemolysis Index 0
--- NOTE | 2019-01-18 07:04 | Progress Note ---
Assessment and Plan Assessment and plan: Patient is a 53 yo woman with a history of upper back abscess/necrotizing fascitis s/p OR debridement, IDDM and anemia who presents to [facility] ED with left breast pain and swelling. Currently, patient is confused. She underwent wide excisional debridement on 01/17/[address] Guerra; findings were 300-400 cc of pus drained with at least 30% of the lower inner and outer quadrants with necrosis and resected for left breast necrotizing fascititis Severe Left breast necrotizing fascititis s/p debridement and removal of about 1/3 of left breast: Another debridement planned on Tuesday. continue ABX Severe sepsis due to Left breast cellulitis with abscess: on IV Merrem, IV Clindamycin and IV Vancomycin with closely drug monitoring. ID is following, input noted. DKA on insulin drip: serial bmp/anion gap, IVF, BG improved with debridement Acute encephalopathy due to the above Severe acidosis: treat the sepsis and dka, consulted CCM Hypokalemia: replace in IVF Hypernatremia: more free water on d5W now PCN drug allergy Acute blood loss anemia/Drop in HCT due to surgery: continue to monitor DVT ppx, I stopped sq lovenox for possible surgical intervention, continue to hold heparin due to drop in HCT CCT 32 min History Interval history: Patient was seen and examined. Follow-up on current diagnosis of Left breast pains. No overnight events reported to me. Patient speaks incoherently at times then answers simple questions sometimes. Imaging, nursing note, chart, labs and old chart reviewed. Hospitalist Physical - Physical exam Narrative exam: Gen: ill appearing, NAD, confused in a daze like state, Orientated x 1 in restraints HEENT: NCAT, EOMI, PERRL, OP Clear Neck: supple, no adenopathy, no thyromegaly, no JVD CVS/Heart: Regular tachycardia, normal S1S2, pulses present bilaterally Chest/Lungs: tachypneic, CTA B, Symmetrical chest expansion, good air entry bilaterally GI/Abdomen: soft, NTND, good bowel sounds, no guarding or rebound /Bladder: no suprapubic tenderness, no CVA or paraspinal tenderness Breast: left breast severely enlarged, erythematous, red, tender, foul smelling, obvious abscess with necrotic tissue, Extermity/Skin: no c/c/e, no obvious rash MSK: FROM x 4 Neuro: CN 2-12 grossly intact, no new focal deficits Psych: calm but confused - Constitutional Vitals: Temp Pulse Resp BP Pulse Ox 98.0 F 117 H 14 134/77 100 01/18/19 04:00 01/18/19 06:00 01/18/19 06:00 01/18/19 06:00 01/18/19 06:00 General appearance: Present: no acute distress, other (in restraints) Results - Labs CBC & Chem 7: 01/18/19 05:39 01/18/19 05:39 Labs: Laboratory Last Values WBC 16.7 K/mm3 (4.5-11.0) H 01/18/19 05:39 RBC 2.91 M/mm3 (3.65-5.03) L 01/18/19 05:39 Hgb 8.8 gm/dl (10.1-14.3) L D 01/18/19 05:39 Hct 25.6 % (30.3-42.9) L D 01/18/19 05:39 MCV 88 fl (79-97) 01/18/19 05:39 MCH 30 pg (28-32) 01/18/19 05:39 MCHC 35 % (30-34) H 01/18/19 05:39 RDW 14.1 % (13.2-15.2) 01/18/19 05:39 Plt Count 459 K/mm3 (140-440) H 01/18/19 05:39 Add Manual Diff Complete 01/17/19 01:17 Total Counted 100 01/17/19 01:17 Seg Neutrophils % Air Drier Machine Operator 01/17/19 01:17 Seg Neuts % (Manual) 55.0 % (40.0-70.0) 01/17/19 01:17 24.0 % 01/17/19 01:17 12.0 % (13.4-35.0) L 01/17/19 01:17 Reactive Lymphs % (Man) 0 % 01/17/19 01:17 6.0 % (0.0-7.3) 01/17/19 01:17 0 % (0.0-4.3) 01/17/19 01:17 0 % (0.0-1.8) 01/17/19 01:17 3.0 % 01/17/19 01:17 0 % 01/17/19 01:17 0 % 01/17/19 01:17 0 % 01/17/19 01:17 Nucleated RBC % Not Reportable 01/17/19 01:17 Seg Neutrophils # Man 12.7 K/mm3 (1.8-7.7) H 01/17/19 01:17 Band Neutrophils # 5.5 K/mm3 01/17/19 01:17 2.8 K/mm3 (1.2-5.4) 01/17/19 01:17 Abs React Lymphs (Man) 0.0 K/mm3 01/17/19 01:17 1.4 K/mm3 (0.0-0.8) H 01/17/19 01:17 0.0 K/mm3 (0.0-0.4) 01/17/19 01:17 0.0 K/mm3 (0.0-0.1) 01/17/19 01:17 0.7 K/mm3 01/17/19 01:17 0.0 K/mm3 01/17/19 01:17 0.0 K/mm3 01/17/19 01:17 Blast Cells # 0.0 K/mm3 01/17/19 01:17 WBC Morphology Not Reportable 01/17/19 01:17 WBC Morphology TNR 01/17/19 01:17 Hypersegmented Neuts Not Reportable 01/17/19 01:17 Hyposegmented Neuts Not Reportable 01/17/19 01:17 Hypogranular Neuts Not Reportable 01/17/19 01:17 Not Reportable 01/17/19 01:17 Not Reportable 01/17/19 01:17 Not Reportable 01/17/19 01:17 Not Reportable 01/17/19 01:17 Not Reportable 01/17/19 01:17 Not Reportable 01/17/19 01:17 Appears increased 01/17/19 01:17 Not Reportable 01/17/19 01:17 Plt Clumps, EDTA Not Reportable 01/17/19 01:17 Not Reportable 01/17/19 01:17 Not Reportable 01/17/19 01:17 Not Reportable 01/17/19 01:17 Plt Morphology Comment Not Reportable 01/17/19 01:17 RBC Morphology Not Reportable 01/17/19 01:17 Dimorphic RBCs Not Reportable 01/17/19 01:17 Not Reportable 01/17/19 01:17 Not Reportable 01/17/19 01:17 Not Reportable 01/17/19 01:17 Not Reportable 01/17/19 01:17 Not Reportable 01/17/19 01:17 Not Reportable 01/17/19 01:17 Not Reportable 01/17/19 01:17 Not Reportable 01/17/19 01:17 Not Reportable 01/17/19 01:17 Not Reportable 01/17/19 01:17 Not Reportable 01/17/19 01:17 Not Reportable 01/17/19 01:17 Not Reportable 01/17/19 01:17 Not Reportable 01/17/19 01:17 Not Reportable 01/17/19 01:17 Not Reportable 01/17/19 01:17 Not Reportable 01/17/19 01:17 Not Reportable 01/17/19 01:17 Not Reportable 01/17/19 01:17 Acanthocytes (Spur) Not Reportable 01/17/19 01:17 Rouleaux Not Reportable 01/17/19 01:17 Not Reportable 01/17/19 01:17 Not Reportable 01/17/19 01:17 Not Reportable 01/17/19 01:17 Not Reportable 01/17/19 01:17 Hem Pathologist Commnt No 01/17/19 01:17 POC ABG pH 7.279 (7.35-7.45) L 01/17/19 13:32 POC ABG pO2 82 (80-105) 01/17/19 13:32 POC ABG HCO3 9.8 (22-26 mml/L) 01/17/19 13:32 POC ABG Total CO2 10 (23-27mmol/L) 01/17/19 13:32 POC ABG O2 Sat 95 01/17/19 13:32 POC ABG Base Excess -17 ((-2) - (+3)mmol/L) 01/17/19 13:32 VBG pH 7.089 (7.320-7.420) L* 01/17/19 02:21 21 % 01/17/19 13:32 Sodium 159 mmol/L (137-145) H 01/18/19 05:39 Potassium 3.4 mmol/L (3.6-5.0) L D 01/18/19 05:39 Chloride 127.3 mmol/L (98-107) H 01/18/19 05:39 Carbon Dioxide 23 mmol/L (22-30) 01/18/19 05:39 12 mmol/L 01/18/19 05:39 BUN 15 mg/dL (7-17) 01/18/19 05:39 0.3 mg/dL (0.7-1.2) L 01/18/19 05:39 Estimated GFR > 60 ml/min 01/18/19 05:39 50 % 01/18/19 05:39 Glucose 180 mg/dL (65-100) H 01/18/19 05:39 POC Glucose 170 (70-105) H 01/18/19 06:05 Lactic Acid 3.50 mmol/L (0.7-2.0) H* 01/17/19 14:05 Calcium 9.3 mg/dL (8.4-10.2) 01/18/19 05:39 Phosphorus 3.20 mg/dL (2.5-4.5) 01/17/19 05:06 Magnesium 2.20 mg/dL (1.7-2.3) 01/17/19 05:06 0.20 mg/dL (0.1-1.2) 01/17/19 03:29 AST 6 units/L (5-40) 01/17/19 03:29 ALT 8 units/L (7-56) 01/17/19 03:29 176 units/L (35-129) H 01/17/19 03:29 28.80 mg/dL (0.00-1.30) H 01/17/19 14:05 6.6 g/dL (6.3-8.2) 01/17/19 03:29 3.1 g/dL (3.9-5) L 01/17/19 03:29 0.9 % 01/17/19 03:29 Yellow (Yellow) 01/17/19 01:40 Slightly-cloudy (Clear) 01/17/19 01:40 5.0 (5.0-7.0) 01/17/19 01:40 Ur Specific [place] 1.026 (1.003-1.030) 01/17/19 01:40 30 mg/dl mg/dL (Negative) 01/17/19 01:40 >=500 mg/dL (Negative) 01/17/19 01:40 80 mg/dL (Negative) 01/17/19 01:40 Sm (Negative) 01/17/19 01:40 Neg (Negative) 01/17/19 01:40 Neg (Negative) 01/17/19 01:40 < 2.0 mg/dL (<2.0) 01/17/19 01:40 Ur Leukocyte Esterase Tr (Negative) 01/17/19 01:40 5.0 /HPF (0.0-6.0) 01/17/19 01:40 10.0 /HPF (0.0-6.0) 01/17/19 01:40 U Epithel Cells (Auto) 4.0 /HPF (0-13.0) 01/17/19 01:40 Few /HPF 01/17/19 01:40 Active Medications - Current Medications Current Medications: Generic Name Dose Route Start Last Admin Trade Name Freq PRN Reason Stop Dose Admin Acetaminophen 650 mg 01/17/19 06:08 Tylenol PO Q4H PRN Pain MILD(1-3)/Fever >100.5/LEBRON Dextrose 0 ml 01/17/19 04:58 01/18/19 03:26 D50w (25gm) Syringe IV 10 ml PRN PRN Administration Hypoglycemia Famotidine 20 mg 01/17/19 10:00 Pepcid IV QDAY GRICEL Insulin Human Regular 100 100 mls @ 6 mls/hr 01/17/19 05:00 01/18/19 05:10 units/ Sodium Chloride IV 5 units/hr TITR GRICEL 5 mls/hr Titration Protocol 6 UNITS/HR Vancomycin HCl 1,750 mg/ 535 mls @ 333.333 mls/hr 01/17/19 22:00 01/17/19 22:40 Sodium Chloride IV 333.333 mls/hr Q12H GRICEL Administration Clindamycin HCl 900 mg in 50 mls @ 100 mls/hr 01/17/19 16:00 01/18/19 00:56 Cleocin 900 Mg/50 Ml IV 100 mls/hr Q8H GRICEL Administration Protocol Fluconazole 200 mls @ 100 mls/hr 01/17/19 16:30 01/17/19 20:48 Diflucan IV 100 mls/hr Q24H GRICEL Administration Protocol Meropenem 1,000 mg/ Sodium 100 mls @ 100 mls/hr 01/17/19 16:30 01/18/19 00:46 Chloride IV 100 mls/hr Q8H GRICEL Administration Protocol Potassium Chloride 20 meq/ 1,010 mls @ 125 mls/hr 01/18/19 04:30 01/18/19 05:12 Dextrose IV 125 mls/hr DIRECT GRICEL Administration Morphine Sulfate 2 mg 01/17/19 08:36 01/18/19 04:36 Morphine IV 2 mg Q4H PRN Administration Pain, Moderate (4-6) Ondansetron HCl 4 mg 01/17/19 06:08 01/17/19 09:32 Zofran IV 4 mg Q8H PRN Administration Nausea And Vomiting Oxycodone/Acetaminophen 1 tab 01/17/19 06:08 Percocet 5/325 PO Q6H PRN Pain, Moderate (4-6) Sodium Chloride 10 ml 01/17/19 10:00 01/17/19 22:41 Sodium Chloride Flush Syringe 10 Ml IV 10 ml BID GRICEL Administration Sodium Chloride 10 ml 01/17/19 06:08 Sodium Chloride Flush Syringe 10 Ml IV PRN PRN LINE FLUSH
--- NOTE | 2019-01-18 07:54 | Progress Note ---
Assessment and Plan Cultures: Blood cultures 01/17/2019 no growth so far. Surgical biopsy 01/17/2019 +[facility]PC in chains Assessment: 53 y/o female with history of diabetes, uncontrolled, known to ID service due to admission on 07/28/2017 due to large upper back cutaneous abscess and necrotizing fascitis in Jul 2017. Admitted on 01/17/2019 due to 5-day history of worsening left breast edema, erythema and tenderness associated with AMS/sleepiness/confusion: 1) Severe Sepsis with septic shock: better, off pressors. Etiology most likely complicated left breast skin and soft tissue infection. UA neg. 2) Complicated extensive left breast skin and soft tissue infection likely necrotizing fascitis/abscess: likely Strep infection ?GAS v/s less likely Staph. She was recently diagnosed with left breast cellulitis. She went to [facility] urgent care and was placed on clindamycin, Falun and ibuprofen. On admission day, left breast opened up and was draining and bleeding. S/P Left breast wide local debridement, incision and drainage on 01/17/2019. Findings: 300-400 cc of pus drained with at least 30% of the lower inner and outer quadrants with necrosis and resected. CRP=33. 3) History of large upper back cutaneous abscess and necrotizing fascitis in Jul 2017 s/p OR debridement on 07/30/2017 surgical wound cx + Diphteroids, Staph capitis and Peptostreptococcus treated with clindamycin, levaquin and vancomycin as inpatient, discharged on levaquin 750 mg po qday and flagyl 500 mg TID total 2 weeks from 07/30 until 08/12/2017. 4) Thrombocytosis: from infection 5) DM-uncontrolled on DKA, better 6) Acute encephalopathy: from severe sepsis and hypernatremia. Improving 7) Penicillin allergy: tolerating meropenem Recommendations: - follow-up deep tissue cultures - follow-up blood cultures - continue meropenem 1 gm IV q8 hour - continue clindamycin until Group A Strep infection is ruled out - continue vancomycin with PK consult - continue fluconazole until candidemia is ruled out - diabetes control Will follow. Zaina Be MD Infectious Diseases [facility] ([facility] M [phone] O [phone] Subjective Date of service: 01/18/19 Principal diagnosis: septic shock Interval history: More alert, follows commands, went to OR last night, off pressors. ROS limited Objective - Exam Narrative Exam: General appearance: alert in NAD follows commands Eyes: anicteric sclerae, moist conjunctivae; no lid-lag; PERRLA HENT: Atraumatic; oropharynx limited Neck: Trachea midline; supple, no thyromegaly or lymphadenopathy Lungs: CTA CV: tachycardic Abdomen: Soft, non-tender Extremities: no edema Skin: left breast with extensive edema, tenderness and erythema decreased now with wound VAC Psych: no agitated Neuro: alert moves all extremities - Constitutional Vitals: Vital Signs Temp Pulse Resp BP Pulse Ox 98.0 F 117 H 14 134/77 100 01/18/19 04:00 01/18/19 06:00 01/18/19 06:00 01/18/19 06:00 01/18/19 07:32 Temperature -Last 24 Hours Temperature 98.0 F Temperature 98.8 F Temperature 98.7 F Temperature 98.8 F Temperature 98.3 F Temperature 96.2 F Temperature 97.9 F - Labs CBC & Chem 7: 01/18/19 05:39 01/18/19 05:39 Labs: Abnormal lab results 01/17/19 01/17/19 01/17/19 Range/Units 08:18 09:26 10:45 WBC (4.5-11.0) K/mm3 RBC (3.65-5.03) M/mm3 Hgb (10.1-14.3) gm/dl Hct (30.3-42.9) % MCHC (30-34) % Plt Count (140-440) K/mm3 POC ABG pH (7.35-7.45) Sodium (137-145) mmol/L Potassium (3.6-5.0) mmol/L Chloride (98-107) mmol/L Carbon Dioxide (22-30) mmol/L BUN (7-17) mg/dL Creatinine (0.7-1.2) mg/dL Glucose (65-100) mg/dL POC Glucose 431 H 491 H 389 H (70-105) Lactic Acid (0.7-2.0) mmol/L C-Reactive Protein (0.00-1.30) mg/dL 01/17/19 01/17/19 01/17/19 Range/Units 11:47 11:55 13:32 WBC (4.5-11.0) K/mm3 RBC (3.65-5.03) M/mm3 Hgb (10.1-14.3) gm/dl Hct (30.3-42.9) % MCHC (30-34) % Plt Count (140-440) K/mm3 POC ABG pH 7.279 L (7.35-7.45) Sodium 164 H* D (137-145) mmol/L Potassium 2.6 L* D (3.6-5.0) mmol/L Chloride 128.1 H (98-107) mmol/L Carbon Dioxide 13 L D (22-30) mmol/L BUN 27 H (7-17) mg/dL Creatinine 0.6 L (0.7-1.2) mg/dL Glucose 327 H (65-100) mg/dL POC Glucose (70-105) Lactic Acid 3.10 H* (0.7-2.0) mmol/L C-Reactive Protein (0.00-1.30) mg/dL 01/17/19 01/17/19 01/17/19 Range/Units 14:05 14:05 14:05 WBC (4.5-11.0) K/mm3 RBC (3.65-5.03) M/mm3 Hgb (10.1-14.3) gm/dl Hct (30.3-42.9) % MCHC (30-34) % Plt Count (140-440) K/mm3 POC ABG pH (7.35-7.45) Sodium 158 H (137-145) mmol/L Potassium 3.0 L (3.6-5.0) mmol/L Chloride 123.5 H (98-107) mmol/L Carbon Dioxide 16 L (22-30) mmol/L BUN 19 H (7-17) mg/dL Creatinine 0.5 L (0.7-1.2) mg/dL Glucose 191 H (65-100) mg/dL POC Glucose (70-105) Lactic Acid 3.50 H* (0.7-2.0) mmol/L C-Reactive Protein 28.80 H (0.00-1.30) mg/dL 01/17/19 01/17/19 01/17/19 Range/Units 16:46 16:49 17:39 WBC (4.5-11.0) K/mm3 RBC (3.65-5.03) M/mm3 Hgb (10.1-14.3) gm/dl Hct (30.3-42.9) % MCHC (30-34) % Plt Count (140-440) K/mm3 POC ABG pH (7.35-7.45) Sodium (137-145) mmol/L Potassium (3.6-5.0) mmol/L Chloride (98-107) mmol/L Carbon Dioxide (22-30) mmol/L BUN (7-17) mg/dL Creatinine (0.7-1.2) mg/dL Glucose (65-100) mg/dL POC Glucose 138 H 144 H 158 H (70-105) Lactic Acid (0.7-2.0) mmol/L C-Reactive Protein (0.00-1.30) mg/dL 01/17/19 01/17/19 01/17/19 Range/Units 20:03 20:26 21:11 WBC (4.5-11.0) K/mm3 RBC (3.65-5.03) M/mm3 Hgb (10.1-14.3) gm/dl Hct (30.3-42.9) % MCHC (30-34) % Plt Count (140-440) K/mm3 POC ABG pH (7.35-7.45) Sodium 158 H (137-145) mmol/L Potassium 3.3 L (3.6-5.0) mmol/L Chloride 127.1 H (98-107) mmol/L Carbon Dioxide 18 L (22-30) mmol/L BUN 18 H (7-17) mg/dL Creatinine 0.4 L (0.7-1.2) mg/dL Glucose 289 H (65-100) mg/dL POC Glucose 299 H 364 H (70-105) Lactic Acid (0.7-2.0) mmol/L C-Reactive Protein (0.00-1.30) mg/dL 01/17/19 01/17/19 01/18/19 Range/Units 22:26 23:23 00:19 WBC (4.5-11.0) K/mm3 RBC (3.65-5.03) M/mm3 Hgb (10.1-14.3) gm/dl Hct (30.3-42.9) % MCHC (30-34) % Plt Count (140-440) K/mm3 POC ABG pH (7.35-7.45) Sodium (137-145) mmol/L Potassium (3.6-5.0) mmol/L Chloride (98-107) mmol/L Carbon Dioxide (22-30) mmol/L BUN (7-17) mg/dL Creatinine (0.7-1.2) mg/dL Glucose (65-100) mg/dL POC Glucose 244 H 226 H 174 H (70-105) Lactic Acid (0.7-2.0) mmol/L C-Reactive Protein (0.00-1.30) mg/dL 01/18/19 01/18/19 01/18/19 Range/Units 00:52 02:03 04:03 WBC (4.5-11.0) K/mm3 RBC (3.65-5.03) M/mm3 Hgb (10.1-14.3) gm/dl Hct (30.3-42.9) % MCHC (30-34) % Plt Count (140-440) K/mm3 POC ABG pH (7.35-7.45) Sodium 159 H (137-145) mmol/L Potassium 2.6 L* D (3.6-5.0) mmol/L Chloride 130.4 H (98-107) mmol/L Carbon Dioxide 21 L (22-30) mmol/L BUN (7-17) mg/dL Creatinine 0.4 L (0.7-1.2) mg/dL Glucose 117 H (65-100) mg/dL POC Glucose 231 H 126 H (70-105) Lactic Acid (0.7-2.0) mmol/L C-Reactive Protein (0.00-1.30) mg/dL 01/18/19 01/18/19 01/18/19 Range/Units 05:12 05:39 05:39 WBC 16.7 H (4.5-11.0) K/mm3 RBC 2.91 L (3.65-5.03) M/mm3 Hgb 8.8 L D (10.1-14.3) gm/dl Hct 25.6 L D (30.3-42.9) % MCHC 35 H (30-34) % Plt Count 459 H (140-440) K/mm3 POC ABG pH (7.35-7.45) Sodium 159 H (137-145) mmol/L Potassium 3.4 L D (3.6-5.0) mmol/L Chloride 127.3 H (98-107) mmol/L Carbon Dioxide (22-30) mmol/L BUN (7-17) mg/dL Creatinine 0.3 L (0.7-1.2) mg/dL Glucose 180 H (65-100) mg/dL POC Glucose 171 H (70-105) Lactic Acid (0.7-2.0) mmol/L C-Reactive Protein (0.00-1.30) mg/dL 01/18/19 01/18/19 Range/Units 06:05 07:03 WBC (4.5-11.0) K/mm3 RBC (3.65-5.03) M/mm3 Hgb (10.1-14.3) gm/dl Hct (30.3-42.9) % MCHC (30-34) % Plt Count (140-440) K/mm3 POC ABG pH (7.35-7.45) Sodium (137-145) mmol/L Potassium (3.6-5.0) mmol/L Chloride (98-107) mmol/L Carbon Dioxide (22-30) mmol/L BUN (7-17) mg/dL Creatinine (0.7-1.2) mg/dL Glucose (65-100) mg/dL POC Glucose 170 H 152 H (70-105) Lactic Acid (0.7-2.0) mmol/L C-Reactive Protein (0.00-1.30) mg/dL
--- NOTE | 2019-01-18 08:18 | Progress Note ---
Assessment and Plan This is a 53 year old lady admitted for sepsis on 01/17/19 with left breast necrotizing fascitis. POD#1 left breast wide local debridement with at least 30- 35% breast resection due to necrosis and drainage of at least 300 cc of pus. 1. No acute events overnight. 2. Pain remains on insulin drip at lower rate. Continued resuscitation. 3. Left breast wound vac in place, will remove tomorrow in the OR with probable more debridement. If cleared by anesthesia under general anesthesia which will be better for debridement, will hold off and not proceed with surgery today, allow more resuscitation. 4. Decrease WBC to 16 from 23 at admission. 5. NPO at midnight. Sister to consent. 6. ID is following and patient on appropriate antibiotics, cultures from OR pending. 7. I consulted plastic surgery Dr. Chavez yesterday for closure as o utpatient. - Patient Problems (1) Breast abscess Current Visit: Yes Status: Acute (2) Cellulitis of breast Current Visit: Yes Status: Acute (3) Diabetic ketoacidosis Current Visit: Yes Status: Acute Qualifiers: Diabetes mellitus type: type 1 Diabetes mellitus complication detail: without coma Qualified Code(s): E10.10 - Type 1 diabetes mellitus with ketoacidosis without coma (4) Sepsis Current Visit: Yes Status: Acute Qualifiers: Sepsis type: sepsis due to unspecified organism Qualified Code(s): A41.9 - Sepsis, unspecified organism (5) Cellulitis Current Visit: No Status: Acute Qualifiers: Site of cellulitis: trunk Site of cellulitis of trunk: back Qualified Code(s): L03.312 - Cellulitis of back [any part except buttock] (6) DVT prophylaxis Current Visit: No Status: Acute (7) Hyponatremia syndrome Current Visit: No Status: Acute (8) Metabolic acidosis Current Visit: No Status: Acute Subjective Date of service: 01/18/19 Principal diagnosis: septic shock Interval history: POD#1 left breast wide local debridement of necrotiic tissue and incision and drainage Objective - Constitutional Vitals: Vital Signs - 12hr 01/17/19 01/17/19 01/17/19 20:30 20:39 21:00 Temperature Pulse Rate 129 H 126 H Pulse Rate [ 130 H From Monitor] Respiratory 25 H 20 22 Rate Blood Pressure 105/55 95/50 O2 Sat by Pulse 100 99 Oximetry 01/17/19 01/17/19 01/17/19 21:09 21:30 22:00 Temperature Pulse Rate 122 H 119 H Pulse Rate [ From Monitor] Respiratory 20 21 19 Rate Blood Pressure 91/45 96/55 O2 Sat by Pulse 100 Oximetry 01/17/19 01/17/19 01/17/19 22:30 23:00 23:30 Temperature Pulse Rate 117 H 113 H 113 H Pulse Rate [ From Monitor] Respiratory 19 18 16 Rate Blood Pressure 93/57 108/60 113/61 O2 Sat by Pulse Oximetry 01/18/19 01/18/19 01/18/19 00:00 00:01 00:10 Temperature 98.8 F Pulse Rate 112 H 113 H Pulse Rate [ 112 H From Monitor] Respiratory 17 17 18 Rate Blood Pressure 117/65 117/65 O2 Sat by Pulse 100 100 100 Oximetry 01/18/19 01/18/19 01/18/19 00:30 01:00 01:30 Temperature Pulse Rate 114 H 116 H 118 H Pulse Rate [ From Monitor] Respiratory 17 18 17 Rate Blood Pressure 116/68 123/65 122/66 O2 Sat by Pulse 99 Oximetry 01/18/19 01/18/19 01/18/19 02:00 02:30 03:00 Temperature Pulse Rate 117 H 114 H 111 H Pulse Rate [ From Monitor] Respiratory 17 16 16 Rate Blood Pressure 124/64 107/58 113/58 O2 Sat by Pulse 99 Oximetry 01/18/19 01/18/19 01/18/19 03:30 04:00 04:30 Temperature 98.0 F Pulse Rate 114 H 117 H 119 H Pulse Rate [ 117 H From Monitor] Respiratory 16 17 19 Rate Blood Pressure 118/66 123/66 121/66 O2 Sat by Pulse 100 100 100 Oximetry 01/18/19 01/18/19 01/18/19 05:00 05:30 06:00 Temperature Pulse Rate 117 H 116 H 117 H Pulse Rate [ From Monitor] Respiratory 17 16 14 Rate Blood Pressure 123/62 132/73 134/77 O2 Sat by Pulse 100 100 Oximetry 01/18/19 01/18/19 01/18/19 06:30 07:00 07:30 Temperature Pulse Rate 117 H 116 H 117 H Pulse Rate [ From Monitor] Respiratory 15 14 16 Rate Blood Pressure 136/80 129/79 136/80 O2 Sat by Pulse Oximetry 01/18/19 07:32 Temperature Pulse Rate Pulse Rate [ From Monitor] Respiratory Rate Blood Pressure O2 Sat by Pulse 100 Oximetry General appearance: Present: no acute distress - EENT Eyes: PERRL ENT: hearing intact Ears: bilateral: normal - Neck Neck: supple - Respiratory Respiratory effort: normal - Breasts Breasts: other (left breast wound vac in place; decrease erythema of wound edges at vac) - Cardiovascular Rhythm: regular Extremities: no ischemia - Gastrointestinal General gastrointestinal: Present: soft, non-tender - Genitourinary Female genitourinary: deferred - Integumentary Integumentary: clear, warm, dry - Neurologic Neurologic: CNII-XII intact - Psychiatric Psychiatric: other (altered mental status) - Labs CBC & Chem 7: 01/18/19 05:39 01/18/19 05:39 Labs: Abnormal lab results 01/17/19 01/17/19 01/17/19 Range/Units 08:18 09:26 10:45 WBC (4.5-11.0) K/mm3 RBC (3.65-5.03) M/mm3 Hgb (10.1-14.3) gm/dl Hct (30.3-42.9) % MCHC (30-34) % Plt Count (140-440) K/mm3 POC ABG pH (7.35-7.45) Sodium (137-145) mmol/L Potassium (3.6-5.0) mmol/L Chloride (98-107) mmol/L Carbon Dioxide (22-30) mmol/L BUN (7-17) mg/dL Creatinine (0.7-1.2) mg/dL Glucose (65-100) mg/dL POC Glucose 431 H 491 H 389 H (70-105) Lactic Acid (0.7-2.0) mmol/L C-Reactive Protein (0.00-1.30) mg/dL 01/17/19 01/17/19 01/17/19 Range/Units 11:47 11:55 13:32 WBC (4.5-11.0) K/mm3 RBC (3.65-5.03) M/mm3 Hgb (10.1-14.3) gm/dl Hct (30.3-42.9) % MCHC (30-34) % Plt Count (140-440) K/mm3 POC ABG pH 7.279 L (7.35-7.45) Sodium 164 H* D (137-145) mmol/L Potassium 2.6 L* D (3.6-5.0) mmol/L Chloride 128.1 H (98-107) mmol/L Carbon Dioxide 13 L D (22-30) mmol/L BUN 27 H (7-17) mg/dL Creatinine 0.6 L (0.7-1.2) mg/dL Glucose 327 H (65-100) mg/dL POC Glucose (70-105) Lactic Acid 3.10 H* (0.7-2.0) mmol/L C-Reactive Protein (0.00-1.30) mg/dL 01/17/19 01/17/19 01/17/19 Range/Units 14:05 14:05 14:05 WBC (4.5-11.0) K/mm3 RBC (3.65-5.03) M/mm3 Hgb (10.1-14.3) gm/dl Hct (30.3-42.9) % MCHC (30-34) % Plt Count (140-440) K/mm3 POC ABG pH (7.35-7.45) Sodium 158 H (137-145) mmol/L Potassium 3.0 L (3.6-5.0) mmol/L Chloride 123.5 H (98-107) mmol/L Carbon Dioxide 16 L (22-30) mmol/L BUN 19 H (7-17) mg/dL Creatinine 0.5 L (0.7-1.2) mg/dL Glucose 191 H (65-100) mg/dL POC Glucose (70-105) Lactic Acid 3.50 H* (0.7-2.0) mmol/L C-Reactive Protein 28.80 H (0.00-1.30) mg/dL 01/17/19 01/17/19 01/17/19 Range/Units 16:46 16:49 17:39 WBC (4.5-11.0) K/mm3 RBC (3.65-5.03) M/mm3 Hgb (10.1-14.3) gm/dl Hct (30.3-42.9) % MCHC (30-34) % Plt Count (140-440) K/mm3 POC ABG pH (7.35-7.45) Sodium (137-145) mmol/L Potassium (3.6-5.0) mmol/L Chloride (98-107) mmol/L Carbon Dioxide (22-30) mmol/L BUN (7-17) mg/dL Creatinine (0.7-1.2) mg/dL Glucose (65-100) mg/dL POC Glucose 138 H 144 H 158 H (70-105) Lactic Acid (0.7-2.0) mmol/L C-Reactive Protein (0.00-1.30) mg/dL 01/17/19 01/17/19 01/17/19 Range/Units 20:03 20:26 21:11 WBC (4.5-11.0) K/mm3 RBC (3.65-5.03) M/mm3 Hgb (10.1-14.3) gm/dl Hct (30.3-42.9) % MCHC (30-34) % Plt Count (140-440) K/mm3 POC ABG pH (7.35-7.45) Sodium 158 H (137-145) mmol/L Potassium 3.3 L (3.6-5.0) mmol/L Chloride 127.1 H (98-107) mmol/L Carbon Dioxide 18 L (22-30) mmol/L BUN 18 H (7-17) mg/dL Creatinine 0.4 L (0.7-1.2) mg/dL Glucose 289 H (65-100) mg/dL POC Glucose 299 H 364 H (70-105) Lactic Acid (0.7-2.0) mmol/L C-Reactive Protein (0.00-1.30) mg/dL 01/17/19 01/17/19 01/18/19 Range/Units 22:26 23:23 00:19 WBC (4.5-11.0) K/mm3 RBC (3.65-5.03) M/mm3 Hgb (10.1-14.3) gm/dl Hct (30.3-42.9) % MCHC (30-34) % Plt Count (140-440) K/mm3 POC ABG pH (7.35-7.45) Sodium (137-145) mmol/L Potassium (3.6-5.0) mmol/L Chloride (98-107) mmol/L Carbon Dioxide (22-30) mmol/L BUN (7-17) mg/dL Creatinine (0.7-1.2) mg/dL Glucose (65-100) mg/dL POC Glucose 244 H 226 H 174 H (70-105) Lactic Acid (0.7-2.0) mmol/L C-Reactive Protein (0.00-1.30) mg/dL 01/18/19 01/18/19 01/18/19 Range/Units 00:52 02:03 04:03 WBC (4.5-11.0) K/mm3 RBC (3.65-5.03) M/mm3 Hgb (10.1-14.3) gm/dl Hct (30.3-42.9) % MCHC (30-34) % Plt Count (140-440) K/mm3 POC ABG pH (7.35-7.45) Sodium 159 H (137-145) mmol/L Potassium 2.6 L* D (3.6-5.0) mmol/L Chloride 130.4 H (98-107) mmol/L Carbon Dioxide 21 L (22-30) mmol/L BUN (7-17) mg/dL Creatinine 0.4 L (0.7-1.2) mg/dL Glucose 117 H (65-100) mg/dL POC Glucose 231 H 126 H (70-105) Lactic Acid (0.7-2.0) mmol/L C-Reactive Protein (0.00-1.30) mg/dL 01/18/19 01/18/19 01/18/19 Range/Units 05:12 05:39 05:39 WBC 16.7 H (4.5-11.0) K/mm3 RBC 2.91 L (3.65-5.03) M/mm3 Hgb 8.8 L D (10.1-14.3) gm/dl Hct 25.6 L D (30.3-42.9) % MCHC 35 H (30-34) % Plt Count 459 H (140-440) K/mm3 POC ABG pH (7.35-7.45) Sodium 159 H (137-145) mmol/L Potassium 3.4 L D (3.6-5.0) mmol/L Chloride 127.3 H (98-107) mmol/L Carbon Dioxide (22-30) mmol/L BUN (7-17) mg/dL Creatinine 0.3 L (0.7-1.2) mg/dL Glucose 180 H (65-100) mg/dL POC Glucose 171 H (70-105) Lactic Acid (0.7-2.0) mmol/L C-Reactive Protein (0.00-1.30) mg/dL 01/18/19 01/18/19 Range/Units 06:05 07:03 WBC (4.5-11.0) K/mm3 RBC (3.65-5.03) M/mm3 Hgb (10.1-14.3) gm/dl Hct (30.3-42.9) % MCHC (30-34) % Plt Count (140-440) K/mm3 POC ABG pH (7.35-7.45) Sodium (137-145) mmol/L Potassium (3.6-5.0) mmol/L Chloride (98-107) mmol/L Carbon Dioxide (22-30) mmol/L BUN (7-17) mg/dL Creatinine (0.7-1.2) mg/dL Glucose (65-100) mg/dL POC Glucose 170 H 152 H (70-105) Lactic Acid (0.7-2.0) mmol/L C-Reactive Protein (0.00-1.30) mg/dL Medications & Allergies - Medications Allergies/Adverse Reactions: Allergies Penicillins Allergy (Verified 12/21/13 10:43) Angioedema THROAT CLOSES Home Medications: Home Medications Medication Instructions Recorded Confirmed Last Taken Type HYDROcodone/ACETAMINOPHEN [[place] 1 each PO Q6H PRN #12 tablet 08/03/17 Unknown Rx 5-325 Tablet] Bisacodyl [Dulcolax suppos] 10 mg NE QDAY PRN supp.rect 08/09/17 Unknown Rx Ferrous Sulfate [Feosol 325 MG tab] 325 mg PO BID #60 tablet 08/09/17 Unknown R x Insulin NPH/Regular [NovoLIN 70/30] 10 unit SUB-Q BIDDIAB 30 Days 08/09/17 Unknown Rx units Potassium Chloride [K-Dur] 40 meq PO QDAY #3 tablet 08/09/17 Unknown Rx levoFLOXacin [Levaquin TAB] 750 mg PO DAILY #3 tablet 08/09/17 Unknown Rx metroNIDAZOLE [Flagyl TAB] 500 mg PO Q8HR #10 tablet 08/09/17 Unknown Rx Active Medications: Generic Name Dose Route Start Last Admin Trade Name Freq PRN Reason Stop Dose Admin Acetaminophen 650 mg 01/17/19 06:08 Tylenol PO Q4H PRN Pain MILD(1-3)/Fever >100.5/LEBRON Dextrose 0 ml 01/17/19 04:58 01/18/19 03:26 D50w (25gm) Syringe IV 10 ml PRN PRN Administration Hypoglycemia Famotidine 20 mg 01/17/19 10:00 Pepcid IV QDAY GRICEL Insulin Human Regular 100 100 mls @ 6 mls/hr 01/17/19 05:00 01/18/19 05:10 units/ Sodium Chloride IV 5 units/hr TITR GRICEL 5 mls/hr Titration Protocol 6 UNITS/HR Vancomycin HCl 1,750 mg/ 535 mls @ 333.333 mls/hr 01/17/19 22:00 01/17/19 22:40 Sodium Chloride IV 333.333 mls/hr Q12H GRICEL Administration Clindamycin HCl 900 mg in 50 mls @ 100 mls/hr 01/17/19 16:00 01/18/19 00:56 Cleocin 900 Mg/50 Ml IV 100 mls/hr Q8H GRICEL Administration Protocol Fluconazole 200 mls @ 100 mls/hr 01/17/19 16:30 01/17/19 20:48 Diflucan IV 100 mls/hr Q24H GRICEL Administration Protocol Meropenem 1,000 mg/ Sodium 100 mls @ 100 mls/hr 01/17/19 16:30 01/18/19 00:46 Chloride IV 100 mls/hr Q8H GRICEL Administration Protocol Potassium Chloride 20 meq/ 1,010 mls @ 125 mls/hr 01/18/19 04:30 01/18/19 05:12 Dextrose IV 125 mls/hr DIRECT GRICEL Administration Morphine Sulfate 2 mg 01/17/19 08:36 01/18/19 04:36 Morphine IV 2 mg Q4H PRN Administration Pain, Moderate (4-6) Ondansetron HCl 4 mg 01/17/19 06:08 01/17/19 09:32 Zofran IV 4 mg Q8H PRN Administration Nausea And Vomiting Oxycodone/Acetaminophen 1 tab 01/17/19 06:08 Percocet 5/325 PO Q6H PRN Pain, Moderate (4-6) Sodium Chloride 10 ml 01/17/19 10:00 01/17/19 22:41 Sodium Chloride Flush Syringe 10 Ml IV 10 ml BID GRICEL Administration Sodium Chloride 10 ml 01/17/19 06:08 Sodium Chloride Flush Syringe 10 Ml IV PRN PRN LINE FLUSH
[2019-01-18 09:00] LABS: Anisocytosis Few; Basophils % (Manual) 0 % (0.0-1.8); Eosinophils % (Manual) 0 % (0.0-4.3); Myelocytes # (Manual) 0.3 K/mm3; Platelet Estimate Consistent w Auto; Poikilocytosis Few; Total Cells Counted 100
[2019-01-18] MEDS: PEPCID IV SCH ×2 (09:02→10:20)
[2019-01-18] MEDS: HumuLIN R 100 UNITS in NACL 0.9% 99 ML IV SCH (09:19)
[2019-01-18] MEDS: SODIUM CHLORIDE FLUSH SYRINGE 10 ML IV SCH ×2 (10:10→23:10)
[2019-01-18] MEDS ORDERED: D50W (25GM) Syringe IV PRN (11:00)
--- NOTE | 2019-01-18 11:01 | Progress Note ---
Assessment and Plan 53 y/o female with DKA, metabolic acidosis, and electrolyte imbalance, possibly secondary to UTI. 1. Stop Insulin Drip 2. Stop D5W drip at this point and allow patient to eat. If does not eat adequate enough will have to restart D5 +/- drip 3. NPO after midnight for return to the OR and further debridement tomorrow 4. Ok with given Bicarb pushes until pH is greater than 7.[address] on bicarb drip 5. Replace K orally and IV 6. Overall prognosis is guarded CCT 31 minutes Subjective Date of service: 01/18/19 Principal diagnosis: septic shock Interval history: Improved clinically today. WBC better. BS better. Anion Gap is now closed. Family is at bedside. Objective - Constitutional Vitals: Vital Signs - 12hr 01/17/19 01/17/19 01/18/19 23:00 23:30 00:00 Temperature 98.8 F Pulse Rate 113 H 113 H 112 H Pulse Rate [ From Monitor] Respiratory 18 16 17 Rate Blood Pressure 108/60 113/61 117/65 O2 Sat by Pulse 100 Oximetry 01/18/19 01/18/19 01/18/19 00:01 00:10 00:30 Temperature Pulse Rate 113 H 114 H Pulse Rate [ 112 H From Monitor] Respiratory 17 18 17 Rate Blood Pressure 117/65 116/68 O2 Sat by Pulse 100 100 Oximetry 01/18/19 01/18/19 01/18/19 01:00 01:30 02:00 Temperature Pulse Rate 116 H 118 H 117 H Pulse Rate [ From Monitor] Respiratory 18 17 17 Rate Blood Pressure 123/65 122/66 124/64 O2 Sat by Pulse 99 99 Oximetry 01/18/19 01/18/19 01/18/19 02:30 03:00 03:30 Temperature Pulse Rate 114 H 111 H 114 H Pulse Rate [ From Monitor] Respiratory 16 16 16 Rate Blood Pressure 107/58 113/58 118/66 O2 Sat by Pulse 100 Oximetry 01/18/19 01/18/19 01/18/19 04:00 04:30 05:00 Temperature 98.0 F Pulse Rate 117 H 119 H 117 H Pulse Rate [ 117 H From Monitor] Respiratory 17 19 17 Rate Blood Pressure 123/66 121/66 123/62 O2 Sat by Pulse 100 100 100 Oximetry 01/18/19 01/18/1919 05:30 06:00 06:30 Temperature Pulse Rate 116 H 117 H 117 H Pulse Rate [ From Monitor] Respiratory 16 14 15 Rate Blood Pressure 132/73 134/77 136/80 O2 Sat by Pulse 100 Oximetry 01/18/19 01/18/19 01/18/19 07:00 07:30 07:32 Temperature Pulse Rate 116 H 117 H Pulse Rate [ From Monitor] Respiratory 14 16 Rate Blood Pressure 129/79 136/80 O2 Sat by Pulse 100 Oximetry - Labs CBC & Chem 7: 01/18/19 05:39 01/18/19 05:39 Labs: Abnormal lab results 01/17/19 01/17/19 01/17/19 Range/Units 10:45 11:47 11:55 WBC (4.5-11.0) K/mm3 RBC (3.65-5.03) M/mm3 Hgb (10.1-14.3) gm/dl Hct (30.3-42.9) % MCHC (30-34) % Plt Count (140-440) K/mm3 Seg Neuts % (Manual) (40.0-70.0) % Lymphocytes % (Manual) (13.4-35.0) % Seg Neutrophils # Man (1.8-7.7) K/mm3 Lymphocytes # (Manual) (1.2-5.4) K/mm3 POC ABG pH (7.35-7.45) Sodium 164 H* D (137-145) mmol/L Potassium 2.6 L* D (3.6-5.0) mmol/L Chloride 128.1 H (98-107) mmol/L Carbon Dioxide 13 L D (22-30) mmol/L BUN 27 H (7-17) mg/dL Creatinine 0.6 L (0.7-1.2) mg/dL Glucose 327 H (65-100) mg/dL POC Glucose 389 H (70-105) Lactic Acid 3.10 H* (0.7-2.0) mmol/L C-Reactive Protein (0.00-1.30) mg/dL 01/17/19 01/17/19 01/17/19 Range/Units 13:32 14:05 14:05 WBC (4.5-11.0) K/mm3 RBC (3.65-5.03) M/mm3 Hgb (10.1-14.3) gm/dl Hct (30.3-42.9) % MCHC (30-34) % Plt Count (140-440) K/mm3 Seg Neuts % (Manual) (40.0-70.0) % Lymphocytes % (Manual) (13.4-35.0) % Seg Neutrophils # Man (1.8-7.7) K/mm3 Lymphocytes # (Manual) (1.2-5.4) K/mm3 POC ABG pH 7.279 L (7.35-7.45) Sodium 158 H (137-145) mmol/L Potassium 3.0 L (3.6-5.0) mmol/L Chloride 123.5 H (98-107) mmol/L Carbon Dioxide 16 L (22-30) mmol/L BUN 19 H (7-17) mg/dL Creatinine 0.5 L (0.7-1.2) mg/dL Glucose 191 H (65-100) mg/dL POC Glucose (70-105) Lactic Acid 3.50 H* (0.7-2.0) mmol/L C-Reactive Protein (0.00-1.30) mg/dL 01/17/19 01/17/19 01/17/19 Range/Units 14:05 16:46 16:49 WBC (4.5-11.0) K/mm3 RBC (3.65-5.03) M/mm3 Hgb (10.1-14.3) gm/dl Hct (30.3-42.9) % MCHC (30-34) % Plt Count (140-440) K/mm3 Seg Neuts % (Manual) (40.0-70.0) % Lymphocytes % (Manual) (13.4-35.0) % Seg Neutrophils # Man (1.8-7.7) K/mm3 Lymphocytes # (Manual) (1.2-5.4) K/mm3 POC ABG pH (7.35-7.45) Sodium (137-145) mmol/L Potassium (3.6-5.0) mmol/L Chloride (98-107) mmol/L Carbon Dioxide (22-30) mmol/L BUN (7-17) mg/dL Creatinine (0.7-1.2) mg/dL Glucose (65-100) mg/dL POC Glucose 138 H 144 H (70-105) Lactic Acid (0.7-2.0) mmol/L C-Reactive Protein 28.80 H (0.00-1.30) mg/dL 01/17/19 01/17/19 01/17/19 Range/Units 17:39 20:03 20:26 WBC (4.5-11.0) K/mm3 RBC (3.65-5.03) M/mm3 Hgb (10.1-14.3) gm/dl Hct (30.3-42.9) % MCHC (30-34) % Plt Count (140-440) K/mm3 Seg Neuts % (Manual) (40.0-70.0) % Lymphocytes % (Manual) (13.4-35.0) % Seg Neutrophils # Man (1.8-7.7) K/mm3 Lymphocytes # (Manual) (1.2-5.4) K/mm3 POC ABG pH (7.35-7.45) Sodium 158 H (137-145) mmol/L Potassium 3.3 L (3.6-5.0) mmol/L Chloride 127.1 H (98-107) mmol/L Carbon Dioxide 18 L (22-30) mmol/L BUN 18 H (7-17) mg/dL Creatinine 0.4 L (0.7-1.2) mg/dL Glucose 289 H (65-100) mg/dL POC Glucose 158 H 299 H (70-105) Lactic Acid (0.7-2.0) mmol/L C-Reactive Protein (0.00-1.30) mg/dL 01/17/19 01/17/19 01/17/19 Range/Units 21:11 22:26 23:23 WBC (4.5-11.0) K/mm3 RBC (3.65-5.03) M/mm3 Hgb (10.1-14.3) gm/dl Hct (30.3-42.9) % MCHC (30-34) % Plt Count (140-440) K/mm3 Seg Neuts % (Manual) (40.0-70.0) % Lymphocytes % (Manual) (13.4-35.0) % Seg Neutrophils # Man (1.8-7.7) K/mm3 Lymphocytes # (Manual) (1.2-5.4) K/mm3 POC ABG pH (7.35-7.45) Sodium (137-145) mmol/L Potassium (3.6-5.0) mmol/L Chloride (98-107) mmol/L Carbon Dioxide (22-30) mmol/L BUN (7-17) mg/dL Creatinine (0.7-1.2) mg/dL Glucose (65-100) mg/dL POC Glucose 364 H 244 H 226 H (70-105) Lactic Acid (0.7-2.0) mmol/L C-Reactive Protein (0.00-1.30) mg/dL 01/18/19 01/18/19 01/18/19 Range/Units 00:19 00:52 02:03 WBC (4.5-11.0) K/mm3 RBC (3.65-5.03) M/mm3 Hgb (10.1-14.3) gm/dl Hct (30.3-42.9) % MCHC (30-34) % Plt Count (140-440) K/mm3 Seg Neuts % (Manual) (40.0-70.0) % Lymphocytes % (Manual) (13.4-35.0) % Seg Neutrophils # Man (1.8-7.7) K/mm3 Lymphocytes # (Manual) (1.2-5.4) K/mm3 POC ABG pH (7.35-7.45) Sodium 159 H (137-145) mmol/L Potassium 2.6 L* D (3.6-5.0) mmol/L Chloride 130.4 H (98-107) mmol/L Carbon Dioxide 21 L (22-30) mmol/L BUN (7-17) mg/dL Creatinine 0.4 L (0.7-1.2) mg/dL Glucose 117 H (65-100) mg/dL POC Glucose 174 H 231 H (70-105) Lactic Acid (0.7-2.0) mmol/L C-Reactive Protein (0.00-1.30) mg/dL 01/18/19 01/18/19 01/18/19 Range/Units 04:03 05:12 05:39 WBC 16.7 H (4.5-11.0) K/mm3 RBC 2.91 L (3.65-5.03) M/mm3 Hgb 8.8 L D (10.1-14.3) gm/dl Hct 25.6 L D (30.3-42.9) % MCHC 35 H (30-34) % Plt Count 459 H (140-440) K/mm3 Seg Neuts % (Manual) 91.0 H (40.0-70.0) % Lymphocytes % (Manual) 6.0 L (13.4-35.0) % Seg Neutrophils # Man 15.2 H (1.8-7.7) K/mm3 Lymphocytes # (Manual) 1.0 L (1.2-5.4) K/mm3 POC ABG pH (7.35-7.45) Sodium (137-145) mmol/L Potassium (3.6-5.0) mmol/L Chloride (98-107) mmol/L Carbon Dioxide (22-30) mmol/L BUN (7-17) mg/dL Creatinine (0.7-1.2) mg/dL Glucose (65-100) mg/dL POC Glucose 126 H 171 H (70-105) Lactic Acid (0.7-2.0) mmol/L C-Reactive Protein (0.00-1.30) mg/dL 01/18/19 01/18/19 01/18/19 Range/Units 05:39 06:05 07:03 WBC (4.5-11.0) K/mm3 RBC (3.65-5.03) M/mm3 Hgb (10.1-14.3) gm/dl Hct (30.3-42.9) % MCHC (30-34) % Plt Count (140-440) K/mm3 Seg Neuts % (Manual) (40.0-70.0) % Lymphocytes % (Manual) (13.4-35.0) % Seg Neutrophils # Man (1.8-7.7) K/mm3 Lymphocytes # (Manual) (1.2-5.4) K/mm3 POC ABG pH (7.35-7.45) Sodium 159 H (137-145) mmol/L Potassium 3.4 L D (3.6-5.0) mmol/L Chloride 127.3 H (98-107) mmol/L Carbon Dioxide (22-30) mmol/L BUN (7-17) mg/dL Creatinine 0.3 L (0.7-1.2) mg/dL Glucose 180 H (65-100) mg/dL POC Glucose 170 H 152 H (70-105) Lactic Acid (0.7-2.0) mmol/L C-Reactive Protein (0.00-1.30) mg/dL 01/18/19 Range/Units 09:23 WBC (4.5-11.0) K/mm3 RBC (3.65-5.03) M/mm3 Hgb (10.1-14.3) gm/dl Hct (30.3-42.9) % MCHC (30-34) % Plt Count (140-440) K/mm3 Seg Neuts % (Manual) (40.0-70.0) % Lymphocytes % (Manual) (13.4-35.0) % Seg Neutrophils # Man (1.8-7.7) K/mm3 Lymphocytes # (Manual) (1.2-5.4) K/mm3 POC ABG pH (7.35-7.45) Sodium (137-145) mmol/L Potassium (3.6-5.0) mmol/L Chloride (98-107) mmol/L Carbon Dioxide (22-30) mmol/L BUN (7-17) mg/dL Creatinine (0.7-1.2) mg/dL Glucose (65-100) mg/dL POC Glucose 129 H (70-105) Lactic Acid (0.7-2.0) mmol/L C-Reactive Protein (0.00-1.30) mg/dL Medications & Allergies - Medications Allergies/Adverse Reactions: Allergies Penicillins Allergy (Verified 12/21/13 10:43) Angioedema THROAT CLOSES Home Medications: Home Medications Medication Instructions Recorded Confirmed Last Taken Type HYDROcodone/ACETAMINOPHEN [[place] 1 each PO Q6H PRN #12 tablet 08/03/17 Unknown Rx 5-325 Tablet] Bisacodyl [Dulcolax suppos] 10 mg AR QDAY PRN supp.rect 08/09/17 Unknown Rx Ferrous Sulfate [Feosol 325 MG tab] 325 mg PO BID #60 tablet 08/09/17 Unknown Rx Insulin NPH/Regular [NovoLIN 70/30] 10 unit SUB-Q BIDDIAB 30 Days 08/09/17 Unknown Rx units Potassium Chloride [K-Dur] 40 meq PO QDAY #3 tablet 08/09/17 Unknown Rx levoFLOXacin [Levaquin TAB] 750 mg PO DAILY #3 tablet 08/09/17 Unknown Rx metroNIDAZOLE [Flagyl TAB] 500 mg PO Q8HR #10 tablet 08/09/17 Unknown Rx Active Medications: Generic Name Dose Route Start Last Admin Trade Name Freq PRN Reason Stop Dose Admin Acetaminophen 650 mg 01/17/19 06:08 Tylenol PO Q4H PRN Pain MILD(1-3)/Fever >100.5/LEBRON Dextrose 0 ml 01/17/19 04:58 01/18/19 03:26 D50w (25gm) Syringe IV 10 ml PRN PRN Administration Hypoglycemia Dextrose 50 ml 01/18/19 10:54 D50w (25gm) Syringe IV PRN PRN Hypoglycemia Famotidine 20 mg 01/17/19 10:00 01/18/19 09:02 Pepcid IV Not Given QDAY GRICEL Vancomycin HCl 1,750 mg/ 535 mls @ 333.333 mls/hr 01/17/19 22:00 01/17/19 22:40 Sodium Chloride IV 333.333 mls/hr Q12H GRICEL Administration Clindamycin HCl 900 mg in 50 mls @ 100 mls/hr 01/17/19 16:00 01/18/19 08:22 Cleocin 900 Mg/50 Ml IV 100 mls/hr Q8H GRICEL Administration Protocol Fluconazole 200 mls @ 100 mls/hr 01/17/19 16:30 01/17/19 20:48 Diflucan IV 100 mls/hr Q24H GRICEL Administration Protocol Meropenem 1,000 mg/ Sodium 100 mls @ 100 mls/hr 01/17/19 16:30 01/18/19 08:23 Chloride IV 100 mls/hr Q8H GRICEL Administration Protocol Insulin Human Lispro 0 unit 01/18/19 12:00 Humalog SUB-Q Q6HR GRICEL Protocol Morphine Sulfate 2 mg 01/17/19 08:36 01/18/19 04:36 Morphine IV 2 mg Q4H PRN Administration Pain, Moderate (4-6) Ondansetron HCl 4 mg 01/17/19 06:08 01/17/19 09:32 Zofran IV 4 mg Q8H PRN Administration Nausea And Vomiting Oxycodone/Acetaminophen 1 tab 01/17/19 06:08 Percocet 5/325 PO Q6H PRN Pain, Moderate (4-6) Sodium Chloride 10 ml 01/17/19 10:00 01/17/19 22:41 Sodium Chloride Flush Syringe 10 Ml IV 10 ml BID GRICEL Administration Sodium Chloride 10 ml 01/17/19 06:08 Sodium Chloride Flush Syringe 10 Ml IV PRN PRN LINE FLUSH
[2019-01-18] MEDS: VANCOMYCIN 1,750 MG in NACL 0.9% 500 ML 500 ML IV SCH ×2 (11:15→23:09)
[2019-01-18 13:31] LABS: BUN/Creatinine Ratio 40; Blood Urea Nitrogen 12 mg/dL (7-17); Calcium 9.2 mg/dL (8.4-10.2); Hemolysis Index 23
--- NOTE | 2019-01-18 13:49 | Anesthesia Consultation ---
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 Electrolyte correction, and volume recusitation ongoing. Patient tachycardic, normotensive, currently not tachypneic. On [place] oxygen at 2L/min. aAnesthesia consent obtained from sister over the phone as patient is still altered and unable to concent for herself.
[2019-01-18] MEDS: KCL 20MEQ/100ML 20 MEQ/100 ML BAG IV SCH (14:52)
[2019-01-18] MEDS: HumaLOG SUB-Q SCH ×2 (14:58→19:13)
[2019-01-18] MEDS: DIFLUCAN 200 ML IV SCH (19:15)
[2019-01-18 21:19] LABS: BUN/Creatinine Ratio 37; Blood Urea Nitrogen 11 mg/dL (7-17); Calcium 8.8 mg/dL (8.4-10.2); Hemolysis Index 7
[2019-01-19] MEDS: HumaLOG SUB-Q SCH ×5 (00:30→17:03)
[2019-01-19 00:50] LABS: BUN/Creatinine Ratio 30; Blood Urea Nitrogen 9 mg/dL (7-17); Calcium 7.9 mg/dL (8.4-10.2); Hemolysis Index 192
[2019-01-19] MEDS: CLEOCIN 900 MG/50 mL 900 MG/50 ML BAG IV SCH ×2 (01:05→09:35)
[2019-01-19] MEDS: MERREM 1,000 MG in NACL 0.9% 100 ML IV SCH ×3 (02:37→17:04)
[2019-01-19 05:06] LABS: Hematocrit 23.8 % (30.3-42.9); Hemoglobin 8.3 gm/dl (10.1-14.3); Mean Corpuscular HGB Conc 35 % (30-34); Mean Corpuscular Volume 86 fl (79-97); Platelet Count 390 K/mm3 (140-440); Red Blood Count 2.76 M/mm3 (3.65-5.03); Red Cell Distribution Width 14.6 % (13.2-15.2)
[2019-01-19 05:20] LABS: BUN/Creatinine Ratio 30; Blood Urea Nitrogen 9 mg/dL (7-17); Calcium 8.4 mg/dL (8.4-10.2); Hemolysis Index 1
[2019-01-19] MEDS: MORPHINE IV PRN (06:45)
[2019-01-19] MEDS: KCL 20MEQ/100ML 20 MEQ/100 ML BAG IV SCH ×3 (07:09→10:49)
[2019-01-19] MEDS: FLAGYL 500 MG/100 ML 500 MG/100 ML BAG IV SCH ×2 (07:22→07:23)
[2019-01-19] MEDS: LACTATED RINGERS 1,000 ML IV SCH (07:24)
--- NOTE | 2019-01-19 07:40 | Progress Note ---
Assessment and Plan Assessment and plan: Patient is a 53 yo woman with a history of upper back abscess/necrotizing fascitis s/p OR debridement, IDDM and anemia who presents to [facility] ED with left breast pain and swelling. Currently, patient is confused. She underwent wide excisional debridement on 01/17/[address] Guerra; findings were 300-400 cc of pus drained with at least 30% of the lower inner and outer quadrants with necrosis and resected for left breast necrotizing fascititis Severe Left breast necrotizing fascititis s/p debridement and removal of about 1/3 of left breast: Another debridement Tuesday. continue ABX, wound vac in place Severe sepsis due to Left breast cellulitis with abscess: on IV Diflucan, IV Clindamycin and IV Vancomycin with closely drug monitoring. ID is following, input noted. DKA, resolved: start long acting insulin Acute encephalopathy due to the above, resolved, Severe acidosis: treat the sepsis and dka, consulted CCM Hypokalemia: replace in IVF Hypernatremia: more free water on d5W now, follow BMP closely PCN drug allergy Acute blood loss anemia/Drop in HCT due to surgery: appears steady today, c ontinue to monitor DVT ppx, I stopped sq lovenox for possible surgical intervention, continue to hold heparin due to drop in HCT Thibodeaux in place Right IJ in place, 01/17/19 inserted remove restraints, pt is a/o x 3 now Back to OR today CCT 31 min History Interval history: Patient was seen and examined. Follow-up on current diagnosis of Left breast Necrotizing Fascitiis. No overnight events reported to me. Patient denies sob, n/v/cp except left breast. Imaging, nursing note, chart, labs and old chart reviewed. Hospitalist Physical - Physical exam Narrative exam: Gen: ill appearing, NAD, awake, alert Orientated x 3 HEENT: NCAT, EOMI, PERRL, OP Clear Neck: supple, no adenopathy, no thyromegaly, no JVD CVS/Heart: Regular tachycardia, normal S1S2, pulses present bilaterally Chest/Lungs: tachypneic, CTA B, Symmetrical chest expansion, good air entry bilaterally GI/Abdomen: soft, NTND, good bowel sounds, no guarding or rebound /Bladder: no suprapubic tenderness, no CVA or paraspinal tenderness Breast: left breast severely enlarged, erythematous, red, tender, foul smelling, obvious abscess with necrotic tissue removed and wound vac in place Extermity/Skin: no c/c/e, no obvious rash MSK: FROM x 4 Neuro: CN 2-12 grossly intact, no new focal deficits Psych: calm - Constitutional Vitals: Temp Pulse Resp BP Pulse Ox 98.4 F 102 H 15 145/85 100 01/19/19 00:00 01/19/19 06:00 01/19/19 06:00 01/19/19 06:00 01/19/19 06:00 General appearance: Present: no acute distress, other (in restraints) Results - Labs CBC & Chem 7: 01/19/19 04:50 01/19/19 04:50 Labs: Laboratory Last Values WBC 17.8 K/mm3 (4.5-11.0) H 01/19/19 04:50 RBC 2.76 M/mm3 (3.65-5.03) L 01/19/19 04:50 Hgb 8.3 gm/dl (10.1-14.3) L 01/19/19 04:50 Hct 23.8 % (30.3-42.9) L 01/19/19 04:50 MCV 86 fl (79-97) 01/19/19 04:50 MCH 30 pg (28-32) 01/19/19 04:50 MCHC 35 % (30-34) H 01/19/19 04:50 RDW 14.6 % (13.2-15.2) 01/19/19 04:50 Plt Count 390 K/mm3 (140-440) 01/19/19 04:50 Add Manual Diff Complete 01/18/19 05:39 Total Counted 100 01/18/19 05:39 Seg Neutrophils % Saw Operator 01/17/19 01:17 Seg Neuts % (Manual) 91.0 % (40.0-70.0) H 01/18/19 05:39 0 % 01/18/19 05:39 6.0 % (13.4-35.0) L 01/18/19 05:39 Reactive Lymphs % (Man) 0 % 01/18/19 05:39 1.0 % (0.0-7.3) 01/18/19 05:39 0 % (0.0-4.3) 01/18/19 05:39 0 % (0.0-1.8) 01/18/19 05:39 0 % 01/18/19 05:39 2.0 % 01/18/19 05:39 0 % 01/18/19 05:39 0 % 01/18/19 05:39 Nucleated RBC % Not Reportable 01/18/19 05:39 Seg Neutrophils # Man 15.2 K/mm3 (1.8-7.7) H 01/18/19 05:39 Band Neutrophils # 0.0 K/mm3 01/18/19 05:39 1.0 K/mm3 (1.2-5.4) L 01/18/19 05:39 Abs React Lymphs (Man) 0.0 K/mm3 01/18/19 05:39 0.2 K/mm3 (0.0-0.8) 01/18/19 05:39 0.0 K/mm3 (0.0-0.4) 01/18/19 05:39 0.0 K/mm3 (0.0-0.1) 01/18/19 05:39 0.0 K/mm3 01/18/19 05:39 0.3 K/mm3 01/18/19 05:39 0.0 K/mm3 01/18/19 05:39 Blast Cells # 0.0 K/mm3 01/18/19 05:39 WBC Morphology Not Reportable 01/18/19 05:39 Hypersegmented Neuts Not Reportable 01/18/19 05:39 Hyposegmented Neuts Not Reportable 01/18/19 05:39 Hypogranular Neuts Not Reportable 01/18/19 05:39 Not Reportable 01/18/19 05:39 Not Reportable 01/18/19 05:39 Not Reportable 01/18/19 05:39 Not Reportable 01/18/19 05:39 Not Reportable 01/18/19 05:39 Not Reportable 01/18/19 05:39 Consistent w auto 01/18/19 05:39 Not Reportable 01/18/19 05:39 Plt Clumps, EDTA Not Reportable 01/18/19 05:39 Not Reportable 01/18/19 05:39 Not Reportable 01/18/19 05:39 Not Reportable 01/18/19 05:39 Plt Morphology Comment Not Reportable 01/18/19 05:39 RBC Morphology Not Reportable 01/18/19 05:39 Dimorphic RBCs Not Reportable 01/18/19 05:39 Not Reportable 01/18/19 05:39 Not Reportable 01/18/19 05:39 Few 01/18/19 05:39 Few 01/18/19 05:39 Not Reportable 01/18/19 05:39 Not Reportable 01/18/19 05:39 Not Reportable 01/18/19 05:39 Not Reportable 01/18/19 05:39 Not Reportable 01/18/19 05:39 Not Reportable 01/18/19 05:39 Not Reportable 01/18/19 05:39 Not Reportable 01/18/19 05:39 Not Reportable 01/18/19 05:39 Not Reportable 01/18/19 05:39 Not Reportable 01/18/19 05:39 Not Reportable 01/18/19 05:39 Not Reportable 01/18/19 05:39 Not Reportable 01/18/19 05:39 Not Reportable 01/18/19 05:39 Acanthocytes (Spur) Not Reportable 01/18/19 05:39 Rouleaux Not Reportable 01/18/19 05:39 Not Reportable 01/18/19 05:39 Not Reportable 01/18/19 05:39 Not Reportable 01/18/19 05:39 Not Reportable 01/18/19 05:39 Hem Pathologist Commnt No 01/18/19 05:39 POC ABG pH 7.279 (7.35-7.45) L 01/17/19 13:32 POC ABG pO2 82 (80-105) 01/17/19 13:32 POC ABG HCO3 9.8 (22-26 mml/L) 01/17/19 13:32 POC ABG Total CO2 10 (23-27mmol/L) 01/17/19 13:32 POC ABG O2 Sat 95 01/17/19 13:32 POC ABG Base Excess -17 ((-2) - (+3)mmol/L) 01/17/19 13:32 VBG pH 7.089 (7.320-7.420) L* 01/17/19 02:21 21 % 01/17/19 13:32 Sodium 153 mmol/L (137-145) H 01/19/19 04:50 Potassium 3.5 mmol/L (3.6-5.0) L D 01/19/19 04:50 Chloride 118.9 mmol/L (98-107) H 01/19/19 04:50 Carbon Dioxide 27 mmol/L (22-30) 01/19/19 04:50 11 mmol/L 01/19/19 04:50 BUN 9 mg/dL (7-17) 01/19/19 04:50 0.3 mg/dL (0.7-1.2) L 01/19/19 04:50 Estimated GFR > 60 ml/min 01/19/19 04:50 30 % 01/19/19 04:50 Glucose 207 mg/dL (65-100) H 01/19/19 04:50 POC Glucose 275 (70-105) H 01/19/19 00:11 Lactic Acid 3.50 mmol/L (0.7-2.0) H* 01/17/19 14:05 Calcium 8.4 mg/dL (8.4-10.2) 01/19/19 04:50 Phosphorus 3.20 mg/dL (2.5-4.5) 01/17/19 05:06 Magnesium 2.20 mg/dL (1.7-2.3) 01/17/19 05:06 0.20 mg/dL (0.1-1.2) 01/17/19 03:29 AST 6 units/L (5-40) 01/17/19 03:29 ALT 8 units/L (7-56) 01/17/19 03:29 176 units/L (35-129) H 01/17/19 03:29 28.80 mg/dL (0.00-1.30) H 01/17/19 14:05 6.6 g/dL (6.3-8.2) 01/17/19 03:29 3.1 g/dL (3.9-5) L 01/17/19 03:29 0.9 % 01/17/19 03:29 Yellow (Yellow) 01/17/19 01:40 Slightly-cloudy (Clear) 01/17/19 01:40 5.0 (5.0-7.0) 01/17/19 01:40 Ur Specific [place] 1.026 (1.003-1.030) 01/17/19 01:40 30 mg/dl mg/dL (Negative) 01/17/19 01:40 >=500 mg/dL (Negative) 01/17/19 01:40 80 mg/dL (Negative) 01/17/19 01:40 Sm (Negative) 01/17/19 01:40 Neg (Negative) 01/17/19 01:40 Neg (Negative) 01/17/19 01:40 < 2.0 mg/dL (<2.0) 01/17/19 01:40 Ur Leukocyte Esterase Tr (Negative) 01/17/19 01:40 5.0 /HPF (0.0-6.0) 01/17/19 01:40 10.0 /HPF (0.0-6.0) 01/17/19 01:40 U Epithel Cells (Auto) 4.0 /HPF (0-13.0) 01/17/19 01:40 Few /HPF 01/17/19 01:40 Active Medications - Current Medications Current Medications: Generic Name Dose Route Start Last Admin Trade Name Freq PRN Reason Stop Dose Admin Acetaminophen 650 mg 01/17/19 06:08 Tylenol PO Q4H PRN Pain MILD(1-3)/Fever >100.5/LEBRON Dextrose 50 ml 01/18/19 11:00 D50w (25gm) Syringe IV PRN PRN Hypoglycemia Famotidine 20 mg 01/17/19 10:00 01/18/19 10:20 Pepcid IV 20 mg QDAY GRICEL Administration Vancomycin HCl 1,750 mg/ 535 mls @ 333.333 mls/hr 01/17/19 22:00 01/18/19 23:09 Sodium Chloride IV 333.333 mls/hr Q12H GRICEL Administration Fluconazole 200 mls @ 100 mls/hr 01/17/19 16:30 01/18/19 19:15 Diflucan IV 100 mls/hr Q24H GRICEL Administration Protocol Clindamycin HCl 900 mg in 50 mls @ 100 mls/hr 01/19/19 02:00 01/19/19 01:05 Cleocin 900 Mg/50 Ml IV 100 mls/hr Q8H GRICEL Administration Protocol Meropenem 1,000 mg/ Sodium 100 mls @ 100 mls/hr 01/19/19 02:00 01/19/19 02:37 Chloride IV 100 mls/hr Q8H GRICEL Administration Protocol Insulin Human Lispro 0 unit 01/18/19 12:00 01/19/19 06:29 Humalog SUB-Q 3 unit Q6HR RGICEL Administration Protocol Morphine Sulfate 2 mg 01/17/19 08:36 01/19/19 06:45 Morphine IV 2 mg Q4H PRN Administration Pain, Moderate (4-6) Ondansetron HCl 4 mg 01/17/19 06:08 01/17/19 09:32 Zofran IV 4 mg Q8H PRN Administration Nausea And Vomiting Oxycodone/Acetaminophen 1 tab 01/17/19 06:08 Percocet 5/325 PO Q6H PRN Pain, Moderate (4-6) Sodium Chloride 10 ml 01/17/19 10:00 01/18/19 23:10 Sodium Chloride Flush Syringe 10 Ml IV 10 ml BID GRICEL Administration Sodium Chloride 10 ml 01/17/19 06:08 Sodium Chloride Flush Syringe 10 Ml IV PRN PRN LINE FLUSH
[2019-01-19] MEDS: SODIUM CHLORIDE FLUSH SYRINGE 10 ML IV SCH ×2 (09:36→22:16)
[2019-01-19] MEDS: VANCOMYCIN 1,750 MG in NACL 0.9% 500 ML 500 ML IV SCH ×2 (09:39→22:13)
[2019-01-19] MEDS: PEPCID IV SCH (09:45)
--- NOTE | 2019-01-19 10:58 | Progress Note ---
Assessment and Plan Cultures: Blood cultures 01/17/2019 no growth so far. Surgical biopsy 01/17/2019 +GNRs Assessment: 53 y/o female with history of diabetes, uncontrolled, known to ID service due to admission on 07/28/2017 due to large upper back cutaneous abscess and necrotizing fascitis in Jul 2017. Admitted on 01/17/2019 due to 5-day history of worsening left breast edema, erythema and tenderness associated with AMS/sleepiness/confusion: 1) Severe Sepsis with septic shock: better, off pressors. Etiology most likely complicated left breast skin and soft tissue infection. UA neg. 2) Complicated extensive left breast skin and soft tissue infection likely necrotizing fascitis/abscess: likely Strep infection ?GAS v/s less likely Staph. She was recently diagnosed with left breast cellulitis. She went to [place] urgent care and was placed on clindamycin, Balsam and ibuprofen. On admission day, left breast opened up and was draining and bleeding. S/P Left breast wide local debridement, incision and drainage on 01/17/2019. Findings: 300-400 cc of pus drained with at least 30% of the lower inner and outer quadrants with necrosis and resected. CRP=33. OR wound cultures +GNRs. She reports lesion started as a "pimple" and she was placing "warm compresses" to drain it. 3) History of large upper back cutaneous abscess and necrotizing fascitis in Jul 2017 s/p OR debridement on 07/30/2017 surgical wound cx + Diphteroids, Staph capitis and Peptostreptococcus treated with clindamycin, levaquin and vancomycin as inpatient, discharged on levaquin 750 mg po qday and flagyl 500 mg TID total 2 weeks from 07/30 until 08/12/2017. 4) Thrombocytosis: from infection 5) DM-uncontrolled on DKA, better 6) Acute encephalopathy: from severe sepsis and hypernatremia. Improving 7) Penicillin allergy: tolerating meropenem Recommendations: - follow-up deep tissue cultures - follow-up blood cultures - continue meropenem 1 gm IV q8 hour D3 - continue vancomycin with PK consult for now until culture finalized D3 - stop clindamycin no evidence of Group A Strep infection - stop fluconazole - no evidence of candidemia - diabetes control - stop contact isolation Dr Fisher is covering this weekend Zaina Be MD Infectious Diseases [facility] M [phone] O [phone] Subjective Date of service: 01/19/19 Principal diagnosis: septic shock Interval history: Alert, talking, feels better, follows commands, off pressors. ROS limited Objective - Exam Narrative Exam: General appearance: alert in NAD follows commands Eyes: anicteric sclerae, moist conjunctivae; no lid-lag; PERRLA HENT: Atraumatic; oropharynx limited Neck: Trachea midline; supple, no thyromegaly or lymphadenopathy Lungs: CTA CV: tachycardic Abdomen: Soft, non-tender Extremities: no edema Skin: left breast with extensive edema, tenderness and erythema decreased now with wound VAC Psych: no agitated Neuro: alert moves all extremities - Constitutional Vitals: Vital Signs Temp Pulse Resp BP Pulse Ox 98.1 F 103 H 13 145/86 100 01/19/19 08:00 01/19/19 10:00 01/19/19 10:00 01/19/19 10:00 01/19/19 10:00 Temperature -Last 24 Hours Temperature 98.1 F Temperature 98.4 F Temperature 98.7 F Temperature 98.0 F - Labs CBC & Chem 7: 01/19/19 04:50 01/19/19 04:50 Labs: Abnormal lab results 01/18/19 01/18/19 01/18/19 Range/Units 12:55 13:54 17:46 WBC (4.5-11.0) K/mm3 RBC (3.65-5.03) M/mm3 Hgb (10.1-14.3) gm/dl Hct (30.3-42.9) % MCHC (30-34) % Sodium 155 H (137-145) mmol/L Potassium (3.6-5.0) mmol/L Chloride 121.8 H (98-107) mmol/L Carbon Dioxide (22-30) mmol/L Creatinine 0.3 L (0.7-1.2) mg/dL Glucose 172 H (65-100) mg/dL POC Glucose 182 H 291 H (70-105) Calcium (8.4-10.2) mg/dL 01/18/19 01/19/19 01/19/19 Range/Units 20:55 00:11 00:24 WBC (4.5-11.0) K/mm3 RBC (3.65-5.03) M/mm3 Hgb (10.1-14.3) gm/dl Hct (30.3-42.9) % MCHC (30-34) % Sodium 153 H 149 H (137-145) mmol/L Potassium 7.2 H* D (3.6-5.0) mmol/L Chloride 119.3 H 118.5 H (98-107) mmol/L Carbon Dioxide 21 L (22-30) mmol/L Creatinine 0.3 L 0.3 L (0.7-1.2) mg/dL Glucose 265 H 282 H (65-100) mg/dL POC Glucose 275 H (70-105) Calcium 7.9 L (8.4-10.2) mg/dL 01/19/19 01/19/19 Range/Units 04:50 04:50 WBC 17.8 H (4.5-11.0) K/mm3 RBC 2.76 L (3.65-5.03) M/mm3 Hgb 8.3 L (10.1-14.3) gm/dl Hct 23.8 L (30.3-42.9) % MCHC 35 H (30-34) % Sodium 153 H (137-145) mmol/L Potassium 3.5 L D (3.6-5.0) mmol/L Chloride 118.9 H (98-107) mmol/L Carbon Dioxide (22-30) mmol/L Creatinine 0.3 L (0.7-1.2) mg/dL Glucose 207 H (65-100) mg/dL POC Glucose (70-105) Calcium (8.4-10.2) mg/dL
--- NOTE | 2019-01-19 11:17 | Progress Note ---
Assessment and Plan 53 y/o female with DKA, metabolic acidosis, and electrolyte imbalance, possibly secondary to UTI. 1. Surgery today. 2. Continue Moderate dose SSI but will also add long acting insulin tonight. If patient will not or cannot eat post op, will restart D5. hopeful she will not need drip again. 3. Follow up any surgery recs 4. Replace K 5. Overall prognosis is guarded CCT 31 minutes Subjective Date of service: 01/19/19 Principal diagnosis: septic shock Interval history: Patient on the way down now for surgery. K was replaced this AM by IMS. Blood sugars stable on sliding scale only. Patient did not eat at all yesterday. Objective - Constitutional Vitals: Vital Signs - 12hr 01/18/19 01/19/19 01/19/19 23:30 00:00 00:30 Temperature 98.4 F Pulse Rate 109 H 106 H 106 H Pulse Rate [ 106 H From Monitor] Respiratory 12 15 12 Rate Blood Pressure 139/79 146/82 146/82 O2 Sat by Pulse 100 100 100 Oximetry 01/19/19 01/19/19 01/19/19 01:00 01:30 02:00 Temperature Pulse Rate 104 H 107 H 110 H Pulse Rate [ From Monitor] Respiratory 14 12 14 Rate Blood Pressure 148/80 148/80 133/82 O2 Sat by Pulse 100 100 100 Oximetry 01/19/19 01/19/19 01/19/19 02:30 03:00 03:30 Temperature Pulse Rate 110 H 108 H 103 H Pulse Rate [ From Monitor] Respiratory 13 14 15 Rate Blood Pressure 133/82 133/82 134/86 O2 Sat by Pulse 100 100 Oximetry 01/19/19 01/19/19 01/19/19 04:00 04:30 05:00 Temperature Pulse Rate 103 H 103 H 102 H Pulse Rate [ 105 H From Monitor] Respiratory 14 13 13 Rate Blood Pressure 146/77 146/77 146/77 O2 Sat by Pulse 100 100 100 Oximetry 01/19/19 01/19/19 01/19/19 05:30 06:00 06:30 Temperature Pulse Rate 106 H 102 H 107 H Pulse Rate [ From Monitor] Respiratory 14 15 13 Rate Blood Pressure 130/79 145/85 145/85 O2 Sat by Pulse 100 100 100 Oximetry 01/19/19 01/19/19 01/19/19 07:00 07:30 08:00 Temperature 98.1 F Pulse Rate 103 H 103 H 103 H Pulse Rate [ 103 H From Monitor] Respiratory 13 13 13 Rate Blood Pressure 145/81 145/81 138/85 O2 Sat by Pulse 100 100 100 Oximetry 01/19/19 01/19/19 01/19/19 08:30 09:00 09:30 Temperature Pulse Rate 102 H 99 H 101 H Pulse Rate [ From Monitor] Respiratory 12 12 11 L Rate Blood Pressure 138/85 146/86 138/85 O2 Sat by Pulse 100 100 100 Oximetry 01/19/19 10:00 Temperature Pulse Rate 103 H Pulse Rate [ From Monitor] Respiratory 13 Rate Blood Pressure 145/86 O2 Sat by Pulse 100 Oximetry General appearance: Present: no acute distress, other (still very lethargic but appropriate) - EENT Eyes: PERRL, EOM intact ENT: hearing intact - Neck Neck: supple, normal ROM - Respiratory Respiratory effort: normal Respiratory: bilateral: CTA - Breasts Breasts: other (post surgical changes noted to left breast with wound vac intact) - Cardiovascular Rhythm: regular Heart Sounds: Present: S1 & S2 - Labs CBC & Chem 7: 01/19/19 04:50 01/19/19 04:50 Labs: Abnormal lab results 01/18/19 01/18/19 01/18/19 Range/Units 12:55 13:54 17:46 WBC (4.5-11.0) K/mm3 RBC (3.65-5.03) M/mm3 Hgb (10.1-14.3) gm/dl Hct (30.3-42.9) % MCHC (30-34) % Sodium 155 H (137-145) mmol/L Potassium (3.6-5.0) mmol/L Chloride 121.8 H (98-107) mmol/L Carbon Dioxide (22-30) mmol/L Creatinine 0.3 L (0.7-1.2) mg/dL Glucose 172 H (65-100) mg/dL POC Glucose 182 H 291 H (70-105) Calcium (8.4-10.2) mg/dL 01/18/19 01/19/19 01/19/19 Range/Units 20:55 00:11 00:24 WBC (4.5-11.0) K/mm3 RBC (3.65-5.03) M/mm3 Hgb (10.1-14.3) gm/dl Hct (30.3-42.9) % MCHC (30-34) % Sodium 153 H 149 H (137-145) mmol/L Potassium 7.2 H* D (3.6-5.0) mmol/L Chloride 119.3 H 118.5 H (98-107) mmol/L Carbon Dioxide 21 L (22-30) mmol/L Creatinine 0.3 L 0.3 L (0.7-1.2) mg/dL Glucose 265 H 282 H (65-100) mg/dL POC Glucose 275 H (70-105) Calcium 7.9 L (8.4-10.2) mg/dL 01/19/19 01/19/19 01/19/19 Range/Units 04:50 04:50 06:11 WBC 17.8 H (4.5-11.0) K/mm3 RBC 2.76 L (3.65-5.03) M/mm3 Hgb 8.3 L (10.1-14.3) gm/dl Hct 23.8 L (30.3-42.9) % MCHC 35 H (30-34) % Sodium 153 H (137-145) mmol/L Potassium 3.5 L D (3.6-5.0) mmol/L Chloride 118.9 H (98-107) mmol/L Carbon Dioxide (22-30) mmol/L Creatinine 0.3 L (0.7-1.2) mg/dL Glucose 207 H (65-100) mg/dL POC Glucose 221 H (70-105) Calcium (8.4-10.2) mg/dL Medications & Allergies - Medications Allergies/Adverse Reactions: Allergies Penicillins Allergy (Verified 12/21/13 10:43) Angioedema THROAT CLOSES Home Medications: Home Medications Medication Instructions Recorded Confirmed Last Taken Type HYDROcodone/ACETAMINOPHEN [[place] 1 each PO Q6H PRN #12 tablet 08/03/17 01/19/19 Unknown Rx 5-325 Tablet] Bisacodyl [Dulcolax suppos] 10 mg VA QDAY PRN supp.rect 08/09/17 01/19/19 Unknown Rx Ferrous Sulfate [Feosol 325 MG tab] 325 mg PO BID #60 tablet 08/09/17 01/19/19 Unknown Rx Insulin NPH/Regular [NovoLIN 70/30] 10 unit SUB-Q BIDDIAB 30 Days 08/09/17 Unknown Rx units Potassium Chloride [K-Dur] 40 meq PO QDAY #3 tablet 08/09/17 01/19/19 Unknown Rx levoFLOXacin [Levaquin TAB] 750 mg PO DAILY #3 tablet 08/09/17 01/19/19 Unknown Rx metroNIDAZOLE [Flagyl TAB] 500 mg PO Q8HR #10 tablet 08/09/17 01/19/19 Unknown Rx Active Medications: Generic Name Dose Route Start Last Admin Trade Name Freq PRN Reason Stop Dose Admin Acetaminophen 650 mg 01/17/19 06:08 Tylenol PO Q4H PRN Pain MILD(1-3)/Fever >100.5/LEBRON Dextrose 50 ml 01/18/19 11:00 D50w (25gm) Syringe IV PRN PRN Hypoglycemia Famotidine 20 mg 01/17/19 10:00 01/19/19 09:45 Pepcid IV Not Given QDAY GRICEL Vancomycin HCl 1,750 mg/ 535 mls @ 333.333 mls/hr 01/17/19 22:00 01/19/19 09:39 Sodium Chloride IV 333.333 mls/hr Q12H GRICEL Administration Meropenem 1,000 mg/ Sodium 100 mls @ 100 mls/hr 01/19/19 02:00 01/19/19 09:35 Chloride IV 100 mls/hr Q8H GRICEL Administration Protocol Insulin Human Lispro 0 unit 01/18/19 12:00 01/19/19 06:29 Humalog SUB-Q 3 unit Q6HR GRICEL Administration Protocol Morphine Sulfate 2 mg 01/17/19 08:36 01/19/19 06:45 Morphine IV 2 mg Q4H PRN Administration Pain, Moderate (4-6) Ondansetron HCl 4 mg 01/17/19 06:08 01/17/19 09:32 Zofran IV 4 mg Q8H PRN Administration Nausea And Vomiting Oxycodone/Acetaminophen 1 tab 01/17/19 06:08 Percocet 5/325 PO Q6H PRN Pain, Moderate (4-6) Sodium Chloride 10 ml 01/17/19 10:00 01/19/19 09:36 Sodium Chloride Flush Syringe 10 Ml IV 10 ml BID GRICEL Administration Sodium Chloride 10 ml 01/17/19 06:08 Sodium Chloride Flush Syringe 10 Ml IV PRN PRN LINE FLUSH
[2019-01-19] MEDS ORDERED: DIPRIVAN 10 MG/ML IV ONE (11:23)
[2019-01-19] MEDS ORDERED: SUBLIMAZE ONE (11:24)
[2019-01-19] MEDS ORDERED: LACTATED RINGERS 1,000 ML IV SCH (11:36)
[2019-01-19] MEDS ORDERED: HumuLIN R IV ONE (11:38)
[2019-01-19] MEDS ORDERED: MARCAINE 0.5% INFILTRATI ONE (11:42)
[2019-01-19] MEDS ORDERED: XYLOCAINE 1% 20 mL ONE (11:42)
[2019-01-19] MEDS ORDERED: HumuLIN R ONE (12:00)
[2019-01-19] MEDS ORDERED: NACL 0.9% IR ONE ×2 (12:20→12:23)
[2019-01-19] MEDS ORDERED: NEOSPORIN GU IR ONE ×2 (12:21→12:23)
[2019-01-19] MEDS ORDERED: XYLOCAINE MPF 2% ONE (12:24)
[2019-01-19] MEDS ORDERED: NEO SYNEPHRINE/NS Syringe(OR USE) IV ONE (12:24)
[2019-01-19] MEDS ORDERED: ZOFRAN ONE (12:24)
[2019-01-19] MEDS ORDERED: DILAUDID IV PRN (12:36)
--- NOTE | 2019-01-19 12:38 | Anesthesia Day of Surgery ---
Anesthesia Day of Surgery - Day of Surgery Patient Examined: Yes Patient H&P Reviewed: Yes Patient is NPO: Yes
--- NOTE | 2019-01-19 13:32 | Operative Report ---
Operative Report Operative Report: Date of Service: January 19, 2019 Preoperative diagnosis: Left breast necrotizing fascitits Postoperative diagnosis: Same Procedure: Left breast wide local debridement, incision and drainage Surgeon: Sammi Guerra M.D. Anesthesia: General Findings: Additional necrotic tissue present and resected. 50 cc pus noted of upper abdomen and drained; additional cultures taken Complications: None Drains: Wound Vac Estimated blood loss: 50 cc Disposition: PACU in good condition Indications for operative procedure: This is a 53-year-old -[place] lady with uncontrolled diabetes admitted on 01/17/19 to the ICU for sepsis and in DKA for left breast necrotizing fascitis. On 01/17/2019 she underwent left breast wide local debridement of necrotizing fascitis, incision and drainage and 300- 400 cc of pus drained; 30-35% of breast tissue resected given necrotizing fascitis. Recommendations were to proceed with second look today with possible addiational wide local debridement with incision and drainage given significant area of necrotizing fascitis at first surgery. Consent was obtained and patient understood indications and risks of surgery. Procedure in detail: The patient was taken to the operating room and was placed supine. General anesthesia was administered. The left breast wound vac was removed. The left breast was prepped and draped in the normal sterile operative fashion. Additional area of necrosis was noted of breast cavity tisseus of the upper and lower quadrants. Additional necrotic tissue was rescted to healthy tissue with bleeding noted. Skin of the inframamammary fold area was resected given necrosis. Pus was noted from the upper abdomen that was drained. Approximately additional 10-15% of tissue was resected given necrosis. Remaining tissue appeared viable. The breast area cavity was then Pulsavac with antibiotic solution. Hemostasis was obtained using Bovie Cautery and then a wound VAC was placed. Patient tolerated the procedure very well, she was extubated and then transported back to PACU in good condition. Patient will need to go back for a third look on Tuesday with possible further debridement. Plastic surgery consulted for closure once infection has cleared.
[2019-01-19 14:10] LABS: Hematocrit 23.4 % (30.3-42.9); Hemoglobin 8.1 gm/dl (10.1-14.3); Mean Corpuscular HGB Conc 34 % (30-34); Mean Corpuscular Volume 87 fl (79-97); Platelet Count 395 K/mm3 (140-440); Red Blood Count 2.68 M/mm3 (3.65-5.03); Red Cell Distribution Width 14.5 % (13.2-15.2)
--- NOTE | 2019-01-19 14:31 | Post Anesthesia Evaluation ---
- Post Anesthesia Evaluation Patient Participated: Yes Airway Patent: Yes Stable Respiratory Function: Yes Nausea/Vomiting: No Temp > 96.8F: Yes Pain Manageable: Yes Adequeate Hydration: Yes Anesthesia Complications: No
[2019-01-19] MEDS: D5W 1,000 ML IV SCH (14:35)
[2019-01-19] MEDS ORDERED: VASELINE LIP THERAPY TP PRN (16:02)
[2019-01-19] MEDS ORDERED: VASELINE LIP THERAPY TP ONE (16:21)
[2019-01-19] MEDS: LANTUS SUB-Q SCH (22:14)
[2019-01-20] MEDS: HumaLOG SUB-Q SCH ×4 (00:01→18:13)
[2019-01-20] MEDS: MERREM 1,000 MG in NACL 0.9% 100 ML IV SCH ×3 (02:12→19:01)
[2019-01-20] MEDS: MORPHINE IV PRN ×4 (04:17→18:29)
[2019-01-20] MEDS: D5W 1,000 ML IV SCH ×2 (04:18→18:11)
[2019-01-20 04:53] LABS: Hematocrit 20.7 % (30.3-42.9); Hemoglobin 7.2 gm/dl (10.1-14.3); Mean Corpuscular HGB Conc 35 % (30-34); Mean Corpuscular Volume 86 fl (79-97); Platelet Count 360 K/mm3 (140-440); Red Blood Count 2.41 M/mm3 (3.65-5.03); Red Cell Distribution Width 14.5 % (13.2-15.2)
[2019-01-20 05:18] LABS: BUN/Creatinine Ratio 45; Blood Urea Nitrogen 9 mg/dL (7-17); Calcium 7.5 mg/dL (8.4-10.2); Hemolysis Index 0
[2019-01-20] MEDS: PEPCID IV SCH (09:07)
[2019-01-20] MEDS: VANCOMYCIN 1,750 MG in NACL 0.9% 500 ML 500 ML IV SCH ×2 (09:07→21:57)
[2019-01-20] MEDS: SODIUM CHLORIDE FLUSH SYRINGE 10 ML IV SCH ×2 (09:09→21:58)
--- NOTE | 2019-01-20 09:15 | Progress Note ---
Assessment and Plan This is a 53 year old lady admitted for sepsis on 01/17/19 with left breast necrotizing fascitis. Status post surgery on and 01/19/19 of left breast with wide local debridement with at least 30-35% breast resection due to necrosis and drainage of at least 400 cc of pus. 1. No acute events overnight. Pain in good control. 2. Left breast wound vac in place, will remove in the OR on Tuesday and more debridement if needed-area looked better on Tuesday. 4. Decrease WBC to 11 from 23 at admission. 5. NPO at midnight on Tuesday night. 6. ID is following and patient on appropriate antibiotics, cultures from OR with gram negative rods, Kleb and Enteroc. 7. I consulted plastic surgery Dr. Heard on Tuesday for closure as outpa tient. - Patient Problems (1) Breast abscess Current Visit: Yes Status: Acute (2) Cellulitis of breast Current Visit: Yes Status: Acute (3) Diabetic ketoacidosis Current Visit: Yes Status: Acute Qualifiers: Diabetes mellitus type: type 1 Diabetes mellitus complication detail: without coma Qualified Code(s): E10.10 - Type 1 diabetes mellitus with ketoacidosis without coma (4) Sepsis Current Visit: Yes Status: Acute Qualifiers: Sepsis type: sepsis due to unspecified organism Qualified Code(s): A41.9 - Sepsis, unspecified organism (5) Cellulitis Current Visit: No Status: Acute Qualifiers: Site of cellulitis: trunk Site of cellulitis of trunk: back Qualified Code(s): L03.312 - Cellulitis of back [any part except buttock] (6) DVT prophylaxis Current Visit: No Status: Acute (7) Hyponatremia syndrome Current Visit: No Status: Acute (8) Metabolic acidosis Current Visit: No Status: Acute Subjective Date of service: 01/20/19 Principal diagnosis: septic shock, left breast necrotizing fascitis Interval history: Status post left breast wide local debridement of necrotiic tissue and incision and drainage on 01/17/19 and 01/19/19. Patient hemodynamically stable with significant improvement. Objective - Constitutional Vitals: Vital Signs - 12hr 01/19/19 01/19/19 01/19/19 21:30 22:00 22:30 Temperature Pulse Rate 106 H 100 H 104 H Pulse Rate [ From Monitor] Respiratory 11 L 10 L 12 Rate Blood Pressure 107/72 110/70 110/70 O2 Sat by Pulse 100 100 100 Oximetry 01/19/19 01/19/19 01/19/19 23:00 23:02 23:30 Temperature Pulse Rate 99 H 103 H 101 H Pulse Rate [ From Monitor] Respiratory 13 11 L 10 L Rate Blood Pressure 126/78 126/78 126/78 O2 Sat by Pulse 100 100 100 Oximetry 01/20/19 01/20/19 01/20/19 00:00 00:30 01:00 Temperature 97.8 F Pulse Rate 106 H 103 H 102 H Pulse Rate [ From Monitor] Respiratory 12 9 L 12 Rate Blood Pressure 127/81 127/81 123/75 O2 Sat by Pulse 100 100 100 Oximetry 01/20/19 01/20/19 01/20/19 01:30 02:00 02:30 Temperature Pulse Rate 106 H 103 H 104 H Pulse Rate [ From Monitor] Respiratory 11 L 11 L 11 L Rate Blood Pressure 123/75 119/72 119/72 O2 Sat by Pulse 100 100 100 Oximetry 01/20/19 01/20/19 01/20/19 03:00 03:30 04:00 Temperature 98.8 F Pulse Rate 104 H 103 H 105 H Pulse Rate [ From Monitor] Respiratory 12 12 13 Rate Blood Pressure 123/72 123/72 120/71 O2 Sat by Pulse 100 100 100 Oximetry 01/20/19 01/20/19 01/20/19 04:30 05:00 05:30 Temperature Pulse Rate 102 H 100 H 96 H Pulse Rate [ From Monitor] Respiratory 13 12 12 Rate Blood Pressure 120/71 116/66 116/66 O2 Sat by Pulse 100 100 100 Oximetry 01/20/19 01/20/19 01/20/19 06:00 06:30 07:00 Temperature Pulse Rate 97 H 97 H 100 H Pulse Rate [ From Monitor] Respiratory 11 L 10 L 10 L Rate Blood Pressure 119/74 119/74 124/73 O2 Sat by Pulse 100 100 100 Oximetry 01/20/19 01/20/19 07:30 08:00 Temperature 97.4 F L Pulse Rate 103 H 104 H Pulse Rate [ 104 H From Monitor] Respiratory 10 L 12 Rate Blood Pressure 119/74 126/79 O2 Sat by Pulse 100 100 Oximetry General appearance: Present: no acute distress - EENT Eyes: PERRL ENT: hearing intact, clear oral mucosa Ears: bilateral: normal - Neck Neck: supple - Respiratory Respiratory effort: normal - Breasts Breasts: other (left breast wound vac in place to suction) - Cardiovascular Rhythm: regular Extremities: no ischemia - Gastrointestinal General gastrointestinal: Present: soft, non-tender, non-distended - Genitourinary Female genitourinary: deferred - Integumentary Integumentary: clear, warm, dry - Psychiatric Psychiatric: cooperative - Labs CBC & Chem 7: 01/20/19 04:12 01/20/19 04:12 Labs: Abnormal lab results 01/19/19 01/19/19 01/19/19 Range/Units 06:11 11:33 12:38 WBC (4.5-11.0) K/mm3 RBC (3.65-5.03) M/mm3 Hgb (10.1-14.3) gm/dl Hct (30.3-42.9) % MCHC (30-34) % Sodium (137-145) mmol/L Potassium (3.6-5.0) mmol/L Chloride (98-107) mmol/L Creatinine (0.7-1.2) mg/dL Glucose (65-100) mg/dL POC Glucose 221 H 250 H 226 H (70-105) Calcium (8.4-10.2) mg/dL 01/19/19 01/19/19 01/19/19 Range/Units 13:38 13:55 17:08 WBC 16.4 H (4.5-11.0) K/mm3 RBC 2.68 L (3.65-5.03) M/mm3 Hgb 8.1 L (10.1-14.3) gm/dl Hct 23.4 L (30.3-42.9) % MCHC (30-34) % Sodium (137-145) mmol/L Potassium (3.6-5.0) mmol/L Chloride (98-107) mmol/L Creatinine (0.7-1.2) mg/dL Glucose (65-100) mg/dL POC Glucose 253 H 315 H (70-105) Calcium (8.4-10.2) mg/dL 01/19/19 01/20/19 01/20/19 Range/Units 23:31 04:12 04:12 WBC 11.2 H (4.5-11.0) K/mm3 RBC 2.41 L (3.65-5.03) M/mm3 Hgb 7.2 L (10.1-14.3) gm/dl Hct 20.7 L (30.3-42.9) % MCHC 35 H (30-34) % Sodium 149 H (137-145) mmol/L Potassium 3.5 L (3.6-5.0) mmol/L Chloride 112.6 H (98-107) mmol/L Creatinine 0.2 L (0.7-1.2) mg/dL Glucose 245 H (65-100) mg/dL POC Glucose 225 H (70-105) Calcium 7.5 L (8.4-10.2) mg/dL Medications & Allergies - Medications Allergies/Adverse Reactions: Allergies Penicillins Allergy (Verified 12/21/13 10:43) Angioedema THROAT CLOSES Home Medications: Home Medications Medication Instructions Recorded Confirmed Last Taken Type HYDROcodone/ACETAMINOPHEN [[place] 1 each PO Q6H PRN #12 tablet 08/03/17 01/19/19 Unknown Rx 5-325 Tablet] Bisacodyl [Dulcolax suppos] 10 mg CO QDAY PRN supp.rect 08/09/17 01/19/19 Unkn own Rx Ferrous Sulfate [Feosol 325 MG tab] 325 mg PO BID #60 tablet 08/09/17 01/19/19 Unknown Rx Insulin NPH/Regular [NovoLIN 70/30] 10 unit SUB-Q BIDDIAB 30 Days 08/09/17 01/19/19 Unknown Rx units Potassium Chloride [K-Dur] 40 meq PO QDAY #3 tablet 08/09/17 01/19/19 Unknown Rx levoFLOXacin [Levaquin TAB] 750 mg PO DAILY #3 tablet 08/09/17 01/19/19 Unknown Rx metroNIDAZOLE [Flagyl TAB] 500 mg PO Q8HR #10 tablet 08/09/17 01/19/19 Unknown Rx Active Medications: Generic Name Dose Route Start Last Admin Trade Name Freq PRN Reason Stop Dose Admin Acetaminophen 650 mg 01/17/19 06:08 Tylenol PO Q4H PRN Pain MILD(1-3)/Fever >100.5/LEBRON Dextrose 50 ml 01/18/19 11:00 D50w (25gm) Syringe IV PRN PRN Hypoglycemia Famotidine 20 mg 01/17/19 10:00 01/20/19 09:07 Pepcid IV 20 mg QDAY GRICEL Administration Hydrophilic Ointment 1 applic 01/19/19 16:02 Vaseline Lip Therapy TP DIRECT PRN Dry Lips Vancomycin HCl 1,750 mg/ 535 mls @ 333.333 mls/hr 01/17/19 22:00 01/20/19 09 :07 Sodium Chloride IV 333.333 mls/hr Q12H GRICEL Administration Meropenem 1,000 mg/ Sodium 100 mls @ 100 mls/hr 01/19/19 02:00 01/20/19 02:12 Chloride IV 100 mls/hr Q8H GRICEL Administration Protocol Dextrose 1,000 mls @ 75 mls/hr 01/19/19 12:00 01/20/19 04:18 D5w IV 75 mls/hr DIRECT GRICEL Administration Insulin Glargine 10 units 01/19/19 22:00 01/19/19 22:14 Lantus SUB-Q 10 units QHS GRICEL Administration Insulin Human Lispro 0 unit 01/18/19 12:00 01/20/19 06:14 Humalog SUB-Q 4 unit Q6HR GRICEL Administration Protocol Morphine Sulfate 2 mg 01/17/19 08:36 01/20/19 09:07 Morphine IV 2 mg Q4H PRN Administration Pain, Moderate (4-6) Ondansetron HCl 4 mg 01/17/19 06:08 01/17/19 09:32 Zofran IV 4 mg Q8H PRN Administration Nausea And Vomiting Oxycodone/Acetaminophen 1 tab 01/17/19 06:08 Percocet 5/325 PO Q6H PRN Pain, Moderate (4-6) Sodium Chloride 10 ml 01/17/19 10:00 01/19/19 22:16 Sodium Chloride Flush Syringe 10 Ml IV 10 ml BID GRICEL Administration Sodium Chloride 10 ml 01/17/19 06:08 Sodium Chloride Flush Syringe 10 Ml IV PRN PRN LINE FLUSH
--- NOTE | 2019-01-20 11:27 | Progress Note ---
Assessment and Plan 53 y/o female with DKA, metabolic acidosis, and electrolyte imbalance, possibly secondary to UTI. 1. Patient will need repeat surgery on Tuesday. 2. Continue current diabetic regimen 3. Abx per ID 4. Replace K 5. Place PICC today and remove the right IJ i placed earlier this week. 6. Stable for transfer to the floor. Wean oxygen to off as tolerated. Subjective Date of service: 01/20/19 Principal diagnosis: septic shock, left breast necrotizing fascitis Interval history: No acute events. Successful debridement in the OR yesterday. Pain is controlled. Sugars have been stable. More awake and more alert this am. No family present. Objective - Constitutional Vitals: Vital Signs - 12hr 01/19/19 01/20/19 01/20/19 23:30 00:00 00:30 Temperature 97.8 F Pulse Rate 101 H 106 H 103 H Pulse Rate [ From Monitor] Respiratory 10 L 12 9 L Rate Blood Pressure 126/78 127/81 127/81 O2 Sat by Pulse 100 100 100 Oximetry 01/20/19 01/20/19 01/20/19 01:00 01:30 02:00 Temperature Pulse Rate 102 H 106 H 103 H Pulse Rate [ From Monitor] Respiratory 12 11 L 11 L Rate Blood Pressure 123/75 123/75 119/72 O2 Sat by Pulse 100 100 100 Oximetry 01/20/19 01/20/19 01/20/19 02:30 03:00 03:30 Temperature Pulse Rate 104 H 104 H 103 H Pulse Rate [ From Monitor] Respiratory 11 L 12 12 Rate Blood Pressure 119/72 123/72 123/72 O2 Sat by Pulse 100 100 100 Oximetry 01/20/19 01/20/19 01/20/19 04:00 04:30 05:00 Temperature 98.8 F Pulse Rate 105 H 102 H 100 H Pulse Rate [ From Monitor] Respiratory 13 13 12 Rate Blood Pressure 120/71 120/71 116/66 O2 Sat by Pulse 100 100 100 Oximetry 01/20/19 01/20/19 01/20/19 05:30 06:00 06:30 Temperature Pulse Rate 96 H 97 H 97 H Pulse Rate [ From Monitor] Respiratory 12 11 L 10 L Rate Blood Pressure 116/66 119/74 119/74 O2 Sat by Pulse 100 100 100 Oximetry 01/20/19 01/20/19 01/20/19 07:00 07:30 08:00 Temperature 97.4 F L Pulse Rate 100 H 103 H 104 H Pulse Rate [ 104 H From Monitor] Respiratory 10 L 10 L 12 Rate Blood Pressure 124/73 119/74 126/79 O2 Sat by Pulse 100 100 100 Oximetry - Labs CBC & Chem 7: 01/20/19 04:12 01/20/19 04:12 Labs: Abnormal lab results 01/19/19 01/19/19 01/19/19 Range/Units 08:00 11:33 12:38 WBC (4.5-11.0) K/mm3 RBC (3.65-5.03) M/mm3 Hgb (10.1-14.3) gm/dl Hct (30.3-42.9) % MCHC (30-34) % Sodium (137-145) mmol/L Potassium (3.6-5.0) mmol/L Chloride (98-107) mmol/L Creatinine (0.7-1.2) mg/dL Glucose (65-100) mg/dL POC Glucose 250 H 226 H (70-105) Calcium (8.4-10.2) mg/dL Crossmatch See Detail 01/19/19 01/19/19 01/19/19 Range/Units 13:38 13:55 17:08 WBC 16.4 H (4.5-11.0) K/mm3 RBC 2.68 L (3.65-5.03) M/mm3 Hgb 8.1 L (10.1-14.3) gm/dl Hct 23.4 L (30.3-42.9) % MCHC (30-34) % Sodium (137-145) mmol/L Potassium (3.6-5.0) mmol/L Chloride (98-107) mmol/L Creatinine (0.7-1.2) mg/dL Glucose (65-100) mg/dL POC Glucose 253 H 315 H (70-105) Calcium (8.4-10.2) mg/dL Crossmatch 01/19/19 01/20/19 01/20/19 Range/Units 23:31 04:12 04:12 WBC 11.2 H (4.5-11.0) K/mm3 RBC 2.41 L (3.65-5.03) M/mm3 Hgb 7.2 L (10.1-14.3) gm/dl Hct 20.7 L (30.3-42.9) % MCHC 35 H (30-34) % Sodium 149 H (137-145) mmol/L Potassium 3.5 L (3.6-5.0) mmol/L Chloride 112.6 H (98-107) mmol/L Creatinine 0.2 L (0.7-1.2) mg/dL Glucose 245 H (65-100) mg/dL POC Glucose 225 H (70-105) Calcium 7.5 L (8.4-10.2) mg/dL Crossmatch 01/20/19 Range/Units 06:04 WBC (4.5-11.0) K/mm3 RBC (3.65-5.03) M/mm3 Hgb (10.1-14.3) gm/dl Hct (30.3-42.9) % MCHC (30-34) % Sodium (137-145) mmol/L Potassium (3.6-5.0) mmol/L Chloride (98-107) mmol/L Creatinine (0.7-1.2) mg/dL Glucose (65-100) mg/dL POC Glucose 281 H (70-105) Calcium (8.4-10.2) mg/dL Crossmatch Medications & Allergies - Medications Allergies/Adverse Reactions: Allergies Penicillins Allergy (Verified 12/21/13 10:43) Angioedema THROAT CLOSES Home Medications: Home Medications Medication Instructions Recorded Confirmed Last Taken Type HYDROcodone/ACETAMINOPHEN [[place] 1 each PO Q6H PRN #12 tablet 08/03/17 01/19/19 Unknown Rx 5-325 Tablet] Bisacodyl [Dulcolax suppos] 10 mg OR QDAY PRN supp.rect 08/09/17 01/19/19 Unknown Rx Ferrous Sulfate [Feosol 325 MG tab] 325 mg PO BID #60 tablet 08/09/17 01/19/19 Unknown Rx Insulin NPH/Regular [NovoLIN 70/30] 10 unit SUB-Q BIDDIAB 30 Days 08/09/17 01/19/19 Unknown Rx units Potassium Chloride [K-Dur] 40 meq PO QDAY #3 tablet 08/09/17 01/19/19 Unknown Rx levoFLOXacin [Levaquin TAB] 750 mg PO DAILY #3 tablet 08/09/17 01/19/19 Unknown Rx metroNIDAZOLE [Flagyl TAB] 500 mg PO Q8HR #10 tablet 08/09/17 01/19/19 Unknown Rx Active Medications: Generic Name Dose Route Start Last Admin Trade Name Freq PRN Reason Stop Dose Admin Acetaminophen 650 mg 01/17/19 06:08 Tylenol PO Q4H PRN Pain MILD(1-3)/Fever >100.5/LEBRON Dextrose 50 ml 01/18/19 11:00 D50w (25gm) Syringe IV PRN PRN Hypoglycemia Famotidine 20 mg 01/17/19 10:00 01/20/19 09:07 Pepcid IV 20 mg QDAY GRICEL Administration Hydrophilic Ointment 1 applic 01/19/19 16:02 Vaseline Lip Therapy TP DIRECT PRN Dry Lips Vancomycin HCl 1,750 mg/ 535 mls @ 333.333 mls/hr 01/17/19 22:00 01/20/19 09:07 Sodium Chloride IV 333.333 mls/hr Q12H GRICEL Administration Meropenem 1,000 mg/ Sodium 100 mls @ 100 mls/hr 01/19/19 02:00 01/20/19 09:09 Chloride IV 100 mls/hr Q8H GRICEL Administration Protocol Dextrose 1,000 mls @ 75 mls/hr 01/19/19 12:00 01/20/19 04:18 D5w IV 75 mls/hr DIRECT GRICEL Administration Insulin Glargine 10 units 01/19/19 22:00 01/19/19 22:14 Lantus SUB-Q 10 units QHS GRICEL Administration Insulin Human Lispro 0 unit 01/18/19 12:00 01/20/19 06:14 Humalog SUB-Q 4 unit Q6HR GRICEL Administration Protocol Morphine Sulfate 2 mg 01/17/19 08:36 01/20/19 09:07 Morphine IV 2 mg Q4H PRN Administration Pain, Moderate (4-6) Ondansetron HCl 4 mg 01/17/19 06:08 01/17/19 09:32 Zofran IV 4 mg Q8H PRN Administration Nausea And Vomiting Oxycodone/Acetaminophen 1 tab 01/17/19 06:08 Percocet 5/325 PO Q6H PRN Pain, Moderate (4-6) Sodium Chloride 10 ml 01/17/19 10:00 01/20/19 09:09 Sodium Chloride Flush Syringe 10 Ml IV 10 ml BID GRICEL Administration Sodium Chloride 10 ml 01/17/19 06:08 Sodium Chloride Flush Syringe 10 Ml IV PRN PRN LINE FLUSH
--- NOTE | 2019-01-20 12:38 | Progress Note ---
Assessment and Plan Assessment and plan: Patient is a 53 yo woman with a history of upper back abscess/necrotizing fascitis s/p OR debridement, IDDM and anemia who presents to [facility] ED with left breast pain and swelling. Currently, patient is confused. She underwent wide excisional debridement on 01/17/[address] Guerra; findings were 300-400 cc of pus drained with at least 30% of the lower inner and outer quadrants with necrosis and resected for left breast necrotizing fascititis Severe Left breast necrotizing fascititis s/p debridement and removal of about 1/3 of left breast: Another debridement Tuesday. continue ABX, wound vac in place Severe sepsis due to Left breast cellulitis with abscess: on IV Diflucan, IV Clindamycin and IV Vancomycin with closely drug monitoring. ID is following, input noted. DKA, resolved: start long acting insulin Acute encephalopathy due to the above, resolved, Severe acidosis: treat the sepsis, consulted CCM, input noted Hypokalemia: replete and monitor bmp Hypernatremia: more free water on d5W now, follow BMP closely PCN drug allergy Acute blood loss anemia/Drop in HCT due to surgery: appears steady today, continue to monitor DVT ppx, I stopped sq lovenox for possible surgical intervention, continue to hold heparin due to drop in HCT Thibodeaux in place, removed Right IJ in place, 01/17/19 inserted, remove today and get PICC line. Back to OR on Tuesday, d/w Dr. Puentes and Dr. Guerra transfer out of ICU CCT 32 min History Interval history: Patient was seen and examined. Follow-up on current diagnosis of Left breast Nec rotizing Fascitiis. No overnight events reported to me. Patient denies sob, n/v/cp except left breast. Imaging, nursing note, chart, labs and old chart reviewed. Hospitalist Physical - Physical exam Narrative exam: Gen: ill appearing, NAD, awake, alert Orientated x 3 HEENT: NCAT, EOMI, PERRL, OP Clear Neck: supple, no adenopathy, no thyromegaly, no JVD CVS/Heart: Regular tachycardia, normal S1S2, pulses present bilaterally Chest/Lungs: tachypneic, CTA B, Symmetrical chest expansion, good air entry bi laterally GI/Abdomen: soft, NTND, good bowel sounds, no guarding or rebound /Bladder: no suprapubic tenderness, no CVA or paraspinal tenderness Breast: left breast severely enlarged, erythematous, red, tender, foul smelling, obvious abscess with necrotic tissue removed and wound vac in place Extermity/Skin: no c/c/e, no obvious rash MSK: FROM x 4 Neuro: CN 2-12 grossly intact, no new focal deficits Psych: calm - Constitutional Vitals: Temp Pulse Resp BP Pulse Ox 97.4 F L 104 H 11 L 116/73 100 01/20/19 08:00 01/20/19 11:30 01/20/19 11:30 01/20/19 11:30 01/20/19 11:30 General appearance: Present: no acute distress Results - Labs CBC & Chem 7: 01/20/19 04:12 01/20/19 04:12 Labs: Laboratory Last Values WBC 11.2 K/mm3 (4.5-11.0) H 01/20/19 04:12 RBC 2.41 M/mm3 (3.65-5.03) L 01/20/19 04:12 Hgb 7.2 gm/dl (10.1-14.3) L 01/20/19 04:12 Hct 20.7 % (30.3-42.9) L 01/20/19 04:12 MCV 86 fl (79-97) 01/20/19 04:12 MCH 30 pg (28-32) 01/20/19 04:12 MCHC 35 % (30-34) H 01/20/19 04:12 RDW 14.5 % (13.2-15.2) 01/20/19 04:12 Plt Count 360 K/mm3 (140-440) 01/20/19 04:12 Add Manual Diff Complete 01/18/19 05:39 Total Counted 100 01/18/19 05:39 Seg Neutrophils % Tube Coater 01/17/19 01:17 Seg Neuts % (Manual) 91.0 % (40.0-70.0) H 01/18/19 05:39 0 % 01/18/19 05:39 6.0 % (13.4-35.0) L 01/18/19 05:39 Reactive Lymphs % (Man) 0 % 01/18/19 05:39 1.0 % (0.0-7.3) 01/18/19 05:39 0 % (0.0-4.3) 01/18/19 05:39 0 % (0.0-1.8) 01/18/19 05:39 0 % 01/18/19 05:39 2.0 % 01/18/19 05:39 0 % 01/18/19 05:39 0 % 01/18/19 05:39 Nucleated RBC % Not Reportable 01/18/19 05:39 Seg Neutrophils # Man 15.2 K/mm3 (1.8-7.7) H 01/18/19 05:39 Band Neutrophils # 0.0 K/mm3 01/18/19 05:39 1.0 K/mm3 (1.2-5.4) L 01/18/19 05:39 Abs React Lymphs (Man) 0.0 K/mm3 01/18/19 05:39 0.2 K/mm3 (0.0-0.8) 01/18/19 05:39 0.0 K/mm3 (0.0-0.4) 01/18/19 05:39 0.0 K/mm3 (0.0-0.1) 01/18/19 05:39 0.0 K/mm3 01/18/19 05:39 0.3 K/mm3 01/18/19 05:39 0.0 K/mm3 01/18/19 05:39 Blast Cells # 0.0 K/mm3 01/18/19 05:39 WBC Morphology Not Reportable 01/18/19 05:39 Hypersegmented Neuts Not Reportable 01/18/19 05:39 Hyposegmented Neuts Not Reportable 01/18/19 05:39 Hypogranular Neuts Not Reportable 01/18/19 05:39 Not Reportable 01/18/19 05:39 Not Reportable 01/18/19 05:39 Not Reportable 01/18/19 05:39 Not Reportable 01/18/19 05:39 Not Reportable 01/18/19 05:39 Not Reportable 01/18/19 05:39 Consistent w auto 01/18/19 05:39 Not Reportable 01/18/19 05:39 Plt Clumps, EDTA Not Reportable 01/18/19 05:39 Not Reportable 01/18/19 05:39 Not Reportable 01/18/19 05:39 Not Reportable 01/18/19 05:39 Plt Morphology Comment Not Reportable 01/18/19 05:39 RBC Morphology Not Reportable 01/18/19 05:39 Dimorphic RBCs Not Reportable 01/18/19 05:39 Not Reportable 01/18/19 05:39 Not Reportable 01/18/19 05:39 Few 01/18/19 05:39 Few 01/18/19 05:39 Not Reportable 01/18/19 05:39 Not Reportable 01/18/19 05:39 Not Reportable 01/18/19 05:39 Not Reportable 01/18/19 05:39 Not Reportable 01/18/19 05:39 Not Reportable 01/18/19 05:39 Not Reportable 01/18/19 05:39 Not Reportable 01/18/19 05:39 Not Reportable 01/18/19 05:39 Not Reportable 01/18/19 05:39 Not Reportable 01/18/19 05:39 Not Reportable 01/18/19 05:39 Not Reportable 01/18/19 05:39 Not Reportable 01/18/19 05:39 Not Reportable 01/18/19 05:39 Acanthocytes (Spur) Not Reportable 01/18/19 05:39 Rouleaux Not Reportable 01/18/19 05:39 Not Reportable 01/18/19 05:39 Not Reportable 01/18/19 05:39 Not Reportable 01/18/19 05:39 Not Reportable 01/18/19 05:39 Hem Pathologist Commnt No 01/18/19 05:39 POC ABG pH 7.279 (7.35-7.45) L 01/17/19 13:32 POC ABG pO2 82 (80-105) 01/17/19 13:32 POC ABG HCO3 9.8 (22-26 mml/L) 01/17/19 13:32 POC ABG Total CO2 10 (23-27mmol/L) 01/17/19 13:32 POC ABG O2 Sat 95 01/17/19 13:32 POC ABG Base Excess -17 ((-2) - (+3)mmol/L) 01/17/19 13:32 VBG pH 7.089 (7.320-7.420) L* 01/17/19 02:21 21 % 01/17/19 13:32 Sodium 149 mmol/L (137-145) H 01/20/19 04:12 Potassium 3.5 mmol/L (3.6-5.0) L 01/20/19 04:12 Chloride 112.6 mmol/L (98-107) H 01/20/19 04:12 Carbon Dioxide 27 mmol/L (22-30) 01/20/19 04:12 13 mmol/L 01/20/19 04:12 BUN 9 mg/dL (7-17) 01/20/19 04:12 0.2 mg/dL (0.7-1.2) L 01/20/19 04:12 Estimated GFR > 60 ml/min 01/20/19 04:12 45 % 01/20/19 04:12 Glucose 245 mg/dL (65-100) H 01/20/19 04:12 POC Glucose 250 (70-105) H 01/20/19 12:26 Lactic Acid 3.50 mmol/L (0.7-2.0) H* 01/17/19 14:05 Calcium 7.5 mg/dL (8.4-10.2) L 01/20/19 04:12 Phosphorus 3.20 mg/dL (2.5-4.5) 01/17/19 05:06 Magnesium 2.20 mg/dL (1.7-2.3) 01/17/19 05:06 0.20 mg/dL (0.1-1.2) 01/17/19 03:29 AST 6 units/L (5-40) 01/17/19 03:29 ALT 8 units/L (7-56) 01/17/19 03:29 176 units/L (35-129) H 01/17/19 03:29 28.80 mg/dL (0.00-1.30) H 01/17/19 14:05 6.6 g/dL (6.3-8.2) 01/17/19 03:29 3.1 g/dL (3.9-5) L 01/17/19 03:29 0.9 % 01/17/19 03:29 Yellow (Yellow) 01/17/19 01:40 Slightly-cloudy (Clear) 01/17/19 01:40 5.0 (5.0-7.0) 01/17/19 01:40 Ur Specific [place] 1.026 (1.003-1.030) 01/17/19 01:40 30 mg/dl mg/dL (Negative) 01/17/19 01:40 >=500 mg/dL (Negative) 01/17/19 01:40 80 mg/dL (Negative) 01/17/19 01:40 Sm (Negative) 01/17/19 01:40 Neg (Negative) 01/17/19 01:40 Neg (Negative) 01/17/19 01:40 < 2.0 mg/dL (<2.0) 01/17/19 01:40 Ur Leukocyte Esterase Tr (Negative) 01/17/19 01:40 5.0 /HPF (0.0-6.0) 01/17/19 01:40 10.0 /HPF (0.0-6.0) 01/17/19 01:40 U Epithel Cells (Auto) 4.0 /HPF (0-13.0) 01/17/19 01:40 Few /HPF 01/17/19 01:40 Vancomycin Trough 16.5 ug/mL (5.0-20.0) 01/19/19 08:00 Blood Type O POSITIVE 01/19/19 08:00 Antibody Screen Negative 01/19/19 08:00 Crossmatch See Detail 01/19/19 08:00 Active Medications - Current Medications Current Medications: Generic Name Dose Route Start Last Admin Trade Name Freq PRN Reason Stop Dose Admin Acetaminophen 650 mg 01/17/19 06:08 Tylenol PO Q4H PRN Pain MILD(1-3)/Fever >100.5/LEBRON Dextrose 50 ml 01/18/19 11:00 D50w (25gm) Syringe IV PRN PRN Hypoglycemia Famotidine 20 mg 01/17/19 10:00 01/20/19 09:07 Pepcid IV 20 mg QDAY GRICEL Administration Hydrophilic Ointment 1 applic 01/19/19 16:02 Vaseline Lip Therapy TP DIRECT PRN Dry Lips Vancomycin HCl 1,750 mg/ 535 mls @ 333.333 mls/hr 01/17/19 22:00 01/20/19 09:07 Sodium Chloride IV 333.333 mls/hr Q12H GRICEL Administration Meropenem 1,000 mg/ Sodium 100 mls @ 100 mls/hr 01/19/19 02:00 01/20/19 09:09 Chloride IV 100 mls/hr Q8H GRICEL Administration Protocol Dextrose 1,000 mls @ 75 mls/hr 01/19/19 12:00 01/20/19 04:18 D5w IV 75 mls/hr DIRECT GRICEL Administration Insulin Glargine 10 units 01/19/19 22:00 01/19/19 22:14 Lantus SUB-Q 10 units QHS GRICEL Administration Insulin Human Lispro 0 unit 01/18/19 12:00 01/20/19 12:23 Humalog SUB-Q 4 unit Q6HR GRICEL Administration Protocol Morphine Sulfate 2 mg 01/17/19 08:36 01/20/19 09:07 Morphine IV 2 mg Q4H PRN Administration Pain, Moderate (4-6) Ondansetron HCl 4 mg 01/17/19 06:08 01/17/19 09:32 Zofran IV 4 mg Q8H PRN Administration Nausea And Vomiting Oxycodone/Acetaminophen 1 tab 01/17/19 06:08 Percocet 5/325 PO Q6H PRN Pain, Moderate (4-6) Sodium Chloride 10 ml 01/17/19 10:00 01/20/19 09:09 Sodium Chloride Flush Syringe 10 Ml IV 10 ml BID GRICEL Administration Sodium Chloride 10 ml 01/17/19 06:08 Sodium Chloride Flush Syringe 10 Ml IV PRN PRN LINE FLUSH Nutrition/Malnutrition Assess - Dietary Evaluation Nutrition/Malnutrition Findings: Nutrition Notes Start: 01/19/19 16 :23 Freq: Status: Active Protocol: Document 01/19/19 16:23 [facility] (Rec: 01/19/19 16:28 [facility] SRW- [email or web address]) Nutrition Notes 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 Pt scheduled for additional debridement today; wound vac in place. Pt not in room at time of visit (12:24). Burn Absent Trauma Absent #1 Nutrition Diagnosis Inadequate oral intake Etiology DKA, sepsis, AMS As Evidenced by Signs and Symptoms pt NPO Is patient on ventilator? No Is Patient Ambulatory and/or Out of Bed No REE-([facility]-confined to bed) 1908.600 Kcal/Kg value to use for calculation 14 Approximate Energy Requirements Using 1456 kcal/Kg Calculation Used for Recommendations Kcal/kg Additional Notes Pro needs 2.5g/kg IBW: 119g/ day Fluid needs 1ml/kcal Nutrition Intervention Change Diet Order: Diet advancement when medically feasible Goal #1 Diet advancement to meet nutrient needs Goal #2 Wound healing Anticipated Discharge Needs: Unable to identify at this time Follow-Up By: 01/22/19 Additional Comments F/U: diet advancement
--- NOTE | 2019-01-20 12:52 | XRay Report ---
PROCEDURE: XR CHEST 1V AP TECHNIQUE: Chest radiograph single view. HISTORY: AKUA PICC placement COMPARISONS: 01/17/2019 . FINDINGS: Right jugular venous catheter again noted with distal tip in right atrial region. Interval placement right PICC line with distal tip in right atrial region. Right lung relatively clear. No pneumothorax or pleural effusion. Nonspecific slight density left lung base partly obscuring the left diaphragm. Cardiac silhouette size slightly enlarged without definite vascular congestion. IMPRESSION: Distal tip of the venous catheters in right atrial region Slight cardiomegaly Left lung base opacity may be atelectasis, small effusion, and/or pneumonitis This document is electronically signed by Clemente Aaron MD., Jan 20 2019 12:51:02 PM ET
[2019-01-20] MEDS ORDERED: NACL 0.9% 500 ML 500 ML IV ONE (13:00)
[2019-01-20] MEDS: NACL 0.9% 500 ML 500 ML IV ONE ×2 (13:10→21:32)
--- NOTE | 2019-01-20 16:49 | XRay Report ---
PROCEDURE: XR CHEST 1V AP TECHNIQUE: Chest radiograph single view. HISTORY: placement COMPARISONS: None . FINDINGS: Heart: Normal. Mediastinum/Vessels: Normal. Lungs/Pleural space: Unchanged opacity at the left lung base. Bony thorax: No acute osseous abnormality. Life support devices: Right upper extremity PICC line with tip at the superior cavoatrial junction. R ight-sided central venous catheter with tip in the right atrium. IMPRESSION: Unchanged opacity at the left lung base that may reflect atelectasis, infiltrate, or small effusion. Right upper extremity PICC line with tip at the superior cavoatrial junction. Right-sided central venous catheter with tip in the right atrium. This document is electronically signed by Carole Frost MD., Jan 20 2019 04:47:09 PM ET
[2019-01-20] MEDS: SODIUM CHLORIDE FLUSH SYRINGE 10 ML IV PRN (21:58)
[2019-01-20] MEDS: LANTUS SUB-Q SCH (21:58)
[2019-01-21] MEDS: MERREM 1,000 MG in NACL 0.9% 100 ML IV SCH ×3 (03:55→17:00)
[2019-01-21] MEDS: HumaLOG SUB-Q SCH ×5 (05:49→22:50)
[2019-01-21 06:55] LABS: Hematocrit 23.4 % (30.3-42.9); Hemoglobin 8.4 gm/dl (10.1-14.3); Mean Corpuscular HGB Conc 36 % (30-34); Mean Corpuscular Volume 87 fl (79-97); Platelet Count 323 K/mm3 (140-440); Red Blood Count 2.69 M/mm3 (3.65-5.03); Red Cell Distribution Width 13.9 % (13.2-15.2)
--- NOTE | 2019-01-21 07:00 | Progress Note ---
Assessment and Plan Assessment and plan: Patient is a 53 yo woman with a history of upper back abscess/necrotizing fascitis s/p OR debridement, IDDM and anemia who presents to [facility] ED with left breast pain and swelling. Currently, patient is confused. She underwent wide excisional debridement on 01/17/[address] Guerra; findings were 300-400 cc of pus drained with at least 30% of the lower inner and outer quadrants with necrosis and resected for left breast necrotizing fascititis Severe Left breast necrotizing fascititis s/p debridement and removal of about 1/3 of left breast: Another debridement Tuesday. continue ABX, wound vac in place Severe sepsis due to Left breast cellulitis with abscess: on IV Diflucan, IV Clindamycin and IV Vancomycin with closely drug monitoring. ID is following, input noted. DKA, resolved: start long acting insulin Acute encephalopathy due to the above, resolved, Severe acidosis: treat the sepsis, consulted CCM, input noted Hypokalemia: replete and monitor bmp Hypernatremia: more free water on d5W now, follow BMP closely PCN drug allergy Acute blood loss anemia/Drop in HCT due to surgery, s/p 1 unit PRBC on 01/20/19: continue to monitor DVT ppx, I stopped sq lovenox for possible surgical intervention, continue to hold heparin due to drop in HCT Thibodeaux removed Right IJ in place, 01/17/19 inserted, remove today and PICC line inserted 01/20/19. Back to OR on Tuesday History Interval history: Patient was seen and examined. Follow-up on current diagnosis of Left breast Necrotizing Fascitiis. No overnight events reported to me. Moved out of the ICU on Tuesday, January 21. Patient denies sob, n/v/cp except left breast. Imaging, nursing note, chart, labs and old chart reviewed. Hospitalist Physical - Physical exam Narrative exam: Gen: ill appearing, NAD, awake, alert Orientated x 3 HEENT: NCAT, EOMI, PERRL, OP Clear Neck: supple, no adenopathy, no thyromegaly, no JVD CVS/Heart: Regular tachycardia, normal S1S2, pulses present bilaterally Chest/Lungs: tachypneic, CTA B, Symmetrical chest expansion, good air entry bilaterally GI/Abdomen: soft, NTND, good bowel sounds, no guarding or rebound /Bladder: no suprapubic tenderness, no CVA or paraspinal tenderness Breast: left breast severely enlarged, erythematous, red, tender, foul smelling, obvious abscess with necrotic tissue removed and wound vac in place Extermity/Skin: no c/c/e, no obvious rash MSK: FROM x 4 Neuro: CN 2-12 grossly intact, no new focal deficits Psych: calm - Constitutional Vitals: Temp Pulse Resp BP Pulse Ox 97.4 F L 100 H 18 116/77 100 01/20/19 22:35 01/20/19 22:35 01/21/19 06:00 01/20/19 22:35 01/20/19 22:35 General appearance: Present: no acute distress Results - Labs CBC & Chem 7: 01/21/19 06:28 01/20/19 04:12 Labs: Laboratory Last Values WBC 7.6 K/mm3 (4.5-11.0) 01/21/19 06:28 RBC 2.69 M/mm3 (3.65-5.03) L 01/21/19 06:28 Hgb 8.4 gm/dl (10.1-14.3) L 01/21/19 06:28 Hct 23.4 % (30.3-42.9) L 01/21/19 06:28 MCV 87 fl (79-97) 01/21/19 06:28 MCH 31 pg (28-32) 01/21/19 06:28 MCHC 36 % (30-34) H 01/21/19 06:28 RDW 13.9 % (13.2-15.2) 01/21/19 06:28 Plt Count 323 K/mm3 (140-440) 01/21/19 06:28 Add Manual Diff Complete 01/18/19 05:39 Total Counted 100 01/18/19 05:39 Seg Neutrophils % Recreation Therapist 01/17/19 01:17 Seg Neuts % (Manual) 91.0 % (40.0-70.0) H 01/18/19 05:39 0 % 01/18/19 05:39 6.0 % (13.4-35.0) L 01/18/19 05:39 Reactive Lymphs % (Man) 0 % 01/18/19 05:39 1.0 % (0.0-7.3) 01/18/19 05:39 0 % (0.0-4.3) 01/18/19 05:39 0 % (0.0-1.8) 01/18/19 05:39 0 % 01/18/19 05:39 2.0 % 01/18/19 05:39 0 % 01/18/19 05:39 0 % 01/18/19 05:39 Nucleated RBC % Not Reportable 01/18/19 05:39 Seg Neutrophils # Man 15.2 K/mm3 (1.8-7.7) H 01/18/19 05:39 Band Neutrophils # 0.0 K/mm3 01/18/19 05:39 1.0 K/mm3 (1.2-5.4) L 01/18/19 05:39 Abs React Lymphs (Man) 0.0 K/mm3 01/18/19 05:39 0.2 K/mm3 (0.0-0.8) 01/18/19 05:39 0.0 K/mm3 (0.0-0.4) 01/18/19 05:39 0.0 K/mm3 (0.0-0.1) 01/18/19 05:39 0.0 K/mm3 01/18/19 05:39 0.3 K/mm3 01/18/19 05:39 0.0 K/mm3 01/18/19 05:39 Blast Cells # 0.0 K/mm3 01/18/19 05:39 WBC Morphology Not Reportable 01/18/19 05:39 Hypersegmented Neuts Not Reportable 01/18/19 05:39 Hyposegmented Neuts Not Reportable 01/18/19 05:39 Hypogranular Neuts Not Reportable 01/18/19 05:39 Not Reportable 01/18/19 05:39 Not Reportable 01/18/19 05:39 Not Reportable 01/18/19 05:39 Not Reportable 01/18/19 05:39 Not Reportable 01/18/19 05:39 Not Reportable 01/18/19 05:39 Consistent w auto 01/18/19 05:39 Not Reportable 01/18/19 05:39 Plt Clumps, EDTA Not Reportable 01/18/19 05:39 Not Reportable 01/18/19 05:39 Not Reportable 01/18/19 05:39 Not Reportable 01/18/19 05:39 Plt Morphology Comment Not Reportable 01/18/19 05:39 RBC Morphology Not Reportable 01/18/19 05:39 Dimorphic RBCs Not Reportable 01/18/19 05:39 Not Reportable 01/18/19 05:39 Not Reportable 01/18/19 05:39 Few 01/18/19 05:39 Few 01/18/19 05:39 Not Reportable 01/18/19 05:39 Not Reportable 01/18/19 05:39 Not Reportable 01/18/19 05:39 Not Reportable 01/18/19 05:39 Not Reportable 01/18/19 05:39 Not Reportable 01/18/19 05:39 Not Reportable 01/18/19 05:39 Not Reportable 01/18/19 05:39 Not Reportable 01/18/19 05:39 Not Reportable 01/18/19 05:39 Not Reportable 01/18/19 05:39 Not Reportable 01/18/19 05:39 Not Reportable 01/18/19 05:39 Not Reportable 01/18/19 05:39 Not Reportable 01/18/19 05:39 Acanthocytes (Spur) Not Reportable 01/18/19 05:39 Rouleaux Not Reportable 01/18/19 05:39 Not Reportable 01/18/19 05:39 Not Reportable 01/18/19 05:39 Not Reportable 01/18/19 05:39 Not Reportable 01/18/19 05:39 Hem Pathologist Commnt No 01/18/19 05:39 POC ABG pH 7.279 (7.35-7.45) L 01/17/19 13:32 POC ABG pO2 82 (80-105) 01/17/19 13:32 POC ABG HCO3 9.8 (22-26 mml/L) 01/17/19 13:32 POC ABG Total CO2 10 (23-27mmol/L) 01/17/19 13:32 POC ABG O2 Sat 95 01/17/19 13:32 POC ABG Base Excess -17 ((-2) - (+3)mmol/L) 01/17/19 13:32 VBG pH 7.089 (7.320-7.420) L* 01/17/19 02:21 21 % 01/17/19 13:32 Sodium 149 mmol/L (137-145) H 01/20/19 04:12 Potassium 3.5 mmol/L (3.6-5.0) L 01/20/19 04:12 Chloride 112.6 mmol/L (98-107) H 01/20/19 04:12 Carbon Dioxide 27 mmol/L (22-30) 01/20/19 04:12 13 mmol/L 01/20/19 04:12 BUN 9 mg/dL (7-17) 01/20/19 04:12 0.2 mg/dL (0.7-1.2) L 01/20/19 04:12 Estimated GFR > 60 ml/min 01/20/19 04:12 45 % 01/20/19 04:12 Glucose 245 mg/dL (65-100) H 01/20/19 04:12 POC Glucose 286 (70-105) H 01/21/19 05:40 Lactic Acid 3.50 mmol/L (0.7-2.0) H* 01/17/19 14:05 Calcium 7.5 mg/dL (8.4-10.2) L 01/20/19 04:12 Phosphorus 3.20 mg/dL (2.5-4.5) 01/17/19 05:06 Magnesium 2.20 mg/dL (1.7-2.3) 01/17/19 05:06 0.20 mg/dL (0.1-1.2) 01/17/19 03:29 AST 6 units/L (5-40) 01/17/19 03:29 ALT 8 units/L (7-56) 01/17/19 03:29 176 units/L (35-129) H 01/17/19 03:29 28.80 mg/dL (0.00-1.30) H 01/17/19 14:05 6.6 g/dL (6.3-8.2) 01/17/19 03:29 3.1 g/dL (3.9-5) L 01/17/19 03:29 0.9 % 01/17/19 03:29 Yellow (Yellow) 01/17/19 01:40 Slightly-cloudy (Clear) 01/17/19 01:40 5.0 (5.0-7.0) 01/17/19 01:40 Ur Specific [place] 1.026 (1.003-1.030) 01/17/19 01:40 30 mg/dl mg/dL (Negative) 01/17/19 01:40 >=500 mg/dL (Negative) 01/17/19 01:40 80 mg/dL (Negative) 01/17/19 01:40 Sm (Negative) 01/17/19 01:40 Neg (Negative) 01/17/19 01:40 Neg (Negative) 01/17/19 01:40 < 2.0 mg/dL (<2.0) 01/17/19 01:40 Ur Leukocyte Esterase Tr (Negative) 01/17/19 01:40 5.0 /HPF (0.0-6.0) 01/17/19 01:40 10.0 /HPF (0.0-6.0) 01/17/19 01:40 U Epithel Cells (Auto) 4.0 /HPF (0-13.0) 01/17/19 01:40 Few /HPF 01/17/19 01:40 Vancomycin Trough 16.5 ug/mL (5.0-20.0) 01/19/19 08:00 Blood Type O POSITIVE 01/19/19 08:00 Antibody Screen Negative 01/19/19 08:00 Crossmatch See Detail 01/19/19 08:00 Active Medications - Current Medications Current Medications: Generic Name Dose Route Start Last Admin Trade Name Freq PRN Reason Stop Dose Admin Acetaminophen 650 mg 01/17/19 06:08 Tylenol PO Q4H PRN Pain MILD(1-3)/Fever >100.5/LEBRON Dextrose 50 ml 01/18/19 11:00 D50w (25gm) Syringe IV PRN PRN Hypoglycemia Famotidine 20 mg 01/17/19 10:00 01/20/19 09:07 Pepcid IV 20 mg QDAY GRICEL Administration Hydrophilic Ointment 1 applic 01/19/19 16:02 Vaseline Lip Therapy TP DIRECT PRN Dry Lips Vancomycin HCl 1,750 mg/ 535 mls @ 333.333 mls/hr 01/17/19 22:00 01/20/19 21:57 Sodium Chloride IV 333.333 mls/hr Q12H GRICEL Administration Meropenem 1,000 mg/ Sodium 100 mls @ 100 mls/hr 01/19/19 02:00 01/21/19 03:55 Chloride IV 100 mls/hr Q8H GRICEL Administration Protocol Dextrose 1,000 mls @ 75 mls/hr 01/19/19 12:00 01/20/19 18:11 D5w IV 75 mls/hr DIRECT GRICEL Administration Insulin Glargine 10 units 01/19/19 22:00 01/20/19 21:58 Lantus SUB-Q 10 units QHS GRICEL Administration Insulin Human Lispro 0 unit 01/18/19 12:00 01/21/19 05:50 Humalog SUB-Q Not Given Q6HR [facility] Protocol Morphine Sulfate 2 mg 01/17/19 08:36 01/20/19 18:29 Morphine IV 2 mg Q4H PRN Administration Pain, Moderate (4-6) Ondansetron HCl 4 mg 01/17/19 06:08 01/17/19 09:32 Zofran IV 4 mg Q8H PRN Administration Nausea And Vomiting Oxycodone/Acetaminophen 1 tab 01/17/19 06:08 Percocet 5/325 PO Q6H PRN Pain, Moderate (4-6) Sodium Chloride 10 ml 01/17/19 10:00 01/20/19 21:58 Sodium Chloride Flush Syringe 10 Ml IV 10 ml BID GRICEL Administration Sodium Chloride 10 ml 01/17/19 06:08 01/20/19 21:58 Sodium Chloride Flush Syringe 10 Ml IV 10 ml PRN PRN Administration LINE FLUSH Nutrition/Malnutrition Assess - Dietary Evaluation Nutrition/Malnutrition Findings: Nutrition Notes Start: 01/19/19 16:23 Freq: Status: Active Protocol: Document 01/19/19 16:23 [facility] (Rec: 01/19/19 16:28 [facility] SRW- [email or web address]) Nutrition Notes Need for 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 Pt scheduled for additional debridement today; wound vac in place. Pt not in room at time of visit (12:24). Burn Absent Trauma Absent #1 Nutrition Diagnosis Inadequate oral intake Etiology DKA, sepsis, AMS As Evidenced by Signs and Symptoms pt NPO Is patient on ventilator? No Is Patient Ambulatory and/or Out of Bed No REE-([facility]-confined to bed) 1908.600 Kcal/Kg value to use for calculation 14 Approximate Energy Requirements Using 1456 kcal/Kg Calculation Used for Recommendations Kcal/kg Additional Notes Pro needs 2.5g/kg IBW: 119g/ day Fluid needs 1ml/kcal Nutrition Intervention Change Diet Order: Diet advancement when medically feasible Goal #1 Diet advancement to meet nutrient needs Goal #2 Wound healing Anticipated Discharge Needs: Unable to identify at this time Follow-Up By: 01/22/19 Additional Comments F/U: diet advancement
[2019-01-21 07:16] LABS: BUN/Creatinine Ratio 25; Blood Urea Nitrogen 5 mg/dL (7-17); Calcium 7.3 mg/dL (8.4-10.2); Hemolysis Index 0
[2019-01-21] MEDS: PEPCID IV SCH (09:04)
[2019-01-21] MEDS: SODIUM CHLORIDE FLUSH SYRINGE 10 ML IV SCH ×2 (09:05→22:51)
[2019-01-21] MEDS: MORPHINE IV PRN (09:18)
[2019-01-21] MEDS ORDERED: D50W (25GM) Syringe IV PRN (09:34)
[2019-01-21] MEDS: VANCOMYCIN 1,750 MG in NACL 0.9% 500 ML 500 ML IV SCH ×2 (10:28→22:50)
--- NOTE | 2019-01-21 11:58 | Progress Note ---
Assessment and Plan 53 y/o female with DKA, metabolic acidosis, and electrolyte imbalance, possibly secondary to UTI. 1. Patient will need repeat surgery on Tuesday. 2. Continue current diabetic regimen 3. Abx per ID 4. Replace K 5. Wean FiO2 off for sats greater than 88%. Patient is not on home O2 and likely does not require oxygen here. 6. Will sign off, call if questions. Subjective Date of service: 01/21/19 Principal diagnosis: septic shock, left breast necrotizing fascitis Interval history: Successful transfer out of unit on yesterday. Stable on floor. Transfused by IMS Objective - Constitutional Vitals: Vital Signs - 12hr 01/21/19 01/21/19 01/21/19 05:37 06:00 08:27 Temperature 98.3 F Pulse Rate 95 H Respiratory 18 Rate Respiratory 18 Rate [Abdomen] Blood Pressure 138/79 O2 Sat by Pulse 100 99 Oximetry 01/21/19 11:20 Temperature 98.2 F Pulse Rate Respiratory 16 Rate Respiratory Rate [Abdomen] Blood Pressure 137/78 O2 Sat by Pulse Oximetry - Labs CBC & Chem 7: 01/21/19 06:28 01/21/19 06:28 Labs: Abnormal lab results 01/19/19 01/20/19 01/20/19 Range/Units 08:00 12:26 17:35 RBC (3.65-5.03) M/mm3 Hgb (10.1-14.3) gm/dl Hct (30.3-42.9) % MCHC (30-34) % Potassium (3.6-5.0) mmol/L BUN (7-17) mg/dL Creatinine (0.7-1.2) mg/dL Glucose (65-100) mg/dL POC Glucose 250 H 284 H (70-105) Calcium (8.4-10.2) mg/dL Crossmatch See Detail 01/20/19 01/21/19 01/21/19 Range/Units 21:28 05:40 06:28 RBC 2.69 L (3.65-5.03) M/mm3 Hgb 8.4 L (10.1-14.3) gm/dl Hct 23.4 L (30.3-42.9) % MCHC 36 H (30-34) % Potassium (3.6-5.0) mmol/L BUN (7-17) mg/dL Creatinine (0.7-1.2) mg/dL Glucose (65-100) mg/dL POC Glucose 234 H 286 H (70-105) Calcium (8.4-10.2) mg/dL Crossmatch 01/21/19 01/21/19 Range/Units 06:28 10:52 RBC (3.65-5.03) M/mm3 Hgb (10.1-14.3) gm/dl Hct (30.3-42.9) % MCHC (30-34) % Potassium 3.0 L (3.6-5.0) mmol/L BUN 5 L (7-17) mg/dL Creatinine 0.2 L (0.7-1.2) mg/dL Glucose 272 H (65-100) mg/dL POC Glucose 244 H (70-105) Calcium 7.3 L (8.4-10.2) mg/dL Crossmatch Medications & Allergies - Medications Allergies/Adverse Reactions: Allergies Penicillins Allergy (Verified 12/21/13 10:43) Angioedema THROAT CLOSES Home Medications: Home Medications Medication Instructions Recorded Confirmed Last Taken Type HYDROcodone/ACETAMINOPHEN [[place] 1 each PO Q6H PRN #12 tablet 08/03/17 01/19/19 Unknown Rx 5-325 Tablet] Bisacodyl [Dulcolax suppos] 10 mg CA QDAY PRN supp.rect 08/09/17 01/19/19 Unknown Rx Ferrous Sulfate [Feosol 325 MG tab] 325 mg PO BID #60 tablet 08/09/17 01/19/19 Unknown Rx Insulin NPH/Regular [NovoLIN 70/30] 10 unit SUB-Q BIDDIAB 30 Days 08/09/17 01/19/19 Unknown Rx units Potassium Chloride [K-Dur] 40 meq PO QDAY #3 tablet 08/09/17 01/19/19 Unknown Rx levoFLOXacin [Levaquin TAB] 750 mg PO DAILY #3 tablet 08/09/17 01/19/19 Unknown Rx metroNIDAZOLE [Flagyl TAB] 500 mg PO Q8HR #10 tablet 08/09/17 01/19/19 Unknown Rx Active Medications: Generic Name Dose Route Start Last Admin Trade Name Freq PRN Reason Stop Dose Admin Acetaminophen 650 mg 01/17/19 06:08 Tylenol PO Q4H PRN Pain MILD(1-3)/Fever >100.5/LEBRON Dextrose 50 ml 01/21/19 09:34 D50w (25gm) Syringe IV PRN PRN Hypoglycemia Famotidine 20 mg 01/17/19 10:00 01/21/19 09:04 Pepcid IV 20 mg QDAY GRICEL Administration Hydrophilic Ointment 1 applic 01/19/19 16:02 Vaseline Lip Therapy TP DIRECT PRN Dry Lips Vancomycin HCl 1,750 mg/ 535 mls @ 333.333 mls/hr 01/17/19 22:00 01/21/19 10:28 Sodium Chloride IV 333.333 mls/hr Q12H GRICEL Administration Meropenem 1,000 mg/ Sodium 100 mls @ 100 mls/hr 01/19/19 02:00 01/21/19 09:03 Chloride IV 100 mls/hr Q8H GRICEL Administration Protocol Insulin Glargine 15 units 01/21/19 22:00 Lantus SUB-Q QHS [facility] Insulin Human Lispro 0 unit 01/21/19 11:30 Humalog SUB-Q ACHS [facility] Protocol Morphine Sulfate 2 mg 01/17/19 08:36 01/21/19 09:18 Morphine IV 2 mg Q4H PRN Administration Pain, Moderate (4-6) Ondansetron HCl 4 mg 01/17/19 06:08 01/17/19 09:32 Zofran IV 4 mg Q8H PRN Administration Nausea And Vomiting Oxycodone/Acetaminophen 1 tab 01/17/19 06:08 Percocet 5/325 PO Q6H PRN Pain, Moderate (4-6) Sodium Chloride 10 ml 01/17/19 10:00 01/21/19 09:05 Sodium Chloride Flush Syringe 10 Ml IV 10 ml BID GRICEL Administration Sodium Chloride 10 ml 01/17/19 06:08 01/20/19 21:58 Sodium Chloride Flush Syringe 10 Ml IV 10 ml PRN PRN Administration LINE FLUSH
[2019-01-21] MEDS: LANTUS SUB-Q SCH (23:00)
[2019-01-22] MEDS: MERREM 1,000 MG in NACL 0.9% 100 ML IV SCH ×2 (01:32→09:06)
[2019-01-22] MEDS: ZOFRAN IV PRN (03:38)
[2019-01-22] MEDS: MORPHINE IV PRN ×2 (03:38→23:09)
[2019-01-22] MEDS: SODIUM CHLORIDE FLUSH SYRINGE 10 ML IV PRN (03:40)
[2019-01-22 06:26] LABS: Hematocrit 24.9 % (30.3-42.9); Mean Corpuscular HGB Conc 36 % (30-34); Mean Corpuscular Volume 87 fl (79-97); Platelet Count 366 K/mm3 (140-440); Red Blood Count 2.87 M/mm3 (3.65-5.03); Red Cell Distribution Width 13.6 % (13.2-15.2)
[2019-01-22 06:41] LABS: BUN/Creatinine Ratio 15; Blood Urea Nitrogen 3 mg/dL (7-17); Calcium 7.9 mg/dL (8.4-10.2); Hemolysis Index 0
[2019-01-22] MEDS ORDERED: KCL 20MEQ/100ML 20 MEQ/100 ML BAG IV SCH (07:00)
[2019-01-22] MEDS: HumaLOG SUB-Q SCH ×4 (07:50→23:01)
[2019-01-22] MEDS ORDERED: NACL 0.9% 500 ML 0 ML ONE (08:41)
[2019-01-22] MEDS: KCL 10MEQ/100ML 10 MEQ/100 ML BAG IV SCH ×4 (09:06→17:38)
[2019-01-22] MEDS: PEPCID IV SCH (09:06)
[2019-01-22] MEDS: SODIUM CHLORIDE FLUSH SYRINGE 10 ML IV SCH ×2 (10:25→23:10)
[2019-01-22] MEDS ORDERED: UNASYN/NS 3 GM/100 ML 3 GM/100 ML BAG IV SCH (12:00)
[2019-01-22] MEDS: VANCOMYCIN 1,750 MG in NACL 0.9% 500 ML 500 ML IV SCH ×2 (12:32→15:43)
[2019-01-22] MEDS ORDERED: VANCOMYCIN PHARMACY TO DOSE IV SCH (13:00)
[2019-01-22] MEDS: LEVAQUIN 750MG/150ML 750 MG/150 ML BAG IV SCH (14:01)
--- NOTE | 2019-01-22 14:15 | Progress Note ---
Assessment and Plan Assessment and plan: Patient is a 53 yo woman with a history of upper back abscess/necrotizing fascitis s/p OR debridement, IDDM and anemia who presents to [facility] ED with left breast pain and swelling. Currently, patient is confused. She underwent wide excisional debridement on 01/17/[address] Guerra; findings were 300-400 cc of pus drained with at least 30% of the lower inner and outer quadrants with necrosis and resected for left breast necrotizing fascititis Severe Left breast necrotizing fascititis s/p debridement and removal of about 1/3 of left breast: Another debridement Tuesday. continue ABX, wound vac in place Severe sepsis due to Left breast cellulitis with abscess: on IV Diflucan, IV Clindamycin and IV Vancomycin with closely drug monitoring. ID is following, input noted. DKA, resolved: start long acting insulin Acute encephalopathy due to the above, resolved, Severe acidosis: treat the sepsis, consulted CCM, input noted Hypokalemia: replete and monitor bmp Hypernatremia: more free water on d5W now, follow BMP closely PCN drug allergy Acute blood loss anemia/Drop in HCT due to surgery, s/p 1 unit PRBC on 01/20/19: continue to monitor DVT ppx, I stopped sq lovenox for possible surgical intervention, continue to hold heparin due to drop in HCT [place] removed Right IJ in place, 01/17/19 inserted, remove today and PICC line inserted 01/20/19. Back to OR on Tuesday History Interval history: Patient was seen and examined. Follow-up on current diagnosis of Left breast Necrotizing Fascitiis. No overnight events reported to me. Moved out of the ICU on Tuesday, January 21. Patient denies sob, n/v/cp except left breast. Imaging, nursing note, chart, labs and old chart reviewed. Hospitalist Physical - Physical exam Narrative exam: Gen: ill appearing, NAD, awake, alert Orientated x 3 HEENT: NCAT, EOMI, PERRL, OP Clear Neck: supple, no adenopathy, no thyromegaly, no JVD CVS/Heart: Regular tachycardia, normal S1S2, pulses present bilaterally Chest/Lungs: tachypneic, CTA B, Symmetrical chest expansion, good air entry bilaterally GI/Abdomen: soft, NTND, good bowel sounds, no guarding or rebound /Bladder: no suprapubic tenderness, no CVA or paraspinal tenderness Breast: left breast severely enlarged, erythematous, red, tender, foul smelling, obvious abscess with necrotic tissue removed and wound vac in place Extermity/Skin: no c/c/e, no obvious rash MSK: FROM x 4 Neuro: CN 2-12 grossly intact, no new focal deficits Psych: calm - Constitutional Vitals: Temp Pulse Resp BP Pulse Ox 98.2 F 100 H 18 137/82 94 01/22/19 11:24 01/22/19 11:24 01/22/19 11:24 01/22/19 11:24 01/22/19 11:24 General appearance: Present: no acute distress Results - Labs CBC & Chem 7: 01/22/19 06:00 01/22/19 06:00 Labs: Laboratory Last Values WBC 7.5 K/mm3 (4.5-11.0) 01/22/19 06:00 RBC 2.87 M/mm3 (3.65-5.03) L 01/22/19 06:00 Hgb 9.0 gm/dl (10.1-14.3) L 01/22/19 06:00 Hct 24.9 % (30.3-42.9) L 01/22/19 06:00 MCV 87 fl (79-97) 01/22/19 06:00 MCH 31 pg (28-32) 01/22/19 06:00 MCHC 36 % (30-34) H 01/22/19 06:00 RDW 13.6 % (13.2-15.2) 01/22/19 06:00 Plt Count 366 K/mm3 (140-440) 01/22/19 06:00 Add Manual Diff Complete 01/18/19 05:39 Total Counted 100 01/18/19 05:39 Seg Neutrophils % Library Customer Service Clerk 01/17/19 01:17 Seg Neuts % (Manual) 91.0 % (40.0-70.0) H 01/18/19 05:39 0 % 01/18/19 05:39 6.0 % (13.4-35.0) L 01/18/19 05:39 Reactive Lymphs % (Man) 0 % 01/18/19 05:39 1.0 % (0.0-7.3) 01/18/19 05:39 0 % (0.0-4.3) 01/18/19 05:39 0 % (0.0-1.8) 01/18/19 05:39 0 % 01/18/19 05:39 2.0 % 01/18/19 05:39 0 % 01/18/19 05:39 0 % 01/18/19 05:39 Nucleated RBC % Not Reportable 01/18/19 05:39 Seg Neutrophils # Man 15.2 K/mm3 (1.8-7.7) H 01/18/19 05:39 Band Neutrophils # 0.0 K/mm3 01/18/19 05:39 1.0 K/mm3 (1.2-5.4) L 01/18/19 05:39 Abs React Lymphs (Man) 0.0 K/mm3 01/18/19 05:39 0.2 K/mm3 (0.0-0.8) 01/18/19 05:39 0.0 K/mm3 (0.0-0.4) 01/18/19 05:39 0.0 K/mm3 (0.0-0.1) 01/18/19 05:39 0.0 K/mm3 01/18/19 05:39 0.3 K/mm3 01/18/19 05:39 0.0 K/mm3 01/18/19 05:39 Blast Cells # 0.0 K/mm3 01/18/19 05:39 WBC Morphology Not Reportable 01/18/19 05:39 Hypersegmented Neuts Not Reportable 01/18/19 05:39 Hyposegmented Neuts Not Reportable 01/18/19 05:39 Hypogranular Neuts Not Reportable 01/18/19 05:39 Not Reportable 01/18/19 05:39 Not Reportable 01/18/19 05:39 Not Reportable 01/18/19 05:39 Not Reportable 01/18/19 05:39 Not Reportable 01/18/19 05:39 Not Reportable 01/18/19 05:39 Consistent w auto 01/18/19 05:39 Not Reportable 01/18/19 05:39 Plt Clumps, EDTA Not Reportable 01/18/19 05:39 Not Reportable 01/18/19 05:39 Not Reportable 01/18/19 05:39 Not Reportable 01/18/19 05:39 Plt Morphology Comment Not Reportable 01/18/19 05:39 RBC Morphology Not Reportable 01/18/19 05:39 Dimorphic RBCs Not Reportable 01/18/19 05:39 Not Reportable 01/18/19 05:39 Not Reportable 01/18/19 05:39 Few 01/18/19 05:39 Few 01/18/19 05:39 Not Reportable 01/18/19 05:39 Not Reportable 01/18/19 05:39 Not Reportable 01/18/19 05:39 Not Reportable 01/18/19 05:39 Not Reportable 01/18/19 05:39 Not Reportable 01/18/19 05:39 Not Reportable 01/18/19 05:39 Not Reportable 01/18/19 05:39 Not Reportable 01/18/19 05:39 Not Reportable 01/18/19 05:39 Not Reportable 01/18/19 05:39 Not Reportable 01/18/19 05:39 Not Reportable 01/18/19 05:39 Not Reportable 01/18/19 05:39 Not Reportable 01/18/19 05:39 Acanthocytes (Spur) Not Reportable 01/18/19 05:39 Rouleaux Not Reportable 01/18/19 05:39 Not Reportable 01/18/19 05:39 Not Reportable 01/18/19 05:39 Not Reportable 01/18/19 05:39 Not Reportable 01/18/19 05:39 Hem Pathologist Commnt No 01/18/19 05:39 POC ABG pH 7.279 (7.35-7.45) L 01/17/19 13:32 POC ABG pO2 82 (80-105) 01/17/19 13:32 POC ABG HCO3 9.8 (22-26 mml/L) 01/17/19 13:32 POC ABG Total CO2 10 (23-27mmol/L) 01/17/19 13:32 POC ABG O2 Sat 95 01/17/19 13:32 POC ABG Base Excess -17 ((-2) - (+3)mmol/L) 01/17/19 13:32 VBG pH 7.089 (7.320-7.420) L* 01/17/19 02:21 21 % 01/17/19 13:32 Sodium 147 mmol/L (137-145) H 01/22/19 06:00 Potassium 2.6 mmol/L (3.6-5.0) L* 01/22/19 06:00 Chloride 107.0 mmol/L (98-107) 01/22/19 06:00 Carbon Dioxide 33 mmol/L (22-30) H 01/22/19 06:00 10 mmol/L 01/22/19 06:00 BUN 3 mg/dL (7-17) L 01/22/19 06:00 0.2 mg/dL (0.7-1.2) L 01/22/19 06:00 Estimated GFR > 60 ml/min 01/22/19 06:00 15 % 01/22/19 06:00 Glucose 129 mg/dL (65-100) H 01/22/19 06:00 POC Glucose 136 (70-105) H 01/22/19 11:15 Lactic Acid 3.50 mmol/L (0.7-2.0) H* 01/17/19 14:05 Calcium 7.9 mg/dL (8.4-10.2) L 01/22/19 06:00 Phosphorus 2.00 mg/dL (2.5-4.5) L 01/22/19 Unknown Magnesium 1.90 mg/dL (1.7-2.3) 01/22/19 Unknown 0.20 mg/dL (0.1-1.2) 01/17/19 03:29 AST 6 units/L (5-40) 01/17/19 03:29 ALT 8 units/L (7-56) 01/17/19 03:29 176 units/L (35-129) H 01/17/19 03:29 28.80 mg/dL (0.00-1.30) H 01/17/19 14:05 6.6 g/dL (6.3-8.2) 01/17/19 03:29 3.1 g/dL (3.9-5) L 01/17/19 03:29 0.9 % 01/17/19 03:29 Yellow (Yellow) 01/17/19 01:40 Slightly-cloudy (Clear) 01/17/19 01:40 5.0 (5.0-7.0) 01/17/19 01:40 Ur Specific [place] 1.026 (1.003-1.030) 01/17/19 01:40 30 mg/dl mg/dL (Negative) 01/17/19 01:40 >=500 mg/dL (Negative) 01/17/19 01:40 80 mg/dL (Negative) 01/17/19 01:40 Sm (Negative) 01/17/19 01:40 Neg (Negative) 01/17/19 01:40 Neg (Negative) 01/17/19 01:40 < 2.0 mg/dL (<2.0) 01/17/19 01:40 Ur Leukocyte Esterase Tr (Negative) 01/17/19 01:40 5.0 /HPF (0.0-6.0) 01/17/19 01:40 10.0 /HPF (0.0-6.0) 01/17/19 01:40 U Epithel Cells (Auto) 4.0 /HPF (0-13.0) 01/17/19 01:40 Few /HPF 01/17/19 01:40 Vancomycin Trough 16.5 ug/mL (5.0-20.0) 01/19/19 08:00 Blood Type O POSITIVE 01/19/19 08:00 Antibody Screen Negative 01/19/19 08:00 Crossmatch See Detail 01/19/19 08:00 Active Medications - Current Medications Current Medications: Generic Name Dose Route Start Last Admin Trade Name Freq PRN Reason Stop Dose Admin Acetaminophen 650 mg 01/17/19 06:08 Tylenol PO Q4H PRN Pain MILD(1-3)/Fever >100.5/LEBRON Dextrose 50 ml 01/21/19 09:34 D50w (25gm) Syringe IV PRN PRN Hypoglycemia Famotidine 20 mg 01/17/19 10:00 01/22/19 09:06 Pepcid IV 20 mg QDAY GRICEL Administration Hydrophilic Ointment 1 applic 01/19/19 16:02 Vaseline Lip Therapy TP DIRECT PRN Dry Lips Levofloxacin/Dextrose 750 mg in 150 mls @ 100 mls/hr 01/22/19 12:30 01/22/19 14:01 Levaquin 750mg/150ml IV 100 mls/hr Q24HR GRICEL Administration Vancomycin HCl 1,750 mg/ 535 mls @ 333.333 mls/hr 01/22/19 14:00 Sodium Chloride IV Q12H [facility] Insulin Glargine 15 units 01/21/19 22:00 01/21/19 23:00 Lantus SUB-Q 15 units QHS [facility] Administration Insulin Human Lispro 0 unit 01/21/19 11:30 01/22/19 12:33 Humalog SUB-Q Not Given ACHS [facility] Protocol Morphine Sulfate 2 mg 01/17/19 08:36 01/22/19 03:38 Morphine IV 2 mg Q4H PRN Administration Pain, Moderate (4-6) Ondansetron HCl 4 mg 01/17/19 06:08 01/22/19 03:38 Zofran IV 4 mg Q8H PRN Administration Nausea And Vomiting Oxycodone/Acetaminophen 1 tab 01/17/19 06:08 Percocet 5/325 PO Q6H PRN Pain, Moderate (4-6) Sodium Chloride 10 ml 01/17/19 10:00 01/22/19 10:25 Sodium Chloride Flush Syringe 10 Ml IV 10 ml BID GRICEL Administration Sodium Chloride 10 ml 01/17/19 06:08 01/22/19 03:40 Sodium Chloride Flush Syringe 10 Ml IV 10 ml PRN PRN Administration LINE FLUSH Nutrition/Malnutrition Assess - Dietary Evaluation Nutrition/Malnutrition Findings: Nutrition Notes Start: 01/19/19 16:23 Freq: Status: Active Protocol: Document 01/19/19 16:23 [facility] (Rec: 01/19/19 16:28 [facility] [id number]) Nutrition Notes Need for Assessment generated from: application release manager Initial or Follow up Assessment Current Diagnosis Diabetes Other Pertinent Diagnosis Severe (L) breast necrotizing fasciitis s/p excisional debridement, DKA Current Diet NPO Labs/Tests Na 153 K 3.5 BG 207 (500 upon admission Pertinent Medications 20mEq KCl at 100ml/hr x 2 bags Height 5 ft 1 in Weight 104 kg [place] Body Weight (kg) 47.72 BMI 43.3 Weight Status Morbidly Obese Subjective/Other Information Pt screened for skin risk ( Matt score: 17). Pt scheduled for additional debridement today; wound vac in place. Pt not in room at time of visit (12:24). Burn Absent Trauma Absent #1 Nutrition Diagnosis Inadequate oral intake Etiology DKA, sepsis, AMS As Evidenced by Signs and Symptoms pt NPO Is patient on ventilator? No Is Patient Ambulatory and/or Out of Bed No REE-([facility]-confined to bed) 1908.600 Kcal/Kg value to use for calculation 14 Approximate Energy Requirements Using 1456 kcal/Kg Calculation Used for Recommendations Kcal/kg Additional Notes Pro needs 2.5g/kg IBW: 119g/ day Fluid needs 1ml/kcal Nutrition Intervention Change Diet Order: Diet advancement when medically feasible Goal #1 Diet advancement to meet nutrient needs Goal #2 Wound healing Anticipated Discharge Needs: Unable to identify at this time Follow-Up By: 01/22/19 Additional Comments F/U: diet advancement
--- NOTE | 2019-01-22 18:16 | Progress Note ---
Assessment and Plan Cultures: Blood cultures 01/17/2019 no growth so far. Surgical biopsy 01/17/2019 Klebsiella oxytoca and E faecalis Surgical specimen 01/19/2019 Klebsiella oxytoca and E faecalis Assessment: 53 y/o female with history of diabetes, uncontrolled, known to ID service due to admission on 07/28/2017 due to large upper back cutaneous abscess and necrotizing fascitis in Jul 2017. Admitted on 01/17/2019 due to 5-day history of worsening left breast edema, erythema and tenderness associated with AMS/ sleepiness/confusion: 1) Severe Sepsis with septic shock: better, off pressors. Etiology most likely complicated left breast skin and soft tissue infection. UA neg. 2) Complicated extensive left breast skin and soft tissue infection likely necrotizing fascitis/abscess: likely Strep infection ?GAS v/s less likely Staph. She was recently diagnosed with left breast cellulitis. She went to [place] urgent care and was placed on clindamycin, [place] and ibuprofen. On admission d ay, left breast opened up and was draining and bleeding. S/P Left breast wide local debridement, incision and drainage on 01/17/2019. Findings: 300-400 cc of pus drained with at least 30% of the lower inner and outer quadrants with necrosis and resected. CRP=33. OR wound cultures Klebsiella oxytoca and E faecalis. She reports lesion started as a "pimple" and she was placing "warm compresses" to drain it. Path extensive severe acute inflammatory of subcutaneous tissue with abundant necrotic abscess and debris and fat necrosis. Epidermis with acute inflammation acantholysis and subcornal blisters and microabscess, negative for malignant cells. 3) History of large upper back cutaneous abscess and necrotizing fascitis in Jul 2017 s/p OR debridement on 07/30/2017 surgical wound cx + Diphteroids, Staph capitis and Peptostreptococcus treated with clindamycin, levaquin and vancomycin as inpatient, discharged on levaquin 750 mg po qday and flagyl 500 mg TID total 2 weeks from 07/30 until 08/12/2017. 4) Thrombocytosis: from infection, resolved 5) DM-uncontrolled on DKA, better 6) Acute encephalopathy: from severe sepsis and hypernatremia. Improving 7) Penicillin allergy: causes anaphylaxis, tolerating meropenem. Recommendations: - stop meropenem 1 gm IV q8 hour D3 - continue vancomycin with PK consult for now until culture finalized D6 to cover E faecalis - start levaquin 750 mg IV q day - at discharge will do levaquin 750 mg PO qday and linezolid 600 mg PO BID total 10 days until 01/28/2019 - diabetes control Discussed with pharmacy Will follow Zaina Be MD Infectious Diseases [employer] [facility] M [phone] O [phone] Subjective Date of service: 01/22/19 Principal diagnosis: septic shock, left breast necrotizing fascitis Interval history: Alert, feels better, no pain, no fever ROS denies N/V/D, abd pain rest negative Objective - Exam Narrative Exam: General appearance: alert in NAD follows commands Eyes: anicteric sclerae, moist conjunctivae; no lid-lag; PERRLA HENT: Atraumatic; oropharynx limited Neck: Trachea midline; supple, no thyromegaly or lymphadenopathy Lungs: CTA CV: rrr Abdomen: Soft, non-tender Extremities: no edema Skin: left breast with extensive edema, tenderness and erythema decreased with wound VAC Psych: no agitated Neuro: alert moves all extremities - Constitutional Vitals: Vital Signs Temp Pulse Resp BP Pulse Ox 98.5 F 97 H 16 129/75 97 01/22/19 16:18 01/22/19 16:18 01/22/19 16:18 01/22/19 16:18 01/22/19 16:18 Temperature -Last 24 Hours Temperature 98.5 F Temperature 98.2 F Temperature 98.3 F Temperature 98.4 F - Labs CBC & Chem 7: 01/22/19 06:00 01/22/19 06:00 Labs: Abnormal lab results 01/21/19 01/22/19 01/22/19 Range/Units 21:24 06:00 06:00 RBC 2.87 L (3.65-5.03) M/mm3 Hgb 9.0 L (10.1-14.3) gm/dl Hct 24.9 L (30.3-42.9) % MCHC 36 H (30-34) % Sodium 147 H (137-145) mmol/L Potassium 2.6 L* (3.6-5.0) mmol/L Carbon Dioxide 33 H (22-30) mmol/L BUN 3 L (7-17) mg/dL Creatinine 0.2 L (0.7-1.2) mg/dL Glucose 129 H (65-100) mg/dL POC Glucose 175 H (70-105) Calcium 7.9 L (8.4-10.2) mg/dL Phosphorus (2.5-4.5) mg/dL 01/22/19 01/22/19 01/22/19 Range/Units 07:33 11:15 16:04 RBC (3.65-5.03) M/mm3 Hgb (10.1-14.3) gm/dl Hct (30.3-42.9) % MCHC (30-34) % Sodium (137-145) mmol/L Potassium (3.6-5.0) mmol/L Carbon Dioxide (22-30) mmol/L BUN (7-17) mg/dL Creatinine (0.7-1.2) mg/dL Glucose (65-100) mg/dL POC Glucose 138 H 136 H 202 H (70-105) Calcium (8.4-10.2) mg/dL Phosphorus (2.5-4.5) mg/dL 01/22/19 Range/Units Unknown RBC (3.65-5.03) M/mm3 Hgb (10.1-14.3) gm/dl Hct (30.3-42.9) % MCHC (30-34) % Sodium (137-145) mmol/L Potassium (3.6-5.0) mmol/L Carbon Dioxide (22-30) mmol/L BUN (7-17) mg/dL Creatinine (0.7-1.2) mg/dL Glucose (65-100) mg/dL POC Glucose (70-105) Calcium (8.4-10.2) mg/dL Phosphorus 2.00 L (2.5-4.5) mg/dL
--- NOTE | 2019-01-22 22:26 | Event Note ---
Date: 01/22/19 Will take patient to the OR tomorrow, January 23, 2019, for wound vac change and additional left breast breast debridement if needed. Spoke with day and night nurse to ensure patient is NPO, order written and lab order sent for the morning. Nursing staff with contact hospitalist for IVF order.
[2019-01-22] MEDS: LANTUS SUB-Q SCH (23:04)
[2019-01-23] MEDS ORDERED: NACL 0.9% IR ONE
[2019-01-23] MEDS: VANCOMYCIN 1,750 MG in NACL 0.9% 500 ML 500 ML IV SCH ×2 (02:57→17:38)
[2019-01-23] MEDS: HumaLOG SUB-Q SCH ×4 (08:46→22:49)
[2019-01-23] MEDS: LEVAQUIN 750MG/150ML 750 MG/150 ML BAG IV SCH (09:52)
[2019-01-23] MEDS ORDERED: PEPCID PO SCH (10:00)
[2019-01-23 10:29] LABS: BUN/Creatinine Ratio 15; Blood Urea Nitrogen 3 mg/dL (7-17); Calcium 7.8 mg/dL (8.4-10.2); Hemolysis Index 0
--- NOTE | 2019-01-23 10:42 | Progress Note ---
Assessment and Plan Assessment and plan: Severe Left breast necrotizing fascititis s/p debridement and removal of about 1/3 of left breast: Another debridement 01/19/19. Continue ABX, wound vac in place. PICC line inserted 01/20/19. Pt scheduled to have further surgery today Severe sepsis due to Left breast cellulitis with abscess: on IV Diflucan, IV Clindamycin and IV Vancomycin with closely drug monitoring. ID is following, input noted. DM II. DKA, resolved: Cont. long acting insulin. Tight glycemic control to promote wound healing Acute metabolic encephalopathy due to the above, resolved, Hypokalemia: replete and monitor bmp Hypernatremia: more free water on d5W now, follow BMP closely PCN drug allergy Acute blood loss anemia/Drop in HCT due to surgery, s/p 1 unit PRBC on 01/20/19: continue to monitor DVT ppx, lovenox stopped for possible surgical intervention, continue to hold heparin due to drop in HCT [place] removed History Interval history: Patient is a 53 yo woman with a history of upper back abscess/necrotizing fascitis s/p OR debridement, IDDM and anemia who presents to [facility] ED with left breast pain and swelling. Currently, patient is confused. She underwent wide excisional debridement on 01/17/[address] Guerra; findings were 300-400 cc of pus drained with at least 30% of the lower inner and outer quadrants with necrosis and resected for left breast necrotizing fascititis No new issues overnight Hospitalist Physical - Constitutional Vitals: Temp Pulse Resp BP Pulse Ox 98.1 F 89 20 137/79 95 01/23/19 05:46 01/23/19 05:46 01/23/19 05:46 01/23/19 05:46 01/23/19 05:46 General appearance: Present: no acute distress - EENT Eyes: Present: PERRL, EOM intact ENT: hearing intact, clear oral mucosa, dentition normal - Neck Neck: Present: supple, normal ROM - Respiratory Respiratory effort: normal Respiratory: bilateral: CTA - Cardiovascular Rhythm: regular Heart Sounds: Present: S1 & S2. Absent: gallop, rub - Extremities Extremities: no ischemia, No edema, Full ROM - Abdominal General gastrointestinal: soft, non-tender, non-distended, normal bowel sounds - Neurologic Neurologic: CNII-XII intact, moves all extremities - Additional findings Additional findings: Breast--Left breast severely enlarged, erythematous, red, tender, foul smelling, obvious abscess with necrotic tissue removed and wound vac in place Results - Labs CBC & Chem 7: 01/22/19 06:00 01/23/19 Unknown Labs: Laboratory Last Values WBC 7.5 K/mm3 (4.5-11.0) 01/22/19 06:00 RBC 2.87 M/mm3 (3.65-5.03) L 01/22/19 06:00 Hgb 9.0 gm/dl (10.1-14.3) L 01/22/19 06:00 Hct 24.9 % (30.3-42.9) L 01/22/19 06:00 MCV 87 fl (79-97) 01/22/19 06:00 MCH 31 pg (28-32) 01/22/19 06:00 MCHC 36 % (30-34) H 01/22/19 06:00 RDW 13.6 % (13.2-15.2) 01/22/19 06:00 Plt Count 366 K/mm3 (140-440) 01/22/19 06:00 Add Manual Diff Complete 01/18/19 05:39 Total Counted 100 01/18/19 05:39 Seg Neutrophils % Hemodialysis Patient Care Specialist 01/17/19 01:17 Seg Neuts % (Manual) 91.0 % (40.0-70.0) H 01/18/19 05:39 0 % 01/18/19 05:39 6.0 % (13.4-35.0) L 01/18/19 05:39 Reactive Lymphs % (Man) 0 % 01/18/19 05:39 1.0 % (0.0-7.3) 01/18/19 05:39 0 % (0.0-4.3) 01/18/19 05:39 0 % (0.0-1.8) 01/18/19 05:39 0 % 01/18/19 05:39 2.0 % 01/18/19 05:39 0 % 01/18/19 05:39 0 % 01/18/19 05:39 Nucleated RBC % Not Reportable 01/18/19 05:39 Seg Neutrophils # Man 15.2 K/mm3 (1.8-7.7) H 01/18/19 05:39 Band Neutrophils # 0.0 K/mm3 01/18/19 05:39 1.0 K/mm3 (1.2-5.4) L 01/18/19 05:39 Abs React Lymphs (Man) 0.0 K/mm3 01/18/19 05:39 0.2 K/mm3 (0.0-0.8) 01/18/19 05:39 0.0 K/mm3 (0.0-0.4) 01/18/19 05:39 0.0 K/mm3 (0.0-0.1) 01/18/19 05:39 0.0 K/mm3 01/18/19 05:39 0.3 K/mm3 01/18/19 05:39 0.0 K/mm3 01/18/19 05:39 Blast Cells # 0.0 K/mm3 01/18/19 05:39 WBC Morphology Not Reportable 01/18/19 05:39 Hypersegmented Neuts Not Reportable 01/18/19 05:39 Hyposegmented Neuts Not Reportable 01/18/19 05:39 Hypogranular Neuts Not Reportable 01/18/19 05:39 Not Reportable 01/18/19 05:39 Not Reportable 01/18/19 05:39 Not Reportable 01/18/19 05:39 Not Reportable 01/18/19 05:39 Not Reportable 01/18/19 05:39 Not Reportable 01/18/19 05:39 Consistent w auto 01/18/19 05:39 Not Reportable 01/18/19 05:39 Plt Clumps, EDTA Not Reportable 01/18/19 05:39 Not Reportable 01/18/19 05:39 Not Reportable 01/18/19 05:39 Not Reportable 01/18/19 05:39 Plt Morphology Comment Not Reportable 01/18/19 05:39 RBC Morphology Not Reportable 01/18/19 05:39 Dimorphic RBCs Not Reportable 01/18/19 05:39 Not Reportable 01/18/19 05:39 Not Reportable 01/18/19 05:39 Few 01/18/19 05:39 Few 01/18/19 05:39 Not Reportable 01/18/19 05:39 Not Reportable 01/18/19 05:39 Not Reportable 05/23/19 05:39 Not Reportable 01/18/19 05:39 Not Reportable 01/18/19 05:39 Not Reportable 01/18/19 05:39 Not Reportable 01/18/19 05:39 Not Reportable 01/18/19 05:39 Not Reportable 01/18/19 05:39 Not Reportable 01/18/19 05:39 Not Reportable 01/18/19 05:39 Not Reportable 01/18/19 05:39 Not Reportable 01/18/19 05:39 Not Reportable 01/18/19 05:39 Not Reportable 01/18/19 05:39 Acanthocytes (Spur) Not Reportable 01/18/19 05:39 Rouleaux Not Reportable 01/18/19 05:39 Not Reportable 01/18/19 05:39 Not Reportable 01/18/19 05:39 Not Reportable 01/18/19 05:39 Not Reportable 01/18/19 05:39 Hem Pathologist Commnt No 01/18/19 05:39 POC ABG pH 7.279 (7.35-7.45) L 01/17/19 13:32 POC ABG pO2 82 (80-105) 01/17/19 13:32 POC ABG HCO3 9.8 (22-26 mml/L) 01/17/19 13:32 POC ABG Total CO2 10 (23-27mmol/L) 01/17/19 13:32 POC ABG O2 Sat 95 01/17/19 13:32 POC ABG Base Excess -17 ((-2) - (+3)mmol/L) 01/17/19 13:32 VBG pH 7.089 (7.320-7.420) L* 01/17/19 02:21 21 % 01/17/19 13:32 Sodium 143 mmol/L (137-145) 01/23/19 Unknown Potassium 2.7 mmol/L (3.6-5.0) L* 01/23/19 Unknown Chloride 101.4 mmol/L (98-107) 01/23/19 Unknown Carbon Dioxide 31 mmol/L (22-30) H 01/23/19 Unknown 13 mmol/L 01/23/19 Unknown BUN 3 mg/dL (7-17) L 01/23/19 Unknown 0.2 mg/dL (0.7-1.2) L 01/23/19 Unknown Estimated GFR > 60 ml/min 01/23/19 Unknown 15 % 01/23/19 Unknown Glucose 136 mg/dL (65-100) H 01/23/19 Unknown POC Glucose 134 (70-105) H 01/23/19 08:23 Lactic Acid 3.50 mmol/L (0.7-2.0) H* 01/17/19 14:05 Calcium 7.8 mg/dL (8.4-10.2) L 01/23/19 Unknown Phosphorus 2.00 mg/dL (2.5-4.5) L 01/22/19 Unknown Magnesium 1.90 mg/dL (1.7-2.3) 01/22/19 Unknown 0.20 mg/dL (0.1-1.2) 01/17/19 03:29 AST 6 units/L (5-40) 01/17/19 03:29 ALT 8 units/L (7-56) 01/17/19 03:29 176 units/L (35-129) H 01/17/19 03:29 28.80 mg/dL (0.00-1.30) H 01/17/19 14:05 6.6 g/dL (6.3-8.2) 01/17/19 03:29 3.1 g/dL (3.9-5) L 01/17/19 03:29 0.9 % 01/17/19 03:29 Yellow (Yellow) 01/17/19 01:40 Slightly-cloudy (Clear) 01/17/19 01:40 5.0 (5.0-7.0) 01/17/19 01:40 Ur Specific [place] 1.026 (1.003-1.030) 01/17/19 01:40 30 mg/dl mg/dL (Negative) 01/17/19 01:40 >=500 mg/dL (Negative) 01/17/19 01:40 80 mg/dL (Negative) 01/17/19 01:40 Sm (Negative) 01/17/19 01:40 Neg (Negative) 01/17/19 01:40 Neg (Negative) 01/17/19 01:40 < 2.0 mg/dL (<2.0) 01/17/19 01:40 Ur Leukocyte Esterase Tr (Negative) 01/17/19 01:40 5.0 /HPF (0.0-6.0) 01/17/19 01:40 10.0 /HPF (0.0-6.0) 01/17/19 01:40 U Epithel Cells (Auto) 4.0 /HPF (0-13.0) 01/17/19 01:40 Few /HPF 01/17/19 01:40 Vancomycin Trough 16.5 ug/mL (5.0-20.0) 01/19/19 08:00 Blood Type O POSITIVE 01/19/19 08:00 Antibody Screen Negative 01/19/19 08:00 Crossmatch See Detail 01/19/19 08:00 Active Medications - Current Medications Current Medications: Generic Name Dose Route Start Last Admin Trade Name Freq PRN Reason Stop Dose Admin Acetaminophen 650 mg 01/17/19 06:08 Tylenol PO Q4H PRN Pain MILD(1-3)/Fever >100.5/LEBRON Dextrose 50 ml 01/21/19 09:34 D50w (25gm) Syringe IV PRN PRN Hypoglycemia Famotidine 20 mg 01/23/19 10:00 Pepcid IV DAILY GRICEL Hydrophilic Ointment 1 applic 01/19/19 16:02 Vaseline Lip Therapy TP DIRECT PRN Dry Lips Levofloxacin/Dextrose 750 mg in 150 mls @ 100 mls/hr 01/22/19 12:30 01/23/19 09:52 Levaquin 750mg/150ml IV 100 mls/hr Q24HR GRICEL Administration Vancomycin HCl 1,750 mg/ 535 mls @ 333.333 mls/hr 01/22/19 14:00 01/23/19 02:57 Sodium Chloride IV 333.333 mls/hr Q12H GRICEL Administration Insulin Glargine 15 units 01/21/19 22:00 01/22/19 23:04 Lantus SUB-Q Not Given [facility] Insulin Human Lispro 0 unit 01/21/19 11:30 01/23/19 08:46 Humalog SUB-Q Not Given [facility] Protocol Morphine Sulfate 2 mg 01/17/19 08:36 01/22/19 23:09 Morphine IV 2 mg Q4H PRN Administration Pain, Moderate (4-6) Ondansetron HCl 4 mg 01/17/19 06:08 01/22/19 03:38 Zofran IV 4 mg Q8H PRN Administration Nausea And Vomiting Oxycodone/Acetaminophen 1 tab 01/17/19 06:08 Percocet 5/325 PO Q6H PRN Pain, Moderate (4-6) Sodium Chloride 10 ml 01/17/19 10:00 01/22/19 23:10 Sodium Chloride Flush Syringe 10 Ml IV 10 ml BID GRICEL Administration Sodium Chloride 10 ml 01/17/19 06:08 01/22/19 03:40 Sodium Chloride Flush Syringe 10 Ml IV 10 ml PRN PRN Administration LINE FLUSH Nutrition/Malnutrition Assess - Dietary Evaluation Nutrition/Malnutrition Findings: Nutrition Notes Start: 01/19/19 16:23 Freq: Status: Active Protocol: Document 01/22/19 14:49 RAFY (Rec: 01/22/19 14:57 [email or web address]) Nutrition Notes Initial or Follow up Reassessment Current Diagnosis Diabetes Other Pertinent Diagnosis Severe (L) breast necrotizing fasciitis s/p excisional debridement, DKA Current Diet Consistent CHO Labs/Tests Na 147 K 2.6 Phos 2 Pertinent Medications 10mEq KCl at 100ml/hr x 4 bags Height 5 ft 1 in Weight 86 kg [place] [place] Body Weight (kg) 47.72 BMI 35.8 Weight change and time frame Wt change noted Weight Status Obese Subjective/Other Information Pt reports poor appetite, but says it has improved since admission. She is scheduled for additional surgery tomorrow and will be NPO after midnight. She is amenable to trying ONS when PO diet is resumed tomorrow. Burn Absent Trauma Absent #1 Nutrition Diagnosis Inadequate oral intake Diagnosis Progress(for reassessment Continues documentation) Is patient on ventilator? No Is Patient Ambulatory and/or Out of Bed No REE-([facility]-confined to bed) 5282.999 Calculation Used for Recommendations [facility] Additional Notes Pro needs 1.25-1.5g/kg adjBW: 84-100g/day Fluid needs 1ml/kcal Nutrition Intervention Change Diet Order: Continue current diet order Add Supplement/Snack (indicate name/kcal Glucerna BID (strawberry) /protein ) Joe BID Provides kCal: 630 Provides Protein (gm) 25 Goal #1 PO intake of meals plus ONS to meet nutrient needs Goal #2 Wound healing Anticipated Discharge Needs: Continue ONS 1-2 times daily if PO intake remains suboptimal Follow-Up By: 01/23/19 Additional Comments F/U: Order ONS once diet resumed
--- NOTE | 2019-01-23 11:10 | Progress Note ---
Assessment and Plan Cultures: Blood cultures 01/17/2019 no growth so far. Surgical biopsy 01/17/2019 Klebsiella oxytoca and E faecalis Surgical specimen 01/19/2019 Klebsiella oxytoca and E faecalis Assessment: 53 y/o female with history of diabetes, uncontrolled, known to ID service due to admission on 07/28/2017 due to large upper back cutaneous abscess and necrotizing fascitis in Jul 2017. Admitted on 01/17/2019 due to 5-day history of worsening left breast edema, erythema and tenderness associated with AMS/ sleepiness/confusion: 1) Severe Sepsis with septic shock: better, off pressors. Etiology most likely complicated left breast skin and soft tissue infection. UA neg. 2) Complicated extensive left breast skin and soft tissue infection likely necrotizing fascitis/abscess: likely Strep infection ?GAS v/s less likely Staph. She was recently diagnosed with left breast cellulitis. She went to [place] urgent care and was placed on clindamycin, [place] and ibuprofen. On admission d ay, left breast opened up and was draining and bleeding. S/P Left breast wide local debridement, incision and drainage on 01/17/2019. Findings: 300-400 cc of pus drained with at least 30% of the lower inner and outer quadrants with necrosis and resected. CRP=33. OR wound cultures Klebsiella oxytoca and E faecalis. She reports lesion started as a "pimple" and she was placing "warm compresses" to drain it. Path extensive severe acute inflammatory of subcutaneous tissue with abundant necrotic abscess and debris and fat necrosis. Epidermis with acute inflammation acantholysis and subcornal blisters and microabscess, negative for malignant cells. 3) History of large upper back cutaneous abscess and necrotizing fascitis in Jul 2017 s/p OR debridement on 07/30/2017 surgical wound cx + Diphteroids, Staph capitis and Peptostreptococcus treated with clindamycin, levaquin and vancomycin as inpatient, discharged on levaquin 750 mg po qday and flagyl 500 mg TID total 2 weeks from 07/30 until 08/12/2017. 4) Thrombocytosis: from infection, resolved 5) DM-uncontrolled on DKA, better 6) Acute encephalopathy: from severe sepsis and hypernatremia. Improving 7) Penicillin allergy: causes anaphylaxis, tolerating meropenem. Recommendations: - to the OR for wound VAC change and further debridement today - continue vancomycin with PK consult for now until culture finalized D7 to cover E faecalis - continue levaquin 750 mg IV q day D2 to cover Klebsiella (D7 total antibiotics) - at discharge will do levaquin 750 mg PO qday and linezolid 600 mg PO BID total 10 days until 01/28/2019 - diabetes control Will follow Zaina Be MD Infectious Diseases [facility] [place] [facility] ([facility]) M [phone] O [phone] Subjective Date of service: 01/23/19 Principal diagnosis: septic shock, left breast necrotizing fascitis Interval history: Alert, feels better, no complaints. ROS denies N/V/D, abd pain rest negative Objective - Exam Narrative Exam: General appearance: alert in NAD follows commands Eyes: anicteric sclerae, moist conjunctivae; no lid-lag; PERRLA HENT: Atraumatic; oropharynx limited Neck: Trachea midline; supple, no thyromegaly or lymphadenopathy Lungs: CTA CV: rrr Abdomen: Soft, non-tender Extremities: no edema Skin: left breast with extensive edema, tenderness and erythema decreased with wound VAC Psych: no agitated Neuro: alert moves all extremities - Constitutional Vitals: Vital Signs Temp Pulse Resp BP Pulse Ox 98.1 F 89 20 137/79 95 01/23/19 05:46 01/23/19 05:46 01/23/19 05:46 01/23/19 05:46 01/23/19 05:46 Temperature -Last 24 Hours Temperature 98.1 F Temperature 98.8 F Temperature 98.5 F Temperature 98.2 F - Labs CBC & Chem 7: 01/22/19 06:00 01/23/19 Unknown Labs: Abnormal lab results 01/22/19 01/22/19 01/22/19 Range/Units 11:15 16:04 22:52 Potassium (3.6-5.0) mmol/L Carbon Dioxide (22-30) mmol/L BUN (7-17) mg/dL Creatinine (0.7-1.2) mg/dL Glucose (65-100) mg/dL POC Glucose 136 H 202 H 107 H (70-105) Calcium (8.4-10.2) mg/dL 01/23/19 01/23/19 Range/Units 08:23 Unknown Potassium 2.7 L* (3.6-5.0) mmol/L Carbon Dioxide 31 H (22-30) mmol/L BUN 3 L (7-17) mg/dL Creatinine 0.2 L (0.7-1.2) mg/dL Glucose 136 H (65-100) mg/dL POC Glucose 134 H (70-105) Calcium 7.8 L (8.4-10.2) mg/dL
[2019-01-23] MEDS: KCL 20MEQ/100ML 20 MEQ/100 ML BAG IV SCH ×2 (12:46→14:02)
[2019-01-23] MEDS ORDERED: KCL 20MEQ/100ML 20 MEQ/100 ML BAG IV SCH (13:00)
[2019-01-23] MEDS ORDERED: DIPRIVAN 10 MG/ML IV ONE (14:08)
[2019-01-23] MEDS ORDERED: SUBLIMAZE ONE (14:08)
[2019-01-23] MEDS ORDERED: DILAUDID IV PRN (15:20)
--- NOTE | 2019-01-23 15:21 | Operative Report ---
Operative Report Operative Report: Operative Report: Date of Service: January 23, 2019 Preoperative diagnosis: Left breast necrotizing fascitits Postoperative diagnosis: Same Procedure: Left breast third look and wound vac change Surgeon: Sammi Guerra M.D. Anesthesia: General Findings: No additional necrotic tissue present. About 10 cc of pus noted of upper abdomen and drained, placement of wound vac Complications: None Drains: Wound Vac Estimated blood loss: None Disposition: PACU in good condition Indications for operative procedure: This is a 53-year-old -[place] lady with uncontrolled diabetes admitted on 01/17/19 to the ICU for sepsis and in DKA for left breast necrotizing fascitis. On 01/17/2019 she underwent left breast wide local debridement of necrotizing fascitis, incision and drainage and 300- 400 cc of pus drained; 30-35% of breast tissue resected given necrotizing fascitis. She was then taken back on 01/19/2019 for further debridement with improvement noted. Recommendations were to proceed with third look today with possible additional wide local debridement with incision and drainage given significant area of necrotizing fascitis at first surgery and for wound vac changes. Consent was obtained and patient understood indications and risks of surgery. Procedure in detail: The patient was taken to the operating room and was placed supine. General anesthesia was administered. The left breast wound vac was removed. No additional necrotic tissue present. Pus was noted from the upper abdomen that was drained. Breast tissue was viable. Wound VAC was placed and an additional black sponge placed of the upper abdomen to capture any remaining pus present that would be suctioned with Wound VAC. Patient tolerated the procedure very well, she was extubated and then transported back to PACU in good condition. Plastic Surgeon Dr. Heard was present as well for intraoperative consult for closure when appropriate.
--- NOTE | 2019-01-23 15:21 | Anesthesia Day of Surgery ---
Anesthesia Day of Surgery - Day of Surgery Patient Examined: Yes Patient H&P Reviewed: Yes Patient is NPO: Yes
[2019-01-23] MEDS ORDERED: NEURONTIN ONE (15:31)
[2019-01-23] MEDS ORDERED: BACITRACIN ONE (15:33)
[2019-01-23] MEDS ORDERED: TYLENOL ONE (15:33)
[2019-01-23] MEDS ORDERED: LACTATED RINGERS 1,000 ML IV SCH (16:00)
[2019-01-23] MEDS: PEPCID IV SCH (17:39)
[2019-01-23] MEDS: SODIUM CHLORIDE FLUSH SYRINGE 10 ML IV SCH ×2 (17:39→22:50)
[2019-01-23] MEDS: LANTUS SUB-Q SCH (22:49)
[2019-01-24] MEDS: VANCOMYCIN 1,750 MG in NACL 0.9% 500 ML 500 ML IV SCH ×2 (02:46→14:20)
[2019-01-24] MEDS: HumaLOG SUB-Q SCH ×4 (08:12→21:54)
[2019-01-24] MEDS: SODIUM CHLORIDE FLUSH SYRINGE 10 ML IV SCH ×2 (09:50→21:56)
[2019-01-24] MEDS: PEPCID IV SCH (09:50)
[2019-01-24] MEDS: LEVAQUIN 750MG/150ML 750 MG/150 ML BAG IV SCH (09:50)
--- NOTE | 2019-01-24 12:26 | Progress Note ---
Assessment and Plan Assessment and plan: Severe Left breast necrotizing fascititis s/p debridement and removal of about 1/3 of left breast: Another debridement 01/19/19. Continue ABX, wound vac in place. PICC line inserted 01/20/19. Pt scheduled to have further surgery today Severe sepsis due to Left breast cellulitis with abscess: on IV Diflucan, IV Clindamycin and IV Vancomycin with closely drug monitoring. ID is following, input noted. DM II. DKA, resolved: Cont. long acting insulin. Tight glycemic control to promote wound healing Acute metabolic encephalopathy due to the above, resolved, Hypokalemia: replete and monitor bmp Hypernatremia: more free water on d5W now, follow BMP closely PCN drug allergy Acute blood loss anemia/Drop in HCT due to surgery, s/p 1 unit PRBC on 01/20/19: continue to monitor DVT ppx, lovenox stopped for possible surgical intervention, continue to hold heparin due to drop in HCT [place] removed History Interval history: Patient is a 53 yo woman with a history of upper back abscess/necrotizing fascitis s/p OR debridement, IDDM and anemia who presents to [facility] ED with left breast pain and swelling. Currently, patient is confused. She underwent wide excisional debridement on 01/17/[address] Guerra; findings were 300-400 cc of pus drained with at least 30% of the lower inner and outer quadrants with necrosis and resected for left breast necrotizing fascititis. She was then taken back on 01/19/2019 for further debridement with improvement noted. The patient had a third debridement completed on 01/23/19 that revealed no additional necrotic tissue present and only approximately 10 mL of purulence noted in the upper abdomen that was drained. Wound VAC was placed and an additional black sponge placed of the upper abdomen to capture any remaining pus present that would be suctioned with Wound VAC. Patient tolerated the procedure very well, she was extubated and then transported back to PACU in good condition. Plastic Surgeon Dr. Heard was present as well for intraoperative consult for closure when appropriate. Case management was consulted for wound VAC placement at discharge. No new issues overnight Hospitalist Physical - Constitutional Vitals: Temp Pulse Resp BP Pulse Ox 97.6 F 94 H 16 146/75 99 01/24/19 12:01 01/24/19 12:01 01/24/19 12:01 01/24/19 12:01 01/24/19 12:01 General appearance: Present: no acute distress - EENT Eyes: Present: PERRL, EOM intact ENT: hearing intact, clear oral mucosa, dentition normal - Neck Neck: Present: supple, normal ROM - Respiratory Respiratory effort: normal Respiratory: bilateral: CTA - Cardiovascular Rhythm: regular Heart Sounds: Present: S1 & S2. Absent: gallop, rub - Extremities Extremities: no ischemia, No edema, Full ROM - Abdominal General gastrointestinal: soft, non-tender, non-distended, normal bowel sounds - Integumentary Integumentary: Present: clear, warm, dry - Neurologic Neurologic: CNII-XII intact, moves all extremities Results - Labs CBC & Chem 7: 01/22/19 06:00 01/23/19 Unknown Labs: Laboratory Last Values WBC 7.5 K/mm3 (4.5-11.0) 01/22/19 06:00 RBC 2.87 M/mm3 (3.65-5.03) L 01/22/19 06:00 Hgb 9.0 gm/dl (10.1-14.3) L 01/22/19 06:00 Hct 24.9 % (30.3-42.9) L 01/22/19 06:00 MCV 87 fl (79-97) 01/22/19 06:00 MCH 31 pg (28-32) 01/22/19 06:00 MCHC 36 % (30-34) H 01/22/19 06:00 RDW 13.6 % (13.2-15.2) 01/22/19 06:00 Plt Count 366 K/mm3 (140-440) 01/22/19 06:00 Add Manual Diff Complete 01/18/19 05:39 Total Counted 100 01/18/19 05:39 Seg Neutrophils % Clinical Rehabilitation Specialist 01/17/19 01:17 Seg Neuts % (Manual) 91.0 % (40.0-70.0) H 01/18/19 05:39 0 % 01/18/19 05:39 6.0 % (13.4-35.0) L 01/18/19 05:39 Reactive Lymphs % (Man) 0 % 01/18/19 05:39 1.0 % (0.0-7.3) 01/18/19 05:39 0 % (0.0-4.3) 01/18/19 05:39 0 % (0.0-1.8) 01/18/19 05:39 0 % 01/18/19 05:39 2.0 % 01/18/19 05:39 0 % 01/18/19 05:39 0 % 01/18/19 05:39 Nucleated RBC % Not Reportable 01/18/19 05:39 Seg Neutrophils # Man 15.2 K/mm3 (1.8-7.7) H 01/18/19 05:39 Band Neutrophils # 0.0 K/mm3 01/18/19 05:39 1.0 K/mm3 (1.2-5.4) L 01/18/19 05:39 Abs React Lymphs (Man) 0.0 K/mm3 01/18/19 05:39 0.2 K/mm3 (0.0-0.8) 01/18/19 05:39 0.0 K/mm3 (0.0-0.4) 01/18/19 05:39 0.0 K/mm3 (0.0-0.1) 01/18/19 05:39 0.0 K/mm3 01/18/19 05:39 0.3 K/mm3 01/18/19 05:39 0.0 K/mm3 01/18/19 05:39 Blast Cells # 0.0 K/mm3 01/18/19 05:39 WBC Morphology Not Reportable 01/18/19 05:39 Hypersegmented Neuts Not Reportable 01/18/19 05:39 Hyposegmented Neuts Not Reportable 01/18/19 05:39 Hypogranular Neuts Not Reportable 01/18/19 05:39 Not Reportable 01/18/19 05:39 Not Reportable 01/18/19 05:39 Not Reportable 01/18/19 05:39 Not Reportable 01/18/19 05:39 Not Reportable 01/18/19 05:39 Not Reportable 01/18/19 05:39 Consistent w auto 01/18/19 05:39 Not Reportable 01/18/19 05:39 Plt Clumps, EDTA Not Reportable 01/18/19 05:39 Not Reportable 01/18/19 05:39 Not Reportable 01/18/19 05:39 Not Reportable 01/18/19 05:39 Plt Morphology Comment Not Reportable 01/18/19 05:39 RBC Morphology Not Reportable 01/18/19 05:39 Dimorphic RBCs Not Reportable 01/18/19 05:39 Not Reportable 01/18/19 05:39 Not Reportable 01/18/19 05:39 Few 01/18/19 05:39 Few 01/18/19 05:39 Not Reportable 01/18/19 05:39 Not Reportable 01/18/19 05:39 Not Reportable 01/18/19 05:39 Not Reportable 01/18/19 05:39 Not Reportable 01/18/19 05:39 Not Reportable 01/18/19 05:39 Not Reportable 01/18/19 05:39 Not Reportable 01/18/19 05:39 Not Reportable 01/18/19 05:39 Not Reportable 01/18/19 05:39 Not Reportable 01/18/19 05:39 Not Reportable 01/18/19 05:39 Not Reportable 01/18/19 05:39 Not Reportable 01/18/19 05:39 Not Reportable 01/18/19 05:39 Acanthocytes (Spur) Not Reportable 01/18/19 05:39 Rouleaux Not Reportable 01/18/19 05:39 Not Reportable 01/18/19 05:39 Not Reportable 01/18/19 05:39 Not Reportable 01/18/19 05:39 Not Reportable 01/18/19 05:39 Hem Pathologist Commnt No 01/18/19 05:39 POC ABG pH 7.279 (7.35-7.45) L 01/17/19 13:32 POC ABG pO2 82 (80-105) 01/17/19 13:32 POC ABG HCO3 9.8 (22-26 mml/L) 01/17/19 13:32 POC ABG Total CO2 10 (23-27mmol/L) 01/17/19 13:32 POC ABG O2 Sat 95 01/17/19 13:32 POC ABG Base Excess -17 ((-2) - (+3)mmol/L) 01/17/19 13:32 VBG pH 7.089 (7.320-7.420) L* 01/17/19 02:21 21 % 01/17/19 13:32 Sodium 143 mmol/L (137-145) 01/23/19 Unknown Potassium 2.7 mmol/L (3.6-5.0) L* 01/23/19 Unknown Chloride 101.4 mmol/L (98-107) 01/23/19 Unknown Carbon Dioxide 31 mmol/L (22-30) H 01/23/19 Unknown 13 mmol/L 01/23/19 Unknown BUN 3 mg/dL (7-17) L 01/23/19 Unknown 0.2 mg/dL (0.7-1.2) L 01/23/19 Unknown Estimated GFR > 60 ml/min 01/23/19 Unknown 15 % 01/23/19 Unknown Glucose 136 mg/dL (65-100) H 01/23/19 Unknown POC Glucose 110 (70-105) H 01/24/19 07:50 Lactic Acid 3.50 mmol/L (0.7-2.0) H* 01/17/19 14:05 Calcium 7.8 mg/dL (8.4-10.2) L 01/23/19 Unknown Phosphorus 2.00 mg/dL (2.5-4.5) L 01/22/19 Unknown Magnesium 1.90 mg/dL (1.7-2.3) 01/22/19 Unknown 0.20 mg/dL (0.1-1.2) 01/17/19 03:29 AST 6 units/L (5-40) 01/17/19 03:29 ALT 8 units/L (7-56) 01/17/19 03:29 176 units/L (35-129) H 01/17/19 03:29 28.80 mg/dL (0.00-1.30) H 01/17/19 14:05 6.6 g/dL (6.3-8.2) 01/17/19 03:29 3.1 g/dL (3.9-5) L 01/17/19 03:29 0.9 % 01/17/19 03:29 Yellow (Yellow) 01/17/19 01:40 Slightly-cloudy (Clear) 01/17/19 01:40 5.0 (5.0-7.0) 01/17/19 01:40 Ur Specific Pony 1.026 (1.003-1.030) 01/17/19 01:40 30 mg/dl mg/dL (Negative) 01/17/19 01:40 >=500 mg/dL (Negative) 01/17/19 01:40 80 mg/dL (Negative) 01/17/19 01:40 Sm (Negative) 01/17/19 01:40 Neg (Negative) 01/17/19 01:40 Neg (Negative) 01/17/19 01:40 < 2.0 mg/dL (<2.0) 01/17/19 01:40 Ur Leukocyte Esterase Tr (Negative) 01/17/19 01:40 5.0 /HPF (0.0-6.0) 01/17/19 01:40 10.0 /HPF (0.0-6.0) 01/17/19 01:40 U Epithel Cells (Auto) 4.0 /HPF (0-13.0) 01/17/19 01:40 Few /HPF 01/17/19 01:40 Vancomycin Trough 16.5 ug/mL (5.0-20.0) 01/19/19 08:00 Blood Type O POSITIVE 01/19/19 08:00 Antibody Screen Negative 01/19/19 08:00 Crossmatch See Detail 01/19/19 08:00 Active Medications - Current Medications Current Medications: Generic Name Dose Route Start Last Admin Trade Name Freq PRN Reason Stop Dose Admin Acetaminophen 650 mg 01/17/19 06:08 Tylenol PO Q4H PRN Pain MILD(1-3)/Fever >100.5/LEBRON Dextrose 50 ml 01/21/19 09:34 D50w (25gm) Syringe IV PRN PRN Hypoglycemia Famotidine 20 mg 01/23/19 10:00 01/24/19 09:50 Pepcid IV 20 mg DAILY GRICEL Administration Hydrophilic Ointment 1 applic 01/19/19 16:02 Vaseline Lip Therapy TP DIRECT PRN Dry Lips Levofloxacin/Dextrose 750 mg in 150 mls @ 100 mls/hr 01/22/19 12:30 01/24/19 09:50 Levaquin 750mg/150ml IV 01/28/19 11:29 100 mls/hr Q24HR GRICEL Administration Vancomycin HCl 1,750 mg/ 535 mls @ 333.333 mls/hr 01/22/19 14:00 01/24/19 02:46 Sodium Chloride IV 01/28/19 15:37 333.333 mls/hr Q12H GRICEL Administration Lactated Ringer's 1,000 mls @ 75 mls/hr 01/23/19 16:00 Lactated Ringers IV DIRECT GRICEL Insulin Glargine 15 units 01/21/19 22:00 01/23/19 22:49 Lantus SUB-Q Not Given QHS [facility] Insulin Human Lispro 0 unit 01/21/19 11:30 01/24/19 08:12 Humalog SUB-Q Not Given ACHS [facility] Protocol Morphine Sulfate 2 mg 01/17/19 08:36 01/22/19 23:09 Morphine IV 2 mg Q4H PRN Administration Pain, Moderate (4-6) Ondansetron HCl 4 mg 01/17/19 06:08 01/22/19 03:38 Zofran IV 4 mg Q8H PRN Administration Nausea And Vomiting Oxycodone/Acetaminophen 1 tab 01/17/19 06:08 Percocet 5/325 PO Q6H PRN Pain, Moderate (4-6) Sodium Chloride 10 ml 01/17/19 10:00 01/24/19 09:50 Sodium Chloride Flush Syringe 10 Ml IV 10 ml BID GRICEL Administration Sodium Chloride 10 ml 01/17/19 06:08 01/22/19 03:40 Sodium Chloride Flush Syringe 10 Ml IV 10 ml PRN PRN Administration LINE FLUSH Nutrition/Malnutrition Assess - Dietary Evaluation Nutrition/Malnutrition Findings: Nutrition Notes Start: 01/19/19 16:23 Freq: Status: Active Protocol: Document 01/24/19 08:56 RAFY (Rec: 01/24/19 08:57 RAFY [id number]) Nutrition Notes Initial or Follow up Brief Note Current Diet Consistent CHO Subjective/Other Information No additional necrotic tissue found yesterday during procedure. Nutrition Intervention Add Supplement/Snack (indicate name/kcal Glucerna BID (strawberry) /protein ) Joe BID Provides kCal: 630 Provides Protein (gm) 25 Follow-Up By: 01/26/19 Additional Comments F/U: intakes (meals/ONS)
[2019-01-24 13:15] LABS: BUN/Creatinine Ratio 10; Blood Urea Nitrogen 3 mg/dL (7-17); Calcium 7.8 mg/dL (8.4-10.2); Hemolysis Index 0
--- NOTE | 2019-01-24 18:41 | Progress Note ---
Assessment and Plan This is a 53 year old lady admitted for sepsis on 01/17/19 with left breast necrotizing fascitis. Status post surgery on and 01/19/19 of left breast with wide local debridement with at least 30-35% breast resection due to necrosis and drainage of at least 400 cc of pus for necrotizing fascitis. On 01/23/2019 third look in the OR with no further debridement needed and wound vac changed. 1. No acute events overnight. Pain in good control. 2. Left breast wound vac in place. Wound care consulted on 01/23/19 and will be changed tomorrow and will be followed by wound care until ready for plastic surgery. Patient can be seen as an outpatient for wound care vac changes. Dr. Heard plastic surgeon intraoperative consult yesterday and Dr. Heard will close breast once infection has totally cleared. 4. Decrease WBC to 7 from 23 at admission. 5. ID is following and patient on appropriate antibiotics, cultures from OR with gram negative rods, Kleb and Enteroc. 7. I will see patient in 3 weeks as an outpatient, my office will arrange. Patient will need a mammogram-last mammogram over 2 years ago. Thank you for this consult and please call me with any questions, Dr. Guerra. - Patient Problems (1) Breast abscess Current Visit: Yes Status: Acute (2) Cellulitis of breast Current Visit: Yes Status: Acute (3) Diabetic ketoacidosis Current Visit: Yes Status: Acute Qualifiers: Diabetes mellitus type: type 1 Diabetes mellitus complication detail: without coma Qualified Code(s): E10.10 - Type 1 diabetes mellitus with ketoacidosis without coma (4) Sepsis Current Visit: Yes Status: Acute Qualifiers: Sepsis type: sepsis due to unspecified organism Qualified Code(s): A41.9 - Sepsis, unspecified organism (5) Cellulitis Current Visit: No Status: Acute Qualifiers: Site of cellulitis: trunk Site of cellulitis of trunk: back Qualified C ode(s): L03.312 - Cellulitis of back [any part except buttock] (6) DVT prophylaxis Current Visit: No Status: Acute (7) Hyponatremia syndrome Current Visit: No Status: Acute (8) Metabolic acidosis Current Visit: No Status: Acute Subjective Date of service: 01/24/19 Principal diagnosis: Septic shock, left breast necrotizing fascitis Interval history: Status post left breast wide local debridement of necrotiic tissue and incision and drainage for left breast necrotizing fascitis on 01/17/19 and 01/19/19 and third look surgery on 01/23/2019 with wound vac changed. Patient hemodynamically stable with significant improvement and normalization of WBC. Objective - Constitutional Vitals: Vital Signs - 12hr 01/24/19 01/24/19 12:01 16:53 Temperature 97.6 F 97.9 F Pulse Rate 94 H 97 H Respiratory 16 18 Rate Blood Pressure 146/75 135/79 O2 Sat by Pulse 99 95 Oximetry General appearance: Present: no acute distress - EENT Eyes: PERRL ENT: hearing intact, clear oral mucosa Ears: bilateral: normal - Neck Neck: supple, normal ROM - Respiratory Respiratory effort: normal - Breasts Breasts: other (left wound vac in place to good suction) - Cardiovascular Rhythm: regular Extremities: no ischemia - Gastrointestinal General gastrointestinal: Present: soft, non-tender, non-distended Rectal Exam: deferred - Genitourinary Female genitourinary: deferred - Integumentary Integumentary: clear, warm, dry - Neurologic Neurologic: CNII-XII intact - Psychiatric Psychiatric: appropriate mood/affect, intact judgment & insight, memory intact, cooperative - Labs CBC & Chem 7: 01/22/19 06:00 01/24/19 12:16 Labs: Abnormal lab results 01/23/19 01/23/19 01/24/19 Range/Units 16:35 21:54 07:50 Potassium (3.6-5.0) mmol/L BUN (7-17) mg/dL Creatinine (0.7-1.2) mg/dL Glucose (65-100) mg/dL POC Glucose 187 H 132 H 110 H (70-105) Calcium (8.4-10.2) mg/dL 01/24/19 01/24/19 01/24/19 Range/Units 12:10 12:16 17:02 Potassium 3.4 L D (3.6-5.0) mmol/L BUN 3 L (7-17) mg/dL Creatinine 0.3 L (0.7-1.2) mg/dL Glucose 196 H (65-100) mg/dL POC Glucose 216 H 118 H (70-105) Calcium 7.8 L (8.4-10.2) mg/dL Medications & Allergies - Medications Allergies/Adverse Reactions: Allergies Penicillins Allergy (Severe, Verified 01/23/19 09:16) Angioedema THROAT CLOSES Home Medications: Home Medications Medication Instructions Recorded Confirmed Last Taken Type HYDROcodone/ACETAMINOPHEN [[place] 1 each PO Q6H PRN #12 tablet 08/03/17 01/19/19 Unknown Rx 5-325 Tablet] Bisacodyl [Dulcolax suppos] 10 mg SC QDAY PRN supp.rect 08/09/17 01/19/19 Unknown Rx Ferrous Sulfate [Feosol 325 MG tab] 325 mg PO BID #60 tablet 08/09/17 01/19/19 Unknown Rx Insulin NPH/Regular [NovoLIN 70/30] 10 unit SUB-Q BIDDIAB 30 Days 08/09/17 01/19/19 Unknown Rx units Potassium Chloride [K-Dur] 40 meq PO QDAY #3 tablet 08/09/17 01/19/19 Unknown Rx levoFLOXacin [Levaquin TAB] 750 mg PO DAILY #3 tablet 08/09/17 01/19/19 Unknown Rx metroNIDAZOLE [Flagyl TAB] 500 mg PO Q8HR #10 tablet 08/09/17 01/19/19 Unknown Rx Active Medications: Generic Name Dose Route Start Last Admin Trade Name Aicha PRN Reason Stop Dose Admin Acetaminophen 650 mg 01/17/19 06:08 Tylenol PO Q4H PRN Pain MILD(1-3)/Fever >100.5/LEBRON Dextrose 50 ml 01/21/19 09:34 D50w (25gm) Syringe IV PRN PRN Hypoglycemia Famotidine 20 mg 01/23/19 10:00 01/24/19 09:50 Pepcid IV 20 mg DAILY GRICEL Administration Hydrophilic Ointment 1 applic 01/19/19 16:02 Vaseline Lip Therapy TP DIRECT PRN Dry Lips Levofloxacin/Dextrose 750 mg in 150 mls @ 100 mls/hr 01/22/19 12:30 01/24/19 09:50 Levaquin 750mg/150ml IV 01/28/19 11:29 100 mls/hr Q24HR GRICEL Administration Vancomycin HCl 1,750 mg/ 535 mls @ 333.333 mls/hr 01/22/19 14:00 01/24/19 14:20 Sodium Chloride IV 01/28/19 15:37 333.333 mls/hr Q12H GRICEL Administration Lactated Ringer's 1,000 mls @ 75 mls/hr 01/23/19 16:00 Lactated Ringers IV DIRECT [facility] Insulin Glargine 15 units 01/21/19 22:00 01/23/19 22:49 Lantus SUB-Q Not Given QHS [facility] Insulin Human Lispro 0 unit 01/21/19 11:30 01/24/19 17:11 Humalog SUB-Q Not Given ACHS [facility] Protocol Morphine Sulfate 2 mg 01/17/19 08:36 01/22/19 23:09 Morphine IV 2 mg Q4H PRN Administration Pain, Moderate (4-6) Ondansetron HCl 4 mg 01/17/19 06:08 01/22/19 03:38 Zofran IV 4 mg Q8H PRN Administration Nausea And Vomiting Oxycodone/Acetaminophen 1 tab 01/17/19 06:08 Percocet 5/325 PO Q6H PRN Pain, Moderate (4-6) Sodium Chloride 10 ml 01/17/19 10:00 01/24/19 09:50 Sodium Chloride Flush Syringe 10 Ml IV 10 ml BID GRICEL Administration Sodium Chloride 10 ml 01/17/19 06:08 01/22/19 03:40 Sodium Chloride Flush Syringe 10 Ml IV 10 ml PRN PRN Administration LINE FLUSH
--- NOTE | 2019-01-24 21:45 | Progress Note ---
Assessment and Plan Cultures: Blood cultures 01/17/2019 no growth so far. Surgical biopsy 01/17/2019 Klebsiella oxytoca and E faecalis Surgical specimen 01/19/2019 Klebsiella oxytoca and E faecalis Assessment: 53 y/o female with history of diabetes, uncontrolled, known to ID service due to admission on 07/28/2017 due to large upper back cutaneous abscess and necrotizing fascitis in Jul 2017. Admitted on 01/17/2019 due to 5-day history of worsening left breast edema, erythema and tenderness associated with AMS/ sleepiness/confusion: 1) Severe Sepsis with septic shock: better, off pressors. Etiology most likely complicated left breast skin and soft tissue infection. UA neg. 2) Complicated extensive left breast skin and soft tissue infection likely necrotizing fascitis/abscess: likely Strep infection ?GAS v/s less likely Staph. She was recently diagnosed with left breast cellulitis. She went to [place] urgent care and was placed on clindamycin, [place] and ibuprofen. On admission d ay, left breast opened up and was draining and bleeding. S/P Left breast wide local debridement, incision and drainage on 01/17/2019. Findings: 300-400 cc of pus drained with at least 30% of the lower inner and outer quadrants with necrosis and resected. CRP=33. OR wound cultures Klebsiella oxytoca and E faecalis. She reports lesion started as a "pimple" and she was placing "warm compresses" to drain it. Path extensive severe acute inflammatory of subcutaneous tissue with abundant necrotic abscess and debris and fat necrosis. Epidermis with acute inflammation acantholysis and subcornal blisters and microabscess, negative for malignant cells. 3) History of large upper back cutaneous abscess and necrotizing fascitis in Jul 2017 s/p OR debridement on 07/30/2017 surgical wound cx + Diphteroids, Staph capitis and Peptostreptococcus treated with clindamycin, levaquin and vancomycin as inpatient, discharged on levaquin 750 mg po qday and flagyl 500 mg TID total 2 weeks from 07/30 until 08/12/2017. 4) Thrombocytosis: from infection, resolved 5) DM-uncontrolled on DKA, better 6) Acute encephalopathy: from severe sepsis and hypernatremia. Improving 7) Penicillin allergy: causes anaphylaxis, tolerating meropenem. Recommendations: - to the OR for wound VAC change and further debridement - continue vancomycin with PK consult for now until culture finalized D8 to cover E faecalis - continue levaquin 750 mg IV q day D3 to cover Klebsiella (D8 total antibiotics) - at discharge will do levaquin 750 mg PO qday and linezolid 600 mg PO BID total 10 days until 01/28/2019 - diabetes control Will follow Zaina Be MD Infectious Diseases Chief Technical Officer [facility] ([facility]) M [phone] O [phone] Subjective Date of service: 01/24/19 Principal diagnosis: septic shock, left breast necrotizing fascitis Interval history: Alert, feels better, no complaints. ROS denies N/V/D, abd pain rest negative Objective - Exam Narrative Exam: General appearance: alert in NAD follows commands Eyes: anicteric sclerae, moist conjunctivae; no lid-lag; PERRLA HENT: Atraumatic; oropharynx limited Neck: Trachea midline; supple, no thyromegaly or lymphadenopathy Lungs: CTA CV: rrr Abdomen: Soft, non-tender Extremities: no edema Skin: left breast with extensive edema, tenderness and erythema decreased with wound VAC Psych: no agitated Neuro: alert moves all extremities - Constitutional Vitals: Vital Signs Temp Pulse Resp BP Pulse Ox 97.9 F 97 H 18 135/79 95 01/24/19 16:53 01/24/19 16:53 01/24/19 16:53 01/24/19 16:53 01/24/19 16:53 Temperature -Last 24 Hours Temperature 97.9 F Temperature 97.6 F Temperature 98.1 F Temperature 98.2 F - Labs CBC & Chem 7: 01/22/19 06:00 01/24/19 12:16 Labs: Abnormal lab results 01/23/19 01/23/19 01/24/19 Range/Units 16:35 21:54 07:50 Potassium (3.6-5.0) mmol/L BUN (7-17) mg/dL Creatinine (0.7-1.2) mg/dL Glucose (65-100) mg/dL POC Glucose 187 H 132 H 110 H (70-105) Calcium (8.4-10.2) mg/dL 01/24/19 01/24/19 01/24/19 Range/Units 12:10 12:16 17:02 Potassium 3.4 L D (3.6-5.0) mmol/L BUN 3 L (7-17) mg/dL Creatinine 0.3 L (0.7-1.2) mg/dL Glucose 196 H (65-100) mg/dL POC Glucose 216 H 118 H (70-105) Calcium 7.8 L (8.4-10.2) mg/dL
[2019-01-24] MEDS: LANTUS SUB-Q SCH (21:54)
[2019-01-24] MEDS: MORPHINE IV PRN (23:00)
[2019-01-24] MEDS: SODIUM CHLORIDE FLUSH SYRINGE 10 ML IV PRN (23:04)
[2019-01-25] MEDS: VANCOMYCIN 1,750 MG in NACL 0.9% 500 ML 500 ML IV SCH ×2 (02:59→14:58)
[2019-01-25] MEDS: HumaLOG SUB-Q SCH ×3 (08:22→17:01)
--- NOTE | 2019-01-25 08:47 | Discharge Summary ---
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 IV abx therapy Type Line:: PICC 01/23/19 11:12 Consult to Case Management [CONS] Stat Services Needed at Discharge: Other Notified:: wealth management consultant Additional Physician Instructions: at discharge will do levaquin 750 mg PO qday and linezolid 600 mg PO BID total 10 days until 01/28/2019 01/23/19 16:17 Consult to Wound/ET Nurse [CONS] Urgent Reason For Exam: wound eval, wound vac needs to be change on ursd Primary care physician: USER EXPERIENCE DESIGNER Hospitalization Reason for admission: septic shock Condition: Serious Hospital course: Patient is a 53 yo woman with a history of upper back abscess/necrotizing fascitis s/p OR debridement, IDDM and anemia who presents to [facility] ED with left breast pain and swelling. Patient was noted to be confused on admission. The patient was also noted to have hypotension requiring pressors. The patient was admitted with diagnosis of septic shock secondary to complicated extensive left breast skin and soft tissue infection/necrotizing fasciitis/abscess, DKA requiring insulin drip, toxic metabolic encephalopathy and electrolyte derangements with hypokalemia and hypernatremia. The DKA resolved with insulin drip and patient was sent to long-acting insulin. The patient was weaned off pr essors and blood pressure stabilized. Patient was seen by infectious disease in consultation and placed on appropriate antibiotics. As the septic shock resolved, her mental status improved and returned to baseline. She underwent wide excisional debridement on 01/17/[address] Guerra; findings were 300-400 cc of pus drained with at least 30% of the lower inner and outer quadrants with necrosis and resected for left breast necrotizing fascititis. . Path extensive severe acute inflammatory of subcutaneous tissue with abundant necrotic abscess and debris and fat necrosis. Epidermis with acute inflammation acantholysis and subcornal blisters and microabscess, negative for malignant cells. She was then taken back on 01/19/2019 for further debridement with improvement noted. The patient had a third debridement completed on 01/23/19 that revealed no additional necrotic tissue present and only approximately 10 mL of purulence noted in the upper abdomen that was drained. Wound VAC was placed and an additional black sponge placed of the upper abdomen to capture any remaining pus present that would be suctioned with Wound VAC. Patient tolerated the procedure very well, she was extubated and then transported back to PACU in good condition. Plastic Surgeon Dr. Heard was present as well for intraoperative consult for closure when appropriate. Case management was consulted for wound VAC placement at discharge. Disposition: DC-30 STILL A PATIENT Time spent for discharge: 38 - Discharge Diagnoses (1) Toxic metabolic encephalopathy Status: Acute (2) Breast abscess Status: Acute (3) Cellulitis of breast Status: Acute (4) Diabetic ketoacidosis Status: Acute Qualifiers: Diabetes mellitus type: type 1 Diabetes mellitus complication detail: without coma Qualified Code(s): E10.10 - Type 1 diabetes mellitus with keto acidosis without coma (5) Sepsis Status: Acute Qualifiers: Sepsis type: sepsis due to unspecified organism Qualified Code(s): A41.9 - Sepsis, unspecified organism (6) Diabetes Status: Acute Core Measure Documentation - Palliative Care Palliative Care/ Comfort Measures: Not Applicable - Core Measures Any of the following diagnoses?: none Exam - Constitutional Vitals: Temp Pulse Resp BP Pulse Ox 98.3 F 86 20 147/79 97 01/25/19 05:50 01/25/19 05:50 01/25/19 05:50 01/25/19 05:50 01/25/19 05:50 General appearance: Present: no acute distress, well-nourished - EENT Eyes: Present: PERRL ENT: hearing intact, clear oral mucosa - Neck Neck: Present: supple, normal ROM - Respiratory Respiratory effort: normal Respiratory: bilateral: CTA - Cardiovascular Heart Sounds: Present: S1 & S2. Absent: rub, click - Extremities Extremities: pulses symmetrical, No edema Peripheral Pulses: within normal limits - Abdominal General gastrointestinal: Present: soft, non-tender, non-distended, normal bowel sounds Female genitourinary: Present: normal - Integumentary Integumentary: Present: clear, warm, dry - Musculoskeletal Musculoskeletal: gait normal, strength equal bilaterally - Psychiatric Psychiatric: appropriate mood/affect, intact judgment & insight - Neurologic Neurologic: CNII-XII intact, moves all extremities Plan Activity: advance as tolerated Weight Bearing Status: Weight Bear as Tolerated Diet: diabetic Wound: per wound nurse instructions, other (wound vac) Durable Medical Equipment Needed Upon Discharge: other (wound vac) Follow up with: PRIMARY CARE,MD [Primary Care Provider] - 3-5 Days Prescriptions: Bisacodyl [Dulcolax suppos] 10 mg [place] QDAY PRN #30 supp.rect PRN Reason: Constipation unrelieved by MOM Ferrous Sulfate [Feosol 325 MG tab] 325 mg PO BID #60 tablet Insulin Glargine [Lantus VIAL] 15 units SUB-Q QHS 30 Days units levoFLOXacin [Levaquin TAB] 750 mg PO DAILY #3 tablet oxyCODONE /ACETAMINOPHEN [Percocet 5/325 mg] 1 tab PO Q6H PRN #8 tablet PRN Reason: Pain, Moderate (4-6) Linezolid [Zyvox] 600 mg PO BID #10 tablet
[2019-01-25] MEDS: PEPCID IV SCH (09:01)
[2019-01-25] MEDS: LEVAQUIN 750MG/150ML 750 MG/150 ML BAG IV SCH (09:01)
[2019-01-25] MEDS: SODIUM CHLORIDE FLUSH SYRINGE 10 ML IV SCH (09:01)
[2019-01-25] MEDS: MORPHINE IV PRN (11:39)
[2019-01-25] MEDS ORDERED: DILAUDID IV ONE (14:00)
[2019-01-25 17:42] VITALS: BP 144/71
[2019-01-25] MEDS ORDERED: TRIPLE ANTIBIOTIC TP ONE (18:06)
--- NOTE | 2019-01-25 18:55 | Progress Note ---
Assessment and Plan Cultures: Blood cultures 01/17/2019 no growth so far. Surgical biopsy 01/17/2019 Klebsiella oxytoca and E faecalis Surgical specimen 01/19/2019 Klebsiella oxytoca and E faecalis Assessment: 53 y/o female with history of diabetes, uncontrolled, known to ID service due to admission on 07/28/2017 due to large upper back cutaneous abscess and necrotizing fascitis in Jul 2017. Admitted on 01/17/2019 due to 5-day history of worsening left breast edema, erythema and tenderness associated with AMS/ sleepiness/confusion: 1) Severe Sepsis with septic shock: better, off pressors. Etiology most likely complicated left breast skin and soft tissue infection. UA neg. 2) Complicated extensive left breast skin and soft tissue infection likely necrotizing fascitis/abscess: likely Strep infection ?GAS v/s less likely Staph. She was recently diagnosed with left breast cellulitis. She went to [facility] urgent care and was placed on clindamycin, [place] and ibuprofen. On admission d ay, left breast opened up and was draining and bleeding. S/P Left breast wide local debridement, incision and drainage on 01/17/2019. Findings: 300-400 cc of pus drained with at least 30% of the lower inner and outer quadrants with necrosis and resected. CRP=33. OR wound cultures Klebsiella oxytoca and E faecalis. She reports lesion started as a "pimple" and she was placing "warm compresses" to drain it. Path extensive severe acute inflammatory of subcutaneous tissue with abundant necrotic abscess and debris and fat necrosis. Epidermis with acute inflammation acantholysis and subcornal blisters and microabscess, negative for malignant cells. 3) History of large upper back cutaneous abscess and necrotizing fascitis in Jul 2017 s/p OR debridement on 07/30/2017 surgical wound cx + Diphteroids, Staph capitis and Peptostreptococcus treated with clindamycin, levaquin and vancomycin as inpatient, discharged on levaquin 750 mg po qday and flagyl 500 mg TID total 2 weeks from 07/30 until 08/12/2017. 4) Thrombocytosis: from infection, resolved 5) DM-uncontrolled on DKA, better 6) Acute encephalopathy: from severe sepsis and hypernatremia. Improving 7) Penicillin allergy: causes anaphylaxis, tolerating meropenem. Recommendations: - continue vancomycin with PK consult D9 to cover E faecalis - continue levaquin 750 mg IV q day D4 to cover Klebsiella (D8 total antibiotics) - at discharge will do levaquin 750 mg PO qday and linezolid 600 mg PO BID total 10 days until 01/28/2019 - diabetes control - ID clinic f/u in 1-2 weeks, business card provided Dr Fisher will be rounding tomorrow Zaina Be MD Infectious Diseases [facility] ([facility]) M [phone] O [phone] Subjective Date of service: 01/25/19 Principal diagnosis: Septic shock, left breast necrotizing fascitis Interval history: Alert, feels better, no complaints. ROS denies N/V/D, abd pain rest negative Objective - Exam Narrative Exam: General appearance: alert in NAD follows commands Eyes: anicteric sclerae, moist conjunctivae; no lid-lag; PERRLA HENT: Atraumatic; oropharynx limited Neck: Trachea midline; supple, no thyromegaly or lymphadenopathy Lungs: CTA CV: rrr Abdomen: Soft, non-tender Extremities: no edema Skin: left breast with extensive edema, tenderness and erythema decreased with wound VAC Psych: no agitated Neuro: alert moves all extremities - Constitutional Vitals: Vital Signs Temp Pulse Resp BP Pulse Ox 97.1 F L 75 16 144/71 98 01/25/19 17:25 01/25/19 17:25 01/25/19 17:25 01/25/19 17:25 01/25/19 17:25 Temperature -Last 24 Hours Temperature 97.1 F Temperature 98.4 F Temperature 98.3 F Temperature 98.5 F - Labs CBC & Chem 7: 01/22/19 06:00 01/24/19 12:16 Labs: Abnormal lab results 01/24/19 01/25/19 01/25/19 Range/Units 21:37 07:48 11:32 POC Glucose 143 H 147 H 227 H (70-105) 01/25/19 Range/Units 16:45 POC Glucose 148 H (70-105)
--- NOTE | 2019-01-29 15:49 | Consultation ---
History of Present Illness - Reason for Consult Consult date: 01/23/19 Open wound, left breast Requesting physician: YANIV GUERRA - History of Present Illness Plastic Surgery Consultation 53 year old female admitted with Hyperglycemia, cellulitis of the left breast, found to have necrotizing infection with approximately 400cc of pus beign drained on initial trip to the OR with breast surgeon Dr. Guerra. Consultation called by Dr. Guerra intraoperatively for evaluation of the wound. Left Breast: VAC dressing removed to reveal open wound of the entire inferior pole, from approximately 4 o'clock to 8 o'clock position. Granulation tissue present thro ughout the wound, which is approximately 10cm at its deepest. Inferiorly there is a pocket that tracks towards the upper abdomen and from which about 50cc of pus was expressed. Otherwise, no further necrotic tissue or purulent drainage. Erythema of the skin immediately surrounding the wound. Tissue is freely mobile. It appears that the superior pole is unaffected and supplying adequate blood supply to the nipple areolar complex, which the inferior wound extends to the base of. Recommendations: Continue VAC therapy while on antibiotics (closure not yet appropriate). Recommend extending a sliver of granufoam into the upper abdominal pocket for the next few dressing changes to discourage re-accumulation of pus. Will have patient follow up in my office as an outpatient to schedule her reconstruction to include wound closure and achieving symmetry with the right breast. Past History Past Medical History: diabetes, other (left breast cellulitis, anemia) Past Surgical History: Other (surgery for ectopic ) Social history: no significant social history (no reported history of tobacco, alcohol or illicit drug use) Family history: other (could not be obtained due to altered mental status) Medications and Allergies Allergies Allergy/AdvReac Type Severity Reaction Status Date / Time Penicillins Allergy Severe Angioedema Verified 01/23/19 09:16 Home Medications Medication Instructions Recorded Confirmed Last Taken Type HYDROcodone/ACETAMINOPHEN [[place] 1 each PO Q6H PRN #12 tablet 08/03/17 01/19/19 Unknown Rx 5-325 Tablet] Insulin NPH/Regular [NovoLIN 70/30] 10 unit SUB-Q BIDDIAB 30 Days 08/09/17 01/19/19 Unknown Rx units Potassium Chloride [K-Dur] 40 meq PO QDAY #3 tablet 08/09/17 01/19/19 Unknown Rx Bisacodyl [Dulcolax suppos] 10 mg [place] QDAY PRN #30 supp.rect 01/25/19 Unknown Rx Ferrous Sulfate [Feosol 325 MG tab] 325 mg PO BID #60 tablet 01/25/19 Unknown Rx Insulin Glargine [Lantus VIAL] 15 units SUB-Q QHS 30 Days units 01/25/19 Unk nown Rx Linezolid [Zyvox] 600 mg PO BID #10 tablet 01/25/19 Unknown Rx Lispro Insulin [HumaLOG] 0 unit SUB-Q ACHS units 01/25/19 Unknown Rx levoFLOXacin [Levaquin TAB] 750 mg PO DAILY #3 tablet 01/25/19 Unknown Rx oxyCODONE /ACETAMINOPHEN [Percocet 1 tab PO Q6H PRN #8 tablet 01/25/19 Unknown Rx 5/325 mg] Exam - Constitutional Vitals: Temp Pulse Resp BP Pulse Ox 97.1 F L 75 16 144/71 98 01/25/19 17:25 01/25/19 17:25 01/25/19 17:25 01/25/19 17:25 01/25/19 17:25 Results - Labs CBC & Chem 7: 01/22/19 06:00 01/24/19 12:16
== END 2019-01-25 20:04 | disposition home health service (06) | DRG 853 ==
LOC: SUATTDRO 00:21 → ED 00:21 → CC1 06:08 → 3A 01-20 14:58
PROVIDERS: ADMIT Internal Medicine; ATTEND Hospitalist
PROC: 0HBU0ZZ Excision of Left Breast, Open Approach (ICD-10-PCS; principal; 2019-01-17)
PROC: 0H9U0ZZ Drainage of Left Breast, Open Approach (ICD-10-PCS; 2019-01-17)
PROC: 4A033R1 Measurement of Arterial Saturation, Peripheral, Percutaneous Approach (ICD-10-PCS; 2019-01-17)
PROC: 02H633Z Insertion of Infusion Device into Right Atrium, Percutaneous Approach (ICD-10-PCS; 2019-01-17)
PROC: B244ZZZ Ultrasonography of Right Heart (ICD-10-PCS; 2019-01-17)
PROC: 0HBU0ZZ Excision of Left Breast, Open Approach (ICD-10-PCS; 2019-01-19)
PROC: 0H9U0ZZ Drainage of Left Breast, Open Approach (ICD-10-PCS; 2019-01-19)
PROC: 30233N1 Transfusion of Nonautologous Red Blood Cells into Peripheral Vein, Percutaneous Approach (ICD-10-PCS; 2019-01-20)
PROC: 0HBU0ZZ Excision of Left Breast, Open Approach (ICD-10-PCS; 2019-01-23)
DX: A41.9 Sepsis, unspecified organism (principal); G92 Toxic encephalopathy; E10.10 Type 1 diabetes mellitus with ketoacidosis without coma; M72.6 Necrotizing fasciitis; R65.21 Severe sepsis with septic shock; E87.0 Hyperosmolality and hypernatremia; D62 Acute posthemorrhagic anemia; E87.6 Hypokalemia; N61.1 Abscess of the breast and nipple; N61.0 Mastitis without abscess; D47.3 Essential (hemorrhagic) thrombocythemia; E87.8 Other disorders of electrolyte and fluid balance, not elsewhere classified; E66.9 Obesity, unspecified; Z88.0 Allergy status to penicillin; Z79.899 Other long term (current) drug therapy
CPT/HCPCS: 36415; 36600; 71045; 80048; 80053; 80202; 81001; 82140; 82803; 82805; 82962; 83735; 84100; 85007; 85025; 85027; 86140; 86850; 86900; 86901; 86920; 87040; 87075; 87076; 87116; 87186; 88305; 88307; 88309; 93005; 93010; 94760; G0378; A4217; A6250; J1170; J1335; J1450; J1815; J1956; J2185; J2250; J2270; J2370; J2405; J2704; J3010; J3370; J3480; J7030; J7040; J7070; J7120; P9016

== ENCOUNTER 2019-02-08 12:39 | Outpatient (CLI) | payer BC | END 2019-02-08 12:40 | disposition home or self-care (01) | LOC: WOUND 12:39 | PROVIDERS: ATTEND Surgery | DX: T81.89XA Other complications of procedures, not elsewhere classified, initial encounter (principal); E11.9 Type 2 diabetes mellitus without complications; Y83.8 Other surgical procedures as the cause of abnormal reaction of the patient, or of later complication, without mention of misadventure at the time of the procedure; Y92.89 Other specified places as the place of occurrence of the external cause | CPT/HCPCS: 11042; 11045; G0463; 99215 ==

== ENCOUNTER 2019-02-22 08:53 | Outpatient (CLI) | payer BC ==
[2019-02-22] MEDS ORDERED: XYLOCAINE TOPICAL 4% TP ONE (09:00)
== END 2019-02-22 08:54 | disposition home or self-care (01) ==
LOC: WOUND 08:53
PROVIDERS: ATTEND Surgery
DX: T81.89XD Other complications of procedures, not elsewhere classified, subsequent encounter (principal); E11.9 Type 2 diabetes mellitus without complications; Z90.710 Acquired absence of both cervix and uterus; Y83.8 Other surgical procedures as the cause of abnormal reaction of the patient, or of later complication, without mention of misadventure at the time of the procedure
CPT/HCPCS: 97606

== ENCOUNTER 2019-02-27 12:28 | Emergency (ER) | payer BC, OTHER ==
--- NOTE | 2019-02-27 12:46 | Emergency Department Report ---
Blank Doc - Documentation Documentation: This is a 53-year-old female that presents with uncontrolled HTN. Was sent by PCP. Denies any headache and any symptoms. his initial assessment/diagnostic orders/clinical plan/treatment(s) is/are subject to change based on patient's health status, clinical progression and re- assessment by fellow clinical providers in the ED. Further treatment and workup at subsequent clinical providers discretion. Patient/guardians urged not to elope from the ED as their condition may be serious if not clinically assessed and managed. Initial orders include: 1- Patient sent to MAIN ED for further evaluation and treatment 2- labs
[2019-02-27 13:13] VITALS: BP 178/103
--- NOTE | 2019-02-27 13:20 | Emergency Department Report ---
ED General Adult HPI - General Chief complaint: High BP Stated complaint: HIGH BP Time Seen by Provider: 02/27/19 12:45 Source: patient, RN notes reviewed, old records reviewed Mode of arrival: Ambulatory Limitations: No Limitations - History of Present Illness Initial comments: Primary care doctor: [facility] Plastic surgery: Dr. Heard Past medical history: Type 2 diabetes, necrotizing fasciitis, anemia, left-sided breast wound VAC. Patient is sent to the emergency room by her plastic surgeon for evaluation of elevated blood pressure which is not acutely symptomatic. The patient endorses no acute complaints at this time. She indicates intermittent history of elevated blood pressure in the past. She has consumed caffeine and coffee earlier on today. She currently denies physical pain. She denies all complaints at this time. She further states that if she was not instructed to present to the emergency room for her asymptomatic elevated blood pressure, she would not have independently sought emergency medical attention. -: unknown Improves with: none Worsens with: none Associated Symptoms: denies other symptoms, other (patient did indicate intermittent morning headaches, present for the past weeks, however, headaches not sudden or thunderclap in nature, not maximal in intensity at onset, and she is not currently experiencing a headache at this time.) - Related Data Previous Rx's Medication Instructions Recorded Last Taken Type HYDROcodone/ACETAMINOPHEN [[place] 1 each PO Q6H PRN #12 tablet 08/03/17 Unknown Rx 5-325 Tablet] Insulin NPH/Regular [NovoLIN 70/30] 10 unit SUB-Q BIDDIAB 30 Days 08/09/17 Unknown Rx units Potassium Chloride [K-Dur] 40 meq PO QDAY #3 tablet 08/09/17 Unknown Rx Bisacodyl [Dulcolax suppos] 10 mg [place] QDAY PRN #30 supp.rect 01/25/19 Unknown Rx Ferrous Sulfate [Feosol 325 MG tab] 325 mg PO BID #60 tablet 01/25/19 Unknown Rx Insulin Glargine [Lantus VIAL] 15 units SUB-Q QHS 30 Days units 01/25/19 Unknown Rx Linezolid [Zyvox] 600 mg PO BID #10 tablet 01/25/19 Unknown Rx Lispro Insulin [HumaLOG] 0 unit SUB-Q ACHS units 01/25/19 Unknown Rx levoFLOXacin [Levaquin TAB] 750 mg PO DAILY #3 tablet 01/25/19 Unknown Rx oxyCODONE /ACETAMINOPHEN [Percocet 1 tab PO Q6H PRN #8 tablet 01/25/19 Unknown Rx 5/325 mg] Allergies Allergy/AdvReac Type Severity Reaction Status Date / Time Penicillins Allergy Severe Angioedema Verified 01/23/19 09:16 ED Review of Systems ROS: Stated complaint: HIGH BP Other details as noted in HPI Constitutional: denies: fever Eyes: denies: vision change ENT: denies: dental pain, epistaxis Respiratory: denies: cough Cardiovascular: denies: chest pain Gastrointestinal: denies: abdominal pain Genitourinary: denies: dysuria Musculoskeletal: denies: back pain Neurological: denies: weakness Hematological/Lymphatic: denies: easy bleeding ED Past Medical Hx - Past Medical History Previous Medical History?: Yes Hx Hypertension: No Hx Heart Attack/AMI: No Hx Congestive Heart Failure: No Hx Diabetes: Yes Hx Deep Vein Thrombosis: No Hx Asthma: No Hx COPD: No Hx HIV: No Additional medical history: Anemia - Surgical History Past Surgical History?: Yes Hx Open Heart Surgery: No Hx Pacemaker: No Hx Internal Defibrillator: No Hx Cholecystectomy: No Hx Appendectomy: No Hx Breast Surgery: No Additional Surgical History: Ectopic in 2001 - Social History Smoking Status: Never Smoker Substance Use Type: None - Medications Home Medications: Home Medications Medication Instructions Recorded Confirmed Last Taken Type HYDROcodone/ACETAMINOPHEN [[place] 1 each PO Q6H PRN #12 tablet 08/03/17 01/19/19 Unknown Rx 5-325 Tablet] Insulin NPH/Regular [NovoLIN 70/30] 10 unit SUB-Q BIDDIAB 30 Days 08/09/17 01/19/19 Unknown Rx units Potassium Chloride [K-Dur] 40 meq PO QDAY #3 tablet 08/09/17 01/19/19 Unknown Rx Bisacodyl [Dulcolax suppos] 10 mg [place] QDAY PRN #30 supp.rect 01/25/19 Unknown Rx Ferrous Sulfate [Feosol 325 MG tab] 325 mg PO BID #60 tablet 01/25/19 Unknown Rx Insulin Glargine [Lantus VIAL] 15 units SUB-Q QHS 30 Days units 01/25/19 Unknown Rx Linezolid [Zyvox] 600 mg PO BID #10 tablet 01/25/19 Unknown Rx Lispro Insulin [HumaLOG] 0 unit SUB-Q ACHS units 01/25/19 Unknown Rx levoFLOXacin [Levaquin TAB] 750 mg PO DAILY #3 tablet 01/25/19 Unknown Rx oxyCODONE /ACETAMINOPHEN [Percocet 1 tab PO Q6H PRN #8 tablet 01/25/19 Unknown Rx 5/325 mg] ED Physical Exam - General Limitations: No Limitations General appearance: alert, in no apparent distress - Head Head exam: Present: atraumatic, normocephalic - Eye Eye exam: Present: normal appearance, EOMI. Absent: nystagmus - ENT ENT exam: Present: normal exam, normal orophraynx, mucous membranes moist - Neck Neck exam: Present: normal inspection, full ROM. Absent: tenderness, meningismus - Respiratory Respiratory exam: Present: normal lung sounds bilaterally. Absent: respiratory distress - Cardiovascular Cardiovascular Exam: Present: regular rate, normal rhythm. Absent: bradycardia, tachycardia, irregular rhythm, systolic murmur, diastolic murmur, rubs, gallop - GI/Abdominal GI/Abdominal exam: Present: soft. Absent: distended, tenderness, guarding, rebound, rigid, pulsatile mass - Extremities Exam Extremities exam: Present: normal inspection, full ROM, other (2+ pulses noted in the bilateral upper, lower extremities. Compartments soft. No long bony tenderness. The pelvis is stable.). Absent: pedal edema, calf tenderness - Back Exam Back exam: Present: normal inspection, full ROM. Absent: tenderness, CVA tenderness (R), CVA tenderness (L), paraspinal tenderness, vertebral tenderness - Neurological Exam Neurological exam: Present: alert, oriented X3, normal gait, other (Extraocular movements intact. Tongue midline. No facial droop. Facial sensation intact to light touch in the V1, V2, V3 distribution bilaterally. 5 and 5 strength in 4 extremities.. Sensation is intact to light touch in 4 extremities.). Absent: motor sensory deficit - Psychiatric Psychiatric exam: Present: normal affect, normal mood - Skin Skin exam: Present: warm, dry, intact, normal color, other (wound VAC noted to the left breast. The left breast is nontender. The right breast is unremarkable. Chaperoned by nurse Sabrina Barnett). Absent: rash ED Course Vital Signs 02/27/19 02/27/19 12:45 13:12 Temperature 98.4 F Pulse Rate 89 80 Respiratory 16 16 Rate Blood Pressure 205/113 Blood Pressure 178/103 [Left] O2 Sat by Pulse 100 100 Oximetry ED Medical Decision Making - Lab Data Vital Signs 02/27/19 02/27/19 12:45 13:12 Temperature 98.4 F Pulse Rate 89 80 Respiratory 16 16 Rate Blood Pressure 205/113 Blood Pressure 178/103 [Left] O2 Sat by Pulse 100 100 Oximetry - Medical Decision Making Differential diagnosis, including but not limited to: Elevated blood pressure, white coat syndrome, hypertension Assessment and plan: 53-year-old female sent to the emergency room for asymptomatic elevated blood pressure. Patient is very well-appearing and endorses no acute complaints. She further endorses that she has follow-up with her primary care doctor on Tuesday. Please reference the [employer] clinical policy on hypertension which is not acutely symptomatic. Extensive discussion had with patient regarding need for diet and lifestyle modification, and need to avoid caffeine and stimulants. Patient verbalizes understanding. I did offer to perform blood work for the patient in the ER, but she declined the blood work, as it will not change the initial ER management. Through shared decision making, patient agrees to closely follow up with her outpatient primary care doctor. She indicates that she is reliable to follow-up. Critical care attestation.: If time is entered above; I have spent that time in minutes in the direct care of this critically ill patient, excluding procedure time. ED Disposition Clinical Impression: Elevated blood pressure reading Disposition: DC-01 TO HOME OR SELFCARE Is pt being admited?: No Does the pt Need Aspirin: No Condition: Stable Additional Instructions: Please continue current outpatient medications. Please follow-up with your primary care doctor on Tuesday as scheduled. Avoid consumption of caffeine, stimulants, energy drinks. Participate in physical activities as tolerated, and modified diets to enhance weight loss and decreased blood pressure as we have discussed. Long-term complications of hypertension and elevated blood pressure includes stroke, heart attack, disability, paralysis, loss of quality of life. Return to the emergency room right away with it, worsened or different symptoms not present on the initial emergency room evaluation. Referrals: [facility] [Provider Group] - 3-5 Days
== END 2019-02-27 14:20 | disposition home or self-care (01) ==
LOC: ED 12:28
DX: R03.0 Elevated blood-pressure reading, without diagnosis of hypertension (principal); E11.9 Type 2 diabetes mellitus without complications; Z88.0 Allergy status to penicillin; Z79.899 Other long term (current) drug therapy; Z79.4 Long term (current) use of insulin
CPT/HCPCS: 99282

== ENCOUNTER 2019-02-28 09:04 | Outpatient (CLI) | payer BC ==
[2019-02-28] MEDS ORDERED: XYLOCAINE TOPICAL 4% TP ONE (09:30)
== END 2019-02-28 09:05 | disposition home or self-care (01) ==
LOC: WOUND 09:04
PROVIDERS: ATTEND Surgery
DX: T81.89XD Other complications of procedures, not elsewhere classified, subsequent encounter (principal); E11.9 Type 2 diabetes mellitus without complications; Z90.710 Acquired absence of both cervix and uterus; Y83.8 Other surgical procedures as the cause of abnormal reaction of the patient, or of later complication, without mention of misadventure at the time of the procedure
CPT/HCPCS: 97606

== ENCOUNTER 2019-03-08 09:03 | Outpatient (CLI) | payer BC | END 2019-03-08 09:04 | disposition home or self-care (01) | LOC: WOUND 09:03 | PROVIDERS: ATTEND Surgery | DX: T81.89XD Other complications of procedures, not elsewhere classified, subsequent encounter (principal); E11.69 Type 2 diabetes mellitus with other specified complication; Z90.710 Acquired absence of both cervix and uterus; Y83.8 Other surgical procedures as the cause of abnormal reaction of the patient, or of later complication, without mention of misadventure at the time of the procedure ==

== ENCOUNTER 2019-03-22 08:57 | Outpatient (CLI) | payer BC ==
[2019-03-22] MEDS ORDERED: SILVER NITRATE TP ONE (09:30)
[2019-03-22] MEDS ORDERED: XYLOCAINE TOPICAL 4% TP ONE (09:30)
== END 2019-03-22 08:58 | disposition home or self-care (01) ==
LOC: WOUND 08:57
PROVIDERS: ATTEND Surgery
DX: T81.89XD Other complications of procedures, not elsewhere classified, subsequent encounter (principal); E11.69 Type 2 diabetes mellitus with other specified complication; Z90.710 Acquired absence of both cervix and uterus; Y83.8 Other surgical procedures as the cause of abnormal reaction of the patient, or of later complication, without mention of misadventure at the time of the procedure
CPT/HCPCS: 17250

== ENCOUNTER 2019-04-05 09:13 | Outpatient (CLI) | payer BC ==
[2019-04-05] MEDS ORDERED: SILVER NITRATE TP ONE (09:29)
[2019-04-05] MEDS ORDERED: XYLOCAINE TOPICAL 4% TP ONE (09:29)
== END 2019-04-05 09:14 | disposition home or self-care (01) ==
LOC: WOUND 09:13
PROVIDERS: ATTEND Surgery
DX: T81.89XD Other complications of procedures, not elsewhere classified, subsequent encounter (principal); E11.69 Type 2 diabetes mellitus with other specified complication; Z90.710 Acquired absence of both cervix and uterus; Y83.8 Other surgical procedures as the cause of abnormal reaction of the patient, or of later complication, without mention of misadventure at the time of the procedure
CPT/HCPCS: 17250

== ENCOUNTER 2019-04-12 09:03 | Outpatient (CLI) | payer BC ==
[2019-04-12] MEDS ORDERED: XYLOCAINE TOPICAL 4% TP ONE (09:30)
[2019-04-12] MEDS ORDERED: SILVER NITRATE TP ONE (10:00)
== END 2019-04-12 09:04 | disposition home or self-care (01) ==
LOC: WOUND 09:03
PROVIDERS: ATTEND Surgery
DX: T81.89XD Other complications of procedures, not elsewhere classified, subsequent encounter (principal); E11.9 Type 2 diabetes mellitus without complications; Z90.710 Acquired absence of both cervix and uterus; Y83.8 Other surgical procedures as the cause of abnormal reaction of the patient, or of later complication, without mention of misadventure at the time of the procedure

== ENCOUNTER 2019-04-19 08:58 | Outpatient (CLI) | payer BC ==
[2019-04-19] MEDS ORDERED: SILVER NITRATE TP ONE (10:00)
[2019-04-19] MEDS ORDERED: XYLOCAINE TOPICAL 4% TP ONE (10:00)
== END 2019-04-19 08:59 | disposition home or self-care (01) ==
LOC: WOUND 08:58
PROVIDERS: ATTEND Surgery
DX: T81.89XD Other complications of procedures, not elsewhere classified, subsequent encounter (principal); E11.9 Type 2 diabetes mellitus without complications; Z90.710 Acquired absence of both cervix and uterus; Y83.8 Other surgical procedures as the cause of abnormal reaction of the patient, or of later complication, without mention of misadventure at the time of the procedure
CPT/HCPCS: 17250